=== PATIENT | male | born 1950 | race Caucasian/White ===

== ENCOUNTER 2017-07-18 10:14 | Inpatient (IN) | payer MEDICARE, OTHER ==
[~2017-07-18] VITALS: Ht 172.7 cm; Wt 66.0 kg
[2017-07-18] VITALS (11 sets, daily range): BP systolic 124–187; BP diastolic 76–95; PULSE 72–87; RESP 16–20; TEMP 97.2–97.9; O2SAT 96–100
[~2017-07-18 10:14] MED LIST: GLUCTAB PO; GLYB2.5T3 PO; LISI-372 PO; Z.0.NO CURRENT MEDS
--- NOTE | 2017-07-18 10:43 | PD ---
HPI Chief Complaint: Altered Mental Status Time Seen by Provider: 10:33 Travel History International Travel<30 days: No Contact w/Intl Traveler<30days: No Traveled to known affect area: No History of Present Illness HPI 76-year-old male came to the emergency room brought by EMS for altered mental status. Patient was supposed to show up at his job today but when he did not EMS was called to do a well check visit. They found him wandering in his house naked. He was unaware of his surroundings and altered. Currently there is a friend in the room who says that she last saw him his normal self 2 days ago he did go to his job yesterday and was last seen normal [place] at 5 PM. Patient is awake and sitting up but seems lethargic. His answers are in the form of mumbling. Patient has history of liver cancer and currently in a transplant list. His vital signs were otherwise normal. [facility] Past Medical History Narrative Medical List of his past medical, surgical, social and family history is reviewed from the nursing note. Cancer: No Cardiovascular Problems: No Diabetes: Yes Endocrine: No Genitourinary: No Hepatitis: Yes (HEP.C COMPLETED 6 MO. [place]) Hiatal Hernia: No Immune Disorder: No Musculoskeletal: Yes (ARTHRITIS) Neurologic: No Psychiatric: Yes (DEPRESSION) Reproductive: No Respiratory: No Thyroid Disease: No ?: Not Past Surgical History Abdominal Surgery: No AICD: No Cardiac Surgery: No Ear Surgery: No Endocrine Surgery: No Eye Surgery: No Genitourinary Surgery: No Gynecologic Surgery: No Joint Replacement: No Oral Surgery: No Pacemaker: No Thoracic Surgery: No Social History Alcohol Use: No Tobacco Use: No Substance Use: Yes (HISTORY OF DRUG USE; MARIJUANA) Allergies-Medications (Allergen,Severity, Reaction): Coded Allergies: No Known Allergies (Verified , 07/18/17) Comments No known drug allergies. Reported Meds & Prescriptions Reported Meds & Active Scripts Active Reported Propranolol (Propranolol HCl) 10 Mg Tab 10 Mg PO DAILY Magnesium Oxide 400 Mg Tab 400 Mg PO DAILY Novolog Flexpen Inj (Insulin Aspart) 300 Unit/3 Ml Pen 4 Units SQ TID With Meals Lantus Solostar Pen Inj (Insulin Glargine) 300 Unit/3 Ml Pen 10 Units SQ DAILY Lasix (Furosemide) 40 Mg Tab 80 Mg PO DAILY Spironolactone 100 Mg Tab 200 Mg PO DAILY Temazepam 15 Mg Cap 15 Mg PO HS PRN Narrative Medication List of his home medications reviewed from the nursing note. Review of Systems Except as stated in HPI: all other systems reviewed are Neg Physical Exam Narrative GENERAL: Confused, disheveled, slurred speech SKIN: Focused skin assessment warm/dry. Jaundice, spider hemangioma HEAD: Atraumatic. Normocephalic. EYES: Pupils equal and round. Active. No injection or drainage. ENT: No nasal bleeding or discharge. Mucous membranes pink and moist. NECK: Trachea midline. No JVD. CARDIOVASCULAR: Regular rate and rhythm. No murmur appreciated. RESPIRATORY: No accessory muscle use. Clear to auscultation. Breath sounds equal bilaterally. GASTROINTESTINAL: Abdomen soft, non-tender, nondistended. Hepatic and splenic margins not palpable. MUSCULOSKELETAL: No obvious deformities. No clubbing. No cyanosis. No edema. NEUROLOGICAL: GCS of 14. No obvious cranial nerve deficits. Motor grossly within normal limits. Slurred speech. Flapping tremor PSYCHIATRIC: Unable to assess Data Data Last Documented VS Orders Orders Electrocardiogram (07/18/17 10:52) Ammonia (07/18/17 10:52) Complete Blood Count With Diff (07/18/17 10:52) Comprehensive Metabolic Panel (07/18/17 10:52) Creatine Kinase (Cpk) (07/18/17 10:52) Prothrombin Time / Inr (Pt) (07/18/17 10:52) Troponin I (07/18/17 10:52) Thyroid Stimulating Hormone (07/18/17 10:52) Urinalysis - C+S If Indicated (07/18/17 10:52) Lactic Acid Sepsis Protocol (07/18/17 10:52) Arterial Blood Gas (Abg) (07/18/17 10:52) Blood Culture (07/18/17 10:52) Chest, Single Ap (07/18/17 10:52) Ct Brain W/O Iv Contrast(Rout) (07/18/17 10:52) Blood Glucose (07/18/17 10:52) Ecg Monitoring (07/18/17 10:52) Iv Access Insert/Monitor (07/18/17 10:52) Oximetry (07/18/17 10:52) Sodium Chloride 0.9% Flush (Ns Flush) (07/18/17 11:00) Sodium Chlor 0.9% 1000 Ml Inj (Ns 1000 M (07/18/17 10:52) Drug Screen, Random Urine (07/18/17 10:52) Alcohol (Ethanol) (07/18/17 10:52) Tylenol (Acetaminophen) (07/18/17 10:52) Salicylates (Aspirin) (07/18/17 10:52) Lactulose Liq (Lactulose Liq) (07/18/17 11:00) Sodium Chlor 0.9% 1000 Ml Inj (Ns 1000 M (07/18/17 12:45) Piperacil-Tazo 4.5 Gm Premix (Zosyn 4.5 (07/18/17 12:45) Vancomycin Inj (Vancomycin Inj) (07/18/17 12:45) Sodium Chlor 0.9% 1000 Ml Inj (Ns 1000 M (07/18/17 13:30) Piperacil-Tazo 4.5 Gm Premix (Zosyn 4.5 (07/18/17 13:30) Vancomycin Inj (Vancomycin Inj) (07/18/17 13:30) Comprehensive Metabolic Panel (07/19/17 06:00) Free Thyroxine (T4) (07/19/17 06:00) Hemoglobin (Hgb) A1c (07/19/17 06:00) Magnesium (Mg) (07/19/17 06:00) Phosphorus (Po4) (07/19/17 06:00) Thyroid Stimulating Hormone (07/19/17 06:00) Complete Blood Count With Diff (07/19/17 06:00) Admit Order (Ed Use Only) (07/18/17 13:58) Labs Laboratory Tests Test 07/18/17 11:00 07/18/17 12:10 07/18/17 12:19 White Blood Count 11.0 TH/MM3 Red Blood Count 4.16 MIL/MM3 Hemoglobin 14.8 GM/DL Hematocrit 42.1 % Mean Corpuscular Volume 101.3 FL Mean Corpuscular Hemoglobin 35.5 PG Mean Corpuscular Hemoglobin Concent 35.1 % Red Cell Distribution Width 16.0 % Platelet Count 168 TH/MM3 Mean Platelet Volume 8.4 FL Neutrophils (%) (Auto) 62.4 % Lymphocytes (%) (Auto) 17.2 % Monocytes (%) (Auto) 15.8 % Eosinophils (%) (Auto) 3.8 % Basophils (%) (Auto) 0.8 % Neutrophils # (Auto) 6.9 TH/MM3 Lymphocytes # (Auto) 1.9 TH/MM3 Monocytes # (Auto) 1.7 TH/MM3 Eosinophils # (Auto) 0.4 TH/MM3 Basophils # (Auto) 0.1 TH/MM3 CBC Comment DIFF FINAL Differential Comment Prothrombin Time 12.0 SEC Prothromb Time International Ratio 1.1 RATIO Blood Urea Nitrogen 19 MG/DL Creatinine 1.27 MG/DL Random Glucose 223 MG/DL Total Protein 8.7 GM/DL Albumin 2.9 GM/DL Calcium Level 9.1 MG/DL Alkaline Phosphatase 153 U/L Aspartate Amino Transf (AST/SGOT) 100 U/L Alanine Aminotransferase (ALT/SGPT) 114 U/L Total Bilirubin 3.3 MG/DL Sodium Level 128 MEQ/L Potassium Level 4.5 MEQ/L Chloride Level 94 MEQ/L Carbon Dioxide Level 24.5 MEQ/L Anion Gap 10 MEQ/L Estimat Glomerular Filtration Rate 57 ML/MIN Lactic Acid Level 2.8 mmol/L Ammonia 65 MCMOL/L Total Creatine Kinase 191 U/L Troponin I LESS THAN 0.02 NG/ML Thyroid Stimulating Hormone 3rd Gen 8.000 uIU/ML Salicylates Level LESS THAN 1.7 MG/DL Acetaminophen Level LESS THAN 2.0 MCG/ML Ethyl Alcohol Level LESS THAN 3 MG/DL Urine Color YELLOW Urine Turbidity CLEAR Urine pH 6.0 Urine Specific [place] 1.017 Urine Protein TRACE mg/dL Urine Glucose (UA) 70 mg/dL Urine Ketones NEG mg/dL Urine Occult Blood NEG Urine Nitrite NEG Urine Bilirubin NEG Urine Urobilinogen LESS THAN 2.0 MG/DL Urine Leukocyte Esterase NEG Urine RBC 1 /hpf Urine WBC 1 /hpf Urine Hyaline Casts 6 /lpf Microscopic Urinalysis Comment CATH-CULT NOT IND Urine Opiates Screen POS Urine Barbiturates Screen NEG Urine Amphetamines Screen NEG Urine Benzodiazepines Screen POS Urine Cocaine Screen NEG Urine Cannabinoids Screen NEG Blood Gas Puncture Site RT RADIAL Blood Gas Patient Temperature 98.6 Blood Gas HCO3 22 mmol/L Blood Gas Base Excess -2.4 mmol/L Blood Gas Oxygen Saturation 95 % Arterial Blood pH 7.41 Arterial Blood Partial Pressure CO2 34 mmHg Arterial Blood Partial Pressure O2 86 mmHG Arterial Blood Oxygen Content 17.4 Vol % Arterial Blood Carboxyhemoglobin 1.6 % Arterial Blood Methemoglobin 0.5 % Blood Gas Hemoglobin 13.0 G/DL Oxygen Delivery Device ROOM AIR Blood Gas Inspired Oxygen 21 % MDM Medical Decision Making Medical Screen Exam Complete: Yes Emergency Medical Condition: Yes Medical Record Reviewed: Yes Interpretation(s) Twelve-lead EKG was reviewed by me. Normal sinus rhythm, normal axis, nonspecific ST-T wave changes. Heart rate of 70 bpm. Differential Diagnosis Hepatic encephalopathy, intracranial bleed, stroke Narrative Course 1:15 PM blood test results are back. CPK slightly elevated. Ammonia is elevated. Head CT and chest x-rays within acceptable limits. Patient was given lactulose and IV fluid bolus. He will need to be admitted. Awaiting for the hospitalist to call back. Critical Care Narrative Aggregate critical care time was 30 minutes. Time to perform other separately billable procedures was not included in the critical care time. My time did not include minutes spent treating any other patients simultaneously or on activities that did not directly contribute to the patient's treatment. The services I provided to this patient were to treat and/or prevent clinically significant deterioration that could result in: Altered mental status, sepsis, sepsis, sepsis protocol I provided critical care services requiring my management, as noted below: Chart data review, documentation time, medication orders and management, vital sign assessments/reviewing monitor data, ordering and reviewing lab tests, ordering and interpreting/reviewing x-rays and diagnostic studies, care of the patient and discussion of the patient with the admitting physicians. Procedures EKG Prior to Arrival: Yes Diagnosis Primary Impression: Hepatic encephalopathy Additional Impressions: Lactic acidosis Altered mental state Qualified Codes: R41.0 - Disorientation, unspecified Admitting Information Admitting Physician Requests: Admit Scripts Lactulose Liq (Lactulose Liq) 10 Gm/15 Ml Soln 30 ML PO Q12HR for Infection, #60 ML 0 Refills Prov: Skyler Ward MD 07/19/17 Rifaximin (Xifaxan) 550 Mg Tab 550 MG PO BID for Infection, #60 TAB 3 Refills Prov: Skyler Ward MD 07/19/17 Michael Payne MD Jul 18, 2017 10:42
[2017-07-18] MEDS ORDERED: SODIUM CHLOR 0.9% 1000 ML INJ 1,000 ML IV SCH (10:52)
[2017-07-18] MEDS ORDERED: SPIR100T PO (10:55)
[2017-07-18] MEDS ORDERED: TEMA15CA PO (10:55)
[2017-07-18] MEDS ORDERED: FURO1TAB60 PO (10:55)
[2017-07-18] MEDS ORDERED: GABA300C5 PO (10:56)
[2017-07-18] MEDS ORDERED: LACTULOSE LIQ 300 ML in WATER STERILE FOR IRR BTL 700 ML RECTAL ONE (11:00)
[2017-07-18] MEDS ORDERED: SODIUM CHLORIDE 0.9% FLUSH 5 ML FLUSH IV FLUSH PRN (11:00)
[2017-07-18 11:14] LABS: AUTOMATED NEUTROPHIL # 6.9 TH/MM3 (1.8-7.7); BASOPHIL # 0.1 TH/MM3 (0-0.2); BASOPHIL % 0.8 % (0.0-2.0); EOSINOPHIL # 0.4 TH/MM3 (0-0.4); EOSINOPHIL % 3.8 % (0.0-4.0); HEMATOCRIT 42.1 % (39.0-51.0); HEMO FLAGS DIFF FINAL; LYMPH % 17.2 % (9.0-44.0); LYMPHOCYTE # 1.9 TH/MM3 (1.0-4.8); MEAN CELL VOLUME 101.3 FL (80.0-100.0); MEAN CORPUSCULAR HEMOGLOBIN 35.5 PG (27.0-34.0); MEAN CORPUSCULAR HGB CONC 35.1 % (32.0-36.0); MONO % 15.8 % (0.0-8.0); NEUT % 62.4 % (16.0-70.0); PLATELET COUNT 168 TH/MM3 (150-450); RED BLOOD COUNT 4.16 MIL/MM3 (4.50-5.90)
[2017-07-18 11:23] LABS: INTERNATIONAL NORMALIZED RATIO 1.1 RATIO
--- NOTE | 2017-07-18 11:44 | RADRPT ---
EXAM DATE/TIME: 07/18/2017 11:26 [facility] COMPARISON: No previous studies available for comparison. INDICATIONS : Altered mental status. RADIATION DOSE: 30.62 CTDIvol (mGy) MEDICAL HISTORY : Cirrhosis. Hepatitis C. Diabetes, liver cancer SURGICAL HISTORY : None. ENCOUNTER: Initial ACUITY: 1 day PAIN SCALE: 0/10 LOCATION: cranial TECHNIQUE: Multiple contiguous axial images were obtained of the head. Using automated exposure control and adj ustment of the mA and/or kV according to patient size, radiation dose was kept as low as reasonably a chievable to obtain optimal diagnostic quality images. DICOM format image data is available electro nically for review and comparison. FINDINGS: CEREBRUM: The ventricles are normal for age. No evidence of midline shift, mass lesion, hemorrhage or acute in farction. No extra-axial fluid collections are seen. POSTERIOR FOSSA: The cerebellum and brainstem are intact. The 4th ventricle is midline. The cerebellopontine angle i s unremarkable. EXTRACRANIAL: The visualized portion of the orbits is intact. SKULL: The calvaria is intact. No evidence of skull fracture. CONCLUSION: Normal examination. Ronni Moon MD on July 18, 2017 at 11:42 Board Certified Radiologist. This report was verified electronically.
[2017-07-18 12:09] LABS: ALKALINE PHOSPHATASE 153 U/L (45-117); ALT (GPT) 114 U/L (12-78); ANION GAP 10 MEQ/L (5-15); AST (GOT) 100 U/L (15-37); BICARBONATE 24.5 MEQ/L (21.0-32.0); BLOOD UREA NITROGEN 19 MG/DL (7-18); CHLORIDE 94 MEQ/L (98-107); CREATINE KINASE 191 U/L (39-308); GLOMERULAR FILTRATION RATE 57 ML/MIN (>89); SODIUM (NA) 128 MEQ/L (136-145); TOTAL BILIRUBIN ADULT 3.3 MG/DL (0.2-1.0)
[2017-07-18 12:10] LABS: ACETAMINOPHEN LESS THAN 2.0 MCG/ML (10.0-30.0); POTASSIUM 4.5 MEQ/L (3.5-5.1)
[2017-07-18 12:11] LABS: ALCOHOL LESS THAN 3 MG/DL (0-5)
[2017-07-18] MEDS ORDERED: MAGN400T2 PO (12:13)
[2017-07-18] MEDS ORDERED: NOVOINJ3 SQ (12:13)
[2017-07-18] MEDS ORDERED: LANTINJ SQ (12:13)
[2017-07-18] MEDS ORDERED: PROP10TA6 PO (12:13)
--- NOTE | 2017-07-18 12:31 | RADRPT ---
EXAM DATE/TIME: 07/18/2017 11:23 [facility] COMPARISON: No previous studies available for comparison. INDICATIONS : Confusion, nausea, short of breath. MEDICAL HISTORY : None. SURGICAL HISTORY : None. ENCOUNTER: Initial ACUITY: 1 day PAIN SCORE: 0/10 LOCATION: Bilateral chest FINDINGS: A single view of the chest demonstrates the lungs to be symmetrically aerated without evidence of mas s, infiltrate or effusion. The cardiomediastinal contours are unremarkable. Osseous structures are intact. CONCLUSION: No acute disease. Antony Frederick MD on July 18, 2017 at 12:30 Board Certified Radiologist. This report was verified electronically.
[2017-07-18 12:37] LABS: BLOOD GAS BASE EXCESS -2.4 mmol/L (-2-2); BLOOD GAS CARBOXYHEMOGLOBIN 1.6 % (0-4); BLOOD GAS HCO3 22 mmol/L (22-26); BLOOD GAS METHEMOGLOBIN 0.5 % (0-2); BLOOD GAS O2 HGB SATURATION 95 % (90-100); BLOOD GAS OXYGEN CONTENT 17.4 Vol % (12.0-20.0); BLOOD GAS PCO2 34 mmHg (38-42); BLOOD GAS PO2 86 mmHG (61-120); CRITICAL VALUE NO; DRAW SITE RT RADIAL; FIO2 21 %; OXYGEN DEVICE ROOM AIR; TEMP CORR TO 98.6
[2017-07-18 12:38] LABS: NUMBER OF ARTERIAL PUNCTURES 1; STAT YES; ULNAR PULSE PRESENT
[2017-07-18 12:40] LABS: BLOOD, URINE NEG (NEG); COMMENT (UR) CATH-CULT NOT IND; CULTURE IF INDICATED CATH CULTURE NOT IND; GLUCOSE,URINE 70 mg/dL (NEG); HYALINE CAST, URINE 6 /lpf (RARE); KETONE, URINE NEG (NEG); NITRITE,URINE NEG (NEG); URINE COLOR YELLOW (YELLW/STRAW)
[2017-07-18] MEDS ORDERED: VANCOMYCIN INJ 1,000 MG in SODIUM CHLOR 0.9% 250 ML INJ 250 ML IV ONE ×2 (12:45→13:30)
[2017-07-18] MEDS ORDERED: SODIUM CHLOR 0.9% 1000 ML INJ 1,000 ML IV ONE ×2 (12:45→13:30)
[2017-07-18] MEDS ORDERED: PIPERACIL-TAZO 4.5 GM PREMIX 100 ML IV ONE ×2 (12:45→13:30)
[2017-07-18 13:08] LABS: LACTIC ACID GHOST NOT REPORTABLE
[2017-07-18] MEDS ORDERED: ACETAMINOPHEN 325 MG TAB PO PRN ×2 (14:00)
[2017-07-18] MEDS ORDERED: BISACODYL 10 MG SUPP RECTAL PRN (14:00)
[2017-07-18] MEDS ORDERED: MORPHINE SULFATE 4 MG/ML INJ IV PUSH PRN ×2 (14:00)
[2017-07-18] MEDS ORDERED: traMADol HCL 50 MG TAB PO PRN ×2 (14:00)
[2017-07-18] MEDS ORDERED: LACTULOSE SYRUP 20 GM/30 ML CUP PO PRN (14:00)
[2017-07-18] MEDS ORDERED: HALOPERIDOL LACTATE 5 MG/ML AMP IM PRN (14:00)
[2017-07-18] MEDS ORDERED: SODIUM CHLORIDE 0.9% FLUSH 10 ML FLUSH IV FLUSH PRN ×2 (14:00)
[2017-07-18] MEDS ORDERED: PROCHLORPERAZINE 25 MG SUPP RECTAL PRN (14:00)
[2017-07-18] MEDS ORDERED: ONDANSETRON HCL 4 MG/2 ML VIAL IVP PRN (14:00)
[2017-07-18] MEDS ORDERED: NALOXONE HCL 0.4 MG/ML AMP IV PUSH PRN (14:00)
[2017-07-18] MEDS ORDERED: SODIUM CHLORIDE 0.9% FLUSH 10 ML FLUSH IV FLUSH SCH (14:00)
[2017-07-18] MEDS ORDERED: SENNOSIDES 8.6 MG TAB PO PRN (14:00)
[2017-07-18] MEDS ORDERED: MAGNESIUM HYDROXIDE SUSP 30 ML CUP PO PRN (14:00)
[2017-07-18] MEDS ORDERED: DEXTROSE 50% IN WATER 50 ML VIAL(D50) IV PUSH PRN (14:15)
[2017-07-18] MEDS ORDERED: GLUCAGON 1 MG/ML VIAL OTHER PRN (14:15)
--- NOTE | 2017-07-18 14:27 | HHI.HP ---
[facility] Service [facility] Primary Care Physician [facility] Admission Diagnosis altered mental status, hepatic encephalopathy, sepsis Diagnoses: (1) Diabetes mellitus Diagnosis: Secondary (2) Hepatitis C Diagnosis: Principal (3) Liver cancer Diagnosis: Principal (4) Noncompliance Diagnosis: Secondary (5) Altered mental state Diagnosis: Principal (6) Hepatic encephalopathy Diagnosis: Principal Chief Complaint: Altered mental status Travel History International Travel<30 Days: No Contact w/Intl Traveler <30 Da: No Traveled to Known Affected Are: No History of Present Illness Patient is a 66-year-old male came to the emergency room brought in by EMS for altered mental status. Patient was supposed to go to his job today but when he did not show up EMS was called to do a well check visit. They found him wandering in his house naked. He was unaware of his surroundings and was altered. A friend in the room states that she last saw him normal 2 days ago. She states that he went to his job yesterday and was seen normal then at 5 PM patient is awake and sitting up lethargic and confused. There is some questionable history of liver cancer and questionable history of being on transplant list has obvious hepatic encephalopathy at this time had an ammonia level Will be admitted last GI to see him. And he will be evaluated Review of Systems ROS Limitations: Altered Mental Status Constitutional: DENIES: Diaphoretic episodes, Fatigue, Fever, Weight gain, Weight loss, Chills, Dizziness, Change in appetite Endocrine: DENIES: Heat/cold intolerance, Polydipsia, Polyuria, Polyphagia Eyes: DENIES: Blurred vision, Diplopia, Eye inflammation, Eye pain, Vision loss Ears, nose, mouth, throat: DENIES: Tinnitus, Hearing loss, Vertigo, Nasal discharge Respiratory: DENIES: Apneas, Cough, Snoring, Wheezing, Hemoptysis Cardiovascular: DENIES: Chest pain, Palpitations, Syncope, Dyspnea on Exertion Gastrointestinal: DENIES: Abdominal pain, Black stools, Bloody stools, Constipation Musculoskeletal: DENIES: Joint pain, Muscle aches, Stiffness Integumentary: DENIES: Abnormal pigmentation, Nail changes Hematologic/lymphatic: DENIES: Bruising Immunologic/allergic: DENIES: Eczema, Urticaria Neurologic: COMPLAINS OF: Abnormal gait, DENIES: Headache, Localized weakness, Paresthesias, Seizures, Speech Problems, Tremor Psychiatric: COMPLAINS OF: Anxiety, Confusion, Depression, Agitation, DENIES: Mood changes, Hallucinations, Suicidal Ideation, Homicidal Ideation, Delusions Past Family Social History Past Medical History Diabetes mellitus Hepatitis C supposedly treated Osteoarthritis Depression anxiety Possible liver cancer Hepatic encephalopathy Insomnia Past Surgical History Hand surgery per chart review Reported Medications Reported Meds & Active Scripts Active Reported Propranolol (Propranolol HCl) 10 Mg Tab 10 Mg PO DAILY Magnesium Oxide 400 Mg Tab 400 Mg PO DAILY Novolog Flexpen Inj (Insulin Aspart) 300 Unit/3 Ml Pen 4 Units SQ TID With Meals Lantus Solostar Pen Inj (Insulin Glargine) 300 Unit/3 Ml Pen 10 Units SQ DAILY Lasix (Furosemide) 40 Mg Tab 80 Mg PO DAILY Spironolactone 100 Mg Tab 200 Mg PO DAILY Temazepam 15 Mg Cap 15 Mg PO HS PRN Allergies: Coded Allergies: No Known Allergies (Verified , 07/18/17) Active Ordered Medications Current Medications IV Flush (NS Flush) 2 ml UNSCH PRN IV FLUSH FLUSH AFTER USING IV ACCESS; Start 07/18/17 at 11:00 Sodium Chloride 1,000 ml @ 1,000 mls/hr Q1H IV Last administered on 07/18/17 11:10; Start 07/18/17 at 10:52; Stop 07/18/17 at 11:51; Status DC Lactulose 300 ml/ Sterile Water 1,000 ml @ 0 mls/hr ONCE ONCE RECTAL ; Start 07/18/17 at 11:00; Stop 07/18/17 at 11:34; Status DC Sodium Chloride 1,000 ml @ 999 mls/hr BOLUS ONCE IV Last administered on 07/18 13:30; Start 07/18/17 at 12:45; Stop 07/18/17 at 13:45; Status DC Piperacillin Sod/ Tazobactam Sod 100 ml @ 200 mls/hr ONCE ONCE IV Last administered on 07/18/17 13:31; Start 07/18/17 at 12:45; Stop 07/18/17 at 14:00 ; Status DC Vancomycin HCl 1000 mg/Sodium Chloride 250 ml @ 250 mls/hr ONCE ONCE IV ; Start 07/18/17 at 12:45; Stop 07/18/17 at 14:00; Status DC Sodium Chloride 1,000 ml @ 999 mls/hr BOLUS ONCE IV ; Start 07/18/17 at 13:30 ; Stop 07/18/17 at 14:30 Piperacillin Sod/ Tazobactam Sod 100 ml @ 200 mls/hr ONCE ONCE IV ; Start at 13:30; Stop 07/18/17 at 13:59; Status DC Vancomycin HCl 1000 mg/Sodium Chloride 250 ml @ 250 mls/hr ONCE ONCE IV ; Start 07/18/17 at 13:30; Stop 07/18/17 at 14:29 Sodium Chloride (NS Flush) 2 ml UNSCH PRN IV FLUSH FLUSH AFTER USING IV ACCESS ; Start 07/18/17 at 14:00; Status UNV Sodium Chloride (NS Flush) 2 ml BID IV FLUSH ; Start 07/18/17 at 14:00; Status UNV Acetaminophen (Tylenol) 650 mg Q4H PRN PO TEMP > 100.4; Start 07/18/17 at 14:00 Ondansetron HCl (Zofran Inj) 4 mg Q6H PRN IVP NAUSEA OR VOMITING; Start at 14:00; Status UNV Prochlorperazine (Compazine Supp) 25 mg Q12H PRN MD NAUSEA OR VOMITING; Start 07/18/17 at 14:00; Status UNV Acetaminophen (Tylenol) 650 mg Q6H PRN PO PAIN SCALE 1 TO 2; Start 07/18/17 at 14:00; Status UNV Morphine Sulfate (Morphine Inj) 2 mg Q3H PRN IV PUSH Pain 3-5; if unable to take PO; Start 07/18/17 at 14:00; Status UNV Morphine Sulfate (Morphine Inj) 4 mg Q3H PRN IV PUSH Pain 6-10;if unable to take PO; Start 07/18/17 at 14:00; Status UNV Tramadol HCl (Ultram) 50 mg Q4H PRN PO PAIN SCALE 3 TO 5; Start 07/18/17 at 14: 00; Status UNV Tramadol HCl (Ultram) 100 mg Q4H PRN PO PAIN SCALE 6 TO 10; Start 07/18/17 at 14:00; Status UNV Naloxone HCl (Narcan Inj) 0.4 mg UNSCH PRN IV PUSH SEE LABEL COMMENTS; Start at 14:00; Status UNV Senna/Docusate Sodium (Sandra-Colace) 1 tab BID PO ; Start 07/18/17 at 14:00; Status UNV Magnesium Hydroxide (Milk Of Magnesia Liq) 30 ml Q12H PRN PO MILD - MODERATE CONSTIPATION; Start 07/18/17 at 14:00; Status UNV Sennosides (Senokot) 17.2 mg Q12H PRN PO MODERATE - SEVERE CONSTIPATION; Start 07/18/17 at 14:00; Status UNV Bisacodyl (Dulcolax Supp) 10 mg DAILY PRN RECTAL SEVERE CONSITIPATION; Start at 14:00; Status UNV Lactulose (Lactulose Liq) 30 ml DAILY PRN PO SEVERE CONSITIPATION; Start at 14:00; Status UNV Sodium Chloride (NS Flush) 2 ml UNSCH PRN IV FLUSH FLUSH AFTER USING IV ACCESS ; Start 07/18/17 at 14:00; Status UNV Sodium Chloride (NS Flush) 2 ml BID IV FLUSH ; Start 07/18/17 at 21:00; Status UNV Lactulose (Lactulose Liq) 30 ml Q6H PO ; Start 07/18/17 at 14:00; Status UNV Rifaximin (Xifaxan) 550 mg BID PO ; Start 07/18/17 at 21:00; Status UNV Haloperidol Lactate (Haldol Inj) 5 mg Q6H PRN IM AGITATION; Start 07/18/17 at 14:00; Status UNV Thiamine HCl (Vitamin B1) 100 mg DAILY PO ; Start 07/18/17 at 14:00; Status UNV Furosemide (Lasix) 80 mg DAILY PO ; Start 07/19/17 at 09:00; Status UNV Magnesium Oxide (Mag-Ox) 400 mg DAILY PO ; Start 07/19/17 at 09:00; Status UNV Propranolol HCl (Inderal) 10 mg DAILY PO ; Start 07/19/17 at 09:00; Status UNV Spironolactone (Aldactone) 200 mg DAILY PO ; Start 07/19/17 at 09:00; Status UNV Non-Formulary Medication 4 units TID SQ ; Start 07/18/17 at 18:00; Status UNV Non-Formulary Medication 10 units DAILY SQ ; Start 07/19/17 at 09:00; Status UNV Family History Unable to obtain secondary to confusion Social History Unknown if he has alcohol issues or tobacco issues currently is not able to tell me History of drug use and marijuana Physical Exam Vital Signs Vital Signs Date Time Temp Pulse Resp B/P (MAP) Pulse Ox O2 Delivery O2 Flow Rate FiO2 07/18/17 10:41 76 18 156/95 (115) 100 Room Air 07/18/17 10:41 76 20 100 Room Air 07/18/17 10:27 97.9 72 20 169/89 (115) 100 Physical Exam GENERAL: This is a cachectic appearing, but well-developed patient, in no apparent distress. Confused slurred speech SKIN: No rashes, ecchymoses or lesions. Cool and dry. Slight jaundice HEAD: Atraumatic. Normocephalic. No temporal or scalp tenderness. EYES: Pupils equal round and reactive. Extraocular motions intact. Mild scleral icterus. No injection or drainage. ENT: Nose without bleeding, purulent drainage or septal hematoma. Throat without erythema, tonsillar hypertrophy or exudate. Uvula midline. Airway patent. Tongue midline NECK: Trachea midline. No JVD or lymphadenopathy. Supple, nontender, no meningeal signs. CARDIOVASCULAR: Regular rate and rhythm without murmurs, gallops, or rubs. S1 and S2 no S3 or S4 RESPIRATORY: Clear to auscultation. Breath sounds equal bilaterally. No wheezes , rales, or rhonchi. GASTROINTESTINAL: Abdomen soft, non-tender, nondistended. No hepato-splenomegaly , or palpable masses. No guarding. MUSCULOSKELETAL: Extremities without clubbing, cyanosis, or edema. No joint tenderness, effusion, or edema noted. No calf tenderness. Negative Homans sign bilaterally. NEUROLOGICAL: Awake and alert. Cranial nerves II through XII intact. Motor and sensory grossly within normal limits. Five out of 5 muscle strength in all muscle groups. Normal speech. Slurred speech tremors Insight and judgment are poor Mood and behavior are not appropriate Laboratory Laboratory Tests Test 07/18/17 11:00 07/18/17 12:10 07/18/17 12:19 White Blood Count 11.0 Red Blood Count 4.16 Hemoglobin 14.8 Hematocrit 42.1 Mean Corpuscular Volume 101.3 Mean Corpuscular Hemoglobin 35.5 Mean Corpuscular Hemoglobin Concent 35.1 Red Cell Distribution Width 16.0 Platelet Count 168 Mean Platelet Volume 8.4 Neutrophils (%) (Auto) 62.4 Lymphocytes (%) (Auto) 17.2 Monocytes (%) (Auto) 15.8 Eosinophils (%) (Auto) 3.8 Basophils (%) (Auto) 0.8 Neutrophils # (Auto) 6.9 Lymphocytes # (Auto) 1.9 Monocytes # (Auto) 1.7 Eosinophils # (Auto) 0.4 Basophils # (Auto) 0.1 CBC Comment DIFF FINAL Differential Comment Prothrombin Time 12.0 Prothromb Time International Ratio 1.1 Blood Urea Nitrogen 19 Creatinine 1.27 Random Glucose 223 Total Protein 8.7 Albumin 2.9 Calcium Level 9.1 Alkaline Phosphatase 153 Aspartate Amino Transf (AST/SGOT) 100 Alanine Aminotransferase (ALT/SGPT) 114 Total Bilirubin 3.3 Sodium Level 128 Potassium Level 4.5 Chloride Level 94 Carbon Dioxide Level 24.5 Anion Gap 10 Estimat Glomerular Filtration Rate 57 Lactic Acid Level 2.8 Ammonia 65 Total Creatine Kinase 191 Troponin I LESS THAN 0.02 Thyroid Stimulating Hormone 3rd Gen 8.000 Salicylates Level LESS THAN 1.7 Acetaminophen Level LESS THAN 2.0 Ethyl Alcohol Level LESS THAN 3 Urine Color YELLOW Urine Turbidity CLEAR Urine pH 6.0 Urine Specific Dickens 1.017 Urine Protein TRACE Urine Glucose (UA) 70 Urine Ketones NEG Urine Occult Blood NEG Urine Nitrite NEG Urine Bilirubin NEG Urine Urobilinogen LESS THAN 2.0 Urine Leukocyte Esterase NEG Urine RBC 1 Urine WBC 1 Urine Hyaline Casts 6 Microscopic Urinalysis Comment CATH-CULT NOT IND Urine Opiates Screen POS Urine Barbiturates Screen NEG Urine Amphetamines Screen NEG Urine Benzodiazepines Screen POS Urine Cocaine Screen NEG Urine Cannabinoids Screen NEG Blood Gas Puncture Site RT RADIAL Blood Gas Patient Temperature 98.6 Blood Gas HCO3 22 Blood Gas Base Excess -2.4 Blood Gas Oxygen Saturation 95 Arterial Blood pH 7.41 Arterial Blood Partial Pressure CO2 34 Arterial Blood Partial Pressure O2 86 Arterial Blood Oxygen Content 17.4 Arterial Blood Carboxyhemoglobin 1.6 Arterial Blood Methemoglobin 0.5 Blood Gas Hemoglobin 13.0 Oxygen Delivery Device ROOM AIR Blood Gas Inspired Oxygen 21 Date/Time Source Procedure Growth Status 07/18/17 11:00 Blood Peripheral Aerobic Blood Culture Pending Received 07/18/17 11:00 Blood Peripheral Anaerobic Blood Culture Pending Received Result Diagram: 07/18/17 1100 07/18/17 1100 Imaging Last Impressions Head CT 07/18/17 1052 Signed Impressions: Service Date/Time: Tuesday, July 18, 2017 11:26 - CONCLUSION: Normal examination. Ronni Moon MD Chest X-Ray 07/18/17 1052 Signed Impressions: Service Date/Time: Tuesday, July 18, 2017 11:23 - CONCLUSION: No acute disease. MD Evan Viramontes VTE Risk Assessment Caprini VTE Risk Assessment: Mod/High Risk (score >= 2) Caprini Risk Assessment Model Point Value = 1 Point Value = 2 Point Value = 3 Point Value = 5 Age 41-60 Minor surgery BMI > 25 kg/m2 Swollen legs Varicose veins or History of unexplained or recurrent spontaneous Oral contraceptives or hormone replacement Sepsis (< 1 month) Serious lung disease, including pneumonia (< 1 month) Abnormal pulmonary function Acute myocardial infarction Congestive heart failure (< 1 month) History of inflammatory bowel disease Medical patient at bed rest Age 61-74 Arthroscopic surgery Major open surgery (> 45 min) Laparoscopic surgery (> 45 min) Malignancy Confined to bed (> 72 hours) Immobilizing plaster cast Central venous access Age >= 75 History of VTE Family history of VTE Factor V Leiden Prothrombin [id number] Lupus anticoagulant Anticardiolipin antibodies Elevated serum homocysteine Heparin-induced thrombocytopenia Other congenital or acquired thrombophilia Stroke (< 1 month) Elective arthroplasty Hip, pelvis, or leg fracture Acute spinal cord injury (< 1 month) Prophylaxis Regimen Total Risk Factor Score Risk Level Prophylaxis Regimen 0-1 Low Early ambulation 2 Moderate Order ONE of the following: *Sequential Compression Device (SCD) *Heparin 5000 units SQ BID 3-4 Higher Order ONE of the following medications: *Heparin 5000 units SQ TID *Enoxaparin/Lovenox 40 mg SQ daily (WT < 150 kg, CrCl > 30 mL/min) *Enoxaparin/Lovenox 30 mg SQ daily (WT < 150 kg, CrCl > 10-29 mL/min) *Enoxaparin/Lovenox 30 mg SQ BID (WT < 150 kg, CrCl > 30 mL/min) AND/OR *Sequential Compression Device (SCD) 5 or more Highest Order ONE of the following medications: *Heparin 5000 units SQ TID (Preferred with Epidurals) *Enoxaparin/Lovenox 40 mg SQ daily (WT < 150 kg, CrCl > 30 mL/min) *Enoxaparin/Lovenox 30 mg SQ daily (WT < 150 kg, CrCl > 10-29 mL/min) *Enoxaparin/Lovenox 30 mg SQ BID (WT < 150 kg, CrCl > 30 mL/min) AND *Sequential Compression Device (SCD) Assessment and Plan Problem List: (1) Noncompliance ICD Code: Z91.19 - Patient's noncompliance with other medical treatment and regimen (2) Hepatitis C ICD Code: B19.20 - Unspecified viral hepatitis C without hepatic coma (3) Liver cancer ICD Code: C22.9 - Malignant neoplasm of liver, not specified as primary or secondary (4) Diabetes mellitus ICD Code: E11.9 - Type 2 diabetes mellitus without complications (5) Altered mental state ICD Code: R41.82 - Altered mental status, unspecified Status: Acute (6) Hepatic encephalopathy ICD Code: K72.90 - Hepatic failure, unspecified without coma Status: Acute Assessment and Plan Altered mental status suspect secondary to hepatic encephalopathy his ammonia level is elevated as flapping tremors will give lactulose multiple times a day until this comes down Liver cancer/hepatitis C. On chronic medications for cirrhosis Diabetes mellitus continue sliding scale coverage diabetic diet and Accu-Cheks before meals and at bedtime Depression home medications Chronic cirrhosis continue on all medications for this including lactulose which will be increased since On His Med Reconciliation We Will Add Rifaximin 550 mg twice a day Continue on some fluids due to the renal insufficiency/dehydration We'll get a.m. labs We'll get physical therapy and occupational therapy to eval and treat We'll get case management to help regarding placement Per chart review patient is supposedly on transplant list Code Status Full code Discussed Condition With Emergency room physician ER nurse and patient who is quite confused and not a good source of information Physician Certification 2 Midnight Certification Type: Admission for Inpatient Services Order for Inpatient Services The services are ordered in accordance with Medicare regulations or non- Medicare payer requirements, as applicable. In the case of services not specified as inpatient-only, they are appropriately provided as inpatient services in accordance with the 2-midnight benchmark. Estimated LOS (days): 3 3 days is the estimated time the patient will need to remain in the hospital, assuming treatment plan goals are met and no additional complications. Post-Hospital Plan: Not yet determined Problem Qualifiers (1) Altered mental state: Qualified Codes: R41.0 - Disorientation, unspecified Florin Padilla DO Jul 18, 2017 14:27
[2017-07-18] MEDS: LACTULOSE SYRUP 20 GM/30 ML CUP PO SCH ×2 (15:09→20:19)
[2017-07-18] MEDS: SODIUM CHLOR 0.9% 1000 ML INJ 1,000 ML IV SCH ×2 (15:10→16:47)
[2017-07-18] MEDS: PANTOPRAZOLE SOD 40 MG DELAYED RELEASE TAB PO SCH ×2 (15:10→20:19)
[2017-07-18] MEDS: THIAMINE HCL 100 MG TAB PO SCH (15:42)
[2017-07-18] MEDS: DOCUSATE SODIUM 50 MG/SENNA 8.6 MG TAB PO SCH ×2 (15:43→20:19)
[2017-07-18] MEDS: INSULIN ASPART SUPPLEMENTAL SCALE SQ SCH ×2 (17:00→20:20)
[2017-07-18] MEDS: INSULIN ASPART 1,000 UNITS/10 ML VIAL SQ SCH (18:09)
[2017-07-18] MEDS: SODIUM CHLORIDE 0.9% FLUSH 10 ML FLUSH IV FLUSH SCH (20:19)
[2017-07-18] MEDS: RIFAXIMIN 550 MG TAB PO SCH (20:19)
[2017-07-19] VITALS: BP 101/62; PULSE 73; RESP 16; TEMP 97.7; O2SAT 94
[2017-07-19] MEDS: LACTULOSE SYRUP 20 GM/30 ML CUP PO SCH ×2 (01:08→08:41)
[2017-07-19 04:00] VITALS: BP 113/64; PULSE 73; RESP 16; TEMP 97.7; O2SAT 98
[2017-07-19] MEDS: SODIUM CHLOR 0.9% 1000 ML INJ 1,000 ML IV SCH (04:28)
[2017-07-19] MEDS: INSULIN ASPART 1,000 UNITS/10 ML VIAL SQ SCH (08:00)
[2017-07-19 08:40] VITALS: O2SAT 95
[2017-07-19] MEDS: PANTOPRAZOLE SOD 40 MG DELAYED RELEASE TAB PO SCH (08:40)
[2017-07-19] MEDS: INSULIN ASPART SUPPLEMENTAL SCALE SQ SCH (08:41)
[2017-07-19] MEDS: SODIUM CHLORIDE 0.9% FLUSH 10 ML FLUSH IV FLUSH SCH (08:41)
[2017-07-19] MEDS: RIFAXIMIN 550 MG TAB PO SCH (08:41)
[2017-07-19] MEDS: THIAMINE HCL 100 MG TAB PO SCH (08:42)
[2017-07-19] MEDS: DOCUSATE SODIUM 50 MG/SENNA 8.6 MG TAB PO SCH (08:43)
[2017-07-19 08:55] VITALS: PULSE 79
[2017-07-19] MEDS ORDERED: MAGNESIUM OXIDE 400 MG TAB PO SCH (09:00)
[2017-07-19] MEDS ORDERED: INSULIN DETEMIR 100 UNITS/ML VIAL SQ SCH (09:00)
[2017-07-19] MEDS ORDERED: SPIRONOLACTONE 100 MG TAB PO SCH (09:00)
[2017-07-19] MEDS ORDERED: PROPRANOLOL HCL 10 MG TAB PO SCH (09:00)
[2017-07-19] MEDS ORDERED: FUROSEMIDE 40 MG TAB PO SCH (09:00)
[2017-07-19 09:03] LABS: AUTOMATED NEUTROPHIL # 4.6 TH/MM3 (1.8-7.7); BASOPHIL % 0.5 % (0.0-2.0); EOSINOPHIL # 0.1 TH/MM3 (0-0.4); EOSINOPHIL % 2.3 % (0.0-4.0); HEMATOCRIT 34.9 % (39.0-51.0); LYMPH % 8.8 % (9.0-44.0); LYMPHOCYTE # 0.5 TH/MM3 (1.0-4.8); MEAN CORPUSCULAR HEMOGLOBIN 35.3 PG (27.0-34.0); MEAN CORPUSCULAR HGB CONC 34.6 % (32.0-36.0); MONO % 11.2 % (0.0-8.0); NEUT % 77.2 % (16.0-70.0); PLATELET COUNT 85 TH/MM3 (150-450); RED BLOOD COUNT 3.42 MIL/MM3 (4.50-5.90); RED CELL DISTRIBUTION WIDTH 15.9 % (11.6-17.2)
[2017-07-19 09:07] LABS: HEMO FLAGS AUTO DIFF
--- NOTE | 2017-07-19 09:24 | PD.CONS ---
HPI History of Present Illness This is a 66 year old male with a history of liver cirrhosis, hepatocellular carcinoma, esophageal varices, hepatic encephalopathy, recurrent ascites, who was brought to the emergency room for evaluation of altered mental status. He did not show up for work yesterday and a coworker called for a well person check. He was found lying on the floor naked and confused. He was brought to the hospital for further evaluation and treatment of found to have an ammonia level of 65. He is currently alert and oriented 3. He tells me that he has peripheral neuropathy and when he came home from work on Monday, he was having significant lower extremity pain and therefore took an oxymorphine along with his temazepam. He reports that the next thing he remembers was waking up with EVAC over him. He was diagnosed with liver cirrhosis secondary to alcohol and hepatitis C (Genotype 1A) in 2003. He was unsuccessfully treated with interferon and ribavirin. He was then treated with Sovaldi, but states that he did not maintain a sustained virologic response. He quit drinking in 2005. He also quit using marijuana at that time; the transplant list. He has not had any alcohol since that time. He was then diagnosed with hepatocellular carcinoma in 2016 and underwent transcatheter arterial chemoembolization on , 06/15/16, 11/08/16, and 01/11/17. He then had a follow-up CT scan which did not appreciate any residual disease. He has recurrent ascites and requires paracentesis every 2-3 weeks. His last paracentesis was 06/30/17 and he had 3.5 L removed. He had esophageal varices in 2003, and had a band ligation at that time but states he hasn't had any issues with these since that time. He's had an EGD and a colonoscopy within the past year or 2 through the [facility]. He is currently followed by the [facility]. He reports that the [facility] [place] sent him to [place] for liver transplant evaluation and they are scheduling another appointment form. He reports that his AST and ALT are usually in the 100 range. He denies any nausea, vomiting, abdominal pain, lower extremity edema, melena, or hematochezia. He is on Lasix 80mg po daily and Spironolactone 200mg po daily, and propranolol 10mg po daily. He does not take any lactulose or Xifaxan at home. (La Nena Odell) PFSH Past Medical History Diabetes mellitus Hepatitis C (genotype 1A), unsuccessful tx Osteoarthritis Depression Anxiety Hepatocellular carcinoma Recurrent ascites Hx esophageal varices Liver cirrhosis Hepatic encephalopathy Insomnia Past Surgical History Hand surgery TACE procedure EGD with band ligation Colonoscopy (La Nena Odell) Coded Allergies: No Known Allergies (Verified , 07/18/17) Medications Allergies Coded Allergies Type Severity Reaction Last Updated Verified No Known Allergies 07/18/17 Yes Active Scripts Medications Dose Route/Sig Max Daily Dose Days Date Category Dose Instructions Propranolol (Propranolol HCl) 10 Mg Tab 10 Mg PO DAILY 07/18/17 Reported Magnesium Oxide 400 Mg Tab 400 Mg PO DAILY 07/18/17 Reported Novolog Flexpen Inj (Insulin Aspart) 300 Unit/3 Ml Pen 4 Units SQ TID 07/18/17 Reported With Meals Lantus Solostar Pen Inj (Insulin Glargine) 300 Unit/3 Ml Pen 10 Units SQ DAILY 07/18/17 Reported Lasix (Furosemide) 40 Mg Tab 80 Mg PO DAILY 07/18/17 Reported Spironolactone 100 Mg Tab 200 Mg PO DAILY 07/18/17 Reported Temazepam 15 Mg Cap 15 Mg PO HS PRN 07/18/17 Reported Family History No family history of liver disease Social History Quit drinking alcohol in 2005 Never smoked tobacco Quit smoking marijuana in 2005 (La Nena Odell) Review of Systems Constitutional: DENIES: Fatigue, Fever, Weight loss, Chills, Change in appetite Respiratory: DENIES: Cough Cardiovascular: DENIES: Chest pain Gastrointestinal: COMPLAINS OF: Swelling of Abdomen, DENIES: Abdominal pain, Black stools, Bloody stools, Constipation, Diarrhea, Nausea, Vomiting, Heartburn , Hematemesis Musculoskeletal: COMPLAINS OF: Joint pain Integumentary: DENIES: Abnormal pigmentation Hematologic/lymphatic: DENIES: Bruising Neurologic: DENIES: Headache Psychiatric: COMPLAINS OF: Confusion (La Nena Odell) GI Exam Vitals I&O Vital Signs Date Time Temp Pulse Resp B/P (MAP) Pulse Ox O2 Delivery O2 Flow Rate FiO2 07/19/17 04:00 Room Air 07/19/17 04:00 97.7 73 16 113/64 (80) 98 07/19/17 00:00 Room Air 07/19/17 00:00 97.7 73 16 101/62 (75) 94 07/18/17 23:31 97 07/18/17 20:27 75 07/18/17 20:00 97.3 74 16 124/76 (92) 96 07/18/17 17:36 87 07/18/17 16:00 97.2 78 20 131/78 (95) 99 07/18/17 15:43 86 18 127/86 (100) 97 07/18/17 15:11 81 18 129/86 (100) 97 Room Air 07/18/17 14:21 72 18 170/84 (112) 99 Room Air 07/18/17 13:15 72 18 187/85 (119) 99 Room Air 07/18/17 10:41 76 18 156/95 (115) 100 Room Air 07/18/17 10:41 76 20 100 Room Air 07/18/17 10:27 97.9 72 20 169/89 (115) 100 I/O 07/18/17 07/18/17 07/18/17 07/19/17 07/19/17 07/19/17 07:00 15:00 23:00 07:00 15:00 23:00 Intake Total 3100 ml 1240 ml 1263 ml Output Total 400 ml 400 ml Balance 3100 ml 840 ml 863 ml Intake Oral 240 ml IV Total 3100 ml 1000 ml 1263 ml Output Urine Total 400 ml 400 ml # Bowel Movements 1 Imaging Last Impressions Head CT 07/18/17 1052 Signed Impressions: Service Date/Time: Tuesday, July 18, 2017 11:26 - CONCLUSION: Normal examination. Ronni Moon MD Chest X-Ray 07/18/17 1052 Signed Impressions: Service Date/Time: Tuesday, July 18, 2017 11:23 - CONCLUSION: No acute disease. Antony Frederick MD Laboratory Test 07/18/17 11:00 07/18/17 12:10 07/18/17 12:19 07/18/17 14:45 White Blood Count 11.0 TH/MM3 Red Blood Count 4.16 MIL/MM3 Hemoglobin 14.8 GM/DL Hematocrit 42.1 % Mean Corpuscular Volume 101.3 FL Mean Corpuscular Hemoglobin 35.5 PG Mean Corpuscular Hemoglobin Concent 35.1 % Red Cell Distribution Width 16.0 % Platelet Count 168 TH/MM3 Mean Platelet Volume 8.4 FL Neutrophils (%) (Auto) 62.4 % Lymphocytes (%) (Auto) 17.2 % Monocytes (%) (Auto) 15.8 % Eosinophils (%) (Auto) 3.8 % Basophils (%) (Auto) 0.8 % Neutrophils # (Auto) 6.9 TH/MM3 Lymphocytes # (Auto) 1.9 TH/MM3 Monocytes # (Auto) 1.7 TH/MM3 Eosinophils # (Auto) 0.4 TH/MM3 Basophils # (Auto) 0.1 TH/MM3 CBC Comment DIFF FINAL Differential Comment Prothrombin Time 12.0 SEC Prothromb Time International Ratio 1.1 RATIO Blood Urea Nitrogen 19 MG/DL Creatinine 1.27 MG/DL Random Glucose 223 MG/DL Total Protein 8.7 GM/DL Albumin 2.9 GM/DL Calcium Level 9.1 MG/DL Alkaline Phosphatase 153 U/L Aspartate Amino Transf (AST/SGOT) 100 U/L Alanine Aminotransferase (ALT/SGPT) 114 U/L Total Bilirubin 3.3 MG/DL Sodium Level 128 MEQ/L Potassium Level 4.5 MEQ/L Chloride Level 94 MEQ/L Carbon Dioxide Level 24.5 MEQ/L Anion Gap 10 MEQ/L Estimat Glomerular Filtration Rate 57 ML/MIN Lactic Acid Level 2.8 mmol/L 3.1 mmol/L Ammonia 65 MCMOL/L Total Creatine Kinase 191 U/L Troponin I LESS THAN 0.02 NG/ML Thyroid Stimulating Hormone 3rd Gen 8.000 uIU/ML Salicylates Level LESS THAN 1.7 MG/DL Acetaminophen Level LESS THAN 2.0 MCG/ML Ethyl Alcohol Level LESS THAN 3 MG/DL Urine Color YELLOW Urine Turbidity CLEAR Urine pH 6.0 Urine Specific Warren 1.017 Urine Protein TRACE mg/dL Urine Glucose (UA) 70 mg/dL Urine Ketones NEG mg/dL Urine Occult Blood NEG Urine Nitrite NEG Urine Bilirubin NEG Urine Urobilinogen LESS THAN 2.0 MG/DL Urine Leukocyte Esterase NEG Urine RBC 1 /hpf Urine WBC 1 /hpf Urine Hyaline Casts 6 /lpf Microscopic Urinalysis Comment CATH-CULT NOT IND Urine Opiates Screen POS Urine Barbiturates Screen NEG Urine Amphetamines Screen NEG Urine Benzodiazepines Screen POS Urine Cocaine Screen NEG Urine Cannabinoids Screen NEG Blood Gas Puncture Site RT RADIAL Blood Gas Patient Temperature 98.6 Blood Gas HCO3 22 mmol/L Blood Gas Base Excess -2.4 mmol/L Blood Gas Oxygen Saturation 95 % Arterial Blood pH 7.41 Arterial Blood Partial Pressure CO2 34 mmHg Arterial Blood Partial Pressure O2 86 mmHG Arterial Blood Oxygen Content 17.4 Vol % Arterial Blood Carboxyhemoglobin 1.6 % Arterial Blood Methemoglobin 0.5 % Blood Gas Hemoglobin 13.0 G/DL Oxygen Delivery Device ROOM AIR Blood Gas Inspired Oxygen 21 % Test 07/19/17 08:30 Ammonia 31 MCMOL/L Date/Time Source Procedure Growth Status 07/18/17 11:00 Blood Peripheral Aerobic Blood Culture Pending Received 07/18/17 11:00 Blood Peripheral Anaerobic Blood Culture Pending Received Physical Examination HEENT: Normocephalic; atraumatic; no jaundice. CHEST: CTA CARDIAC: RRR ABDOMEN: Soft, nondistended, nontender; hepatosplenomegaly; bowel sounds are present in all four quadrants. Mild ascites EXTREMITIES: No clubbing, cyanosis, or edema. SKIN: Normal; no rash; no jaundice. 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 (La Nena Odell) Assessment and Plan Plan ASSESSMENT: - AMS, likely multifactorial secondary to hepatic encephalopathy and medication use (Oxymorphine and Temazepam). He was found with AMS and brought to ER. Ammonia 65---> 31. Lactulose. Xifaxan. RESOLVED, now A/Ox3. - ESLD, Liver cirrhosis secondary to Hepatitis C (Genotype 1A), ETOH abuse. Quit drinking 2005. S/P unsuccessful tx with Interferon/Ribavirin and [facility]vadi. [facility] to [place] for liver transplant evaluation and they are in the process of scheduling his next appointment. T bilirubin 3.3, AST 100, ALT 114, alkaline phosphatase 153, platelets 168, PT 12.0, INR 1.1. Patient tells me that his baseline AST and ALT are in the 100s. MELD 14. - Recurrent ascites. He requires paracentesis every 2-3 weeks and last had one on 06/30--> 3.5 L removed. Lasix, Spironolactone. - Hx HCC. Dx in 2016 and underwent transcatheter arterial chemoembolization on 04/27/16, 06/15/16, 11/08/16, and 01/11/17. He then had a follow-up CT scan which did not appreciate any residual disease. - Hx Esophageal varices, s/p band ligation last in 2003. No active bleeding. Followed [facility]. - DM, Anxiety, Depression, Peripheral neuropathy per attending. PLAN: - 2 Gram Na+ diet - Cont. Lasix - Cont. Spironolactone - Cont. Xifaxan - Cont. Lactulose - Cont. Propranolol - Await today's labs - Avoid oversedating medications (suspect his AMS was secondary to oxymorphine/ temazepam on underlying hepatic encephalopathy). - If remains stable, would be okay to d/c home with outpatient follow up at [facility]. He is being scheduled for his second transplant evaluation appointment through the [facility] - Pt seen and examined by Dr. Casper and myself and this note is written on his behalf (La Nena Odell) Plan Agree with the above note, patient is okay for discharge, Follow-Up with the [facility] As an Outpatient (Wilberto Casper MD) La Nena Odell Jul 19, 2017 09:24 Wilberto Casper MD Jul 19, 2017 15:27
[2017-07-19 10:21] LABS: OVALOCYTES 1+ (NORMAL); PLATELET ESTIMATE SMEAR LOW (NORMAL); PLATELET MORPHOLOGY NORMAL (NORMAL); SCAN/DIFF AUTO DIFF CONFIRMED
--- NOTE | 2017-07-19 10:42 | HHI.PR ---
Subjective Remarks Follow-up hepatic encephalopathy/altered mental status change 07/19/17-patient seen and examined, alert and oriented 3. No acute event overnight. Ammonia level 31 Objective Vitals Vital Signs Date Time Temp Pulse Resp B/P (MAP) Pulse Ox O2 Delivery O2 Flow Rate FiO2 07/19/17 08:55 Room Air 07/19/17 08:55 79 07/19/17 04:00 Room Air 07/19/17 04:00 97.7 73 16 113/64 (80) 98 07/19/17 00:00 Room Air 07/19/17 00:00 97.7 73 16 101/62 (75) 94 07/18/17 23:31 97 07/18/17 20:27 75 07/18/17 20:00 97.3 74 16 124/76 (92) 96 07/18/17 17:36 87 07/18/17 16:00 97.2 78 20 131/78 (95) 99 07/18/17 15:43 86 18 127/86 (100) 97 07/18/17 15:11 81 18 129/86 (100) 97 Room Air 07/18/17 14:21 72 18 170/84 (112) 99 Room Air 07/18/17 13:15 72 18 187/85 (119) 99 Room Air 07/18/17 10:41 76 18 156/95 (115) 100 Room Air 07/18/17 10:41 76 20 100 Room Air I/O 07/18/17 07/18/17 07/18/17 07/19/17 07/19/17 07/19/17 07:00 15:00 23:00 07:00 15:00 23:00 Intake Total 3100 ml 1240 ml 1263 ml Output Total 400 ml 400 ml Balance 3100 ml 840 ml 863 ml Intake Oral 240 ml IV Total 3100 ml 1000 ml 1263 ml Output Urine Total 400 ml 400 ml # Bowel Movements 1 Result Diagram: 07/19/17 0830 07/18/17 1100 Imaging Last Impressions Head CT 07/18/17 1052 Signed Impressions: Service Date/Time: Tuesday, July 18, 2017 11:26 - CONCLUSION: Normal examination. Ronni Moon MD Chest X-Ray 07/18/17 1052 Signed Impressions: Service Date/Time: Tuesday, July 18, 2017 11:23 - CONCLUSION: No acute disease. Antony Frederick MD Objective Remarks GENERAL: NAD SKIN: Warm and dry. HEAD: Normocephalic. EYES: No scleral icterus. No injection or drainage. NECK: Supple, trachea midline. No JVD or lymphadenopathy. CARDIOVASCULAR: Regular rate and rhythm without murmurs, gallops, or rubs. RESPIRATORY: Breath sounds equal bilaterally. No accessory muscle use. GASTROINTESTINAL: Abdomen soft, non-tender, nondistended. MUSCULOSKELETAL: No cyanosis, or edema. BACK: Nontender without obvious deformity. No CVA tenderness. A/P Problem List: (1) Hepatic encephalopathy ICD Code: K72.90 - Hepatic failure, unspecified without coma Status: Resolved (2) Noncompliance ICD Code: Z91.19 - Patient's noncompliance with other medical treatment and regimen (3) Hepatitis C ICD Code: B19.20 - Unspecified viral hepatitis C without hepatic coma (4) Liver cancer ICD Code: C22.9 - Malignant neoplasm of liver, not specified as primary or secondary (5) Diabetes mellitus ICD Code: E11.9 - Type 2 diabetes mellitus without complications (6) Altered mental state ICD Code: R41.82 - Altered mental status, unspecified Status: Resolved Assessment and Plan 66-year-old man with Alter mental status change Multifactorial, hepatic encephalopathy +/- medications use Now resolved - Hepatic encephalopathy Ammonia 65---> 31. Continue treatment with Lactulose. Xifaxan Appreciate input from GI - ESLD, Liver cirrhosis secondary to Hepatitis C (Genotype 1A) S/P unsuccessful tx with Interferon/Ribavirin and Solvadi. [facility] to [place] for liver transplant evaluation - Recurrent ascites. He requires paracentesis every 2-3 weeks and last had one on 06/30--> 3.5 L removed. Continue Lasix, Spironolactone, Propranolol, Lactulose and Xifaxan . - Hx HCC. Dx in 2015 and underwent transcatheter arterial chemoembolization on 04/27/16, 06/15/16, 11/08/16, and 01/11/17. - Hx Esophageal varices, s/p band ligation last in 2003. No active bleeding. - DM, Anxiety, Depression, Peripheral neuropathy Continue outpatient medications Discharge Planning Discharge patient to home Condition on discharge: Improved Regular Diet as tolerated Ad Zofia activity Rx written:See EMR Follow-up with primary care physician in 1 week GI at the [facility] Problem Qualifiers (1) Altered mental state: Qualified Codes: R41.0 - Disorientation, unspecified Skyler Ward MD Jul 19, 2017 10:42
[2017-07-19] MEDS ORDERED: XIFA550T4 PO (10:45)
[2017-07-19] MEDS ORDERED: LACT10SO PO (10:45)
[2017-07-19 11:00] LABS: ANION GAP 8 MEQ/L (5-15); AST (GOT) 67 U/L (15-37); BICARBONATE 19.4 MEQ/L (21.0-32.0); CHLORIDE 107 MEQ/L (98-107); GLOMERULAR FILTRATION RATE 70 ML/MIN (>89); MAGNESIUM 1.8 MG/DL (1.5-2.5); POTASSIUM 4.6 MEQ/L (3.5-5.1); SODIUM (NA) 134 MEQ/L (136-145)
[2017-07-19 11:17] LABS: ALKALINE PHOSPHATASE 111 U/L (45-117); ALT (GPT) 83 U/L (12-78); BLOOD UREA NITROGEN 18 MG/DL (7-18); FREE T4 1.07 NG/DL (0.76-1.46); TOTAL BILIRUBIN ADULT 2.5 MG/DL (0.2-1.0)
[2017-07-19 12:09] LABS: HEMOGLOBIN A1a 1.2 %; HEMOGLOBIN A1b 2.1 %; HEMOGLOBIN Ao 80.7 %; HEMOGLOBIN LA1C 2.7 %; HEMOGLOBIN P3 4.6 %
--- NOTE | 2017-07-19 15:25 | EKG ---
Date Performed: 07/18/2017 Time Performed: 13:31:05 PTAGE: 66 years EKG: Sinus rhythm NORMAL ECG NO PREVIOUS TRACING DOCTOR: Temitope Gutiérrez Interpretating Date/Time 07/19/2017 15:24:31
== END 2017-07-19 13:36 | disposition home or self-care (01) | DRG 442 ==
LOC: NEPE 10:14 → NEDA 14:00 → N04A 15:41
PROVIDERS: ADMIT Hospitalist; ATTEND Hospitalist
DX: K72.90 Hepatic failure, unspecified without coma (principal); C22.9 Malignant neoplasm of liver, not specified as primary or secondary; Z76.82 Awaiting organ transplant status; G62.9 Polyneuropathy, unspecified; F32.9 Major depressive disorder, single episode, unspecified; E86.0 Dehydration; B19.20 Unspecified viral hepatitis C without hepatic coma; E11.9 Type 2 diabetes mellitus without complications; Z79.4 Long term (current) use of insulin; N28.9 Disorder of kidney and ureter, unspecified; Z91.19 Patient's noncompliance with other medical treatment and regimen; M19.90 Unspecified osteoarthritis, unspecified site
CPT/HCPCS: 36600; 70450; 71010; 80053; 80307; 81001; 82140; 82550; 82805; 82948; 83036; 83605; 83735; 84100; 84439; 84443; 84484; 85025; 85610; 87040; 93005; 96361; 96365; J1815; J2543; J7030

== ENCOUNTER 2017-08-20 21:41 | Inpatient (IN) | payer MEDICARE, OTHER ==
[~2017-08-20] VITALS: Ht 170.2 cm; Wt 67.9 kg
[~2017-08-20 21:41] MED LIST changes: +FURO1TAB60 PO; -GLUCTAB PO; -GLYB2.5T3 PO; +LACT10SO PO; +LANTINJ SQ; -LISI-372 PO; +MAGN400T2 PO; +NOVOINJ3 SQ; +PROP10TA6 PO; +SPIR100T PO; +TEMA15CA PO; +XIFA550T4 PO; -Z.0.NO CURRENT MEDS
[2017-08-20 21:44] VITALS: BP 91/52; PULSE 77; RESP 16; TEMP 98.6; O2SAT 100
[2017-08-20] MEDS ORDERED: PANTOPRAZOLE INJ 80 MG in SODIUM CHLORIDE 0.9% INJ 35 ML IV ONE (22:07)
[2017-08-20] MEDS ORDERED: PANTOPRAZOLE INJ 80 MG in SODIUM CHLORIDE 0.9% INJ 100 ML IV SCH (22:07)
[2017-08-20] MEDS ORDERED: SODIUM CHLORIDE 0.9% FLUSH 10 ML FLUSH IVF PRN ×2 (22:15→22:30)
[2017-08-20] MEDS ORDERED: ONDANSETRON HCL 4 MG/2 ML VIAL IVP ONE (22:15)
--- NOTE | 2017-08-20 22:22 | PD ---
Physical Exam Narrative General: The patient is a well-developed well-nourished male in no acute distress. Head and Neck exam: Head is normocephalic atraumatic. Eyes: EOMI, pupils are equal round and reactive to light. Nose: Midline septum with pink mucous membranes Mouth: Dentition unremarkable. Moist mucus membranes. Posterior oropharynx is not erythematous. No tonsillar hypertrophy. Uvula midline. Airway patent. Neck: No palpable lymphadenopathy. No nuchal rigidity. No thyromegaly. Cardiovascular: Regular rate and rhythm without murmurs, gallops, or rubs. Lungs: Clear to auscultation bilaterally. No wheezes, rhonchi, or rales. Abdomen: Soft, without tenderness to palpation in all 4 quadrants of the abdomen. No guarding, rebound, or rigidity. Normal bowel sounds are audible. No tenderness on palpation of McBurney's point. The patient has a Band-Aid in place over the left lower quadrant of the abdomen where he had a paracentesis done on Monday. There is no surrounding erythema, edema, or drainage. Extremities: No clubbing, cyanosis, or edema. 2+ pulses in all 4 extremities. No calf tenderness on palpation. Back: No costovertebral angle tenderness to palpation. Neurologic Exam: Grossly nonfocal. Skin Exam: No rash noted. Intact skin that is warm and dry. Data Data Last Documented VS Vital Signs Date Time Temp Pulse Resp B/P (MAP) Pulse Ox O2 Delivery O2 Flow Rate FiO2 08/20/17 21:44 98.6 77 16 91/52 (65) 100 Room Air Orders Orders Complete Blood Count With Diff (08/20/17 22:07) Comprehensive Metabolic Panel (08/20/17 22:07) Lipase (08/20/17 22:07) Prothrombin Time / Inr (Pt) (08/20/17 22:07) Act Partial Throm Time (Ptt) (08/20/17 22:07) Urinalysis - C+S If Indicated (08/20/17 22:07) Type And Screen (08/20/17 22:07) Ecg Monitoring (08/20/17 22:07) Iv Access Insert/Monitor (08/20/17 22:07) Oximetry (08/20/17 22:07) Ondansetron Inj (Zofran Inj) (08/20/17 22:15) Sodium Chloride 0.9% Flush (Ns Flush) (08/20/17 22:15) Sodium Chloride 0.9... W/Pantoprazole In (08/20/17 22:07) Sodium Chloride 0.9... W/Pantoprazole In (08/20/17 22:07) Sodium Chlorid 0.9% 500 Ml Inj (Ns 500 M (08/20/17 22:30) Sodium Chloride 0.9% Flush (Ns Flush) (08/20/17 22:30) Octreotide Inj (Sandostatin Inj) (08/20/17 22:30) Octreotide Inj (Sandostatin Inj) (08/20/17 22:30) Troponin I (08/20/17 22:50) Red Blood Cells (Rbc) (08/20/17 22:50) Piperacil-Tazo 3.375 Gm Premix (Zosyn 3. (08/20/17 23:45) Sodium Chlorid 0.9% 500 Ml Inj (Ns 500 M (08/21/17 00:30) Blood Product Administration .UPON TRANSFUSION (08/21/17 00:29) Sod Polystyrene Sulfate Enema (Kayexalat (08/21/17 00:30) Calcium Gluconate Inj (Calcium Gluconate (08/21/17 00:45) Sodium Bicarbonate 8.4% Inj (Sodium Bica (08/21/17 00:45) Dextrose 50% In Lindsay (Syr) Inj (D50w (Syr (08/21/17 00:45) Insulin Human Regular Inj (Novolin R Inj (08/21/17 00:45) Admit Order (Ed Use Only) (08/21/17 00:34) Labs Laboratory Tests Test 08/20/17 22:50 White Blood Count 15.5 TH/MM3 Red Blood Count 2.40 MIL/MM3 Hemoglobin 9.1 GM/DL Hematocrit 25.1 % Mean Corpuscular Volume 104.5 FL Mean Corpuscular Hemoglobin 37.7 PG Mean Corpuscular Hemoglobin Concent 36.1 % Red Cell Distribution Width 15.7 % Platelet Count 118 TH/MM3 Mean Platelet Volume 8.7 FL Neutrophils (%) (Auto) 76.8 % Lymphocytes (%) (Auto) 9.5 % Monocytes (%) (Auto) 12.3 % Eosinophils (%) (Auto) 0.8 % Basophils (%) (Auto) 0.6 % Neutrophils # (Auto) 11.9 TH/MM3 Lymphocytes # (Auto) 1.5 TH/MM3 Monocytes # (Auto) 1.9 TH/MM3 Eosinophils # (Auto) 0.1 TH/MM3 Basophils # (Auto) 0.1 TH/MM3 CBC Comment AUTO DIFF Differential Total Cells Counted 100 Neutrophils % (Manual) 67 % Band Neutrophils % 21 % Lymphocytes % 6 % Monocytes % 4 % Neutrophils # (Manual) 14.0 TH/MM3 Metamyelocytes 1 % Myelocytes 1 % Differential Comment FINAL DIFF MANUAL Toxic Granulation 2+ Platelet Estimate NORMAL Platelet Morphology Comment ENLARGED Prothrombin Time 14.7 SEC Prothromb Time International Ratio 1.3 RATIO Activated Partial Thromboplast Time 30.3 SEC Blood Urea Nitrogen 80 MG/DL Creatinine 2.03 MG/DL Random Glucose 293 MG/DL Total Protein 5.6 GM/DL Albumin 1.8 GM/DL Calcium Level 8.7 MG/DL Alkaline Phosphatase 97 U/L Aspartate Amino Transf (AST/SGOT) 95 U/L Alanine Aminotransferase (ALT/SGPT) 80 U/L Total Bilirubin 2.1 MG/DL Sodium Level 123 MEQ/L Potassium Level 7.1 MEQ/L Chloride Level 90 MEQ/L Carbon Dioxide Level 24.7 MEQ/L Anion Gap 8 MEQ/L Estimat Glomerular Filtration Rate 33 ML/MIN Troponin I LESS THAN 0.02 NG/ML Lipase 349 U/L MDM Medical Record Reviewed: Yes Supervised Visit with OG: Yes Differential Diagnosis Variceal bleed, versus peptic ulcer related bleeding, versus diverticulosis, versus AVM malformation, versus Cathi-Borges tear Narrative Course I, Dr. Martinez, have reviewed the advance practice practitioner's documentation and am in agreement, met with the patient face to face, made the diagnosis, and the medical decision making was done by me. The patient was initially seen by Caesar. Please see his complete history and physical. *My assessment and Findings: The patient is a 66-year-old male who presents to [facility] emergency Department with a history of reportedly not feeling well since Monday. He reports that he's had 4 episodes of dark/tarry colored stools since Monday. He reports that on Monday he also underwent a therapeutic paracentesis. He reports that he's been having these occasionally since February 2017. The patient has a known history of cirrhosis related to hepatitis C. The patient reports that this evening he became nauseated after eating and then had hematemesis. He reports that he is throwing up 2 times/2 sessions of emesis prior to arrival. The patient reports having intermittent generalized weakness. He denies having any lightheaded sensation, chest pain, chest pressure, or shortness of breath. 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 He reports that his last endoscopy was in 2005. He is followed by the [facility] for his primary care. During the course of the patients emergency department visit, the patients history, examination, and differential diagnosis were reviewed with the patient. The patient was placed on a environmental monitoring specialist with oximetry and frequent blood pressure monitoring. The patient had IV access obtained and blood work sent for analysis. The patient's case is checked out to me by Caesar at the conclusion of his shift. Laboratory studies are currently pending. The patient was initially provided Protonix 80 mg IV followed by a Protonix drip , normal saline a 500 mL bolus. The patient will be started on octreotide bolus and then drip. The patients laboratory studies were reviewed and remarkable for a white count of 15.5, hemoglobin 9.1, platelets 118 with 21 bands, 6 lymphocytes. CMP is remarkable for sodium of 123, potassium 7.1, BUN 80, creatinine 2.03 which is new renal failure compared to prior laboratory studies done at this facility, total bilirubin 2.1, AST 95, ALT 80, troponin less than 0.02, lipase 349, PT 14.7, INR 1.3, PTT 30.3. The patient was provided an another 500 mL normal saline IV fluid bolus. The patient will have 1 unit of packed red blood cells started once it is available. The patient was treated for hyperkalemia with calcium gluconate 1 g IV, Kayexalate by mouth, 1 amp of D50 followed by regular insulin 10 units IV 1. The patient was given 1 amp of bicarbonate. The patients results were discussed with the patient, including the plan of care. I explained that further testing and/ or monitoring is indicated based on the patients history, examination, and/ or laboratory findings. Therefore, I recommended admission for additional evaluation. The patient expressed understanding and was agreeable with this plan. The patient was admitted to the hospital in critical condition and sent to a bed under the care of the film projector operator service. I was called to the patient's bedside when the patient began to experience chest pressure. The patient was already admitted. An ECG was done while I was at the patient's bedside. The patient was placed on 2 L nasal cannula O2 by me. Nonspecific ST-T wave abnormalities were noted. A CPK, troponin I was ordered. I recommended that the patient's nurse inform immediately the admitting physician regarding the patient's new chest pain. A chest x-ray was ordered. Critical Care Narrative Aggregate critical care time was 40 minutes. Time to perform other separately billable procedures was not included in the critical care time. My time did not include minutes spent treating any other patients simultaneously or on activities that did not directly contribute to the patient's treatment. The services I provided to this patient were to treat and/or prevent clinically significant deterioration that could result in: Cardiac arrhythmia from hyperkalemia, versus fluid overload from resuscitation, versus hemorrhagic shock I provided critical care services requiring my management, as noted below: Chart data review, documentation time, medication orders and management, vital sign assessments/reviewing monitor data, ordering and reviewing lab tests, ordering and interpreting/reviewing x-rays and diagnostic studies, care of the patient and discussion of the patient with the admitting physicians. Physician Communication Physician Communication The patient's case including history, pertinent physical examination findings, and laboratory studies were discussed with Dr. Rogers. It was agreed that the patient would be admitted to the film projector operator service. Diagnosis Primary Impression: GI bleed Qualified Codes: K92.2 - Gastrointestinal hemorrhage, unspecified Additional Impression: Chest pain Qualified Codes: R07.9 - Chest pain, unspecified Admitting Information Admitting Physician Requests: Felicitas Bocanegra MD Aug 20, 2017 22:21
--- NOTE | 2017-08-20 22:23 | PD ---
HPI Chief Complaint: GI Complaint Time Seen by Provider: 21:57 Travel History International Travel<30 days: No Contact w/Intl Traveler<30days: No Traveled to known affect area: No History of Present Illness HPI Patient comes in complaining of melena 3 days and vomiting blood that began yesterday. Patient reports that he [facility] to his ascites from his cirrhosis. Patient states since that is been having the melena. Patient states today that his scrotum was swollen but denies any pain with this. Denies any fevers, chest pain, shortness of breath, or headaches. Patient denies anything making this better or worse. Patient reports feeling weak and nauseated. Patient denies anything like this in the past. Denies being on any blood thinners. PFSH Past Medical History Cancer: Yes (liver) Cardiovascular Problems: No Cirrhosis: Yes Diabetes: Yes Patient Takes Glucophage: No Endocrine: Yes Gastrointestinal Disorders: No Genitourinary: No Hepatitis: Yes (HEP.C COMPLETED 6 MO. [place]) Hiatal Hernia: No Hypertension: No Immune Disorder: No Musculoskeletal: Yes (ARTHRITIS) Neurologic: No Psychiatric: Yes (DEPRESSION) Reproductive: No Respiratory: No Thyroid Disease: No Past Surgical History Abdominal Surgery: No AICD: No Cardiac Surgery: No Ear Surgery: No Endocrine Surgery: No Eye Surgery: No Genitourinary Surgery: No Gynecologic Surgery: No Joint Replacement: No Neurologic Surgery: No Oral Surgery: No Pacemaker: No Thoracic Surgery: No Other Surgery: Yes Social History Alcohol Use: No Tobacco Use: No Substance Use: Yes (HISTORY OF DRUG USE; MARIJUANA) Allergies-Medications (Allergen,Severity, Reaction): Coded Allergies: No Known Allergies (Verified , 07/18/17) Reported Meds & Prescriptions Reported Meds & Active Scripts Active Lactulose Liq (Lactulose) 10 Gm/15 Ml Soln 30 Ml PO Q12HR Xifaxan (Rifaximin) 550 Mg Tab 550 Mg PO BID Reported Propranolol (Propranolol HCl) 10 Mg Tab 10 Mg PO DAILY Magnesium Oxide 400 Mg Tab 400 Mg PO DAILY Novolog Flexpen Inj (Insulin Aspart) 300 Unit/3 Ml Pen 4 Units SQ TID With Meals Lantus Solostar Pen Inj (Insulin Glargine) 300 Unit/3 Ml Pen 10 Units SQ DAILY Lasix (Furosemide) 40 Mg Tab 80 Mg PO DAILY Spironolactone 100 Mg Tab 200 Mg PO DAILY Temazepam 15 Mg Cap 15 Mg PO HS PRN Review of Systems Except as stated in HPI: all other systems reviewed are Neg Physical Exam Narrative GENERAL: Well-developed, well nourished, in no acute distress, and non-ill appearing. SKIN: Focused skin assessment warm and dry. Bandage noted left lower quadrant of the abdomen and dry clean intact. HEAD: Atraumatic. Normocephalic. EYES: Pupils equal and round. EOMI. No scleral icterus. No injection or drainage. ENT: No nasal bleeding or discharge. Mucous membranes pink and moist. NECK: Trachea midline. Supple. No nuclear rigidity. CARDIOVASCULAR: Regular rate and rhythm. No murmur appreciated. RESPIRATORY: No accessory muscle use. No respiratory distress. Clear to auscultation. Breath sounds equal bilaterally. GASTROINTESTINAL: Abdomen soft, nondistended, and no guarding. Hepatic and splenic margins not palpable. Normal bowel sounds 4. No pulsatile mass. Patient reports tenderness to palpation left lower quadrant of the abdomen secondary to recent Paracentesis. GENITOURINARY: Circumcised. Testes descended bilaterally without evidence of rotation. Scrotal edema. No lesions or erythema. No urethral discharge. MUSCULOSKELETAL: No obvious deformities. No clubbing. No cyanosis. No edema. Full range of motion. NEUROLOGICAL: Awake and alert. No obvious cranial nerve deficits. Motor grossly within normal limits. Normal speech. PSYCHIATRIC: Appropriate mood and affect; insight and judgment normal. Data Data Last Documented VS Vital Signs Date Time Temp Pulse Resp B/P (MAP) Pulse Ox O2 Delivery O2 Flow Rate FiO2 08/20/17 21:44 98.6 77 16 91/52 (65) 100 Room Air Orders Orders Complete Blood Count With Diff (08/20/17 22:07) Comprehensive Metabolic Panel (08/20/17 22:07) Lipase (08/20/17 22:07) Prothrombin Time / Inr (Pt) (08/20/17 22:07) Act Partial Throm Time (Ptt) (08/20/17 22:07) Urinalysis - C+S If Indicated (08/20/17 22:07) Type And Screen (08/20/17 22:07) Ecg Monitoring (08/20/17 22:07) Iv Access Insert/Monitor (08/20/17 22:07) Oximetry (08/20/17 22:07) Ondansetron Inj (Zofran Inj) (08/20/17 22:15) Sodium Chloride 0.9% Flush (Ns Flush) (08/20/17 22:15) Protonix Bolus 80 Mg X 1 (08/20/17 22:07) Protonix Drip 8ommg/Hr (08/20/17 22:07) [facility] Medical Decision Making Medical Screen Exam Complete: Yes Emergency Medical Condition: Yes Differential Diagnosis Upper GI bleed, lower GI bleed, metabolic disturbance, severe anemia, symptomatic anemia, other Narrative Course Patient was seen and examined. Initial laboratory radiological studies were ordered. Patient was started on Protonix drip, given IV Zofran and also IV fluid. Patient was signed out to Dr. Martinez at the end of my shift. Please see her documentation for final diagnosis and disposition. HemaPrompt Point of Care Internal Pos. & Neg. Controls: Passed Fecal Specimen Occult Blood: Positive Comment Verbal consent was obtained. Digital rectal exam was performed. Carl melena noted. Stool specimen applied and test interpreted between 1 and 3 minutes of application and the result was positive. Internal Controls: Both positive and negative controls were validated. cash register operator Penny was present during this exam. Caesar Mckeon Aug 20, 2017 22:23
[2017-08-20] MEDS ORDERED: OCTREOTIDE INJ 500 MCG in SODIUM CHLORID 0.9% 500 ML INJ 500 ML IV ONE (22:30)
[2017-08-20] MEDS ORDERED: SODIUM CHLORID 0.9% 500 ML INJ 500 ML IV ONE (22:30)
[2017-08-20] MEDS ORDERED: OCTREOTIDE INJ 100 MCG/ML VIAL IV PUSH ONE (22:30)
[2017-08-20 23:10] LABS: AUTOMATED NEUTROPHIL # 11.9 TH/MM3 (1.8-7.7); BASOPHIL # 0.1 TH/MM3 (0-0.2); BASOPHIL % 0.6 % (0.0-2.0); EOSINOPHIL # 0.1 TH/MM3 (0-0.4); EOSINOPHIL % 0.8 % (0.0-4.0); HEMATOCRIT 25.1 % (39.0-51.0); HEMOGLOBIN 9.1 GM/DL (13.0-17.0); LYMPH % 9.5 % (9.0-44.0); LYMPHOCYTE # 1.5 TH/MM3 (1.0-4.8); MEAN CELL VOLUME 104.5 FL (80.0-100.0); MEAN CORPUSCULAR HEMOGLOBIN 37.7 PG (27.0-34.0); MEAN PLATELET VOLUME 8.7 FL (7.0-11.0); MONO % 12.3 % (0.0-8.0); MONOCYTE # 1.9 TH/MM3 (0-0.9); NEUT % 76.8 % (16.0-70.0); PLATELET COUNT 118 TH/MM3 (150-450); RED CELL DISTRIBUTION WIDTH 15.7 % (11.6-17.2); WHITE BLOOD COUNT 15.5 TH/MM3 (4.0-11.0)
[2017-08-20 23:20] LABS: INTERNATIONAL NORMALIZED RATIO 1.3 RATIO; PROTHROMBIN TIME - PATIENT 14.7 SEC (9.8-11.6)
[2017-08-20 23:24] LABS: MEAN CORPUSCULAR HGB CONC 36.1 % (32.0-36.0)
[2017-08-20] MEDS ORDERED: PIPERACIL-TAZO 3.375 GM PREMIX 50 ML IV ONE (23:45)
[2017-08-20 23:52] LABS: ALBUMIN 1.8 GM/DL (3.4-5.0); ALKALINE PHOSPHATASE 97 U/L (45-117); ALT (GPT) 80 U/L (12-78); AST (GOT) 95 U/L (15-37); BICARBONATE 24.7 MEQ/L (21.0-32.0); BLOOD UREA NITROGEN 80 MG/DL (7-18); CALCIUM 8.7 MG/DL (8.5-10.1); CHLORIDE 90 MEQ/L (98-107); CREATININE 2.03 MG/DL (0.60-1.30); GLOMERULAR FILTRATION RATE 33 ML/MIN (>89); GLUCOSE,RANDOM 293 MG/DL (74-106); LIPASE 349 U/L (73-393); TOTAL BILIRUBIN ADULT 2.1 MG/DL (0.2-1.0); TOTAL PROTEIN 5.6 GM/DL (6.4-8.2)
[2017-08-20 23:58] LABS: SODIUM (NA) 123 MEQ/L (136-145)
[2017-08-21] VITALS (27 sets, daily range): BP systolic 84–120; BP diastolic 45–95; PULSE 62–115; RESP 9–22; TEMP 97–98.3; O2SAT 92–100
[2017-08-21 00:20] LABS: TROPONIN I LESS THAN 0.02 NG/ML (0.02-0.05)
[2017-08-21] MEDS ORDERED: SODIUM POLYSTYRENE SULFONATE 30 GM/120 ML ENEMA RECTAL ONE (00:30)
[2017-08-21] MEDS ORDERED: SODIUM CHLORID 0.9% 500 ML INJ 500 ML IV ONE (00:30)
[2017-08-21] MEDS ORDERED: INSULIN HUMAN REGULAR 1,000 UNITS/10 ML VIAL IV PUSH ONE ×2 (00:45→10:00)
[2017-08-21] MEDS ORDERED: CALCIUM GLUCONATE INJ 1 GM in DEXTROSE 5% IN WATER 100ML INJ 100 ML IV ONE ×2 (00:45)
[2017-08-21] MEDS ORDERED: DEXTROSE 50% IN WATER 50 ML SYRINGE IV PUSH ONE ×2 (00:45→10:00)
[2017-08-21] MEDS ORDERED: SODIUM BICARBONATE 8.4% INJ 50 MEQ/50 ML SYR IV PUSH ONE ×2 (00:45→10:00)
[2017-08-21] MEDS ORDERED: SENNOSIDES 8.6 MG TAB PO PRN (01:00)
[2017-08-21] MEDS ORDERED: BISACODYL 10 MG SUPP RECTAL PRN (01:00)
[2017-08-21] MEDS ORDERED: RESP: ALBUTEROL 2.5 MG/IPRATROPIUM 0.5 MG NEB (PRN) INH (01:00)
[2017-08-21] MEDS ORDERED: ACETAMINOPHEN 325 MG TAB PO PRN (01:00)
[2017-08-21] MEDS ORDERED: CHLORHEXIDINE GLUCONATE 2 % 1 PACK (2 CLOTHS) TOP PRN (01:00)
[2017-08-21] MEDS ORDERED: MISCELLANEOUS NURSING INFORMATION XX SCH (01:00)
[2017-08-21] MEDS ORDERED: MAGNESIUM HYDROXIDE SUSP 30 ML CUP PO PRN (01:00)
[2017-08-21] MEDS ORDERED: LACTULOSE SYRUP 20 GM/30 ML CUP PO PRN (01:00)
[2017-08-21] MEDS ORDERED: PANTOPRAZOLE SODIUM 40 MG VIAL IV PUSH SCH (01:00)
[2017-08-21] MEDS ORDERED: TEMAZEPAM 15 MG CAP PO PRN ×2 (01:00)
[2017-08-21] MEDS ORDERED: ONDANSETRON HCL 4 MG/2 ML VIAL IV PUSH PRN (01:00)
[2017-08-21] MEDS ORDERED: SODIUM CHLORIDE 0.9% FLUSH 10 ML FLUSH IV FLUSH PRN (01:00)
[2017-08-21] MEDS ORDERED: SODIUM BICARBONATE 8.4% INJ 50 MEQ/50 ML SYR ONE (01:01)
--- NOTE | 2017-08-21 01:06 | HHI.HP ---
[facility] Service Critical Care Medicine Primary Care Physician Esme [facility] Admission Diagnosis GI Bleed, acute renal failure, hyperkalemia Diagnosis: Travel History International Travel<30 Days: No Contact w/Intl Traveler <30 Da: No Traveled to Known Affected Are: No History of Present Illness 66-year-old gentleman with end-stage liver disease, chronic hepatitis C status post unsuccessful treatment with DuoNeb therapy now awaiting a liver transplant comes in complaining of melena 3 days and vomiting blood that began yesterday. Patient has had a paracentesis done on Monday by the [place] secondary to his refractory ascites from his cirrhosis. Patient states since that is been having the melena. He denies any fevers, chest pain, shortness of breath, or headaches. Patient denies anything making this better or worse. Patient reports feeling weak and nauseated. Patient denies anything like this in the past. Denies being on any blood thinners. Review of Systems Constitutional: DENIES: Diaphoretic episodes, Fatigue, Fever, Weight gain, Weight loss, Chills, Dizziness, Change in appetite, Night Sweats Endocrine: DENIES: Heat/cold intolerance, Polydipsia, Polyuria, Polyphagia Eyes: DENIES: Blurred vision, Diplopia, Eye inflammation, Eye pain, Vision loss , Photosensitivity, Double Vision Ears, nose, mouth, throat: DENIES: Tinnitus, Hearing loss, Vertigo, Nasal discharge, Oral lesions, Throat pain, Hoarseness, Ear Pain, Running Nose, Epistaxis, Sinus Pain, Toothache, Odynophagia Respiratory: DENIES: Apneas, Cough, Snoring, Wheezing, Hemoptysis, Sputum production, Shortness of breath Cardiovascular: DENIES: Chest pain, Palpitations, Syncope, Dyspnea on Exertion , PND, Lower Extremity Edema, Orthopnea, Claudication Gastrointestinal: DENIES: Abdominal pain, Black stools, Bloody stools, Constipation, Diarrhea, Nausea, Vomiting, Difficulty Swallowing, Anorexia Genitourinary: DENIES: Sexual dysfunction, Urinary frequency, Urinary incontinence, Urgency, Hematuria, Dysuria, Nocturia, Penile Discharge, Testicular Pain, Testicular Swelling Musculoskeletal: DENIES: Joint pain, Muscle aches, Stiffness, Joint Swelling, Back pain, Neck pain Integumentary: DENIES: Abnormal pigmentation, Nail changes, Pruritus, Rash Hematologic/lymphatic: DENIES: Bruising, Lymphadenopathy Immunologic/allergic: DENIES: Eczema, Urticaria Neurologic: DENIES: Abnormal gait, Headache, Localized weakness, Paresthesias, Seizures, Speech Problems, Tremor, Poor Balance Psychiatric: DENIES: Anxiety, Confusion, Mood changes, Depression, Hallucinations, Agitation, Suicidal Ideation, Homicidal Ideation, Delusions Past Family Social History Allergies: Coded Allergies: No Known Allergies (Verified , 07/18/17) Past Medical History Diabetes mellitus Hepatitis C supposedly treated Osteoarthritis Depression anxiety Possible liver cancer Hepatic encephalopathy Insomnia Past Surgical History Hand surgery per chart review Reported Medications Reported Meds & Active Scripts Active Lactulose Liq (Lactulose) 10 Gm/15 Ml Soln 30 Ml PO Q12HR Xifaxan (Rifaximin) 550 Mg Tab 550 Mg PO BID Reported Zinc Sulfate 220 Mg Tab 50 Mg PO BID Vitamin D3 (Cholecalciferol) 400 Unit Cap 400 Units PO DAILY Gabapentin 300 Mg Cap 300 Mg PO TID Hydromorphone (Hydromorphone HCl) 4 Mg Tab 4 Mg PO Q6H PRN Propranolol (Propranolol HCl) 10 Mg Tab 10 Mg PO DAILY Magnesium Oxide 400 Mg Tab 400 Mg PO DAILY Novolog Flexpen Inj (Insulin Aspart) 300 Unit/3 Ml Pen 4 Units SQ TID With Meals Lantus Solostar Pen Inj (Insulin Glargine) 300 Unit/3 Ml Pen 10 Units SQ DAILY Lasix (Furosemide) 40 Mg Tab 80 Mg PO DAILY Spironolactone 100 Mg Tab 200 Mg PO DAILY Temazepam 15 Mg Cap 15 Mg PO HS PRN Active Ordered Medications Current Medications Medications (Trade) Dose Ordered Sig/Jc Route PRN Reason Start Time Stop Time Status Last Admin Dose Admin Sodium Chloride (NS Flush) 2 ml UNSCH PRN IVF FLUSH AFTER USING IV ACCESS 08/20/17 22:15 08/21/17 00:17 Lactulose (Lactulose Liq) 30 ml Q12HR PO 08/21/17 09:00 Magnesium Oxide (Mag-Ox) 400 mg DAILY PO 08/21/17 09:00 Rifaximin (Xifaxan) 550 mg BID PO 08/21/17 09:00 Oxymorphone HCl (Opana) 5 mg Q4H PRN PO Pain 6-10 08/21/17 01:00 Sodium Chloride 1,000 ml @ 124 mls/hr Q8H4M IV 08/21/17 00:58 Sodium Chloride (NS Flush) 2 ml UNSCH PRN IV FLUSH FLUSH AFTER USING IV ACCESS 08/21/17 01:00 Sodium Chloride (NS Flush) 2 ml BID IV FLUSH 08/21/17 09:00 Acetaminophen (Tylenol) 650 mg Q6H PRN PO PAIN 1-5 AND/OR FEVER >101F 08/21/17 01:00 Pantoprazole Sodium (Protonix Inj) 40 mg Q12H IV PUSH 08/21/17 01:00 Ondansetron HCl (Zofran Inj) 4 mg Q6H PRN IV PUSH NAUSEA OR VOMITING 08/21/17 01:00 Temazepam (Restoril) 15 mg HS PRN PO INSOMNIA 08/21/17 01:00 Albuterol/ Ipratropium (Duoneb Neb) 1 ampule Q2HR NEB PRN INH WHEEZING 08/21/17 01:00 Miscellaneous Information 1 Q361D XX 08/21/17 01:00 Chlorhexidine Gluconate (Chlorhexidine 2% Cloth) 3 pack Taper DAILY@04 TOP 08/21/17 04:00 08/17/18 03:59 Chlorhexidine Gluconate (Chlorhexidine 2% Cloth) 3 pack UNSCH PRN TOP HYGIENIC CARE 08/21/17 01:00 Senna/Docusate Sodium (Sandra-Colace) 1 tab BID PO 08/21/17 09:00 Magnesium Hydroxide (Milk Of Magnesia Liq) 30 ml Q12H PRN PO Mild constipation 08/21/17 01:00 Sennosides (Senokot) 17.2 mg Q12H PRN PO Moderate constipation 08/21/17 01:00 Bisacodyl (Dulcolax Supp) 10 mg DAILY PRN RECTAL SEVERE CONSITIPATION/ IF NPO 08/21/17 01:00 Lactulose (Lactulose Liq) 30 ml DAILY PRN PO SEVERE CONSITIPATION 08/21/17 01:00 Albumin Human 100 ml @ 60 mls/hr Q6H IV 08/21/17 01:15 Ceftriaxone Sodium 2000 mg/ Sodium Chloride 100 ml @ 200 mls/hr Q24H IV 08/21/17 02:00 Family History No family history significant for cancer Social History History of remote drug use and marijuana Currently nonsmoker, no alcohol or drug abuse Physical Exam Vital Signs Vital Signs Date Time Temp Pulse Resp B/P (MAP) Pulse Ox O2 Delivery O2 Flow Rate FiO2 08/20/17 21:44 98.6 77 16 91/52 (65) 100 Room Air Physical Exam GENERAL: Lethargic, confused elderly man. SKIN: Warm and dry. HEAD: Normocephalic. EYES: Mild scleral icterus. No injection or drainage. NECK: Supple, trachea midline. No JVD or lymphadenopathy. CARDIOVASCULAR: Regular rate and rhythm without murmurs, gallops, or rubs. RESPIRATORY: Breath sounds equal bilaterally. No accessory muscle use. GASTROINTESTINAL: Abdomen soft, non-tender, nondistended. MUSCULOSKELETAL: No cyanosis, or edema. BACK: Nontender without obvious deformity. NEURO EXAM: Mental Status: The patient is awake with mildly slurred speech. Cranial Nerves: Pupils are round, reactive to light. Reflexes: Biceps, patellar, and Achilles are 2/4 bilaterally. No clonus. Laboratory Laboratory Tests Test 08/20/17 22:50 White Blood Count 15.5 Red Blood Count 2.40 Hemoglobin 9.1 Hematocrit 25.1 Mean Corpuscular Volume 104.5 Mean Corpuscular Hemoglobin 37.7 Mean Corpuscular Hemoglobin Concent 36.1 Red Cell Distribution Width 15.7 Platelet Count 118 Mean Platelet Volume 8.7 Neutrophils (%) (Auto) 76.8 Lymphocytes (%) (Auto) 9.5 Monocytes (%) (Auto) 12.3 Eosinophils (%) (Auto) 0.8 Basophils (%) (Auto) 0.6 Neutrophils # (Auto) 11.9 Lymphocytes # (Auto) 1.5 Monocytes # (Auto) 1.9 Eosinophils # (Auto) 0.1 Basophils # (Auto) 0.1 CBC Comment AUTO DIFF Prothrombin Time 14.7 Prothromb Time International Ratio 1.3 Activated Partial Thromboplast Time 30.3 Blood Urea Nitrogen 80 Creatinine 2.03 Random Glucose 293 Total Protein 5.6 Albumin 1.8 Calcium Level 8.7 Alkaline Phosphatase 97 Aspartate Amino Transf (AST/SGOT) 95 Alanine Aminotransferase (ALT/SGPT) 80 Total Bilirubin 2.1 Sodium Level 123 Potassium Level 7.1 Chloride Level 90 Carbon Dioxide Level 24.7 Anion Gap 8 Estimat Glomerular Filtration Rate 33 Troponin I LESS THAN 0.02 Lipase 349 Result Diagram: 08/20/17224908/20/172249 Caprini VTE Risk Assessment Caprini VTE Risk Assessment: Mod/High Risk (score >= 2) VTE Pharm Contraindication: Hemorrhage Caprini Risk Assessment Model Point Value = 1 Point Value = 2 Point Value = 3 Point Value = 5 Age 41-60 Minor surgery BMI > 25 kg/m2 Swollen legs Varicose veins or History of unexplained or recurrent spontaneous Oral contraceptives or hormone replacement Sepsis (< 1 month) Serious lung disease, including pneumonia (< 1 month) Abnormal pulmonary function Acute myocardial infarction Congestive heart failure (< 1 month) History of inflammatory bowel disease Medical patient at bed rest Age 61-74 Arthroscopic surgery Major open surgery (> 45 min) Laparoscopic surgery (> 45 min) Malignancy Confined to bed (> 72 hours) Immobilizing plaster cast Central venous access Age >= 75 History of VTE Family history of VTE Factor V Leiden Prothrombin [id number] Lupus anticoagulant Anticardiolipin antibodies Elevated serum homocysteine Heparin-induced thrombocytopenia Other congenital or acquired thrombophilia Stroke (< 1 month) Elective arthroplasty Hip, pelvis, or leg fracture Acute spinal cord injury (< 1 month) Prophylaxis Regimen Total Risk Factor Score Risk Level Prophylaxis Regimen 0-1 Low Early ambulation 2 Moderate Order ONE of the following: *Sequential Compression Device (SCD) *Heparin 5000 units SQ BID 3-4 Higher Order ONE of the following medications: *Heparin 5000 units SQ TID *Enoxaparin/Lovenox 40 mg SQ daily (WT < 150 kg, CrCl > 30 mL/min) *Enoxaparin/Lovenox 30 mg SQ daily (WT < 150 kg, CrCl > 10-29 mL/min) *Enoxaparin/Lovenox 30 mg SQ BID (WT < 150 kg, CrCl > 30 mL/min) AND/OR *Sequential Compression Device (SCD) 5 or more Highest Order ONE of the following medications: *Heparin 5000 units SQ TID (Preferred with Epidurals) *Enoxaparin/Lovenox 40 mg SQ daily (WT < 150 kg, CrCl > 30 mL/min) *Enoxaparin/Lovenox 30 mg SQ daily (WT < 150 kg, CrCl > 10-29 mL/min) *Enoxaparin/Lovenox 30 mg SQ BID (WT < 150 kg, CrCl > 30 mL/min) AND *Sequential Compression Device (SCD) Assessment and Plan Assessment and Plan Gastrointestinal bleed - Portal hypertension - Octreotide drip - Protonix IV twice a day - Gastroenterology consult - IR consult for TIPS Diabetes mellitus - Hold insulin glargine while nothing by mouth - Insulin sliding scale Hepatitis C - Status post unsuccessful treatment - Awaiting liver transplant - Management per [place] [facility] Hepatic encephalopathy - Recheck ammonia level - Continue rifaximin and lactulose Insomnia - Temazepam Hyperkalemia - Insulin, sodium bicarbonate, glucose - Monitor level - Nephrology consult - Series of EKGs Hepatorenal syndrome - Nephrology consultation DVT GI prophylaxis - Teds SCDs - No pharmacological DVT prophylaxis due to active bleed - Protonix IV twice a day Critical Care: The total critical care time was 35 minutes. Time to perform other separately billable procedures was not included in the critical care time. Gonsalo Rogers MD Aug 21, 2017 01:06
[2017-08-21] MEDS ORDERED: HYDR4TAB PO (01:44)
[2017-08-21] MEDS ORDERED: ZINC220T PO (01:44)
[2017-08-21] MEDS ORDERED: CHOL1CAP8 PO (01:44)
[2017-08-21] MEDS ORDERED: GABA300C5 PO (01:44)
[2017-08-21 01:59] LABS: BANDS 21 % (0-6); LYMPHOCYTES 6 % (9-44); METAMYELOCYTES 1 % (0-1); MONOCYTES 4 % (0-8); MYELOCYTES 1 % (0-0); POLYS (SEG NEUTROPHILS) 67 % (16-70)
[2017-08-21 02:00] LABS: TOXIC GRANULATION 2+ (NORMAL)
[2017-08-21] MEDS ORDERED: DEXTROSE 50% IN WATER 50 ML VIAL(D50) IV PUSH PRN (02:15)
[2017-08-21] MEDS ORDERED: GLUCAGON 1 MG/ML VIAL OTHER PRN (02:15)
[2017-08-21] MEDS: SODIUM CHLOR 0.9% 1000 ML INJ 1,000 ML IV SCH ×3 (02:15→20:00)
[2017-08-21 02:53] LABS: TROPONIN I 0.02 NG/ML (0.02-0.05)
[2017-08-21] MEDS: CHLORHEXIDINE GLUCONATE 2 % 1 PACK (2 CLOTHS) TOP SCH (04:00)
[2017-08-21] MEDS: ALBUMIN 25% INJ 100 ML IV SCH ×3 (05:47→22:03)
--- NOTE | 2017-08-21 05:51 | RADRPT ---
EXAM DATE/TIME: 08/21/2017 04:07 [place] COMPARISON: CHEST SINGLE AP, July 18, 2017, 11:23. INDICATIONS : Short of breath. MEDICAL HISTORY : None. SURGICAL HISTORY : None. ENCOUNTER: Initial ACUITY: 1 day PAIN SCORE: 0/10 LOCATION: Bilateral chest FINDINGS: A single view of the chest demonstrates the lungs to be symmetrically aerated without evidence of mas s, infiltrate or effusion. The cardiomediastinal contours are unremarkable. Osseous structures are intact. CONCLUSION: No acute disease. Antony Frederick MD on August 21, 2017 at 5:49 Board Certified Radiologist. This report was verified electronically.
[2017-08-21] MEDS: OXYMORPHONE 5 MG PO PRN ×2 (06:08→21:59)
[2017-08-21] MEDS: cefTRIAXone INJ 2,000 MG in SODIUM CHLORIDE 0.9% INJ 100 ML IV SCH (06:09)
[2017-08-21 08:03] LABS: BICARBONATE 23.8 MEQ/L (21.0-32.0); CALCIUM 8.5 MG/DL (8.5-10.1); CREATININE 2.03 MG/DL (0.60-1.30)
[2017-08-21] MEDS ORDERED: ZINC SULFATE 220 MG CAP PO SCH (09:00)
[2017-08-21 09:24] LABS: AUTOMATED NEUTROPHIL # 8.8 TH/MM3 (1.8-7.7); BASOPHIL % 0.3 % (0.0-2.0); EOSINOPHIL % 0.4 % (0.0-4.0); LYMPH % 7.7 % (9.0-44.0); LYMPHOCYTE # 0.9 TH/MM3 (1.0-4.8); MEAN CELL VOLUME 105.2 FL (80.0-100.0); MEAN CORPUSCULAR HGB CONC 34.2 % (32.0-36.0); MEAN PLATELET VOLUME 9.1 FL (7.0-11.0); MONO % 12.2 % (0.0-8.0); MONOCYTE # 1.4 TH/MM3 (0-0.9); NEUT % 79.4 % (16.0-70.0); PLATELET COUNT 67 TH/MM3 (150-450); RED BLOOD COUNT 1.86 MIL/MM3 (4.50-5.90); RED CELL DISTRIBUTION WIDTH 15.5 % (11.6-17.2); WHITE BLOOD COUNT 11.1 TH/MM3 (4.0-11.0)
[2017-08-21] MEDS ORDERED: VASOPRESSIN INJ 40 UNITS in DEXTROSE 5% IN WATER 100ML INJ 98 ML IV SCH ×2 (09:24)
[2017-08-21] MEDS ORDERED: ALBUMIN 25% INJ 100 ML IV ONE (09:30)
[2017-08-21] MEDS ORDERED: SODIUM CHLOR 0.9% 1000 ML INJ 1,000 ML IV ONE (09:30)
[2017-08-21] MEDS ORDERED: RESP: ALBUTEROL 2.5 MG/IPRATROPIUM 0.5 MG NEB (SCH) NEB ONE (09:30)
[2017-08-21 09:31] LABS: HEMATOCRIT 19.6 % (39.0-51.0); HEMOGLOBIN 6.7 GM/DL (13.0-17.0)
[2017-08-21] MEDS: MAGNESIUM OXIDE 400 MG TAB PO SCH (09:35)
[2017-08-21] MEDS: GABAPENTIN 300 MG CAP PO SCH (09:35)
[2017-08-21] MEDS: DOCUSATE SODIUM 50 MG/SENNA 8.6 MG TAB PO SCH ×2 (09:35→21:56)
[2017-08-21] MEDS: SODIUM CHLORIDE 0.9% FLUSH 10 ML FLUSH IV FLUSH SCH ×2 (09:35→22:00)
[2017-08-21] MEDS: LACTULOSE SYRUP 20 GM/30 ML CUP PO SCH ×2 (09:35→21:56)
[2017-08-21] MEDS: RIFAXIMIN 550 MG TAB PO SCH ×2 (09:35→21:57)
[2017-08-21] MEDS: CHOLECALCIFEROL (VIT D3) 400 UNIT TAB PO SCH (09:36)
--- NOTE | 2017-08-21 09:47 | HHI.CCPN ---
Subjective Remarks/Hospital Course 66-year-old gentleman with end-stage liver disease, chronic hepatitis C status post unsuccessful treatment with therapy now awaiting a liver transplant comes in complaining of melena 3 days and vomiting blood that began yesterday. [facility] his refractory ascites from his cirrhosis. Patient states since that is been having the melena. He denies any fevers, chest pain, shortness of breath, or headaches. Patient denies anything making this better or worse. Patient reports feeling weak and nauseated. Patient denies anything like this in the past. Denies being on any blood thinners. 08/21: Hypotensive, SBP in low 70's. 1 L normal saline bolus and 25, albumin stat ordered. IV Protonix changed to infusion. Start vasopressin if needed to keep map above 65. Hemoglobin 6.7 hematocrit 19.6. Transfuse 3 units PRBC stat. GI consult pending. Will need EGD-patient has history of esophageal varices but last endoscopy per patient was in 2005. Patient has two 18 G IV. Also platelet count has dropped to 67 will give 2 units of platelets and 1 unit of FFP Objective Vital Signs Date Time Temp Pulse Resp B/P (MAP) Pulse Ox O2 Delivery O2 Flow Rate FiO2 08/21/17 08:16 100 Nasal Cannula 2.00 08/21/17 06:00 70 08/21/17 04:02 98.3 16 87/45 (59) Intake and Output 08/21/17 08/21/17 08/22/17 08:00 16:00 00:00 Intake Total 660.2 ml 100 ml Output Total 0 ml Balance 660.2 ml 100 ml Result Diagram: 08/20/17 2250 08/21/17 0730 Objective Remarks GENERAL: Lethargic, elderly man. Appears pale in moderate distress SKIN: Warm and dry. Very pale HEAD: Normocephalic. EYES: Mild scleral icterus. No injection or drainage. NECK: Supple, trachea midline. No JVD or lymphadenopathy. CARDIOVASCULAR: Regular rate and rhythm without murmurs, gallops, or rubs. RESPIRATORY: Breath sounds equal bilaterally. No accessory muscle use. GASTROINTESTINAL: Abdomen soft, non-tender, nondistended. MUSCULOSKELETAL: No cyanosis, or edema. BACK: Nontender without obvious deformity. NEURO EXAM: The patient is awake with mildly slurred speech. Muscle power and sensation preserved no focal deficits A/P Assessment and Plan Gastrointestinal bleed Hypotension/hemorrhagic shock Anemia requiring transfusion Thrombocytopenia Coagulopathy - GI bleed most likely variceal, GI consult pending, Will need EGD after stabilization - Octreotide drip, IV Protonix gtt, Rocephin for SBP prophylaxis - Protonix IV twice a day Diabetes mellitus - Hold insulin glargine while nothing by mouth - Insulin sliding scale Hepatitis C - Status post unsuccessful treatment - Awaiting liver transplant - Management per [facility] Hepatic encephalopathy - Recheck ammonia level-53 today - Hold rifaximin and lactulose while NPO Insomnia - Temazepam Hyperkalemia - Insulin, sodium bicarbonate, glucose, Calcium - Monitor level - Nephrology consult - Series of EKGs Hepatorenal syndrome - Nephrology consultation pending DVT GI prophylaxis - Teds SCDs - No pharmacological DVT prophylaxis due to active bleed - Protonix gtt Critical Care: The total critical care time was 45 minutes. Time to perform other separately billable procedures was not included in the critical care time. D/W GI and Blood bank. Critically ill Bar Hardy MD Aug 21, 2017 09:47
[2017-08-21] MEDS ORDERED: CALCIUM GLUCONATE INJ 2 GM in DEXTROSE 5% IN WATER 100ML INJ 100 ML IV ONE ×2 (10:00)
[2017-08-21 10:19] LABS: BANDS 25 % (0-6); LYMPHOCYTES 6 % (9-44); METAMYELOCYTES 1 % (0-1); MONOCYTES 6 % (0-8); NEUTROPHIL # MANUAL DIFF 9.8 TH/MM3 (1.8-7.7); POLYS (SEG NEUTROPHILS) 62 % (16-70); TOXIC GRANULATION 1+ (NORMAL)
--- NOTE | 2017-08-21 10:25 | PD.CONS ---
HPI History of Present Illness This is a 66 year old male with a history of liver cirrhosis, hepatocellular carcinoma, esophageal varices, hepatic encephalopathy, recurrent ascites, who was brought to the emergency room for evaluation of hematemesis and melena x 3 days. He states that he started having black tarry stools on Monday and then nausea and vomiting consisting of black "oily" emesis Monday night. He denies any abdominal pain and states he only occasionally has heartburn. He has had generalized weakness/dizziness with exertion. He does report a history of esophageal varices and states that he was last banded in 2005. He states that he has not had an endoscopy since that time, but he does report a colonoscopy within the past 5 months. His H/H has dropped from 9.1/25.1 to 6.7/19.6 overnight. He also has thrombocytopenia with Plt 67,000 and PT 14.7, INR 1.3, APTT 30.3. He is scheduled to get 3 units of PRBC, 1 unit of FFP and 2 units of Plts. While I was in the room, he reports that he began having substernal chest pressure after sodium bicarb was pushed. He denies any shortness of breath/numbness associated with this. The pressure is constant and not related to inspiration. He was diagnosed with liver cirrhosis secondary to alcohol and hepatitis C (Genotype 1A) in 2003. He was unsuccessfully treated with interferon and ribavirin. He was then treated with Sovaldi, but states that he did not maintain a sustained virologic response. He quit drinking in 2005. He also quit using marijuana at that time; the transplant list. He has not had any alcohol since that time. He was then diagnosed with hepatocellular carcinoma in 2016 and underwent transcatheter arterial chemoembolization on , 06/15/16, 11/08/16, and 01/11/17. He then had a follow-up CT scan which did not appreciate any residual disease. He has recurrent ascites and requires paracentesis every 2-3 weeks. He last had a paracentesis done at the [place] on Monday. He reports that he is followed by the [place] and they have sent him to [place] for liver transplant evaluation. He reports that he was seen once and his next appointment is on September 25, 2017. (La Nena Odell) COUNTS INCLUDE 234 BEDS AT THE [facility] Past Medical History Diabetes mellitus Hepatitis C (genotype 1A), unsuccessful tx Osteoarthritis Depression Anxiety Hepatocellular carcinoma Recurrent ascites Hx esophageal varices Liver cirrhosis Hepatic encephalopathy Insomnia Past Surgical History Hand surgery TACE procedure EGD with band ligation Colonoscopy (La Nena Odell) Coded Allergies: No Known Allergies (Verified , 07/18/17) Medications Allergies Coded Allergies Type Severity Reaction Last Updated Verified No Known Allergies 07/18/17 Yes Active Scripts Medications Dose Route/Sig Max Daily Dose Days Date Category Dose Instructions Zinc Sulfate 220 Mg Tab 50 Mg PO BID 08/21/17 Reported Vitamin D3 (Cholecalciferol) 400 Unit Cap 400 Units PO DAILY 08/21/17 Reported Gabapentin 300 Mg Cap 300 Mg PO TID 08/21/17 Reported Hydromorphone (Hydromorphone HCl) 4 Mg Tab 4 Mg PO Q6H PRN 08/21/17 Reported Lactulose Liq (Lactulose) 10 Gm/15 Ml Soln 30 Ml PO Q12HR 07/19/17 Rx Xifaxan (Rifaximin) 550 Mg Tab 550 Mg PO BID 07/19/17 Rx Propranolol (Propranolol HCl) 10 Mg Tab 10 Mg PO DAILY 07/18/17 Reported Magnesium Oxide 400 Mg Tab 400 Mg PO DAILY 07/18/17 Reported Novolog Flexpen Inj (Insulin Aspart) 300 Unit/3 Ml Pen 4 Units SQ TID 07/18/17 Reported With Meals Lantus Solostar Pen Inj (Insulin Glargine) 300 Unit/3 Ml Pen 10 Units SQ DAILY 07/18/17 Reported Lasix (Furosemide) 40 Mg Tab 80 Mg PO DAILY 07/18/17 Reported Spironolactone 100 Mg Tab 200 Mg PO DAILY 07/18/17 Reported Temazepam 15 Mg Cap 15 Mg PO HS PRN 07/18/17 Reported Family History o family history of liver disease Social History Quit drinking alcohol in 2005 Never smoked tobacco Quit smoking marijuana in 2005 (La Nena Odell) Review of Systems Constitutional: COMPLAINS OF: Fatigue Cardiovascular: COMPLAINS OF: Chest pain Gastrointestinal: COMPLAINS OF: Black stools, Nausea, Vomiting, Heartburn, Hematemesis, DENIES: Abdominal pain, Bloody stools, Constipation, Diarrhea Hematologic/lymphatic: COMPLAINS OF: Bruising Neurologic: DENIES: Headache Psychiatric: DENIES: Confusion (La Nena Odell) GI Exam Vitals I&O Vital Signs Date Time Temp Pulse Resp B/P (MAP) Pulse Ox O2 Delivery O2 Flow Rate FiO2 08/21/17 08:16 100 Nasal Cannula 2.00 08/21/17 06:00 70 08/21/17 04:14 95 Nasal Cannula 2.00 08/21/17 04:02 98.3 69 16 87/45 (59) 97 08/21/17 04:00 76 08/21/17 03:05 08/21/17 03:00 68 16 90/52 (65) 99 Nasal Cannula 4.00 08/21/17 02:05 73 17 90/49 (63) 97 Nasal Cannula 4.00 08/21/17 01:45 115 22 97 Nasal Cannula 4.00 08/21/17 01:30 62 20 84/45 (58) 96 Room Air 08/20/17 21:44 98.6 77 16 91/52 (65) 100 Room Air I/O 08/20/17 08/20/17 08/20/17 08/21/17 08/21/17 08/21/17 07:00 15:00 23:00 07:00 15:00 23:00 Intake Total 660.2 ml 100 ml Output Total 0 ml Balance 660.2 ml 100 ml Intake Oral 0 ml IV Total 660.2 ml 100 ml Output Urine Total 0 ml Stool Total 0 ml Imaging Last Impressions Chest X-Ray 08/21/17 0426 Signed Impressions: Service Date/Time: Monday, August 21, 2017 04:07 - CONCLUSION: No acute disease. Antony Frederick MD Laboratory Test 08/20/17 22:50 08/21/17 02:00 08/21/17 04:00 08/21/17 07:30 White Blood Count 15.5 TH/MM3 Red Blood Count 2.40 MIL/MM3 Hemoglobin 9.1 GM/DL Hematocrit 25.1 % Mean Corpuscular Volume 104.5 FL Mean Corpuscular Hemoglobin 37.7 PG Mean Corpuscular Hemoglobin Concent 36.1 % Red Cell Distribution Width 15.7 % Platelet Count 118 TH/MM3 Mean Platelet Volume 8.7 FL Neutrophils (%) (Auto) 76.8 % Lymphocytes (%) (Auto) 9.5 % Monocytes (%) (Auto) 12.3 % Eosinophils (%) (Auto) 0.8 % Basophils (%) (Auto) 0.6 % Neutrophils # (Auto) 11.9 TH/MM3 Lymphocytes # (Auto) 1.5 TH/MM3 Monocytes # (Auto) 1.9 TH/MM3 Eosinophils # (Auto) 0.1 TH/MM3 Basophils # (Auto) 0.1 TH/MM3 CBC Comment AUTO DIFF Differential Total Cells Counted 100 Neutrophils % (Manual) 67 % Band Neutrophils % 21 % Lymphocytes % 6 % Monocytes % 4 % Neutrophils # (Manual) 14.0 TH/MM3 Metamyelocytes 1 % Myelocytes 1 % Differential Comment FINAL DIFF MANUAL Toxic Granulation 2+ Platelet Estimate NORMAL Platelet Morphology Comment ENLARGED Prothrombin Time 14.7 SEC Prothromb Time International Ratio 1.3 RATIO Activated Partial Thromboplast Time 30.3 SEC Blood Urea Nitrogen 80 MG/DL 75 MG/DL Creatinine 2.03 MG/DL 2.03 MG/DL Random Glucose 293 MG/DL 261 MG/DL Total Protein 5.6 GM/DL Albumin 1.8 GM/DL Calcium Level 8.7 MG/DL 8.5 MG/DL Alkaline Phosphatase 97 U/L Aspartate Amino Transf (AST/SGOT) 95 U/L Alanine Aminotransferase (ALT/SGPT) 80 U/L Total Bilirubin 2.1 MG/DL Sodium Level 123 MEQ/L 127 MEQ/L Potassium Level 7.1 MEQ/L 6.6 MEQ/L Chloride Level 90 MEQ/L 95 MEQ/L Carbon Dioxide Level 24.7 MEQ/L 23.8 MEQ/L Anion Gap 8 MEQ/L 8 MEQ/L Estimat Glomerular Filtration Rate 33 ML/MIN 33 ML/MIN Troponin I LESS THAN 0.02 NG/ML 0.02 NG/ML 0.02 NG/ML Lipase 349 U/L Total Creatine Kinase 70 U/L B-Type Natriuretic Peptide 35 PG/ML Nasal Screen MRSA (PCR) MRSA NOT DETECTED Ammonia 53 MCMOL/L Test 08/21/17 08:30 White Blood Count 11.1 TH/MM3 Red Blood Count 1.86 MIL/MM3 Hemoglobin 6.7 GM/DL Hematocrit 19.6 % Mean Corpuscular Volume 105.2 FL Mean Corpuscular Hemoglobin 36.0 PG Mean Corpuscular Hemoglobin Concent 34.2 % Red Cell Distribution Width 15.5 % Platelet Count 67 TH/MM3 Mean Platelet Volume 9.1 FL Neutrophils (%) (Auto) 79.4 % Lymphocytes (%) (Auto) 7.7 % Monocytes (%) (Auto) 12.2 % Eosinophils (%) (Auto) 0.4 % Basophils (%) (Auto) 0.3 % Neutrophils # (Auto) 8.8 TH/MM3 Lymphocytes # (Auto) 0.9 TH/MM3 Monocytes # (Auto) 1.4 TH/MM3 Eosinophils # (Auto) 0.0 TH/MM3 Basophils # (Auto) 0.0 TH/MM3 CBC Comment AUTO DIFF Physical Examination HEENT: Normocephalic; atraumatic; no jaundice. CHEST: CTA CARDIAC: initially irregular,but then sinus rhythm on monitor ABDOMEN: Soft, nondistended, nontender; hepatosplenomegaly; bowel sounds are present in all four quadrants. EXTREMITIES: No clubbing, cyanosis, or edema. SKIN: Normal; no rash; no jaundice. GRANT COORDINATOR: No focal deficits; alert and oriented times three. (La Nena Odell) Assessment and Plan Plan ASSESSMENT: - Upper GIB with black emesis, melena. Pt with hx of liver cirrhosis, esophageal varices (last banded 2005). Last egd was at that time per patient, states he had a colonoscopy < 5 years ago at [place]. Melena began Monday, started having n/v with black emesis Monday night. H/H has dropped from 9.1/25.1 to 6.7/19.6 overnight. He also has thrombocytopenia with Plt 67,000 and PT 14.7, INR 1.3, APTT 30.3. He is scheduled to get 3 units of PRBC, 1 unit of FFP and 2 units of Plts. Protonix Gtt. Add Octreotide gtt. Ceftriaxone. - Anemia, acute blood loss. HH 6.7/19.6. 3 units PRBC ordered. Protonix Gtt. - Thrombocytopenia, Coagulopathy. Plt 67,000 and PT 14.7, INR 1.3, APTT 30.3. 1 unit FFP, 2 units Plt ordered - Recurrent ascites. Requires paracentesis every 2-3 weeks. Last had Monday at [place]. - Liver cirrhosis. Dx 2003, secondary to alcohol and hepatitis C (Genotype 1A) . He quit drinking in 2005. Hx HCC treated with chemoembolization. Currently followed at [facility] for tertiary/liver transplant evaluation- has appt September 25 in [place]. MELD 19 - Hepatic encephalopathy. On Lactulose, Xifaxan. Seems to be pretty clear. Ammonia 53. - HCV, Genotype 1A. S/P unsuccessfully treated with interferon and ribavirin and then Sovaldi (did not maintain a sustained virologic response). - Hx HCC. Dx 2015 and underwent transcatheter arterial chemoembolization on 04/27, 06/15/16, 11/08/16, and 01/11/17. - Chest pain. Developed substernal pressure while I was in the room, after given sodium bicarb. No sob/numbness, no relation to inspiration. EKG, Troponin ordered. - ARTHUR, hyperkalemia, hyponatremia. Creat 2.03. - Leukocytosis, wbc 15.5 on admission, down to 11.1. Ceftriaxone - DM, OA, Depression, Anxiety, per attending. PLAN: - Plan for egd with possible band ligation today - Obtain consents - NPO - Agree with transfusions - Protonix Gtt - Add Octreotide Gtt - Cont. Albumin - Cont. Ceftriaxone - Cont. Lactulose, Xifaxan - Monitor HH - Transfuse as necessary - Stat Troponin, CPK, 12 lead EKG - Supportive care - Further recommendations to follow based on results of above - Pt seen and examined by Dr. Ferris and myself and this note is written on his behalf (La Nena Odell) Physician Comments seen, examined agree with above (Charlene Ferris MD) La Nena Odell Aug 21, 2017 10:25 Charlene Ferris MD Aug 21, 2017 17:07
[2017-08-21] MEDS: PANTOPRAZOLE INJ 80 MG in SODIUM CHLORIDE 0.9% INJ 100 ML IV SCH (10:43)
[2017-08-21] MEDS ORDERED: ZINC SULFATE 50 MG PO SCH (11:00)
[2017-08-21 11:12] LABS: ALBUMIN 2.3 GM/DL (3.4-5.0); ALT (GPT) 190 U/L (12-78); AST (GOT) 446 U/L (15-37); BICARBONATE 24.4 MEQ/L (21.0-32.0); BLOOD UREA NITROGEN 75 MG/DL (7-18); CHLORIDE 97 MEQ/L (98-107); CREATININE 1.97 MG/DL (0.60-1.30); GLOMERULAR FILTRATION RATE 34 ML/MIN (>89); GLUCOSE,RANDOM 299 MG/DL (74-106); SODIUM (NA) 129 MEQ/L (136-145)
[2017-08-21] MEDS: INSULIN NovoLIN REGULAR SUPPLEMENTAL SCALE SQ SCH ×2 (11:13→21:00)
[2017-08-21 11:14] LABS: ALKALINE PHOSPHATASE 62 U/L (45-117); TOTAL BILIRUBIN ADULT 1.6 MG/DL (0.2-1.0); TOTAL PROTEIN 4.8 GM/DL (6.4-8.2)
--- NOTE | 2017-08-21 11:29 | PD.CONS ---
HPI Consult Requested By Reason for Consult Acute renal insufficiency. Hyperkalemia. Primary Care Physician [facility] History of Present Illness This patient is a 66-year-old male with a history of cirrhosis, varices, chronic hepatitis C with unsuccessful treatment now listed apparently for liver transplant with a hepatitis C positive organ when available now presenting with apparent upper GI bleed was associated with hypotension last night. Blood pressure initially 91/52. Previous creatinine level noted to have been 1.05 June,. His creatinine level on presentation was 2.03 with a potassium initially of 7.1. The patient was taking Aldactone as an outpatient prior to presentation as well as furosemide. Denies using NSAIDs prior to presentation for analgesia.. Review of Systems Constitutional: COMPLAINS OF: Fatigue, Weight loss, Change in appetite, DENIES : Diaphoretic episodes, Fever, Weight gain, Chills, Dizziness, Night Sweats Respiratory: DENIES: Apneas, Cough, Snoring, Wheezing, Hemoptysis, Sputum production, Shortness of breath Cardiovascular: COMPLAINS OF: Chest pain, DENIES: Palpitations, Syncope, Dyspnea on Exertion, PND, Lower Extremity Edema, Orthopnea, Claudication Gastrointestinal: COMPLAINS OF: Black stools, Nausea, Vomiting, Anorexia, DENIES: Abdominal pain, Bloody stools, Constipation, Diarrhea, Difficulty Swallowing Past Family Social History Allergies: Coded Allergies: No Known Allergies (Verified , 07/18/17) Past Medical History Cirrhosis. Chronic hepatitis C Diabetes mellitus Esophageal varices with previous banding Ascites with intermittent paracentesis the last one being Monday last week. History of hepatocellular carcinoma with a transcatheter embolization multiple times. No previous GI bleed until this presentation by history. Past Surgical History Banding esophageal varices. Reported Medications Reported Meds & Active Scripts Active Lactulose Liq (Lactulose) 10 Gm/15 Ml Soln 30 Ml PO Q12HR Xifaxan (Rifaximin) 550 Mg Tab 550 Mg PO BID Reported Zinc Sulfate 220 Mg Tab 50 Mg PO BID Vitamin D3 (Cholecalciferol) 400 Unit Cap 400 Units PO DAILY Gabapentin 300 Mg Cap 300 Mg PO TID Hydromorphone (Hydromorphone HCl) 4 Mg Tab 4 Mg PO Q6H PRN Propranolol (Propranolol HCl) 10 Mg Tab 10 Mg PO DAILY Magnesium Oxide 400 Mg Tab 400 Mg PO DAILY Novolog Flexpen Inj (Insulin Aspart) 300 Unit/3 Ml Pen 4 Units SQ TID With Meals Lantus Solostar Pen Inj (Insulin Glargine) 300 Unit/3 Ml Pen 10 Units SQ DAILY Lasix (Furosemide) 40 Mg Tab 80 Mg PO DAILY Spironolactone 100 Mg Tab 200 Mg PO DAILY Temazepam 15 Mg Cap 15 Mg PO HS PRN Active Ordered Medications Current Medications Ondansetron HCl (Zofran Inj) 4 mg ONCE ONCE IVP Last administered on 00:13; Start 08/20/17 at 22:15; Stop 08/20/17 at 22:16; Status DC Sodium Chloride (NS Flush) 2 ml UNSCH PRN IVF FLUSH AFTER USING IV ACCESS Last administered on 08/21/17 00:17; Start 08/20/17 at 22:15 Pantoprazole Sodium 80 mg/ Sodium Chloride 35 ml @ 420 mls/hr Q5M ONCE IV Last administered on 08/21/17 00:14; Start 08/20/17 at 22:07; Stop 08/20/17 at 22:13; Status DC Pantoprazole Sodium 80 mg/ Sodium Chloride 100 ml @ 10 mls/hr Q10H IV Last administered on 08/21/17 00:13; Start 08/20/17 at 22:07; Stop 08/21/17 at 01 :09; Status DC Sodium Chloride 500 ml @ 500 mls/hr BOLUS ONCE IV Last administered on 00:13; Start 08/20/17 at 22:30; Stop 08/20/17 at 23:29; Status DC Sodium Chloride (NS Flush) 2 ml UNSCH PRN IVF FLUSH AFTER USING IV ACCESS Last administered on 08/21/17 00:17; Start 08/20/17 at 22:30; Stop 08/21/17 at 01 :10; Status DC Octreotide Acetate 500 mcg/ Sodium Chloride 500.5 ml @ 0 mls/hr ONCE ONCE IV Last administered on 08/21/17 00:16; Start 08/20/17 at 22:30; Stop 08/20/17 at 22:31; Status DC Octreotide Acetate (SandoSTATIN INJ) 50 mcg ONCE ONCE IV PUSH Last administered on 08/21/17 00:12; Start 08/20/17 at 22:30; Stop 08/20/17 at 22 :31; Status DC Piperacillin Sod/ Tazobactam Sod 50 ml @ 100 mls/hr ONCE ONCE IV Last administered on 08/21/17 01:06; Start 08/20/17 at 23:45; Stop 08/21/17 at 00 :14; Status DC Sodium Chloride 500 ml @ 500 mls/hr BOLUS ONCE IV Last administered on 01:06; Start 08/21/17 at 00:30; Stop 08/21/17 at 01:29; Status DC Sodium Polystyrene Sulfonate (Kayexalate Enema) 30 gm ONCE ONCE RECTAL Last administered on 08/21/17 02:14; Start 08/21/17 at 00:30; Stop 08/21/17 at 00 :32; Status DC Calcium Gluconate 1 gm/Dextrose 110 ml @ 110 mls/hr ONCE ONCE IV Last administered on 08/21/17 01:13; Start 08/21/17 at 00:45; Stop 08/21/17 at 01 :44; Status DC Sodium Bicarbonate (Sodium Bicarbonate 8.4% Inj) 50 meq ONCE ONCE IV PUSH Last administered on 08/21/17 01:07; Start 08/21/17 at 00:45; Stop 08/21/17 at 00:46; Status DC Dextrose (D50w (Syr) Inj) 50 ml ONCE ONCE IV PUSH Last administered on 01:07; Start 08/21/17 at 00:45; Stop 08/21/17 at 00:46; Status DC Insulin Human Regular (NovoLIN R INJ) 10 units ONCE ONCE IV PUSH Last administered on 08/21/17 01:07; Start 08/21/17 at 00:45; Stop 08/21/17 at 00 :46; Status DC Lactulose (Lactulose Liq) 30 ml Q12HR PO Last administered on 08/21/17 09:35 ; Start 08/21/17 at 09:00 Magnesium Oxide (Mag-Ox) 400 mg DAILY PO Last administered on 08/21/17 09:35 ; Start 08/21/17 at 09:00 Rifaximin (Xifaxan) 550 mg BID PO Last administered on 08/21/17 09:35; Start 08/21/17 at 09:00 Temazepam (Restoril) 15 mg HS PRN PO INSOMNIA; Start 08/21/17 at 01:00; Stop 08/21/17 at 01:10; Status DC Oxymorphone HCl (Opana) 5 mg Q4H PRN PO Pain 6-10 Last administered on 06:08; Start 08/21/17 at 01:00 Sodium Chloride 1,000 ml @ 124 mls/hr Q8H4M IV Last administered on 10:42; Start 08/21/17 at 00:58 Sodium Chloride (NS Flush) 2 ml UNSCH PRN IV FLUSH FLUSH AFTER USING IV ACCESS ; Start 08/21/17 at 01:00 Sodium Chloride (NS Flush) 2 ml BID IV FLUSH Last administered on 08/21/17 09 :35; Start 08/21/17 at 09:00 Acetaminophen (Tylenol) 650 mg Q6H PRN PO PAIN 1-5 AND/OR FEVER >101F; Start 08/21/17 at 01:00 Pantoprazole Sodium (Protonix Inj) 40 mg Q12H IV PUSH ; Start 08/21/17 at 01:00 ; Stop 08/21/17 at 09:25; Status DC Ondansetron HCl (Zofran Inj) 4 mg Q6H PRN IV PUSH NAUSEA OR VOMITING; Start at 01:00 Temazepam (Restoril) 15 mg HS PRN PO INSOMNIA; Start 08/21/17 at 01:00 Albuterol/ Ipratropium (Duoneb Neb) 1 ampule Q2HR NEB PRN INH WHEEZING; Start 08/21/17 at 01:00 Miscellaneous Information 1 Q361D XX ; Start 08/21/17 at 01:00 Chlorhexidine Gluconate (Chlorhexidine 2% Cloth) 3 pack Taper DAILY@04 TOP Last administered on 08/21/17 04:00; Start 08/21/17 at 04:00; Stop 08/17/18 at 03:59 Chlorhexidine Gluconate (Chlorhexidine 2% Cloth) 3 pack UNSCH PRN TOP HYGIENIC CARE; Start 08/21/17 at 01:00 Senna/Docusate Sodium (Sandra-Colace) 1 tab BID PO Last administered on 09:35; Start 08/21/17 at 09:00 Magnesium Hydroxide (Milk Of Magnesia Liq) 30 ml Q12H PRN PO Mild constipation ; Start 08/21/17 at 01:00 Sennosides (Senokot) 17.2 mg Q12H PRN PO Moderate constipation; Start at 01:00 Bisacodyl (Dulcolax Supp) 10 mg DAILY PRN RECTAL SEVERE CONSITIPATION/ IF NPO; Start 08/21/17 at 01:00 Lactulose (Lactulose Liq) 30 ml DAILY PRN PO SEVERE CONSITIPATION; Start 08/21 at 01:00 Sodium Bicarbonate (Sodium Bicarbonate 8.4% Inj) 50 meq STK-MED ONCE .ROUTE ; Start 08/21/17 at 01:01; Stop 08/21/17 at 01:02; Status DC Albumin Human 100 ml @ 60 mls/hr Q6H IV Last administered on 08/21/17 05:47 ; Start 08/21/17 at 01:15 Ceftriaxone Sodium 2000 mg/ Sodium Chloride 100 ml @ 200 mls/hr Q24H IV Last administered on 08/21/17 06:09; Start 08/21/17 at 02:00 Cholecalciferol (Vitamin D3) 400 units DAILY PO Last administered on 09:36; Start 08/21/17 at 09:00 Gabapentin (Neurontin) 300 mg TID PO Last administered on 08/21/17 09:35; Start 08/21/17 at 09:00 Zinc Sulfate (Zinc Sulfate) 50 mg BID PO ; Start 08/21/17 at 09:00; Stop 08/21 at 10:17; Status DC Dextrose (D50w (Vial) Inj) 50 ml UNSCH PRN IV PUSH HYPOGLYCEMIA-SEE COMMENTS; Start 08/21/17 at 02:15 Glucagon (Glucagon Inj) 1 mg UNSCH PRN OTHER HYPOGLYCEMIA-SEE COMMENTS; Start 08/21/17 at 02:15 Insulin Human Regular (NovoLIN R SUPPLEMENTAL SCALE) 1 ACHS SLIDING SCALE SQ Last administered on 08/21/17 11:13; Start 08/21/17 at 08:00 Octreotide Acetate 500 mcg/ Sodium Chloride 500 ml @ 50 mls/hr Q10H IV ; Start 08/21/17 at 03:00 Sodium Bicarbonate (Sodium Bicarbonate 8.4% Inj) 50 meq ONCE ONCE IV PUSH Last administered on 08/21/17 09:36; Start 08/21/17 at 10:00; Stop 08/21/17 at 10:01; Status DC Insulin Human Regular (NovoLIN R INJ) 7 units ONCE ONCE IV PUSH Last administered on 08/21/17 09:38; Start 08/21/17 at 10:00; Stop 08/21/17 at 10 :01; Status DC Dextrose (D50w (Syr) Inj) 25 ml ONCE ONCE IV PUSH Last administered on 10:10; Start 08/21/17 at 10:00; Stop 08/21/17 at 10:01; Status DC Albuterol/ Ipratropium (Duoneb Neb) 1 ampule ONCE ONCE NEB Last administered on 08/21/17 10:05; Start 08/21/17 at 09:30; Stop 08/21/17 at 09:31; Status DC Calcium Gluconate 2 gm/Dextrose 120 ml @ 120 mls/hr ONCE ONCE IV Last administered on 08/21/17 10:43; Start 08/21/17 at 10:00; Stop 08/21/17 at 10 :59; Status DC Sodium Chloride 1,000 ml @ 999 mls/hr BOLUS ONCE IV Last administered on 09:30; Start 08/21/17 at 09:30; Stop 08/21/17 at 10:30; Status DC Albumin Human 100 ml @ 60 mls/hr ONCE ONCE IV Last administered on 09:30; Start 08/21/17 at 09:30; Stop 08/21/17 at 11:09; Status DC Pantoprazole Sodium 80 mg/ Sodium Chloride 100 ml @ 10 mls/hr Q10H IV Last administered on 08/21/17 10:43; Start 08/21/17 at 10:24 Vasopressin 40 units/Dextrose 100 ml @ 1.5 mls/hr Q24H IV ; Start 08/21/17 at 09:24 Patient Own Medication PT OWN MED: ZINC SULF... BID PO ; Start 08/21/17 at 11: 00; Status Future Hold Family History Noncontributory to current complaint. Social History Discontinued alcohol usage. Physical Exam Vital Signs Vital Signs Date Time Temp Pulse Resp B/P (MAP) Pulse Ox O2 Delivery O2 Flow Rate FiO2 10/30/17 10:45 97.8 75 18 102/95 99 08/21/17 09:59 97.0 99 20 99/53 100 08/21/17 08:16 100 Nasal Cannula 2.00 08/21/17 06:00 70 08/21/17 04:14 95 Nasal Cannula 2.00 08/21/17 04:02 98.3 69 16 87/45 (59) 97 08/21/17 04:00 76 08/21/17 03:05 08/21/17 03:00 68 16 90/52 (65) 99 Nasal Cannula 4.00 08/21/17 02:05 73 17 90/49 (63) 97 Nasal Cannula 4.00 08/21/17 01:45 115 22 97 Nasal Cannula 4.00 08/21/17 01:30 62 20 84/45 (58) 96 Room Air 08/20/17 21:44 98.6 77 16 91/52 (65) 100 Room Air Physical Exam GENERAL: Patient appears somewhat malnourished, thin. Affect appear to be somewhat blunted. SKIN: Warm and dry. HEAD: Normocephalic. EYES: No scleral icterus. No injection or drainage. NECK: Supple, trachea midline. No JVD or lymphadenopathy. CARDIOVASCULAR: Regular rate and rhythm without murmurs, gallops, or rubs. RESPIRATORY: Breath sounds equal bilaterally. No accessory muscle use. GASTROINTESTINAL: Abdomen soft, non-tender, nondistended. MUSCULOSKELETAL: No cyanosis, or edema. BACK: Nontender without obvious deformity. No CVA tenderness. Laboratory Laboratory Tests Test 08/20/17 22:50 08/21/17 02:00 08/21/17 04:00 08/21/17 07:30 White Blood Count 15.5 Red Blood Count 2.40 Hemoglobin 9.1 Hematocrit 25.1 Mean Corpuscular Volume 104.5 Mean Corpuscular Hemoglobin 37.7 Mean Corpuscular Hemoglobin Concent 36.1 Red Cell Distribution Width 15.7 Platelet Count 118 Mean Platelet Volume 8.7 Neutrophils (%) (Auto) 76.8 Lymphocytes (%) (Auto) 9.5 Monocytes (%) (Auto) 12.3 Eosinophils (%) (Auto) 0.8 Basophils (%) (Auto) 0.6 Neutrophils # (Auto) 11.9 Lymphocytes # (Auto) 1.5 Monocytes # (Auto) 1.9 Eosinophils # (Auto) 0.1 Basophils # (Auto) 0.1 CBC Comment AUTO DIFF Differential Total Cells Counted 100 Neutrophils % (Manual) 67 Band Neutrophils % 21 Lymphocytes % 6 Monocytes % 4 Neutrophils # (Manual) 14.0 Metamyelocytes 1 Myelocytes 1 Differential Comment FINAL DIFF MANUAL Toxic Granulation 2+ Platelet Estimate NORMAL Platelet Morphology Comment ENLARGED Prothrombin Time 14.7 Prothromb Time International Ratio 1.3 Activated Partial Thromboplast Time 30.3 Blood Urea Nitrogen 80 75 Creatinine 2.03 2.03 Random Glucose 293 261 Total Protein 5.6 Albumin 1.8 Calcium Level 8.7 8.5 Alkaline Phosphatase 97 Aspartate Amino Transf (AST/SGOT) 95 Alanine Aminotransferase (ALT/SGPT) 80 Total Bilirubin 2.1 Sodium Level 123 127 Potassium Level 7.1 6.6 Chloride Level 90 95 Carbon Dioxide Level 24.7 23.8 Anion Gap 8 8 Estimat Glomerular Filtration Rate 33 33 Troponin I LESS THAN 0.02 0.02 0.02 Lipase 349 Total Creatine Kinase 70 B-Type Natriuretic Peptide 35 Nasal Screen MRSA (PCR) MRSA NOT DETECTED Ammonia 53 Test 08/21/17 08:30 08/21/17 10:24 White Blood Count 11.1 Red Blood Count 1.86 Hemoglobin 6.7 Hematocrit 19.6 Mean Corpuscular Volume 105.2 Mean Corpuscular Hemoglobin 36.0 Mean Corpuscular Hemoglobin Concent 34.2 Red Cell Distribution Width 15.5 Platelet Count 67 Mean Platelet Volume 9.1 Neutrophils (%) (Auto) 79.4 Lymphocytes (%) (Auto) 7.7 Monocytes (%) (Auto) 12.2 Eosinophils (%) (Auto) 0.4 Basophils (%) (Auto) 0.3 Neutrophils # (Auto) 8.8 Lymphocytes # (Auto) 0.9 Monocytes # (Auto) 1.4 Eosinophils # (Auto) 0.0 Basophils # (Auto) 0.0 CBC Comment AUTO DIFF Differential Total Cells Counted 100 Neutrophils % (Manual) 62 Band Neutrophils % 25 Lymphocytes % 6 Monocytes % 6 Neutrophils # (Manual) 9.8 Metamyelocytes 1 Differential Comment FINAL DIFF MANUAL Toxic Granulation 1+ Platelet Estimate LOW Platelet Morphology Comment NORMAL Blood Urea Nitrogen 75 Creatinine 1.97 Random Glucose 299 Total Protein 4.8 Albumin 2.3 Calcium Level 8.0 Alkaline Phosphatase 62 Aspartate Amino Transf (AST/SGOT) 446 Alanine Aminotransferase (ALT/SGPT) 190 Total Bilirubin 1.6 Sodium Level 129 Potassium Level 6.0 Chloride Level 97 Carbon Dioxide Level 24.4 Anion Gap 8 Estimat Glomerular Filtration Rate 34 Troponin I 0.02 Result Diagram: 08/21/17 0830 08/21/17 1024 Imaging Last 48 hours Impressions Chest X-Ray 08/21/17 0426 Signed Impressions: Service Date/Time: Monday, August 21, 2017 04:07 - CONCLUSION: No acute disease. Antony Frederick MD Assessment and Plan Problem List: (1) Acute kidney insufficiency ICD Codes: N28.9 - Disorder of kidney and ureter, unspecified Status: Acute Plan: Acute renal insufficiency most likely related to hemodynamic factors secondary to GI bleed with hypotension and intravascular volume depletion. In addition the patient may have been somewhat volume depleted prior to this as indicated anorexia predating presentation. Hopefully patient has not sustained an ATN. Blood pressure is improving and urine output has picked up. Hepatorenal syndrome is not a primary consideration as yet with this presentation. Monitor response to resuscitative efforts with fluids and blood. Renal ultrasound has been ordered. Urinalysis as well. Previous urinalysis prior to this admission was somewhat bland not suggestive of a glomerulonephritis related to hepatitis C. Medications should be adjusted for the patient's estimated GFR if clinically indicated. Avoid agents with significant potential for nephrotoxicity possible including NSAIDs for analgesia, iodine contrast agents. Gadolinium is contraindicated if the GFR is below 30. (2) Hyperkalemia ICD Codes: E87.5 - Hyperkalemia Status: Acute Plan: Most likely related to acute renal insufficiency, blood in the GI tract as well as presence of Aldactone prior to presentation. Hopefully potassium level will improve with rehydration and improved renal function. Continue albuterol as well as IV bicarbonate and insulin dextrose as needed. Would like to avoid Kayexalate because of risks associated with bowel injury if possible. Anibal Scanlon MD Aug 21, 2017 11:29
[2017-08-21] MEDS ORDERED: INSULIN HUMAN REGULAR 1,000 UNITS/10 ML VIAL SQ PRN (15:00)
[2017-08-21] MEDS ORDERED: CHLORHEXIDINE GLUCONATE 2 % 1 PACK (2 CLOTHS) TOPICAL PRN (15:00)
[2017-08-21] MEDS ORDERED: LACTATED RINGER'S 1000 ML IV PRN (15:00)
[2017-08-21] MEDS ORDERED: METOPROLOL TARTRATE 25 MG TAB PO PRN (15:00)
[2017-08-21] MEDS ORDERED: POVIDONE IODINE 5% (ANTISEPSIS KIT) 4 APPLICATIONS EACH NARE PRN (15:00)
[2017-08-21] MEDS ORDERED: SODIUM CHLORID 0.9% 500 ML IV PRN (15:00)
--- NOTE | 2017-08-21 15:12 | GIPROC ---
[facility] [address] [facility]. [facility], [address] EGD PROCEDURE REPORT EXAM DATE: 08/21/2017 PATIENT NAME: Donavan Santana MR #: [id number] BIRTHDATE: 1950 ATTENDING: Charlene Ferris MD ORDER #: [id number] LICENSED MORTICIAN: Haven Orourke RN STATUS: inpatient INDICATIONS: The patient is a 66 yr old male here for an EGD due to gi bleeding, anemia PROCEDURE PERFORMED: EGD w/ band ligation of varices MEDICATIONS: None and Per Anesthesia. TOPICAL ANESTHETIC: none CONSENT: The patient understands the risks and benefits of the procedure and understands that these risks include, but are not limited to: sedation, allergic reaction, infection, perforation and/or bleeding. Alternative means of evaluation and treatment include, among others: physical exam, x-rays, and/or surgical intervention. The patient elects to proceed with this endoscopic procedure. medical equipment was checked for proper function. Hand hygiene and appropriate measures for infection prevention was taken. After the risks, benefits and alternatives of the procedure were thoroughly explained, Informed consent was verified, confirmed and timeout was successfully executed by the treatment team. The patient was anesthetized with topical anesthesia and the endoscope was introduced through the mouth and advanced to the second portion of the duodenum. Retroflexed views revealed food retained The gastroscope was then slowly withdrawn and removed. Retained food and old blood-suctioned no active bleeding esophageal varices-3 colimns-grade 2-s/p banding times 2. ADVERSE EVENTS: There were no complications. IMPRESSIONS: 1. Retained food and old blood-suctioned no active bleeding esophageal varices-3 colimns-grade 2-s/p banding times 2 2. Retroflexed views revealed food retained RECOMMENDATIONS: 1. Anti-reflux regimen 2. Continue PPI 3. Clear liquid diet if further bleeding consult IR for TIPS PATIENT CONDITION: stable DISPOSITION: Inpatient REPEAT EXAM: Return 6 weeks EGD Charlene Ferris MD eSigned: Charlene Ferris MD 08/21/2017 3:11 PM cc:
--- NOTE | 2017-08-21 15:12 | GIPROC ---
[facility] [address] [facility]. [facility], [address] EGD PROCEDURE REPORT EXAM DATE: 08/21/2017 PATIENT NAME: Donavan Santana MR #: [id number] BIRTHDATE: 1950 ATTENDING: Charlene Ferris MD ORDER #: [id number] HARVEST SUPERVISOR: Haven Orourke RN STATUS: inpatient INDICATIONS: The patient is a 66 yr old male here for an EGD due to gi bleeding, anemia PROCEDURE PERFORMED: EGD w/ band ligation of varices MEDICATIONS: None and Per Anesthesia. TOPICAL ANESTHETIC: none CONSENT: The patient understands the risks and benefits of the procedure and understands that these risks include, but are not limited to: sedation, allergic reaction, infection, perforation and/or bleeding. Alternative means of evaluation and treatment include, among others: physical exam, x-rays, and/or surgical intervention. The patient elects to proceed with this endoscopic procedure. medical equipment was checked for proper function. Hand hygiene and appropriate measures for infection prevention was taken. After the risks, benefits and alternatives of the procedure were thoroughly explained, Informed consent was verified, confirmed and timeout was successfully executed by the treatment team. The patient was anesthetized with topical anesthesia and the endoscope was introduced through the mouth and advanced to the second portion of the duodenum. Retroflexed views revealed food retained The gastroscope was then slowly withdrawn and removed. Retained food and old blood-suctioned no active bleeding esophageal varices-3 colimns-grade 2-s/p banding times 2. ADVERSE EVENTS: There were no complications. IMPRESSIONS: 1. Retained food and old blood-suctioned no active bleeding esophageal varices-3 colimns-grade 2-s/p banding times 2 2. Retroflexed views revealed food retained RECOMMENDATIONS: 1. Anti-reflux regimen 2. Continue PPI 3. Clear liquid diet if further bleeding consult IR for TIPS PATIENT CONDITION: stable DISPOSITION: Inpatient REPEAT EXAM: Return 6 weeks EGD Charlene Ferris MD eSigned: Charlene Ferris MD 08/21/2017 3:11 PM cc:
--- NOTE | 2017-08-21 15:12 | GIPROC ---
[facility] [address] [facility]. [facility], [address] EGD PROCEDURE REPORT EXAM DATE: 08/21/2017 PATIENT NAME: Donavan Santana MR #: [id number] BIRTHDATE: 1950 ATTENDING: Charlene Ferris MD ORDER #: [id number] HEEL WASHER STRINGING MACHINE OPERATOR: Haven Orourke RN STATUS: inpatient INDICATIONS: The patient is a 66 yr old male here for an EGD due to gi bleeding, anemia PROCEDURE PERFORMED: EGD w/ band ligation of varices MEDICATIONS: None and Per Anesthesia. TOPICAL ANESTHETIC: none CONSENT: The patient understands the risks and benefits of the procedure and understands that these risks include, but are not limited to: sedation, allergic reaction, infection, perforation and/or bleeding. Alternative means of evaluation and treatment include, among others: physical exam, x-rays, and/or surgical intervention. The patient elects to proceed with this endoscopic procedure. medical equipment was checked for proper function. Hand hygiene and appropriate measures for infection prevention was taken. After the risks, benefits and alternatives of the procedure were thoroughly explained, Informed consent was verified, confirmed and timeout was successfully executed by the treatment team. The patient was anesthetized with topical anesthesia and the endoscope was introduced through the mouth and advanced to the second portion of the duodenum. Retroflexed views revealed food retained The gastroscope was then slowly withdrawn and removed. Retained food and old blood-suctioned no active bleeding esophageal varices-3 colimns-grade 2-s/p banding times 2. ADVERSE EVENTS: There were no complications. IMPRESSIONS: 1. Retained food and old blood-suctioned no active bleeding esophageal varices-3 colimns-grade 2-s/p banding times 2 2. Retroflexed views revealed food retained RECOMMENDATIONS: 1. Anti-reflux regimen 2. Continue PPI 3. Clear liquid diet if further bleeding consult IR for TIPS PATIENT CONDITION: stable DISPOSITION: Inpatient REPEAT EXAM: Return 6 weeks EGD Charlene Ferris MD eSigned: Charlene Ferirs MD 08/21/2017 3:11 PM cc:
[2017-08-21] MEDS ORDERED: DO NOT ADM ANY ANTICOAGULANT DRUGS PRN (15:35)
[2017-08-21 16:35] LABS: AUTOMATED NEUTROPHIL # 6.6 TH/MM3 (1.8-7.7); BASOPHIL % 0.4 % (0.0-2.0); EOSINOPHIL # 0.1 TH/MM3 (0-0.4); EOSINOPHIL % 1.5 % (0.0-4.0); HEMATOCRIT 21.6 % (39.0-51.0); HEMOGLOBIN 7.5 GM/DL (13.0-17.0); LYMPH % 7.4 % (9.0-44.0); LYMPHOCYTE # 0.6 TH/MM3 (1.0-4.8); MEAN CELL VOLUME 97.1 FL (80.0-100.0); MEAN PLATELET VOLUME 8.8 FL (7.0-11.0); MONO % 14.3 % (0.0-8.0); MONOCYTE # 1.2 TH/MM3 (0-0.9); NEUT % 76.4 % (16.0-70.0); PLATELET COUNT 83 TH/MM3 (150-450); RED BLOOD COUNT 2.22 MIL/MM3 (4.50-5.90); RED CELL DISTRIBUTION WIDTH 19.4 % (11.6-17.2); WHITE BLOOD COUNT 8.6 TH/MM3 (4.0-11.0)
[2017-08-21 17:03] LABS: ALBUMIN 2.5 GM/DL (3.4-5.0); ALKALINE PHOSPHATASE 74 U/L (45-117); ALT (GPT) 322 U/L (12-78); AST (GOT) 819 U/L (15-37); BICARBONATE 24.9 MEQ/L (21.0-32.0); BLOOD UREA NITROGEN 71 MG/DL (7-18); CALCIUM 8.7 MG/DL (8.5-10.1); CHLORIDE 99 MEQ/L (98-107); CREATININE 1.85 MG/DL (0.60-1.30); GLOMERULAR FILTRATION RATE 37 ML/MIN (>89); GLUCOSE,RANDOM 162 MG/DL (74-106); SODIUM (NA) 131 MEQ/L (136-145); TOTAL BILIRUBIN ADULT 3.1 MG/DL (0.2-1.0); TOTAL PROTEIN 5.4 GM/DL (6.4-8.2)
[2017-08-21 17:39] LABS: BANDS 12 % (0-6); LYMPHOCYTES 9 % (9-44); MONOCYTES 9 % (0-8); MYELOCYTES 3 % (0-0); POLYS (SEG NEUTROPHILS) 66 % (16-70)
[2017-08-21 17:41] LABS: TOXIC GRANULATION 1+ (NORMAL)
--- NOTE | 2017-08-21 18:01 | RADRPT ---
EXAM DATE/TIME: 08/21/2017 17:21 [place] COMPARISON: No previous studies available for comparison. INDICATIONS : Increased BUN/Creatinine. MEDICAL HISTORY : Arthritis. Diabetes. Liver cancer. Cirrhosis. Hepatitis C. Measles. SURGICAL HISTORY : Esophageal varices banding. Hand surgery. ENCOUNTER: Initial ACUITY: 1 day PAIN SCORE: 0/10 LOCATION: Bilateral flank MEASUREMENTS: RIGHT KIDNEY: 10.3 x 4.1 x 4.0 cm LEFT KIDNEY: 11.2 x 4.6 x 4.3 cm FINDINGS: RIGHT KIDNEY: Renal cortex is normal in thickness and echotexture. No hydronephrosis, stone, or mass. LEFT KIDNEY: Renal cortex is normal in thickness and echotexture. No hydronephrosis, stone, or mass. BLADDER: Within normal limits given the degree of distension. Extensive ascites is present. CONCLUSION: Normal sized kidneys for hydronephrosis. Extensive ascites. Florin Alcala MD FACR on August 21, 2017 at 17:58 Board Certified Radiologist. This report was verified electronically.
[2017-08-21] MEDS: OCTREOTIDE INJ 500 MCG in SODIUM CHLORID 0.9% 500 ML INJ 499.5 ML IV SCH (21:58)
[2017-08-21 23:53] LABS: HEMATOCRIT 24.6 % (39.0-51.0); HEMOGLOBIN 8.6 GM/DL (13.0-17.0)
[2017-08-22] VITALS (23 sets, daily range): BP systolic 86–136; BP diastolic 48–69; PULSE 69–91; RESP 10–26; TEMP 98–98.5; O2SAT 90–100
[2017-08-22 00:21] LABS: CALCIUM 8.6 MG/DL (8.5-10.1); CREATININE 1.83 MG/DL (0.60-1.30)
[2017-08-22] MEDS: ALBUMIN 25% INJ 100 ML IV SCH ×4 (01:00→19:31)
[2017-08-22] MEDS: cefTRIAXone INJ 2,000 MG in SODIUM CHLORIDE 0.9% INJ 100 ML IV SCH (01:02)
[2017-08-22] MEDS: CHLORHEXIDINE GLUCONATE 2 % 1 PACK (2 CLOTHS) TOP SCH (04:00)
[2017-08-22] MEDS: PANTOPRAZOLE INJ 80 MG in SODIUM CHLORIDE 0.9% INJ 100 ML IV SCH (05:31)
[2017-08-22] MEDS: INSULIN NovoLIN REGULAR SUPPLEMENTAL SCALE SQ SCH ×4 (08:00→21:53)
--- NOTE | 2017-08-22 08:02 | HHI.CCPN ---
Subjective Remarks/Hospital Course 66-year-old gentleman with end-stage liver disease, chronic hepatitis C status post unsuccessful treatment with therapy now awaiting a liver transplant comes in complaining of melena 3 days and vomiting blood that began yesterday. [facility] his refractory ascites from his cirrhosis. Patient states since that is been having the melena. He denies any fevers, chest pain, shortness of breath, or headaches. Patient denies anything making this better or worse. Patient reports feeling weak and nauseated. Patient denies anything like this in the past. Denies being on any blood thinners. 08/21: Hypotensive, SBP in low 70's. 1 L normal saline bolus and 25, albumin stat ordered. IV Protonix changed to infusion. Start vasopressin if needed to keep map above 65. Hemoglobin 6.7 hematocrit 19.6. Transfuse 3 units PRBC stat. GI consult pending. Will need EGD-patient has history of esophageal varices but last endoscopy per patient was in 2005. Patient has two 18 G IV. Also platelet count has dropped to 67 will give 2 units of platelets and 1 unit of FFP 08/22: No GI bleed overnight. Hemodynamically has stabilized. Remains on IV Protonix infusion and octreotide infusion. A.m. labs are pending. Underwent endoscopy yesterday with findings of esophageal varices and gastritis. Underwent esophageal variceal banding 2 Objective Vital Signs Date Time Temp Pulse Resp B/P (MAP) Pulse Ox O2 Delivery O2 Flow Rate FiO2 08/22/17 06:00 71 08/22/17 03:00 98.0 18 116/58 (77) 94 08/21/17 19:02 Nasal Cannula 2.00 Intake and Output 08/22/17 08/22/17 08/23/17 08:00 16:00 00:00 Intake Total 660 ml Output Total 550 ml Balance 110 ml Result Diagram: 08/21/17 2340 08/21/17 234 Objective Remarks GENERAL: Appears pale in no distress SKIN: Warm and dry. Pallor present HEAD: Normocephalic. EYES: Mild scleral icterus. No injection or drainage. NECK: Supple, trachea midline. No JVD or lymphadenopathy. CARDIOVASCULAR: Regular rate and rhythm without murmurs, gallops, or rubs. RESPIRATORY: Breath sounds equal bilaterally. No accessory muscle use. GASTROINTESTINAL: Abdomen soft, non-tender, mildly distended. MUSCULOSKELETAL: No cyanosis, or edema. BACK: Nontender without obvious deformity. NEURO EXAM: The patient is awake with mildly slurred speech. Muscle power and sensation preserved no focal deficits A/P Assessment and Plan Variceal bleed Hypotension/hemorrhagic shock-resolved Anemia requiring transfusion Thrombocytopenia Coagulopathy - Status post EGD and banding of esophageal varices. Also has gastritis - Status post 3 units of PRBC, 2 units of FFP, 1 unit of platelets - Octreotide drip, IV Protonix gtt, Rocephin for SBP prophylaxis - Change Protonix to 40 mg IV twice a day- defer to GI - Clear liquid diet once okayed by GI Diabetes mellitus - Hold insulin glargine while nothing by mouth - Insulin sliding scale Hepatitis C - Status post unsuccessful treatment - Awaiting liver transplant - Management per [facility] Hepatic encephalopathy - Recheck ammonia level-53 today - Resume rifaximin and lactulose when cleared by GI Insomnia - Temazepam Hyperkalemia-resolved - Received Insulin, sodium bicarbonate, glucose, Calcium - Monitor level - Nephrology consult - Series of EKGs Hepatorenal syndrome - Nephrology consultation - Creatinine stable, urine output adequate 1.3L in 24 hours - Worsening transaminitis due to hypotension DVT GI prophylaxis - Teds SCDs - No pharmacological DVT prophylaxis due to active bleed - Protonix gtt Critical Care: Level 2 Consult hospitalist to assume care in a.m.. Transfer to Med-Surg with telemetry if the labs remain stable Bar Hardy MD Aug 22, 2017 08:02
--- NOTE | 2017-08-22 08:07 | HHI.GIFU ---
Subjective Remarks Resting in bed. No active bleeding. Tolerating clears. VSS. Possible transfer to floor today. (La Nena Odell) Objective Vitals I&O Vital Signs Date Time Temp Pulse Resp B/P (MAP) Pulse Ox O2 Delivery O2 Flow Rate FiO2 08/22/17 06:00 71 08/22/17 04:00 72 08/22/17 03:00 98.0 69 18 116/58 (77) 94 08/22/17 02:00 70 08/22/17 00:00 71 08/21/17 23:00 98.1 72 14 109/56 (73) 92 08/21/17 22:00 70 08/21/17 21:04 97.8 67 14 95/53 94 08/21/17 20:00 66 08/21/17 19:02 98 Nasal Cannula 2.00 08/21/17 19:00 98.0 66 12 117/72 (87) 95 08/21/17 18:00 75 08/21/17 16:15 72 16 124/68 (86) 95 Nasal Cannula 3 08/21/17 16:00 97.9 68 14 98 08/21/17 16:00 67 16 119/52 (74) 98 Nasal Cannula 3 08/21/17 15:54 97.6 67 16 120/60 95 08/21/17 15:45 69 16 120/60 (80) 97 Nasal Cannula 3 08/21/17 15:33 97.6 69 16 122/58 (79) 100 Nasal Cannula 3 08/21/17 14:30 74 16 129/60 (83) 100 08/21/17 14:15 75 16 119/56 (77) 98 08/21/17 14:00 63 18 129/60 (83) 99 08/21/17 14:00 73 08/21/17 13:23 97.9 75 16 110/52 99 08/21/17 12:00 98.2 77 9 103/58 (73) 99 08/21/17 12:00 77 08/21/17 11:30 97.5 78 20 104/55 100 08/21/17 11:00 97.5 79 16 108/57 94 08/21/17 10:45 97.8 75 18 102/95 99 08/21/17 10:00 67 08/21/17 09:59 97.0 99 20 99/53 100 08/21/17 08:16 100 Nasal Cannula 2.00 08/21/17 08:00 67 08/21/17 08:00 98.0 67 16 84/49 (61) 100 I/O 08/21/17 08/21/17 08/21/17 08/22/17 08/22/17 08/22/17 07:00 15:00 23:00 07:00 15:00 23:00 Intake Total 660.2 ml 1467 ml 2504 ml 660 ml Output Total 0 ml 725 ml 550 ml Balance 660.2 ml 1467 ml 1779 ml 110 ml Intake Oral 0 ml 0 ml 360 ml IV Total 660.2 ml 100 ml 1000 ml 300 ml Packed Cells 400 ml 650 ml FFP 333 ml Platelets 284 ml 194 ml Blood Product IV Normal Saline Flush 350 ml 410 ml Other 250 ml Output Urine Total 0 ml 725 ml 550 ml Stool Total 0 ml 0 ml 0 ml Laboratory Laboratory Tests Test 08/21/17 08:30 08/21/17 10:24 08/21/17 16:00 08/21/17 23:40 White Blood Count 11.1 8.6 Red Blood Count 1.86 2.22 Hemoglobin 6.7 7.5 8.6 Hematocrit 19.6 21.6 24.6 Mean Corpuscular Volume 105.2 97.1 Mean Corpuscular Hemoglobin 36.0 34.0 Mean Corpuscular Hemoglobin Concent 34.2 35.0 Red Cell Distribution Width 15.5 19.4 Platelet Count 67 83 Mean Platelet Volume 9.1 8.8 Neutrophils (%) (Auto) 79.4 76.4 Lymphocytes (%) (Auto) 7.7 7.4 Monocytes (%) (Auto) 12.2 14.3 Eosinophils (%) (Auto) 0.4 1.5 Basophils (%) (Auto) 0.3 0.4 Neutrophils # (Auto) 8.8 6.6 Lymphocytes # (Auto) 0.9 0.6 Monocytes # (Auto) 1.4 1.2 Eosinophils # (Auto) 0.0 0.1 Basophils # (Auto) 0.0 0.0 CBC Comment AUTO DIFF AUTO DIFF Differential Total Cells Counted 100 100 Neutrophils % (Manual) 62 66 Band Neutrophils % 25 12 Lymphocytes % 6 9 Monocytes % 6 9 Neutrophils # (Manual) 9.8 7.0 Metamyelocytes 1 Differential Comment FINAL DIFF MANUAL FINAL DIFF MANUAL Toxic Granulation 1+ 1+ Platelet Estimate LOW LOW Platelet Morphology Comment NORMAL NORMAL Blood Urea Nitrogen 75 71 68 Creatinine 1.97 1.85 1.83 Random Glucose 299 162 122 Total Protein 4.8 5.4 Albumin 2.3 2.5 Calcium Level 8.0 8.7 8.6 Alkaline Phosphatase 62 74 Aspartate Amino Transf (AST/SGOT) 446 819 Alanine Aminotransferase (ALT/SGPT) 190 322 Total Bilirubin 1.6 3.1 Sodium Level 129 131 133 Potassium Level 6.0 5.6 5.0 Chloride Level 97 99 102 Carbon Dioxide Level 24.4 24.9 23.0 Anion Gap 8 7 8 Estimat Glomerular Filtration Rate 34 37 37 Total Creatine Kinase 58 Troponin I 0.02 Eosinophils % 1 Myelocytes 3 Magnesium Level 2.0 Test 08/22/17 05:55 Imaging Last Impressions Chest X-Ray 08/21/17 0426 Signed Impressions: Service Date/Time: Monday, August 21, 2017 04:07 - CONCLUSION: No acute disease. Antony Frederick MD Renal Ultrasound 08/21/17 0000 Signed Impressions: Service Date/Time: Monday, August 21, 2017 17:21 - CONCLUSION: Normal sized kidneys for hydronephrosis. Extensive ascites. Florin Alcala MD FACR Physical Exam HEENT: Normocephalic; atraumatic; no jaundice. CHEST: CTA CARDIAC: RRR ABDOMEN: Soft, mildly distended with ascites, nontender; hepatosplenomegaly; bowel sounds are present in all four quadrants. EXTREMITIES: No clubbing, cyanosis, or edema. SKIN: Normal; no rash; no jaundice. NUCLEAR MEDICINE MEDICAL DIRECTOR: No focal deficits; alert and oriented times three. (La Nena Odell [facility]) Assessment and Plan Plan ASSESSMENT: - Upper GIB with black emesis, melena. Pt with hx of liver cirrhosis, esophageal varices (last banded 2005). Last egd was at that time per patient, states he had a colonoscopy < 5 years ago at [place]. S/P EGD with band ligation (08/21/17)---> 1. Retained food and old blood-suctioned no active bleeding esophageal varices-3 colimns-grade 2-s/p banding times 2 2. Retroflexed views revealed food retai. Protonix Gtt. Octreotide gtt. Ceftriaxone. No active bleeding. HH this am is pending, but remained stable overnight. - Esophageal varices, 3 columns Grade II, s/p band ligation x 2. Octreotide, Protonix Gtt. - Anemia, acute blood loss. HH pending. 3 units PRBC ordered. Protonix Gtt. - Thrombocytopenia, Coagulopathy. S/P 1 unit FFP, 2 units Plt ordered - Recurrent ascites. Requires paracentesis every 2-3 weeks. Last had Monday at [place]. Will restart diuretics - Liver cirrhosis. Dx 2003, secondary to alcohol and hepatitis C (Genotype 1A) . He quit drinking in 2005. Hx HCC treated with chemoembolization. Currently followed at [facility] for tertiary/liver transplant evaluation- has appt September 25 in [place]. MELD 19 - Hepatic encephalopathy. On Lactulose, Xifaxan. Seems to be pretty clear. Ammonia 53. - HCV, Genotype 1A. S/P unsuccessfully treated with interferon and ribavirin and then Sovaldi (did not maintain a sustained virologic response). - Hx HCC. Dx 2015 and underwent transcatheter arterial chemoembolization on 04/27, 06/15/16, 11/08/16, and 01/11/17. - Chest pain. Developed substernal pressure while I was in the room, after given sodium bicarb. No sob/numbness, no relation to inspiration. EKG, Troponin ordered. - ARTHUR, hyperkalemia, hyponatremia. Improved, 1.83. - Leukocytosis,Improved Ceftriaxone - DM, OA, Depression, Anxiety, per attending. PLAN: - Soft 2 gram sodium diet - Protonix 40mg IV BID - Cont. Octretide for 72 hours total - Lasix 40mg po daily - Will need to add Spironolactone 100mg po daily once hyperkalemia, arthur improves - Cont. Albumin - Cont. Ceftriaxone - Cont. Lactulose, Xifaxan - Monitor HH - Transfuse as necessary - Supportive care - EGD in 6 weeks - If further bleeding, consult IR for TIPS - Okay to tx to floor from GI standpoint - Further recommendations to follow based on results of above - Pt seen and examined by Dr. Ferris and myself and this note is written on her behalf (La Nena OdellLa Nena Cueto Aug 22, 2017 08:07 Charlene Ferris MD Aug 22, 2017 19:30
[2017-08-22 08:50] LABS: AUTOMATED NEUTROPHIL # 4.9 TH/MM3 (1.8-7.7); BASOPHIL % 0.3 % (0.0-2.0); EOSINOPHIL # 0.2 TH/MM3 (0-0.4); EOSINOPHIL % 2.5 % (0.0-4.0); HEMATOCRIT 22.8 % (39.0-51.0); HEMOGLOBIN 7.9 GM/DL (13.0-17.0); LYMPH % 7.6 % (9.0-44.0); LYMPHOCYTE # 0.5 TH/MM3 (1.0-4.8); MEAN CELL VOLUME 96.1 FL (80.0-100.0); MEAN CORPUSCULAR HEMOGLOBIN 33.3 PG (27.0-34.0); MEAN CORPUSCULAR HGB CONC 34.7 % (32.0-36.0); MONO % 16.2 % (0.0-8.0); MONOCYTE # 1.1 TH/MM3 (0-0.9); NEUT % 73.4 % (16.0-70.0); PLATELET COUNT 61 TH/MM3 (150-450); RED BLOOD COUNT 2.37 MIL/MM3 (4.50-5.90); WHITE BLOOD COUNT 6.7 TH/MM3 (4.0-11.0)
[2017-08-22] MEDS: CHOLECALCIFEROL (VIT D3) 400 UNIT TAB PO SCH (08:50)
[2017-08-22] MEDS: RIFAXIMIN 550 MG TAB PO SCH ×2 (08:50→20:44)
[2017-08-22] MEDS: MAGNESIUM OXIDE 400 MG TAB PO SCH (08:50)
[2017-08-22] MEDS: GABAPENTIN 300 MG CAP PO SCH ×3 (08:51→17:37)
[2017-08-22] MEDS: DOCUSATE SODIUM 50 MG/SENNA 8.6 MG TAB PO SCH ×2 (08:51→20:44)
[2017-08-22] MEDS: LACTULOSE SYRUP 20 GM/30 ML CUP PO SCH ×2 (08:51→20:44)
[2017-08-22] MEDS: OCTREOTIDE INJ 500 MCG in SODIUM CHLORID 0.9% 500 ML INJ 499.5 ML IV SCH (08:52)
[2017-08-22 08:58] LABS: INTERNATIONAL NORMALIZED RATIO 1.6 RATIO; PROTHROMBIN TIME - PATIENT 17.6 SEC (9.8-11.6)
[2017-08-22] MEDS: SODIUM CHLORIDE 0.9% FLUSH 10 ML FLUSH IV FLUSH SCH ×2 (08:59→20:45)
[2017-08-22] MEDS ORDERED: SPIRONOLACTONE 100 MG TAB PO SCH (09:00)
[2017-08-22] MEDS ORDERED: FUROSEMIDE 40 MG TAB PO SCH (09:00)
--- NOTE | 2017-08-22 10:52 | HHI.NPPN ---
Subjective History of Present Illness This patient is a 66-year-old male with a history of cirrhosis, varices, chronic hepatitis C with unsuccessful treatment now listed apparently for liver transplant with a hepatitis C positive organ when available now presenting with apparent upper GI bleed was associated with hypotension last night. Blood pressure initially 91/52. Previous creatinine level noted to have been 1.05 June,. His creatinine level on presentation was 2.03 with a potassium initially of 7.1. The patient was taking Aldactone as an outpatient prior to presentation as well as furosemide. Denies using NSAIDs prior to presentation for analgesia.. Interval History Pt feeling OK today. Says abdomen feels distended. (Denita Kilgore) Review of Systems Gastrointestinal GI Remarks Abd distention (Denita Kilgore) Objective Data Data 08/22/17 08/23/17 19:00 07:00 Intake Total 113.4 ml Balance 113.4 ml IV Total 113.4 ml Vital Signs Date Time Temp Pulse Resp B/P (MAP) Pulse Ox O2 Delivery O2 Flow Rate FiO2 08/22/17 10:00 76 08/22/17 09:00 86 10 126/69 (88) 98 08/22/17 08:49 91 14 121/64 (83) 97 08/22/17 08:00 98.1 69 14 110/59 (76) 95 08/22/17 08:00 69 08/22/17 07:03 95 Nasal Cannula 2.00 08/22/17 07:00 72 13 111/54 (73) 90 08/22/17 06:00 71 08/22/17 04:00 72 08/22/17 03:00 98.0 69 18 116/58 (77) 94 08/22/17 02:00 70 08/22/17 00:00 71 08/21/17 23:00 98.1 72 14 109/56 (73) 92 08/21/17 22:00 70 08/21/17 21:04 97.8 67 14 95/53 94 08/21/17 20:00 66 08/21/17 19:02 98 Nasal Cannula 2.00 08/21/17 19:00 98.0 66 12 117/72 (87) 95 08/21/17 18:00 75 08/21/17 16:15 72 16 124/68 (86) 95 Nasal Cannula 3 08/21/17 16:00 97.9 68 14 98 08/21/17 16:00 67 16 119/52 (74) 98 Nasal Cannula 3 08/21/17 15:54 97.6 67 16 120/60 95 08/21/17 15:45 69 16 120/60 (80) 97 Nasal Cannula 3 08/21/17 15:33 97.6 69 16 122/58 (79) 100 Nasal Cannula 3 08/21/17 14:30 74 16 129/60 (83) 100 08/21/17 14:15 75 16 119/56 (77) 98 08/21/17 14:00 63 18 129/60 (83) 99 08/21/17 14:00 73 08/21/17 13:23 97.9 75 16 110/52 99 08/21/17 12:00 98.2 77 9 103/58 (73) 99 08/21/17 12:00 77 08/21/17 11:30 97.5 78 20 104/55 100 08/21/17 11:00 97.5 79 16 108/57 94 (Denita Kilgore PA) -: 08/22/17 0803 08/21/17 2340 Imaging Last Impressions Chest X-Ray 08/21/17 0426 Signed Impressions: Service Date/Time: Monday, August 21, 2017 04:07 - CONCLUSION: No acute disease. Antony Frederick MD Renal Ultrasound 08/21/17 0000 Signed Impressions: Service Date/Time: Monday, August 21, 2017 17:21 - CONCLUSION: Normal sized kidneys for hydronephrosis. Extensive ascites. Florin Alcala MD FACR Medication Review Current Medications Medications (Trade) Dose Ordered Sig/Jc Route Start Time Stop Time Status Last Admin (NS Flush) 2 ml UNSCH PRN IVF 08/20/17 22:15 08/21/17 00:17 (Lactulose Liq) 30 ml Q12HR PO 08/21/17 09:00 08/22/17 08:51 (Mag-Ox) 400 mg DAILY PO 08/21/17 09:00 08/22/17 08:50 (Xifaxan) 550 mg BID PO 08/21/17 09:00 08/22/17 08:50 (Opana) 5 mg Q4H PRN PO 08/21/17 01:00 08/21/17 21:59 Sodium Chloride 1,000 ml @ 124 mls/hr Q8H4M IV 08/21/17 00:58 08/21/17 20:00 (NS Flush) 2 ml UNSCH PRN IV FLUSH 08/21/17 01:00 (NS Flush) 2 ml BID IV FLUSH 08/21/17 09:00 08/22/17 08:59 (Tylenol) 650 mg Q6H PRN PO 08/21/17 01:00 (Zofran Inj) 4 mg Q6H PRN IV PUSH 08/21/17 01:00 (Restoril) 15 mg HS PRN PO 08/21/17 01:00 (Duoneb Neb) 1 ampule Q2HR NEB PRN INH 08/21/17 01:00 Miscellaneous Information 1 Q361D XX 08/21/17 01:00 (Chlorhexidine 2% Cloth) 3 pack Taper DAILY@04 TOP 08/21/17 04:00 08/17/18 03:59 08/22/17 04:00 (Chlorhexidine 2% Cloth) 3 pack UNSCH PRN TOP 08/21/17 01:00 (Sandra-Colace) 1 tab BID PO 08/21/17 09:00 08/22/17 08:51 (Milk Of Magnesia Liq) 30 ml Q12H PRN PO 08/21/17 01:00 (Senokot) 17.2 mg Q12H PRN PO 08/21/17 01:00 (Dulcolax Supp) 10 mg DAILY PRN RECTAL 08/21/17 01:00 (Lactulose Liq) 30 ml DAILY PRN PO 08/21/17 01:00 Albumin Human 100 ml @ 60 mls/hr Q6H IV 08/21/17 01:15 08/22/17 06:15 (Vitamin D3) 400 units DAILY PO 08/21/17 09:00 08/22/17 08:50 (Neurontin) 300 mg TID PO 08/21/17 09:00 08/22/17 08:51 (D50w (Vial) Inj) 50 ml UNSCH PRN IV PUSH 08/21/17 02:15 (Glucagon Inj) 1 mg UNSCH PRN OTHER 08/21/17 02:15 (NovoLIN R SUPPLEMENTAL SCALE) 1 ACHS SLIDING SCALE SQ 08/21/17 08:00 08/22/17 08:00 Octreotide Acetate 500 mcg/ Sodium Chloride 500 ml @ 50 mls/hr Q10H IV 08/21/17 03:00 08/22/17 08:52 Patient Own Medication PT OWN MED: ZINC SULF... BID PO 08/21/17 11:00 Future Hold Lactated Ringer's 1,000 ml @ 30 mls/hr Q24H PRN IV 08/21/17 15:00 08/24/17 14:59 Sodium Chloride 500 ml @ 30 mls/hr [id number] PRN IV 08/21/17 15:00 08/24/17 14:59 (Lopressor) 25 mg PIANO ACCOMPANIST PRN PO 08/21/17 15:00 08/24/17 14:59 (Betadine 5% Antisepsis Kit) 1 applic PIANO ACCOMPANIST PRN EACH NARE 08/21/17 15:00 08/24/17 14:59 (Chlorhexidine 2% Cloth) 3 pack PIANO ACCOMPANIST PRN TOPICAL 08/21/17 15:00 08/24/17 14:59 (NovoLIN R INJ) See Protocol Table ... PIANO ACCOMPANIST PRN SQ 08/21/17 15:00 08/24/17 14:59 Miscellaneous Information ALL NURSING DEPARTME... UNSCH PRN .XX 08/21/17 15:35 08/22/17 15:34 Ceftriaxone Sodium 1000 mg/ Sodium Chloride 100 ml @ 200 mls/hr Q24H IV 08/23/17 02:00 (Lasix) 40 mg DAILY PO 08/22/17 09:00 08/22/17 08:51 (Denita Kilgore) Physical Exam General Appearance: No Acute Distress, Comfortable (Denita Kilgore) Throat Throat Exam: Oral Mucosa [place] & Moist (Denita Kilgore) Pulmonary Resp Exam: Clear Bilaterally, Breath Sounds Equal (Denita Kilgore) Cardiology CV Exam: Regular, Normal Sinus Rhythm (Denita Kilgore) Gastrointestinal/Abdomen GI Exam: Distended (Denita Kilgore) Integumentary Skin Exam: Warm (Denita Kilgore) Extremeties Extremities Exam: No Edema (Denita Kilgore) Neurologic Neuro Exam: Alert, Awake (Denita Kilgore) Psychiatric Psych Exam: Appropriate Responses (Denita Kilgore) Assessment/Plan Problem List: (1) Acute kidney insufficiency ICD Codes: N28.9 - Disorder of kidney and ureter, unspecified Status: Acute Plan: Acute renal insufficiency most likely related to hemodynamic factors secondary to GI bleed with hypotension and intravascular volume depletion. In addition the patient may have been somewhat volume depleted prior to this as indicated anorexia predating presentation. SCr improving slightly as of yesterday. Pending today. Continue IVF. Renal US showed normal echogenicity and no signs of obstructive process. UA pending. If bland, a GN related to HCV not likely. Hepatorenal syndrome is not a primary consideration as yet with this presentation Hopefully renal functions will continue to improve. Medications should be adjusted for the patient's estimated GFR if clinically indicated. Avoid agents with significant potential for nephrotoxicity possible including NSAIDs for analgesia, iodine contrast agents. Gadolinium is contraindicated if the GFR is below 30. (2) Hyperkalemia ICD Codes: E87.5 - Hyperkalemia Status: Acute Plan: Resolved Most likely related to acute renal insufficiency, blood in the GI tract as well as presence of Aldactone prior to presentation. Hopefully potassium level will improve with rehydration and improved renal function. Continue albuterol as well as IV bicarbonate and insulin dextrose as needed. Would like to avoid Kayexalate because of risks associated with bowel injury if possible. (3) GI bleed ICD Codes: K92.2 - Gastrointestinal hemorrhage, unspecified Status: Acute Plan: Mgmt as per GI Pt complaining of some abdominal distention today. s/p variceal banding 08/21 Will defer to GI regarding US today. (4) Cirrhosis ICD Codes: K74.60 - Unspecified cirrhosis of liver Plan: Pt reports paracentesis every 2-3 weeks with last done 08/18 with 4L removed (Denita Kilgore) Plan The exam, history, and the medical decision-making described in the above note were completed with the assistance of the MARIA ELENA. I reviewed and agree with the findings presented. (Anibal Scanlon MD) Problem Qualifiers (1) GI bleed: Qualified Codes: K92.2 - Gastrointestinal hemorrhage, unspecified Denita Kilgore Aug 22, 2017 10:52 Anibal Scnalon MD Aug 23, 2017 17:49
[2017-08-22] MEDS: SODIUM CHLOR 0.9% 1000 ML INJ 1,000 ML IV SCH ×2 (12:51→20:45)
[2017-08-22 15:40] LABS: ALBUMIN 3.3 GM/DL (3.4-5.0); BICARBONATE 21.3 MEQ/L (21.0-32.0); BLOOD UREA NITROGEN 64 MG/DL (7-18); CALCIUM 8.8 MG/DL (8.5-10.1); CHLORIDE 104 MEQ/L (98-107); CREATININE 1.81 MG/DL (0.60-1.30); GLUCOSE,RANDOM 119 MG/DL (74-106); MAGNESIUM 1.9 MG/DL (1.5-2.5); PHOSPHORUS 2.7 MG/DL (2.5-4.9); SODIUM (NA) 136 MEQ/L (136-145)
[2017-08-22 15:47] LABS: ALKALINE PHOSPHATASE 85 U/L (45-117); ALT (GPT) 609 U/L (12-78); AST (GOT) 1365 U/L (15-37); TOTAL BILIRUBIN ADULT 4.5 MG/DL (0.2-1.0); TOTAL PROTEIN 5.7 GM/DL (6.4-8.2)
--- NOTE | 2017-08-22 17:34 | EKG ---
Date Performed: 08/21/2017 Time Performed: 01:44:04 PTAGE: 66 years EKG: Sinus rhythm NONSPECIFIC ST T-WAVE CHANGES NON DIAGNOSTIC INFERIOR T-WAVE NOTED. WHEN COMPARED TO PRIOR EKG PATIE NT NOW HAS NONSPECIFIC ST T WAVE CHANGES. ABNORMAL ECG PREVIOUS TRACING : 07/18/2017 13.31 DOCTOR: Brittny Jj Interpretating Date/Time 08/22/2017 17:34:23
--- NOTE | 2017-08-22 17:37 | EKG ---
Date Performed: 08/21/2017 Time Performed: 07:32:14 PTAGE: 66 years EKG: NORMAL Sinus rhythm NONSPECIFIC ST T-WAVE CHANGES INFERIOR T WAVE Compared to prior tracing no significant change ABNORM AL ECG PREVIOUS TRACING : 08/21/2017 01.44 DOCTOR: Brittny Jj Interpretating Date/Time 08/22/2017 17:36:29
--- NOTE | 2017-08-22 17:44 | EKG ---
Date Performed: 08/21/2017 Time Performed: 10:09:22 PTAGE: 66 years EKG: ATRIAL FIBRILLATION WITH RAPID VENTRICULAR RESPONSE ST DEVIATION AND MODERATE T-WAVE ABNORM ALITY, CONSIDER ANTEROLATERAL ISCHEMIA WHEN COMPARED TO PRIOR EKG THE PATIENT IS NOW IN ATRIAL FIBRIL LATION. ABNORMAL ECG PREVIOUS TRACING : 08/21/2017 07.32 DOCTOR: Brittny Jj Interpretating Date/Time 08/22/2017 17:44:03
--- NOTE | 2017-08-22 17:47 | EKG ---
Date Performed: 08/21/2017 Time Performed: 10:37:48 PTAGE: 66 years EKG: Sinus rhythm NONSPECIFIC ST & T-WAVE ABNORMALITY WHEN COMPARED TO PRIOR EKG THE PATIENT NOW RETURNED TO NORMAL S INUS RHYTHM. BORDERLINE ECG PREVIOUS TRACING : 08/21/2017 10.09 DOCTOR: Brittny Jj Interpretating Date/Time 08/22/2017 17:45:51
[2017-08-22] MEDS: OXYMORPHONE 5 MG PO PRN (20:46)
[2017-08-23] VITALS (34 sets, daily range): BP systolic 90–132; BP diastolic 52–84; PULSE 56–101; RESP 5–22; TEMP 97–98.6; O2SAT 93–100
[2017-08-23] MEDS: ALBUMIN 25% INJ 100 ML IV SCH ×4 (00:35→22:19)
[2017-08-23] MEDS: cefTRIAXone INJ 1,000 MG in SODIUM CHLORIDE 0.9% INJ 100 ML IV SCH (00:36)
[2017-08-23] MEDS: CHLORHEXIDINE GLUCONATE 2 % 1 PACK (2 CLOTHS) TOP SCH (04:00)
[2017-08-23] MEDS: OCTREOTIDE INJ 500 MCG in SODIUM CHLORID 0.9% 500 ML INJ 499.5 ML IV SCH (04:48)
[2017-08-23] MEDS: SODIUM CHLOR 0.9% 1000 ML INJ 1,000 ML IV SCH (04:48)
[2017-08-23] MEDS: INSULIN NovoLIN REGULAR SUPPLEMENTAL SCALE SQ SCH ×4 (08:00→21:00)
--- NOTE | 2017-08-23 08:23 | HHI.PR ---
Subjective Remarks Informal Waiter/Waitress Notes: 66-year-old gentleman with end-stage liver disease, chronic hepatitis C status post unsuccessful treatment with therapy now awaiting a liver transplant comes in complaining of melena 3 days and vomiting blood that began yesterday. Patient [facility] to his refractory ascites from his cirrhosis. Patient states since that is been having the melena. He denies any fevers, chest pain, shortness of breath, or headaches. Patient denies anything making this better or worse. Patient reports feeling weak and nauseated. Patient denies anything like this in the past. Denies being on any blood thinners. 08/21: Hypotensive, SBP in low 70's. 1 L normal saline bolus and 25, albumin stat ordered. IV Protonix changed to infusion. Start vasopressin if needed to keep map above 65. Hemoglobin 6.7 hematocrit 19.6. Transfuse 3 units PRBC stat. GI consult pending. Will need EGD-patient has history of esophageal varices but last endoscopy per patient was in 2005. Patient has two 18 G IV. Also platelet count has dropped to 67 will give 2 units of platelets and 1 unit of FFP 08/22: No GI bleed overnight. Hemodynamically has stabilized. Remains on IV Protonix infusion and octreotide infusion. A.m. labs are pending. Underwent endoscopy yesterday with findings of esophageal varices and gastritis. Underwent esophageal variceal banding 2 Hospitalist Notes: 08/23: I came to see the patient he was evaluated in his bedroom in the presence of nurse Miss Mcgrawhanie, discussed with Doctor Antony he will continue to handle the case due to that the patient has active bleeding at this time, ordered Two units of PRBCs, one unit of FFP and one unit of platelets patient developed again Hypotension but do not need Pressors at this time, Reconsult placed for wire coiler. at this time. patient clinically stable and denies abdominal pain. nurse in his bedroom with patient Objective Vital Signs Date Time Temp Pulse Resp B/P (MAP) Pulse Ox O2 Delivery O2 Flow Rate FiO2 08/23/17 07:47 94 2.00 08/23/17 06:00 81 08/23/17 04:00 98.2 79 16 95/52 (66) 96 08/23/17 04:00 81 08/23/17 02:00 78 08/23/17 00:00 98.6 72 14 91/55 (67) 95 08/23/17 00:00 79 08/22/17 22:00 80 08/22/17 20:00 81 08/22/17 20:00 98.0 81 12 105/53 (70) 95 08/22/17 19:03 94 Nasal Cannula 2.00 08/22/17 18:00 82 08/22/17 16:00 74 08/22/17 16:00 98.1 74 16 86/48 (61) 96 08/22/17 15:00 81 15 110/57 (74) 97 08/22/17 14:01 79 26 127/60 (82) 100 08/22/17 14:00 80 08/22/17 14:00 80 24 99 08/22/17 13:00 74 15 136/62 (86) 100 08/22/17 12:01 98.5 82 17 108/66 (80) 96 08/22/17 12:00 83 08/22/17 12:00 83 20 98 08/22/17 11:00 88 22 127/58 (81) 95 08/22/17 10:00 76 10 115/57 (76) 99 08/22/17 10:00 76 08/22/17 09:00 86 10 126/69 (88) 98 08/22/17 08:49 91 14 121/64 (83) 97 I/O 08/22/17 08/22/17 08/22/17 08/23/17 08/23/17 08/23/17 07:00 15:00 23:00 07:00 15:00 23:00 Intake Total 660 ml 963.4 ml 360 ml 1760 ml Output Total 550 ml 400 ml 653 ml Balance 110 ml 963.4 ml -40 ml 1107 ml Intake Oral 360 ml 360 ml 260 ml IV Total 300 ml 963.4 ml 1500 ml Output Urine Total 550 ml 400 ml 650 ml Stool Total 0 ml 3 ml # Bowel Movements 0 Result Diagram: 08/22/1780208/22/17802 Imaging Last Impressions Chest X-Ray 08/21/17 0426 Signed Impressions: Service Date/Time: Monday, August 21, 2017 04:07 - CONCLUSION: No acute disease. Antony Frederick MD Renal Ultrasound 08/21/17 0000 Signed Impressions: Service Date/Time: Monday, August 21, 2017 17:21 - CONCLUSION: Normal sized kidneys for hydronephrosis. Extensive ascites. Florin Alcala MD FACR Procedures None Other Results Laboratory Tests Test 08/20/17 22:50 08/21/17 02:00 08/21/17 04:00 08/21/17 07:30 Activated Partial Thromboplast Time 30.3 SEC Lipase 349 U/L B-Type Natriuretic Peptide 35 PG/ML Nasal Screen MRSA (PCR) MRSA NOT DETECTED Ammonia 53 MCMOL/L Test 08/21/17 08:30 08/21/17 10:24 08/21/17 16:00 08/21/17 23:40 Metamyelocytes 1 % Total Creatine Kinase 58 U/L Troponin I 0.02 NG/ML Differential Total Cells Counted 100 Neutrophils % (Manual) 66 % Band Neutrophils % 12 % Lymphocytes % 9 % Monocytes % 9 % Eosinophils % 1 % Neutrophils # (Manual) 7.0 TH/MM3 Myelocytes 3 % Toxic Granulation 1+ Estimat Glomerular Filtration Rate 37 ML/MIN Test 08/22/17 08:03 White Blood Count 6.7 TH/MM3 Red Blood Count 2.37 MIL/MM3 Hemoglobin 7.9 GM/DL Hematocrit 22.8 % Mean Corpuscular Volume 96.1 FL Mean Corpuscular Hemoglobin 33.3 PG Mean Corpuscular Hemoglobin Concent 34.7 % Red Cell Distribution Width 20.0 % Platelet Count 61 TH/MM3 Mean Platelet Volume 9.0 FL Neutrophils (%) (Auto) 73.4 % Lymphocytes (%) (Auto) 7.6 % Monocytes (%) (Auto) 16.2 % Eosinophils (%) (Auto) 2.5 % Basophils (%) (Auto) 0.3 % Neutrophils # (Auto) 4.9 TH/MM3 Lymphocytes # (Auto) 0.5 TH/MM3 Monocytes # (Auto) 1.1 TH/MM3 Eosinophils # (Auto) 0.2 TH/MM3 Basophils # (Auto) 0.0 TH/MM3 CBC Comment AUTO DIFF Differential Comment AUTO DIFF CONFIRMED Platelet Estimate LOW Platelet Morphology Comment NORMAL Polychromasia 2.0 % Prothrombin Time 17.6 SEC Prothromb Time International Ratio 1.6 RATIO Blood Urea Nitrogen 64 MG/DL Creatinine 1.81 MG/DL Random Glucose 119 MG/DL Total Protein 5.7 GM/DL Albumin 3.3 GM/DL Calcium Level 8.8 MG/DL Phosphorus Level 2.7 MG/DL Magnesium Level 1.9 MG/DL Alkaline Phosphatase 85 U/L Aspartate Amino Transf (AST/SGOT) 1365 U/L Alanine Aminotransferase (ALT/SGPT) 609 U/L Total Bilirubin 4.5 MG/DL Sodium Level 136 MEQ/L Potassium Level 5.0 MEQ/L Chloride Level 104 MEQ/L Carbon Dioxide Level 21.3 MEQ/L Anion Gap 11 MEQ/L Objective Remarks GENERAL: No acute distress. SKIN: Warm and dry. Pallor present HEAD: Normocephalic. EYES: Mild scleral icterus. No injection or drainage. NECK: Supple, trachea midline. No JVD or lymphadenopathy. CARDIOVASCULAR: Regular rate and rhythm without murmurs, gallops, or rubs. RESPIRATORY: Breath sounds equal bilaterally. No accessory muscle use. GASTROINTESTINAL: Abdomen soft, non-tender, mildly distended. MUSCULOSKELETAL: No cyanosis, or edema. BACK: Nontender without obvious deformity. NEURO EXAM: No focal deficits. Medications and IVs Current Medications Medications (Trade) Dose Ordered Sig/Jc Route Start Time Stop Time Status Last Admin (NS Flush) 2 ml UNSCH PRN IVF 08/20/17 22:15 08/21/17 00:17 (Lactulose Liq) 30 ml Q12HR PO 08/21/17 09:00 08/22/17 20:44 (Mag-Ox) 400 mg DAILY PO 08/21/17 09:00 08/22/17 08:50 (Xifaxan) 550 mg BID PO 08/21/17 09:00 08/22/17 20:44 (Opana) 5 mg Q4H PRN PO 08/21/17 01:00 08/22/17 20:46 Sodium Chloride 1,000 ml @ 124 mls/hr Q8H4M IV 08/21/17 00:58 08/23/17 04:48 (NS Flush) 2 ml UNSCH PRN IV FLUSH 08/21/17 01:00 (NS Flush) 2 ml BID IV FLUSH 08/21/17 09:00 08/22/17 20:45 (Tylenol) 650 mg Q6H PRN PO 08/21/17 01:00 (Zofran Inj) 4 mg Q6H PRN IV PUSH 08/21/17 01:00 (Restoril) 15 mg HS PRN PO 08/21/17 01:00 (Duoneb Neb) 1 ampule Q2HR NEB PRN INH 08/21/17 01:00 Miscellaneous Information 1 Q361D XX 08/21/17 01:00 (Chlorhexidine 2% Cloth) 3 pack Taper DAILY@04 TOP 08/21/17 04:00 08/17/18 03:59 08/23/17 04:00 (Chlorhexidine 2% Cloth) 3 pack UNSCH PRN TOP 08/21/17 01:00 (Sandra-Colace) 1 tab BID PO 08/21/17 09:00 08/22/17 08:51 (Milk Of Magnesia Liq) 30 ml Q12H PRN PO 08/21/17 01:00 (Senokot) 17.2 mg Q12H PRN PO 08/21/17 01:00 (Dulcolax Supp) 10 mg DAILY PRN RECTAL 08/21/17 01:00 (Lactulose Liq) 30 ml DAILY PRN PO 08/21/17 01:00 Albumin Human 100 ml @ 60 mls/hr Q6H IV 08/21/17 01:15 08/23/17 06:18 (Vitamin D3) 400 units DAILY PO 08/21/17 09:00 08/22/17 08:50 (Neurontin) 300 mg TID PO 08/21/17 09:00 08/22/17 17:37 (D50w (Vial) Inj) 50 ml UNSCH PRN IV PUSH 08/21/17 02:15 (Glucagon Inj) 1 mg UNSCH PRN OTHER 08/21/17 02:15 (NovoLIN R SUPPLEMENTAL SCALE) 1 ACHS SLIDING SCALE SQ 08/21/17 08:00 08/22/17 21:53 Octreotide Acetate 500 mcg/ Sodium Chloride 500 ml @ 50 mls/hr Q10H IV 08/21/17 03:00 08/23/17 04:48 Patient Own Medication PT OWN MED: ZINC SULF... BID PO 08/21/17 11:00 Future Hold Lactated Ringer's 1,000 ml @ 30 mls/hr Q24H PRN IV 08/21/17 15:00 08/24/17 14:59 Sodium Chloride 500 ml @ 30 mls/hr [id number] PRN IV 08/21/17 15:00 08/24/17 14:59 (Lopressor) 25 mg CATERING SALES MANAGER PRN PO 08/21/17 15:00 08/24/17 14:59 (Betadine 5% Antisepsis Kit) 1 applic CATERING SALES MANAGER PRN EACH NARE 08/21/17 15:00 08/24/17 14:59 (Chlorhexidine 2% Cloth) 3 pack CATERING SALES MANAGER PRN TOPICAL 08/21/17 15:00 08/24/17 14:59 (NovoLIN R INJ) See Protocol Table ... CATERING SALES MANAGER PRN SQ 08/21/17 15:00 08/24/17 14:59 Ceftriaxone Sodium 1000 mg/ Sodium Chloride 100 ml @ 200 mls/hr Q24H IV 08/23/17 02:00 08/23/17 00:36 (Lasix) 40 mg DAILY PO 08/22/17 09:00 08/22/17 08:51 A/P Assessment and Plan 1. GI bleed status post Variceal Bleed, with secondary Hypotension/Hemorrhagic Shock Resolved was in Intensive Care Unit transferred to Hospitalist team for today, Status post EGD and Banding of esophageal Varices, found Gastritis Octreotide drip, Protonix switched to by mouth. clear diet by GI. at this time discussed with Sales And In Home Delivery Specialist doctor Hardy and the patient started with active bleeding and some Hypotension, asked to give 2 units of PRBCs, one unit of FFP and One unit of Platelets switch Protonix to IV and he will continue to handle the case. 2. Anemia Requiring blood transfusion status post two units of FFP, 3 units of PRBCs and one unit of Platelets 3. Thrombocytopenia/Coagulopathy See #2 4. DM II Insulin sliding scale. 5. Hepatitis C status post unsuccessful treatment, Awaiting liver transplant. management at [facility] 6. Hepatic Encephalopathy resumed Rifaximin and Lactulose 7. Hyperkalemia resolved he received Insulin, Sodium Bicarbonate, Glucose, Calcium series of EKGs. 8. Hepatorenal Syndrome Nephrology specialist following, Creatinine stable. 9. Worsening transaminases due to Hypotension. DVT GI prophylaxis - Teds SCDs - No pharmacological DVT prophylaxis due to active bleed - Protonix gtt Discussed with Patient in the room, Nurse Miss Bernal and [employer] Home Delivery Specialist Doctor Antony Dineor Discharge Planning Continue under the care of land reclamation specialist. Michael Kelley MD Aug 23, 2017 08:23
--- NOTE | 2017-08-23 08:23 | HHI.PR ---
Subjective Remarks Filling Separator Notes: 66-year-old gentleman with end-stage liver disease, chronic hepatitis C status post unsuccessful treatment with therapy now awaiting a liver transplant comes in complaining of melena 3 days and vomiting blood that began yesterday. Patient [facility] his refractory ascites from his cirrhosis. Patient states since that is been having the melena. He denies any fevers, chest pain, shortness of breath, or headaches. Patient denies anything making this better or worse. Patient reports feeling weak and nauseated. Patient denies anything like this in the past. Denies being on any blood thinners. 08/21: Hypotensive, SBP in low 70's. 1 L normal saline bolus and 25, albumin stat ordered. IV Protonix changed to infusion. Start vasopressin if needed to keep map above 65. Hemoglobin 6.7 hematocrit 19.6. Transfuse 3 units PRBC stat. GI consult pending. Will need EGD-patient has history of esophageal varices but last endoscopy per patient was in 2005. Patient has two 18 G IV. Also platelet count has dropped to 67 will give 2 units of platelets and 1 unit of FFP 08/22: No GI bleed overnight. Hemodynamically has stabilized. Remains on IV Protonix infusion and octreotide infusion. A.m. labs are pending. Underwent endoscopy yesterday with findings of esophageal varices and gastritis. Underwent esophageal variceal banding 2 Hospitalist Notes: 08/23: I came to see the patient he was evaluated in his bedroom in the presence of nurse Miss Mcgrawhanie, discussed with Doctor Antony he will continue to handle the case due to that the patient has active bleeding at this time, ordered Two units of PRBCs, one unit of FFP and one unit of platelets patient developed again Hypotension but do not need Pressors at this time, Reconsult placed for senior pricing analyst. at this time. patient clinically stable and denies abdominal pain. nurse in his bedroom with patient Objective Vital Signs Date Time Temp Pulse Resp B/P (MAP) Pulse Ox O2 Delivery O2 Flow Rate FiO2 08/23/17 07:47 94 2.00 08/23/17 06:00 81 08/23/17 04:00 98.2 79 16 95/52 (66) 96 08/23/17 04:00 81 08/23/17 02:00 78 08/23/17 00:00 98.6 72 14 91/55 (67) 95 08/23/17 00:00 79 08/22/17 22:00 80 08/22/17 20:00 81 08/22/17 20:00 98.0 81 12 105/53 (70) 95 08/22/17 19:03 94 Nasal Cannula 2.00 08/22/17 18:00 82 08/22/17 16:00 74 08/22/17 16:00 98.1 74 16 86/48 (61) 96 08/22/17 15:00 81 15 110/57 (74) 97 08/22/17 14:01 79 26 127/60 (82) 100 08/22/17 14:00 80 08/22/17 14:00 80 24 99 08/22/17 13:00 74 15 136/62 (86) 100 08/22/17 12:01 98.5 82 17 108/66 (80) 96 08/22/17 12:00 83 08/22/17 12:00 83 20 98 08/22/17 11:00 88 22 127/58 (81) 95 08/22/17 10:00 76 10 115/57 (76) 99 08/22/17 10:00 76 08/22/17 09:00 86 10 126/69 (88) 98 08/22/17 08:49 91 14 121/64 (83) 97 I/O 08/22/17 08/22/17 08/22/17 08/23/17 08/23/17 08/23/17 07:00 15:00 23:00 07:00 15:00 23:00 Intake Total 660 ml 963.4 ml 360 ml 1760 ml Output Total 550 ml 400 ml 653 ml Balance 110 ml 963.4 ml -40 ml 1107 ml Intake Oral 360 ml 360 ml 260 ml IV Total 300 ml 963.4 ml 1500 ml Output Urine Total 550 ml 400 ml 650 ml Stool Total 0 ml 3 ml # Bowel Movements 0 Result Diagram: 08/22/1780208/22/17802 Imaging Last Impressions Chest X-Ray 08/21/17 0426 Signed Impressions: Service Date/Time: Monday, August 21, 2017 04:07 - CONCLUSION: No acute disease. Antony Frederick MD Renal Ultrasound 08/21/17 0000 Signed Impressions: Service Date/Time: Monday, August 21, 2017 17:21 - CONCLUSION: Normal sized kidneys for hydronephrosis. Extensive ascites. Florin Alcala MD FACR Procedures None Other Results Laboratory Tests Test 08/20/17 22:50 08/21/17 02:00 08/21/17 04:00 08/21/17 07:30 Activated Partial Thromboplast Time 30.3 SEC Lipase 349 U/L B-Type Natriuretic Peptide 35 PG/ML Nasal Screen MRSA (PCR) MRSA NOT DETECTED Ammonia 53 MCMOL/L Test 08/21/17 08:30 08/21/17 10:24 08/21/17 16:00 08/21/17 23:40 Metamyelocytes 1 % Total Creatine Kinase 58 U/L Troponin I 0.02 NG/ML Differential Total Cells Counted 100 Neutrophils % (Manual) 66 % Band Neutrophils % 12 % Lymphocytes % 9 % Monocytes % 9 % Eosinophils % 1 % Neutrophils # (Manual) 7.0 TH/MM3 Myelocytes 3 % Toxic Granulation 1+ Estimat Glomerular Filtration Rate 37 ML/MIN Test 08/22/17 08:03 White Blood Count 6.7 TH/MM3 Red Blood Count 2.37 MIL/MM3 Hemoglobin 7.9 GM/DL Hematocrit 22.8 % Mean Corpuscular Volume 96.1 FL Mean Corpuscular Hemoglobin 33.3 PG Mean Corpuscular Hemoglobin Concent 34.7 % Red Cell Distribution Width 20.0 % Platelet Count 61 TH/MM3 Mean Platelet Volume 9.0 FL Neutrophils (%) (Auto) 73.4 % Lymphocytes (%) (Auto) 7.6 % Monocytes (%) (Auto) 16.2 % Eosinophils (%) (Auto) 2.5 % Basophils (%) (Auto) 0.3 % Neutrophils # (Auto) 4.9 TH/MM3 Lymphocytes # (Auto) 0.5 TH/MM3 Monocytes # (Auto) 1.1 TH/MM3 Eosinophils # (Auto) 0.2 TH/MM3 Basophils # (Auto) 0.0 TH/MM3 CBC Comment AUTO DIFF Differential Comment AUTO DIFF CONFIRMED Platelet Estimate LOW Platelet Morphology Comment NORMAL Polychromasia 2.0 % Prothrombin Time 17.6 SEC Prothromb Time International Ratio 1.6 RATIO Blood Urea Nitrogen 64 MG/DL Creatinine 1.81 MG/DL Random Glucose 119 MG/DL Total Protein 5.7 GM/DL Albumin 3.3 GM/DL Calcium Level 8.8 MG/DL Phosphorus Level 2.7 MG/DL Magnesium Level 1.9 MG/DL Alkaline Phosphatase 85 U/L Aspartate Amino Transf (AST/SGOT) 1365 U/L Alanine Aminotransferase (ALT/SGPT) 609 U/L Total Bilirubin 4.5 MG/DL Sodium Level 136 MEQ/L Potassium Level 5.0 MEQ/L Chloride Level 104 MEQ/L Carbon Dioxide Level 21.3 MEQ/L Anion Gap 11 MEQ/L Objective Remarks GENERAL: No acute distress. SKIN: Warm and dry. Pallor present HEAD: Normocephalic. EYES: Mild scleral icterus. No injection or drainage. NECK: Supple, trachea midline. No JVD or lymphadenopathy. CARDIOVASCULAR: Regular rate and rhythm without murmurs, gallops, or rubs. RESPIRATORY: Breath sounds equal bilaterally. No accessory muscle use. GASTROINTESTINAL: Abdomen soft, non-tender, mildly distended. MUSCULOSKELETAL: No cyanosis, or edema. BACK: Nontender without obvious deformity. NEURO EXAM: No focal deficits. Medications and IVs Current Medications Medications (Trade) Dose Ordered Sig/Jc Route Start Time Stop Time Status Last Admin (NS Flush) 2 ml UNSCH PRN IVF 08/20/17 22:15 08/21/17 00:17 (Lactulose Liq) 30 ml Q12HR PO 08/21/17 09:00 08/22/17 20:44 (Mag-Ox) 400 mg DAILY PO 08/21/17 09:00 08/22/17 08:50 (Xifaxan) 550 mg BID PO 08/21/17 09:00 08/22/17 20:44 (Opana) 5 mg Q4H PRN PO 08/21/17 01:00 08/22/17 20:46 Sodium Chloride 1,000 ml @ 124 mls/hr Q8H4M IV 08/21/17 00:58 08/23/17 04:48 (NS Flush) 2 ml UNSCH PRN IV FLUSH 08/21/17 01:00 (NS Flush) 2 ml BID IV FLUSH 08/21/17 09:00 08/22/17 20:45 (Tylenol) 650 mg Q6H PRN PO 08/21/17 01:00 (Zofran Inj) 4 mg Q6H PRN IV PUSH 08/21/17 01:00 (Restoril) 15 mg HS PRN PO 08/21/17 01:00 (Duoneb Neb) 1 ampule Q2HR NEB PRN INH 08/21/17 01:00 Miscellaneous Information 1 Q361D XX 08/21/17 01:00 (Chlorhexidine 2% Cloth) 3 pack Taper DAILY@04 TOP 08/21/17 04:00 08/17/18 03:59 08/23/17 04:00 (Chlorhexidine 2% Cloth) 3 pack UNSCH PRN TOP 08/21/17 01:00 (Sandra-Colace) 1 tab BID PO 08/21/17 09:00 08/22/17 08:51 (Milk Of Magnesia Liq) 30 ml Q12H PRN PO 08/21/17 01:00 (Senokot) 17.2 mg Q12H PRN PO 08/21/17 01:00 (Dulcolax Supp) 10 mg DAILY PRN RECTAL 08/21/17 01:00 (Lactulose Liq) 30 ml DAILY PRN PO 08/21/17 01:00 Albumin Human 100 ml @ 60 mls/hr Q6H IV 08/21/17 01:15 08/23/17 06:18 (Vitamin D3) 400 units DAILY PO 08/21/17 09:00 08/22/17 08:50 (Neurontin) 300 mg TID PO 08/21/17 09:00 08/22/17 17:37 (D50w (Vial) Inj) 50 ml UNSCH PRN IV PUSH 08/21/17 02:15 (Glucagon Inj) 1 mg UNSCH PRN OTHER 08/21/17 02:15 (NovoLIN R SUPPLEMENTAL SCALE) 1 ACHS SLIDING SCALE SQ 08/21/17 08:00 08/22/17 21:53 Octreotide Acetate 500 mcg/ Sodium Chloride 500 ml @ 50 mls/hr Q10H IV 08/21/17 03:00 08/23/17 04:48 Patient Own Medication PT OWN MED: ZINC SULF... BID PO 08/21/17 11:00 Future Hold Lactated Ringer's 1,000 ml @ 30 mls/hr Q24H PRN IV 08/21/17 15:00 08/24/17 14:59 Sodium Chloride 500 ml @ 30 mls/hr [id number] PRN IV 08/21/17 15:00 08/24/17 14:59 (Lopressor) 25 mg VICE PRESIDENT MARKETING & DEVELOPMENT PRN PO 08/21/17 15:00 08/24/17 14:59 (Betadine 5% Antisepsis Kit) 1 applic [employer]ING [employer] DEVELOPMENT PRN EACH NARE 08/21/17 15:00 08/24/17 14:59 (Chlorhexidine 2% Cloth) 3 pack [employer]ETING [employer] DEVELOPMENT PRN TOPICAL 08/21/17 15:00 08/24/17 14:59 (NovoLIN R INJ) See Protocol Table ... [employer]IDENT MARKETING [employer] DEVELOPMENT PRN SQ 08/21/17 15:00 08/24/17 14:59 Ceftriaxone Sodium 1000 mg/ Sodium Chloride 100 ml @ 200 mls/hr Q24H IV 08/23/17 02:00 08/23/17 00:36 (Lasix) 40 mg DAILY PO 08/22/17 09:00 08/22/17 08:51 A/P Assessment and Plan 1. GI bleed status post Variceal Bleed, with secondary Hypotension/Hemorrhagic Shock Resolved was in Intensive Care Unit transferred to Hospitalist team for today, Status post EGD and Banding of esophageal Varices, found Gastritis Octreotide drip, Protonix switched to by mouth. clear diet by GI. at this time discussed with Sales Lead Generator doctor Hardy and the patient started with active bleeding and some Hypotension, asked to give 2 units of PRBCs, one unit of FFP and One unit of Platelets switch Protonix to IV and he will continue to handle the case. 2. Anemia Requiring blood transfusion status post two units of FFP, 3 units of PRBCs and one unit of Platelets 3. Thrombocytopenia/Coagulopathy See #2 4. DM II Insulin sliding scale. 5. Hepatitis C status post unsuccessful treatment, Awaiting liver transplant. management at [facility] 6. Hepatic Encephalopathy resumed Rifaximin and Lactulose 7. Hyperkalemia resolved he received Insulin, Sodium Bicarbonate, Glucose, Calcium series of EKGs. 8. Hepatorenal Syndrome Nephrology specialist following, Creatinine stable. 9. Worsening transaminases due to Hypotension. DVT GI prophylaxis - Teds SCDs - No pharmacological DVT prophylaxis due to active bleed - Protonix gtt Discussed with Patient in the room, Nurse Miss Bernal and Sales Lead Generator Doctor Antony Dinero Discharge Planning Continue under the care of retail service specialist. Michael Kelley MD Aug 23, 2017 08:23
[2017-08-23] MEDS: LACTULOSE SYRUP 20 GM/30 ML CUP PO SCH ×2 (09:00→22:05)
[2017-08-23] MEDS: DOCUSATE SODIUM 50 MG/SENNA 8.6 MG TAB PO SCH ×2 (09:00→22:05)
[2017-08-23] MEDS: GABAPENTIN 300 MG CAP PO SCH ×3 (09:00→18:00)
[2017-08-23] MEDS: PANTOPRAZOLE INJ 80 MG in SODIUM CHLORIDE 0.9% INJ 100 ML IV SCH ×2 (09:09→13:56)
--- NOTE | 2017-08-23 09:22 | HHI.GIFU ---
Subjective Remarks Resting in bed. No active bleeding. Had a large bowel movement last night. (La Nena Odell) Objective Vitals I&O Vital Signs Date Time Temp Pulse Resp B/P (MAP) Pulse Ox O2 Delivery O2 Flow Rate FiO2 08/23/17 07:47 94 2.00 08/23/17 06:00 81 08/23/17 04:00 98.2 79 16 95/52 (66) 96 08/23/17 04:00 81 08/23/17 02:00 78 08/23/17 00:00 98.6 72 14 91/55 (67) 95 08/23/17 00:00 79 08/22/17 22:00 80 08/22/17 20:00 81 08/22/17 20:00 98.0 81 12 105/53 (70) 95 08/22/17 19:03 94 Nasal Cannula 2.00 08/22/17 18:00 82 08/22/17 16:00 74 08/22/17 16:00 98.1 74 16 86/48 (61) 96 08/22/17 15:00 81 15 110/57 (74) 97 08/22/17 14:01 79 26 127/60 (82) 100 08/22/17 14:00 80 08/22/17 14:00 80 24 99 08/22/17 13:00 74 15 136/62 (86) 100 08/22/17 12:01 98.5 82 17 108/66 (80) 96 08/22/17 12:00 83 08/22/17 12:00 83 20 98 08/22/17 11:00 88 22 127/58 (81) 95 08/22/17 10:00 76 10 115/57 (76) 99 08/22/17 10:00 76 I/O 08/22/17 08/22/17 08/22/17 08/23/17 08/23/17 08/23/17 07:00 15:00 23:00 07:00 15:00 23:00 Intake Total 660 ml 963.4 ml 360 ml 1760 ml Output Total 550 ml 400 ml 653 ml Balance 110 ml 963.4 ml -40 ml 1107 ml Intake Oral 360 ml 360 ml 260 ml IV Total 300 ml 963.4 ml 1500 ml Output Urine Total 550 ml 400 ml 650 ml Stool Total 0 ml 3 ml # Bowel Movements 0 Imaging Last Impressions Chest X-Ray 08/21/17 0426 Signed Impressions: Service Date/Time: Monday, August 21, 2017 04:07 - CONCLUSION: No acute disease. Antony Frederick MD Renal Ultrasound 08/21/17 0000 Signed Impressions: Service Date/Time: Monday, August 21, 2017 17:21 - CONCLUSION: Normal sized kidneys for hydronephrosis. Extensive ascites. Florin Alcala MD FACR Physical Exam HEENT: Normocephalic; atraumatic; no jaundice. CHEST: CTA CARDIAC: RRR ABDOMEN: Soft, mildly distended with ascites, nontender; hepatosplenomegaly; bowel sounds are present in all four quadrants. EXTREMITIES: No clubbing, cyanosis, or edema. SKIN: Normal; no rash; no jaundice. SUPERVISOR TELEVISION CHASSIS REPAIR: No focal deficits; alert and oriented times three. (La Nena Odell) Assessment and Plan Plan ASSESSMENT: - Upper GIB with black emesis, melena. Pt with hx of liver cirrhosis, esophageal varices (last banded 2005). Last egd was at that time per patient, states he had a colonoscopy < 5 years ago at [facility]. S/P EGD with band ligation (08/21/17)---> 1. Retained food and old blood-suctioned no active bleeding esophageal varices-3 columns-grade 2-s/p banding times 2 2. Retroflexed views revealed food retained. Protonix Gtt. Octreotide gtt. Ceftriaxone. No active bleeding. 7.9/22.8. - Esophageal varices, 3 columns Grade II, s/p band ligation x 2. Octreotide, Protonix Gtt. - Anemia, acute blood loss. 7./.8. 3 units PRBC ordered. Protonix Gtt. - Thrombocytopenia, Coagulopathy. S/P 1 unit FFP, 2 units Plt ordered - Recurrent ascites. Requires paracentesis every 2-3 weeks. Last had Monday at [facility]. Lasix was restarted, Spironolactone on hold secondary to ARTHUR/K+. D/W CCM yesterday. - Liver cirrhosis. Dx 2003, secondary to alcohol and hepatitis C (Genotype 1A) . He quit drinking in 2005. Hx HCC treated with chemoembolization. Currently followed at [facility] for tertiary/liver transplant evaluation- has appt September 25 in [place]. MELD 19 - Hepatic encephalopathy. On Lactulose, Xifaxan. Seems to be pretty clear. Ammonia 53. - HCV, Genotype 1A. S/P unsuccessfully treated with interferon and ribavirin and then Sovaldi (did not maintain a sustained virologic response). - Hx HCC. Dx 2015 and underwent transcatheter arterial chemoembolization on 04/27, 06/15/16, 11/08/16, and 01/11/17. - Chest pain. Developed substernal pressure while I was in the room, after given sodium bicarb. No sob/numbness, no relation to inspiration. EKG, Troponin ordered. - ARTHUR, hyperkalemia, hyponatremia. Improved, 1.81. - Leukocytosis,Improved Ceftriaxone - DM, OA, Depression, Anxiety, per attending. PLAN: - Soft 2 gram sodium diet - D/C Protonix Gtt - Protonix 40mg IV BID - D/C Octretide for on 112 am - Lasix 40mg po daily - Will need to add Spironolactone 100mg po daily once hyperkalemia, arthur improves - Cont. Albumin - Cont. Ceftriaxone - Cont. Lactulose, Xifaxan - Monitor HH - Transfuse as necessary - Supportive care - EGD in 6 weeks - If further bleeding, consult IR for TIPS - Okay to tx to floor from GI standpoint - Further recommendations to follow based on results of above - Pt seen and examined by Dr. Ferris and myself and this note is written on her behalf ADDENDUM: Spoke to Dr. Hardy, Pt having active GIB with red blood from rectum. HH dropped 5.2/15.5 today. 1 unit PRBC, 1 unit FFP, 1 unit Plt ordered. Will consult IR for TIPS procedure. Attempted to call Dr. Chaney, not in room, nurse will have him return call. (La Nena Odell) Physician Comments seen, examined agree with above he had episode of rectal bleeding later in the day, hb dropped significant.discussed with director of business applications, Darryl alvarez ok for TIPS if indicated Discussed with IR-equipment available tomorrow correct coagulopathy egd/colonoscopy today discussed with patient and significant other, his sister will be POA- documentation scanned in chart (Charlene Ferris MD) OdellLa Nena abarca ANGELINA Aug 23, 2017 09:22 Charlene Ferris MD Aug 23, 2017 16:55
[2017-08-23] MEDS: SODIUM CHLORIDE 0.9% FLUSH 10 ML FLUSH IV FLUSH SCH ×2 (09:54→22:13)
[2017-08-23] MEDS: RIFAXIMIN 550 MG TAB PO SCH ×2 (09:54→22:05)
[2017-08-23] MEDS: MAGNESIUM OXIDE 400 MG TAB PO SCH (09:55)
[2017-08-23] MEDS: CHOLECALCIFEROL (VIT D3) 400 UNIT TAB PO SCH (09:55)
[2017-08-23] MEDS: OXYMORPHONE 5 MG PO PRN (09:56)
[2017-08-23 10:30] LABS: BASOPHIL % 0.3 % (0.0-2.0); EOSINOPHIL # 0.1 TH/MM3 (0-0.4); EOSINOPHIL % 0.8 % (0.0-4.0); LYMPH % 6.8 % (9.0-44.0); LYMPHOCYTE # 0.4 TH/MM3 (1.0-4.8); MEAN CELL VOLUME 99.4 FL (80.0-100.0); MEAN CORPUSCULAR HEMOGLOBIN 33.4 PG (27.0-34.0); MEAN CORPUSCULAR HGB CONC 33.6 % (32.0-36.0); MEAN PLATELET VOLUME 9.1 FL (7.0-11.0); MONO % 14.9 % (0.0-8.0); NEUT % 77.2 % (16.0-70.0); PLATELET COUNT 49 TH/MM3 (150-450); RED BLOOD COUNT 1.56 MIL/MM3 (4.50-5.90); RED CELL DISTRIBUTION WIDTH 19.9 % (11.6-17.2); WHITE BLOOD COUNT 6.5 TH/MM3 (4.0-11.0)
[2017-08-23 10:40] LABS: PROTHROMBIN TIME - PATIENT 22.5 SEC (9.8-11.6)
[2017-08-23 10:46] LABS: HEMATOCRIT 15.5 % (39.0-51.0); HEMOGLOBIN 5.2 GM/DL (13.0-17.0)
[2017-08-23 10:51] LABS: ALBUMIN 3.4 GM/DL (3.4-5.0); BICARBONATE 19.1 MEQ/L (21.0-32.0); BLOOD UREA NITROGEN 65 MG/DL (7-18); CALCIUM 8.5 MG/DL (8.5-10.1); CHLORIDE 108 MEQ/L (98-107); CREATININE 1.79 MG/DL (0.60-1.30); GLOMERULAR FILTRATION RATE 38 ML/MIN (>89); GLUCOSE,RANDOM 217 MG/DL (74-106); MAGNESIUM 2.1 MG/DL (1.5-2.5); SODIUM (NA) 138 MEQ/L (136-145)
[2017-08-23 10:52] LABS: AST (GOT) 698 U/L (15-37)
[2017-08-23 10:57] LABS: ALKALINE PHOSPHATASE 64 U/L (45-117); ALT (GPT) 437 U/L (12-78); TOTAL BILIRUBIN ADULT 3.4 MG/DL (0.2-1.0)
[2017-08-23 11:39] LABS: BANDS 19 % (0-6); LYMPHOCYTES 6 % (9-44); MONOCYTES 15 % (0-8); NEUTROPHIL # MANUAL DIFF 5.1 TH/MM3 (1.8-7.7); POLYS (SEG NEUTROPHILS) 60 % (16-70)
[2017-08-23 11:40] LABS: TOXIC GRANULATION 2+ (NORMAL)
--- NOTE | 2017-08-23 12:31 | HHI.CCPN ---
Subjective Remarks/Hospital Course 66-year-old gentleman with end-stage liver disease, chronic hepatitis C status post unsuccessful treatment with therapy now awaiting a liver transplant comes in complaining of melena 3 days and vomiting blood that began yesterday. [facility] his refractory ascites from his cirrhosis. Patient states since that is been having the melena. He denies any fevers, chest pain, shortness of breath, or headaches. Patient denies anything making this better or worse. Patient reports feeling weak and nauseated. Patient denies anything like this in the past. Denies being on any blood thinners. 08/21: Hypotensive, SBP in low 70's. 1 L normal saline bolus and 25, albumin stat ordered. IV Protonix changed to infusion. Start vasopressin if needed to keep map above 65. Hemoglobin 6.7 hematocrit 19.6. Transfuse 3 units PRBC stat. GI consult pending. Will need EGD-patient has history of esophageal varices but last endoscopy per patient was in 2005. Patient has two 18 G IV. Also platelet count has dropped to 67 will give 2 units of platelets and 1 unit of FFP 08/22: No GI bleed overnight. Hemodynamically has stabilized. Remains on IV Protonix infusion and octreotide infusion. A.m. labs are pending. Underwent endoscopy yesterday with findings of esophageal varices and gastritis. Underwent esophageal variceal banding 2 08/23: Reconsulted by hepatocellular in for acute GI hemorrhage passing bright red blood per rectum. Hemoglobin has dropped to 5.2. INR is 2 today with platelet count of 49. Start transfusion of 3 units PRBC, 2 units of FFP, 2 units of platelets ordered. I will also restarted the Protonix infusion and will continue octreotide infusion. GI contacted emergently Objective Vital Signs Date Time Temp Pulse Resp B/P (MAP) Pulse Ox O2 Delivery O2 Flow Rate FiO2 08/23/17 11:49 98.2 86 12 108/58 95 08/23/17 07:47 2.00 08/22/17 19:03 Nasal Cannula Intake and Output 08/23/17 08/23/17 08/24/17 08:00 16:00 00:00 Intake Total 1860 ml 455 ml Output Total 653 ml Balance 1207 ml 455 ml Result Diagram: 08/23/17 1017 08/23/17 1017 Objective Remarks GENERAL: Appears pale in moderate distress SKIN: Warm and dry. Pallor present HEAD: Normocephalic. EYES: Mild scleral icterus. No injection or drainage. NECK: Supple, trachea midline. No JVD or lymphadenopathy. CARDIOVASCULAR: Tachycardic rate and rhythm without murmurs, gallops, or rubs. RESPIRATORY: Breath sounds equal bilaterally. No accessory muscle use. GASTROINTESTINAL: Abdomen soft, non-tender, mildly distended. Bright red blood per rectum MUSCULOSKELETAL: No cyanosis, or edema. BACK: Nontender without obvious deformity. NEURO EXAM: The patient is awake with normal speech. Muscle power and sensation preserved no focal deficits. Anxious and slightly lethargic due to GI bleed A/P Assessment and Plan Recurrent Variceal bleed Hypotension/hemorrhagic shock-resolved Anemia requiring transfusion Thrombocytopenia Coagulopathy - Status post EGD and banding of esophageal varices 08/21/17. Also has gastritis - Now with recurrent variceal bleed, stat 3 units of PRBC, 2 units of FFP, 2 unit of platelets - Octreotide drip, IV Protonix gtt, Rocephin for SBP prophylaxis - GI contacted emergently-May need repeat EGD or possibly TIPS - NPO Diabetes mellitus - Hold insulin glargine while nothing by mouth - Insulin sliding scale Hepatitis C - Status post unsuccessful treatment - Awaiting liver transplant - Management per [facility] Hepatic encephalopathy - Ammonia 53 - Hold rifaximin and lactulose when NPO Insomnia - Temazepam hold due GIB Hyperkalemia-resolved - Received Insulin, sodium bicarbonate, glucose, Calcium - Monitor level - Nephrology consult - Series of EKGs Hepatorenal syndrome - Nephrology consultation - Creatinine stable, urine output adequate 1.3L in 24 hours - Worsening transaminitis due to hypotension DVT GI prophylaxis - Teds SCDs - No pharmacological DVT prophylaxis due to active bleed - Protonix gtt Critical Care 35 MIN Patient is acutely critically ill with massive and recurrent variceal bleed. I have given 2 units of PRBC stat, platelets 2 units and FFP 2 units. GI had been emergently contacted. Will use vasopressin if pressors needed. Resume Protonix infusion and continue octreotide. Need repeat endoscopy versus TIPS Bar Hardy MD Aug 23, 2017 12:31
[2017-08-23] MEDS ORDERED: CISATRACURIUM BESYLATE 20 MG/10 ML VIAL ONE (14:18)
[2017-08-23] MEDS ORDERED: DIATRIZOATE MEGLUM/DIATRIZOATE SOD 9 ML CUP PO ONE (15:30)
--- NOTE | 2017-08-23 15:37 | EKG ---
Date Performed: 08/22/2017 Time Performed: 21:37:24 PTAGE: 66 years EKG: Sinus rhythm Extensive ST-T changes Abnormal ECG PREVIOUS TRACING : 08/21/2017 10.37 Compared to prior tracing no significant change DOCTOR: Temitope Gutiérrez Interpretating Date/Time 08/23/2017 15:35:44
--- NOTE | 2017-08-23 16:23 | GIPROC ---
[facility] [address] [facility]. [facility], [address] EGD PROCEDURE REPORT EXAM DATE: 08/23/2017 PATIENT NAME: Donavan Santana MR #: [id number] BIRTHDATE: 1950 ATTENDING: Charlene Ferris MD ORDER #: [id number] WELL TESTER: Haven Orourke and Sol Bellamy STATUS: inpatient INDICATIONS: The patient is a 66 yr old male here for an EGD due to gi bleeding liver cirrhosis PROCEDURE PERFORMED: EGD, diagnostic egd with cautery of AVM MEDICATIONS: None and Per Anesthesia. TOPICAL ANESTHETIC: none CONSENT: The patient understands the risks and benefits of the procedure and understands that these risks include, but are not limited to: sedation, allergic reaction, infection, perforation and/or bleeding. Alternative means of evaluation and treatment include, among others: physical exam, x-rays, and/or surgical intervention. The patient elects to proceed with this endoscopic procedure. medical equipment was checked for proper function. Hand hygiene and appropriate measures for infection prevention was taken. After the risks, benefits and alternatives of the procedure were thoroughly explained, Informed consent was verified, confirmed and timeout was successfully executed by the treatment team. The patient was anesthetized with topical anesthesia and the Pentax EG-2990i endoscope was introduced through the mouth and advanced to the second portion of the duodenum. Retroflexed views revealed a hiatal hernia The gastroscope was then slowly withdrawn and removed. Retained food in stoamch esophageal varices with band attached portal gastropathy questionable AVM in antrum-cautery using balltip no active bleeding in upper gi tract. ADVERSE EVENTS: There were no complications. IMPRESSIONS: 1. Retained food in stoamch esophageal varices with band attached portal gastropathy questionable AVM in antrum-cautery using balltip no active bleeding in upper gi tract 2. Retroflexed views revealed a hiatal hernia RECOMMENDATIONS: 1. Anti-reflux regimen 2. Continue Octreotide continue ppi correct coagulopathy transfuse PRN PATIENT CONDITION: stable DISPOSITION: Inpatient REPEAT EXAM: Return 2 weeks EGD Charlene Ferris MD eSigned: Charlene Ferris MD 08/23/2017 4:22 PM cc: PATIENT NAME: Donavan Santana MR#: [id number]
--- NOTE | 2017-08-23 16:23 | GIPROC ---
[facility] [address] [facility]. [facility], [address] EGD PROCEDURE REPORT EXAM DATE: 08/23/2017 PATIENT NAME: Donavan Santana MR #: [id number] BIRTHDATE: 1950 ATTENDING: Charlene Ferris MD ORDER #: [id number] MERCHANDISING ASSISTANT: Haven Orourke and Sol Bellamy STATUS: inpatient INDICATIONS: The patient is a 66 yr old male here for an EGD due to gi bleeding liver cirrhosis PROCEDURE PERFORMED: EGD, diagnostic egd with cautery of AVM MEDICATIONS: None and Per Anesthesia. TOPICAL ANESTHETIC: none CONSENT: The patient understands the risks and benefits of the procedure and understands that these risks include, but are not limited to: sedation, allergic reaction, infection, perforation and/or bleeding. Alternative means of evaluation and treatment include, among others: physical exam, x-rays, and/or surgical intervention. The patient elects to proceed with this endoscopic procedure. medical equipment was checked for proper function. Hand hygiene and appropriate measures for infection prevention was taken. After the risks, benefits and alternatives of the procedure were thoroughly explained, Informed consent was verified, confirmed and timeout was successfully executed by the treatment team. The patient was anesthetized with topical anesthesia and the Pentax EG-2990i endoscope was introduced through the mouth and advanced to the second portion of the duodenum. Retroflexed views revealed a hiatal hernia The gastroscope was then slowly withdrawn and removed. Retained food in stoamch esophageal varices with band attached portal gastropathy questionable AVM in antrum-cautery using balltip no active bleeding in upper gi tract. ADVERSE EVENTS: There were no complications. IMPRESSIONS: 1. Retained food in stoamch esophageal varices with band attached portal gastropathy questionable AVM in antrum-cautery using balltip no active bleeding in upper gi tract 2. Retroflexed views revealed a hiatal hernia RECOMMENDATIONS: 1. Anti-reflux regimen 2. Continue Octreotide continue ppi correct coagulopathy transfuse PRN PATIENT CONDITION: stable DISPOSITION: Inpatient REPEAT EXAM: Return 2 weeks EGD Charlene Ferris MD eSigned: Charlene Ferris MD 08/23/2017 4:22 PM cc: PATIENT NAME: Donavan Santana MR#: [id number]
--- NOTE | 2017-08-23 16:23 | GIPROC ---
[facility] [address] [facility]. [facility], [address] EGD PROCEDURE REPORT EXAM DATE: 08/23/2017 PATIENT NAME: Donavan Santana MR #: [id number] BIRTHDATE: 1950 ATTENDING: Charlene Ferris MD ORDER #: [id number] ART MANAGER: Haven Orourke and Sol Bellamy STATUS: inpatient INDICATIONS: The patient is a 66 yr old male here for an EGD due to gi bleeding liver cirrhosis PROCEDURE PERFORMED: EGD, diagnostic egd with cautery of AVM MEDICATIONS: None and Per Anesthesia. TOPICAL ANESTHETIC: none CONSENT: The patient understands the risks and benefits of the procedure and understands that these risks include, but are not limited to: sedation, allergic reaction, infection, perforation and/or bleeding. Alternative means of evaluation and treatment include, among others: physical exam, x-rays, and/or surgical intervention. The patient elects to proceed with this endoscopic procedure. medical equipment was checked for proper function. Hand hygiene and appropriate measures for infection prevention was taken. After the risks, benefits and alternatives of the procedure were thoroughly explained, Informed consent was verified, confirmed and timeout was successfully executed by the treatment team. The patient was anesthetized with topical anesthesia and the Pentax EG-[id number] endoscope was introduced through the mouth and advanced to the second portion of the duodenum. Retroflexed views revealed a hiatal hernia The gastroscope was then slowly withdrawn and removed. Retained food in stoamch esophageal varices with band attached portal gastropathy questionable AVM in antrum-cautery using balltip no active bleeding in upper gi tract. ADVERSE EVENTS: There were no complications. IMPRESSIONS: 1. Retained food in stoamch esophageal varices with band attached portal gastropathy questionable AVM in antrum-cautery using balltip no active bleeding in upper gi tract 2. Retroflexed views revealed a hiatal hernia RECOMMENDATIONS: 1. Anti-reflux regimen 2. Continue Octreotide continue ppi correct coagulopathy transfuse PRN PATIENT CONDITION: stable DISPOSITION: Inpatient REPEAT EXAM: Return 2 weeks EGD Charlene Ferris MD eSigned: Charlene Ferris MD 08/23/2017 4:22 PM cc: PATIENT NAME: Donavan Santana MR#: [id number]
--- NOTE | 2017-08-23 16:29 | GIPROC ---
[facility] [address] [facility]. [facility], [address] COLONOSCOPY PROCEDURE REPORT EXAM DATE: 08/23/2017 PATIENT NAME: Donavan Santana MR #: [id number] BIRTHDATE: 1950 ENDOSCOPIST: Charlene Ferris MD ORDER #: [id number] DENTAL EQUIPMENT INSTALLER AND SERVICER: Angelo De Souza CST and Haven Orourke RN STATUS: inpatient INDICATIONS: The patient is a 66 yr old male here for a colonoscopy due to bleeding gi PROCEDURE PERFORMED: Colonoscopy, diagnostic MEDICATIONS: None and Per Anesthesia. PREP QUALITY: poor PREP TYPE:Other: ESTIMATED BLOOD LOSS: None CONSENT: The patient understands the risks and benefits of the procedure and understands that these risks include, but are not limited to: sedation, allergic reaction, infection, perforation and/or bleeding. Alternative means of evaluation and treatment include, among others: physical exam, x-rays, and/or surgical intervention. The patient elects to proceed with this endoscopic procedure. medical equipment was checked for proper function. Hand hygiene and appropriate measures for infection prevention was taken. After the risks, benefits and alternatives of the procedure were thoroughly explained, Informed consent was verified, confirmed and timeout was successfully executed by the treatment team. A digital exam was performed and revealed external hemorrhoids The Pentax EC-[id number] endoscope was introduced through the anus and advanced to the cecum, which was identified by both the appendix and ileocecal valve. The instrument was then slowly withdrawn as the colon was fully examined. COLON FINDINGS: Diverticulosis sigmoid,descending blood up to cecum, agressive washing , no active bleeding TI -some blood noted agressive washing done -3 l of fluid -no active bleeding noted. Retroflexed views revealed internal hemorrhoids and Retroflexed views revealed small internal hemorrhoids The scope was then completely withdrawn from the patient and the procedure terminated. ADVERSE EVENTS: There were no complications. IMPRESSIONS: 1. Diverticulosis sigmoid,descending blood up to cecum, agressive washing , no active bleeding TI -some blood noted agressive washing done -3 l of fluid -no active bleeding noted 2. Retroflexed views revealed internal hemorrhoids 3. Retroflexed views revealed small internal hemorrhoids 4. Was performed 5. Revealed external hemorrhoids RECOMMENDATIONS: Bleeding scan STAT -if active bleeding angiogram ct abdomen/pelvis keep intubated overnight npo except medications TIPS depending on clinical status and above findings-please contact general accountant dr Andrews before proceeding -[phone] RECALL: Return 2 weeks Colonoscopy Charlene Ferris MD eSigned: Charlene Ferris MD 08/23/2017 4:28 PM cc: PATIENT NAME: Donavan Santana MR#: [id number]
--- NOTE | 2017-08-23 16:29 | GIPROC ---
[facility] [address] [facility]. [facility], [address] COLONOSCOPY PROCEDURE REPORT EXAM DATE: 08/23/2017 PATIENT NAME: Donavan Santana MR #: [id number] BIRTHDATE: 1950 ENDOSCOPIST: Charlene Ferris MD ORDER #: [id number] EMBEDDED FIRMWARE DEVELOPER: Angelo De Souza CST and Haven Orourke RN STATUS: inpatient INDICATIONS: The patient is a 66 yr old male here for a colonoscopy due to bleeding gi PROCEDURE PERFORMED: Colonoscopy, diagnostic MEDICATIONS: None and Per Anesthesia. PREP QUALITY: poor PREP TYPE:Other: ESTIMATED BLOOD LOSS: None CONSENT: The patient understands the risks and benefits of the procedure and understands that these risks include, but are not limited to: sedation, allergic reaction, infection, perforation and/or bleeding. Alternative means of evaluation and treatment include, among others: physical exam, x-rays, and/or surgical intervention. The patient elects to proceed with this endoscopic procedure. medical equipment was checked for proper function. Hand hygiene and appropriate measures for infection prevention was taken. After the risks, benefits and alternatives of the procedure were thoroughly explained, Informed consent was verified, confirmed and timeout was successfully executed by the treatment team. A digital exam was performed and revealed external hemorrhoids The Pentax EC-[id number] endoscope was introduced through the anus and advanced to the cecum, which was identified by both the appendix and ileocecal valve. The instrument was then slowly withdrawn as the colon was fully examined. COLON FINDINGS: Diverticulosis sigmoid,descending blood up to cecum, agressive washing , no active bleeding TI -some blood noted agressive washing done -3 l of fluid -no active bleeding noted. Retroflexed views revealed internal hemorrhoids and Retroflexed views revealed small internal hemorrhoids The scope was then completely withdrawn from the patient and the procedure terminated. ADVERSE EVENTS: There were no complications. IMPRESSIONS: 1. Diverticulosis sigmoid,descending blood up to cecum, agressive washing , no active bleeding TI -some blood noted agressive washing done -3 l of fluid -no active bleeding noted 2. Retroflexed views revealed internal hemorrhoids 3. Retroflexed views revealed small internal hemorrhoids 4. Was performed 5. Revealed external hemorrhoids RECOMMENDATIONS: Bleeding scan STAT -if active bleeding angiogram ct abdomen/pelvis keep intubated overnight npo except medications TIPS depending on clinical status and above findings-please contact graphic design professor dr Andrews before proceeding -[phone] RECALL: Return 2 weeks Colonoscopy Charlene Ferris MD eSigned: Charlene Ferris MD 08/23/2017 4:28 PM cc: PATIENT NAME: Donavan Santana MR#: [id number]
--- NOTE | 2017-08-23 16:29 | GIPROC ---
[facility] [address] [facility]. [facility], [address] COLONOSCOPY PROCEDURE REPORT EXAM DATE: 08/23/2017 PATIENT NAME: Donavan Santana MR #: [id number] BIRTHDATE: 1950 ENDOSCOPIST: Charlene Ferris MD ORDER #: [id number] TOPOGRAPHY TECHNICIAN: Angelo De Souza CST and Haven Orourke RN STATUS: inpatient INDICATIONS: The patient is a 66 yr old male here for a colonoscopy due to bleeding gi PROCEDURE PERFORMED: Colonoscopy, diagnostic MEDICATIONS: None and Per Anesthesia. PREP QUALITY: poor PREP TYPE:Other: ESTIMATED BLOOD LOSS: None CONSENT: The patient understands the risks and benefits of the procedure and understands that these risks include, but are not limited to: sedation, allergic reaction, infection, perforation and/or bleeding. Alternative means of evaluation and treatment include, among others: physical exam, x-rays, and/or surgical intervention. The patient elects to proceed with this endoscopic procedure. medical equipment was checked for proper function. Hand hygiene and appropriate measures for infection prevention was taken. After the risks, benefits and alternatives of the procedure were thoroughly explained, Informed consent was verified, confirmed and timeout was successfully executed by the treatment team. A digital exam was performed and revealed external hemorrhoids The Pentax [id number] endoscope was introduced through the anus and advanced to the cecum, which was identified by both the appendix and ileocecal valve. The instrument was then slowly withdrawn as the colon was fully examined. COLON FINDINGS: Diverticulosis sigmoid,descending blood up to cecum, agressive washing , no active bleeding TI -some blood noted agressive washing done -3 l of fluid -no active bleeding noted. Retroflexed views revealed internal hemorrhoids and Retroflexed views revealed small internal hemorrhoids The scope was then completely withdrawn from the patient and the procedure terminated. ADVERSE EVENTS: There were no complications. IMPRESSIONS: 1. Diverticulosis sigmoid,descending blood up to cecum, agressive washing , no active bleeding TI -some blood noted agressive washing done -3 l of fluid -no active bleeding noted 2. Retroflexed views revealed internal hemorrhoids 3. Retroflexed views revealed small internal hemorrhoids 4. Was performed 5. Revealed external hemorrhoids RECOMMENDATIONS: Bleeding scan STAT -if active bleeding angiogram ct abdomen/pelvis keep intubated overnight npo except medications TIPS depending on clinical status and above findings-please contact naprapath dr Andrews before proceeding -[phone] RECALL: Return 2 weeks Colonoscopy Charlene Ferris MD eSigned: Charlene Ferris MD 08/23/2017 4:28 PM cc: PATIENT NAME: Donavan Santana MR#: [id number]
[2017-08-23] MEDS: PROPOFOL 1000 MG/100 ML IV PRN (17:15)
--- NOTE | 2017-08-23 17:48 | HHI.NPPN ---
Subjective History of Present Illness This patient is a 66-year-old male with a history of cirrhosis, varices, chronic hepatitis C with unsuccessful treatment now listed apparently for liver transplant with a hepatitis C positive organ when available now presenting with apparent upper GI bleed was associated with hypotension last night. Blood pressure initially 91/52. Previous creatinine level noted to have been 1.05 June,. His creatinine level on presentation was 2.03 with a potassium initially of 7.1. The patient was taking Aldactone as an outpatient prior to presentation as well as furosemide. Denies using NSAIDs prior to presentation for analgesia.. Interval History Episode of GI bleed again with worsening anemia and hypotension since yesterday. Patient now intubated. Status post variceal banding. Review of Systems General General Remarks Patient unable to respond to questions verbally at this time. Gastrointestinal GI Remarks Abd distention Objective Data Data 08/23/17 08/24/17 19:00 07:00 Intake Total 1532 ml Balance 1532 ml Packed Cells 1200 ml Platelets 237 ml Blood Product IV Normal Saline Flush 95 ml Vital Signs Date Time Temp Pulse Resp B/P (MAP) Pulse Ox O2 Delivery O2 Flow Rate FiO2 08/23/17 16:40 100 50 08/23/17 15:30 97.0 59 18 103/55 98 08/23/17 14:45 85 12 124/83 (97) 96 08/23/17 14:30 85 12 121/77 (92) 96 08/23/17 14:15 84 12 120/74 (89) 95 08/23/17 14:07 98.2 85 12 125/81 97 08/23/17 14:00 86 12 123/84 (97) 96 08/23/17 13:52 98.1 84 12 118/82 96 08/23/17 13:52 98.1 84 12 118/82 96 08/23/17 13:45 83 12 120/81 (94) 97 08/23/17 13:30 85 12 116/79 (91) 96 08/23/17 13:29 98.1 84 12 116/76 96 08/23/17 13:15 85 12 109/75 (86) 96 08/23/17 13:10 98.1 84 12 112/74 (87) 96 08/23/17 13:10 Nasal Cannula 2 08/23/17 12:00 98.2 89 22 115/65 (82) 95 08/23/17 12:00 89 08/23/17 11:49 98.2 86 12 108/58 95 08/23/17 11:00 85 7 108/58 (75) 95 08/23/17 10:00 101 08/23/17 10:00 101 17 116/62 (80) 93 08/23/17 09:45 98.3 101 16 95/55 08/23/17 09:00 84 5 95/55 (68) 93 08/23/17 08:00 80 08/23/17 08:00 98.3 80 14 97/54 (68) 94 08/23/17 07:47 94 2.00 08/23/17 07:00 81 19 90/55 (67) 94 08/23/17 06:00 81 08/23/17 04:00 98.2 79 16 95/52 (66) 96 08/23/17 04:00 81 08/23/17 02:00 78 08/23/17 00:00 98.6 72 14 91/55 (67) 95 08/23/17 00:00 79 08/22/17 22:00 80 08/22/17 20:00 81 08/22/17 20:00 98.0 81 12 105/53 (70) 95 08/22/17 19:03 94 Nasal Cannula 2.00 08/22/17 18:00 82 -: 08/23/17 1017 08/23/17 1017 Physical Exam General Appearance: No Acute Distress, Comfortable Appearance Remarks Currently with an ET tube in place on ventilator. Throat Throat Exam: Oral Mucosa [place] & Moist Pulmonary Resp Exam: Clear Bilaterally, Breath Sounds Equal Cardiology CV Exam: Regular, Normal Sinus Rhythm Gastrointestinal/Abdomen GI Exam: Distended Integumentary Skin Exam: Warm Extremeties Extremities Exam: No Edema, Moderate Edema (2+ pitting edema of her extremities and hips.) Neurologic Neuro Exam: Alert, Awake Psychiatric Psych Exam: Appropriate Responses Assessment/Plan Problem List: (1) Acute kidney insufficiency ICD Codes: N28.9 - Disorder of kidney and ureter, unspecified Status: Acute Plan: Patient's renal indices were improving however remains to be determined whether or not episode of recurrent GI bleed with hypotension has had a detrimental effect as far as recovery of renal function is concerned. Repeat renal indices tomorrow. Although initially acute renal insufficiency appeared to be related to hemodynamic factors related to GI bleed this patient is at risk for development of hepatorenal syndrome. Renal US showed normal echogenicity and no signs of obstructive process. UA pending. If bland, a GN related to HCV not likely. Hopefully renal functions will continue to improve. Medications should be adjusted for the patient's estimated GFR if clinically indicated. Avoid agents with significant potential for nephrotoxicity possible including NSAIDs for analgesia, iodine contrast agents. Gadolinium is contraindicated if the GFR is below 30. (2) Hyperkalemia ICD Codes: E87.5 - Hyperkalemia Status: Acute Plan: Resolved Most likely related to acute renal insufficiency, blood in the GI tract as well as presence of Aldactone prior to presentation. Hopefully potassium level will improve with rehydration and improved renal function. Continue albuterol as well as IV bicarbonate and insulin dextrose as needed. Would like to avoid Kayexalate because of risks associated with bowel injury if possible. (3) GI bleed ICD Codes: K92.2 - Gastrointestinal hemorrhage, unspecified Status: Acute Plan: Mgmt as per GI Pt complaining of some abdominal distention today. s/p variceal banding 08/21 Will defer to GI regarding US today. (4) Cirrhosis ICD Codes: K74.60 - Unspecified cirrhosis of liver Plan: Pt reports paracentesis every 2-3 weeks with last done 08/18 with 4L removed Problem Qualifiers (1) GI bleed: Qualified Codes: K92.2 - Gastrointestinal hemorrhage, unspecified Anibal Scanlon MD Aug 23, 2017 17:48
[2017-08-23 18:26] LABS: AUTOMATED NEUTROPHIL # 5.6 TH/MM3 (1.8-7.7); BASOPHIL % 0.5 % (0.0-2.0); EOSINOPHIL # 0.1 TH/MM3 (0-0.4); EOSINOPHIL % 1.2 % (0.0-4.0); HEMATOCRIT 21.2 % (39.0-51.0); HEMOGLOBIN 7.5 GM/DL (13.0-17.0); LYMPH % 5.6 % (9.0-44.0); LYMPHOCYTE # 0.4 TH/MM3 (1.0-4.8); MEAN CELL VOLUME 93.3 FL (80.0-100.0); MEAN CORPUSCULAR HEMOGLOBIN 33.1 PG (27.0-34.0); MEAN CORPUSCULAR HGB CONC 35.4 % (32.0-36.0); MEAN PLATELET VOLUME 8.7 FL (7.0-11.0); MONO % 12.5 % (0.0-8.0); MONOCYTE # 0.9 TH/MM3 (0-0.9); NEUT % 80.2 % (16.0-70.0); PLATELET COUNT 67 TH/MM3 (150-450); RED BLOOD COUNT 2.28 MIL/MM3 (4.50-5.90); RED CELL DISTRIBUTION WIDTH 16.9 % (11.6-17.2)
[2017-08-23 18:40] LABS: INTERNATIONAL NORMALIZED RATIO 1.7 RATIO; PROTHROMBIN TIME - PATIENT 18.7 SEC (9.8-11.6)
[2017-08-23 19:07] LABS: BANDS 11 % (0-6); LYMPHOCYTES 3 % (9-44); METAMYELOCYTES 1 % (0-1); MONOCYTES 4 % (0-8); MYELOCYTES 1 % (0-0); NEUTROPHIL # MANUAL DIFF 6.5 TH/MM3 (1.8-7.7); POLYS (SEG NEUTROPHILS) 79 % (16-70); PROMYELOCYTES 1 % (0-0); TOXIC GRANULATION 1+ (NORMAL)
--- NOTE | 2017-08-23 20:59 | RADRPT ---
EXAM DATE/TIME: 08/23/2017 18:09 [facility] COMPARISON: No previous studies available for comparison. INDICATIONS : Rectal bleeding. Blood in stool for one week. DOSE: 20.5 mCi Tc99m Ultratag labeled red blood cells IV IMAGIN hrs MEDICAL HISTORY : Carcinoma, hepatocellular. Hepatitis C. Diabetes mellitus type 2. SURGICAL HISTORY : Hand. ENCOUNTER: Initial ACUITY: 1 day PAIN SCALE: 0/10 LOCATION: Bilateral upper quadrant TECHNIQUE: Following the modified in vitro labeling of autologous red cells, dynamic continuous images were acqu ired for the specified interval. FINDINGS: BIODISTRIBUTION: There is a very good labeling of red cells without significant uptake in the gastric wall. There is good delineation of the blood pool of the spleen and abdominal vessels. BLEEDING: No episodes of active GI bleeding are observed during specified interval of continuous observation. T here is mild bladder activity. CONCLUSION: Negative scan. Roel Grey MD on August 23, 2017 at 20:56 Board Certified Radiologist. This report was verified electronically.
--- NOTE | 2017-08-23 21:23 | RADRPT ---
EXAM DATE/TIME: 08/23/2017 20:45 [facility] COMPARISON: No previous studies available for comparison. INDICATIONS : Cirrhosis,GI bleed. ORAL CONTRAST: No oral contrast ingested. RADIATION DOSE: 14.57 CTDIvol (mGy) MEDICAL HISTORY : Carcinoma, hepatocellular. Diabetes, cirrhosis, Hep C SURGICAL HISTORY : None. ENCOUNTER: Initial ACUITY: 1 day PAIN SCALE: Non-responsive LOCATION: abdominal TECHNIQUE: Volumetric scanning of the abdomen and pelvis was performed. Using automated exposure control and ad justment of the mA and/or kV according to patient size, radiation dose was kept as low as reasonably achievable to obtain optimal diagnostic quality images. DICOM format image data is available electro nically for review and comparison. FINDINGS: LOWER LUNGS: There is small bilateral pleural effusions with consolidation in both posterior lung bases. LIVER: Liver is small and cirrhotic in appearance with diffuse lobulation and mild heterogeneity. There is n o distinct mass in this noncontrast study. There are multiple calcified gallstones in the gallbladder . There is a large amount of ascitic fluid in the upper abdomen. SPLEEN: Mild splenomegaly is noted with no focal mass. PANCREAS: Within normal limits. KIDNEYS: Normal in size and shape. There is no mass, stone, or hydronephrosis. ADRENAL GLANDS: Within normal limits. VASCULAR: There is no aortic aneurysm. BOWEL/MESENTERY: Moderate to large amount of ascitic fluid is present. Many bowel loops are displaced centrally. There is a nonspecific bowel gas pattern with multiple loops of nondilated air-containing small bowel with small air-fluid levels. Contrast is noted in the colon and stomach. A nasogastric tube is present. T here are diverticuli in the sigmoid colon. There is no free air. There is diffuse anasarca. ABDOMINAL WALL: Within normal limits. RETROPERITONEUM: There is no lymphadenopathy. BLADDER: No wall thickening or mass. REPRODUCTIVE: Within normal limits. INGUINAL: There is no lymphadenopathy or hernia. MUSCULOSKELETAL: Within normal limits for patient age. CONCLUSION: 1. Cirrhotic small liver with diffuse heterogeneity. 2. Moderate to large amount of ascitic fluid. 3. Mild splenomegaly. 4. Nonspecific nonobstructive bowel gas pattern which represent a mild ileus. 5. Bilateral pleural effusions with consolidation in both posterior lung bases. Roel Grey MD on August 23, 2017 at 21:18 Board Certified Radiologist. This report was verified electronically.
[2017-08-23] MEDS: PANTOPRAZOLE SODIUM 40 MG VIAL IV PUSH SCH ×2 (22:00→22:07)
[2017-08-24] VITALS (30 sets, daily range): BP systolic 87–144; BP diastolic 54–72; PULSE 47–68; RESP 12–14; TEMP 95.4–100.4; O2SAT 96–100
[2017-08-24] MEDS: ALBUMIN 25% INJ 100 ML IV SCH ×4 (01:55→18:15)
[2017-08-24] MEDS: cefTRIAXone INJ 1,000 MG in SODIUM CHLORIDE 0.9% INJ 100 ML IV SCH (02:00)
[2017-08-24] MEDS: SODIUM CHLOR 0.9% 1000 ML INJ 1,000 ML IV SCH ×6 (02:21→18:14)
[2017-08-24] MEDS: PROPOFOL 1000 MG/100 ML IV PRN ×4 (02:40→23:44)
[2017-08-24] MEDS: CHLORHEXIDINE GLUCONATE 2 % 1 PACK (2 CLOTHS) TOP SCH (02:54)
[2017-08-24 04:18] LABS: BILIRUBIN, URINE NEG (NEG); BLOOD, URINE NEG (NEG); GLUCOSE,URINE TRACE mg/dL (NEG); HYALINE CAST, URINE 3 /lpf (RARE); KETONE, URINE NEG (NEG); NITRITE,URINE NEG (NEG); PH, URINE 5.5 (5.0-8.5); URINE COLOR YELLOW (YELLW/STRAW); URINE LEUKOCYTE ESTERASE NEG (NEG)
[2017-08-24] MEDS: OCTREOTIDE INJ 500 MCG in SODIUM CHLORID 0.9% 500 ML INJ 499.5 ML IV SCH ×2 (06:42→16:57)
[2017-08-24 07:00] LABS: AUTOMATED NEUTROPHIL # 3.5 TH/MM3 (1.8-7.7); BASOPHIL % 0.4 % (0.0-2.0); EOSINOPHIL # 0.1 TH/MM3 (0-0.4); EOSINOPHIL % 2.9 % (0.0-4.0); HEMATOCRIT 22.4 % (39.0-51.0); HEMOGLOBIN 7.7 GM/DL (13.0-17.0); LYMPH % 7.7 % (9.0-44.0); LYMPHOCYTE # 0.4 TH/MM3 (1.0-4.8); MEAN CELL VOLUME 96.3 FL (80.0-100.0); MEAN CORPUSCULAR HEMOGLOBIN 33.2 PG (27.0-34.0); MEAN CORPUSCULAR HGB CONC 34.5 % (32.0-36.0); MEAN PLATELET VOLUME 9.1 FL (7.0-11.0); MONOCYTE # 0.6 TH/MM3 (0-0.9); PLATELET COUNT 52 TH/MM3 (150-450); RED BLOOD COUNT 2.33 MIL/MM3 (4.50-5.90); RED CELL DISTRIBUTION WIDTH 18.1 % (11.6-17.2); WHITE BLOOD COUNT 4.6 TH/MM3 (4.0-11.0)
[2017-08-24 07:29] LABS: ALBUMIN 3.3 GM/DL (3.4-5.0); ALKALINE PHOSPHATASE 61 U/L (45-117); ALT (GPT) 293 U/L (12-78); AST (GOT) 303 U/L (15-37); BICARBONATE 20.2 MEQ/L (21.0-32.0); BLOOD UREA NITROGEN 53 MG/DL (7-18); CALCIUM 8.3 MG/DL (8.5-10.1); CHLORIDE 108 MEQ/L (98-107); CREATININE 1.63 MG/DL (0.60-1.30); GLOMERULAR FILTRATION RATE 42 ML/MIN (>89); GLUCOSE,RANDOM 199 MG/DL (74-106); SODIUM (NA) 139 MEQ/L (136-145); TOTAL BILIRUBIN ADULT 7.9 MG/DL (0.2-1.0); TOTAL PROTEIN 5.4 GM/DL (6.4-8.2)
[2017-08-24] MEDS: INSULIN NovoLIN REGULAR SUPPLEMENTAL SCALE SQ SCH ×4 (08:00→21:00)
[2017-08-24 08:26] LABS: BANDS 20 % (0-6); LYMPHOCYTES 8 % (9-44); METAMYELOCYTES 1 % (0-1); MONOCYTES 8 % (0-8); NEUTROPHIL # MANUAL DIFF 3.8 TH/MM3 (1.8-7.7); POLYCHROMASIA 2.9 % (0.0-1.9); POLYS (SEG NEUTROPHILS) 62 % (16-70); TOXIC GRANULATION 1+ (NORMAL)
[2017-08-24 08:27] LABS: ACANTHOCYTES OCC (NORMAL)
--- NOTE | 2017-08-24 08:59 | HHI.GIFU ---
Subjective Remarks Resting in bed. Sedated on ventilator. Nurse reports that he had a small amount of bleeding rectally overnight, none so far this shift. He is bradycardic, not requiring vasopressors. (La Nena Odell) Objective Vitals I&O Vital Signs Date Time Temp Pulse Resp B/P (MAP) Pulse Ox O2 Delivery O2 Flow Rate FiO2 08/24/17 07:58 100 35 08/24/17 06:00 47 08/24/17 04:09 100 35 08/24/17 04:00 35 08/24/17 04:00 51 08/24/17 04:00 95.4 51 12 96/63 (74) 100 08/24/17 02:00 52 08/24/17 01:56 97.4 52 12 89/56 100 08/24/17 01:11 100 35 08/24/17 00:35 97.4 51 14 94/58 100 08/24/17 00:22 97.5 52 14 98/58 100 08/24/17 00:00 52 08/24/17 00:00 97.5 52 14 110/55 (73) 100 08/24/17 00:00 35 08/23/17 22:00 56 08/23/17 21:47 100 35 08/23/17 20:00 35 08/23/17 20:00 97.4 57 14 97/63 (74) 100 08/23/17 20:00 57 08/23/17 19:00 100 50 08/23/17 18:00 64 08/23/17 18:00 64 14 100 08/23/17 17:30 50 08/23/17 17:00 74 22 108/61 (77) 95 08/23/17 16:45 100 08/23/17 16:40 100 50 08/23/17 16:26 98.3 64 22 132/74 (93) 100 08/23/17 16:00 64 08/23/17 15:30 97.0 59 18 103/55 98 08/23/17 14:45 85 12 124/83 (97) 96 08/23/17 14:30 85 12 121/77 (92) 96 08/23/17 14:15 84 12 120/74 (89) 95 08/23/17 14:07 98.2 85 12 125/81 97 08/23/17 14:00 86 12 123/84 (97) 96 08/23/17 13:52 98.1 84 12 118/82 96 08/23/17 13:52 98.1 84 12 118/82 96 08/23/17 13:45 83 12 120/81 (94) 97 08/23/17 13:30 85 12 116/79 (91) 96 08/23/17 13:29 98.1 84 12 116/76 96 08/23/17 13:15 85 12 109/75 (86) 96 08/23/17 13:10 98.1 84 12 112/74 (87) 96 08/23/17 13:10 Nasal Cannula 2 08/23/17 12:00 98.2 89 22 115/65 (82) 95 08/23/17 12:00 89 08/23/17 11:49 98.2 86 12 108/58 95 08/23/17 11:00 85 7 108/58 (75) 95 08/23/17 10:00 101 08/23/17 10:00 101 17 116/62 (80) 93 08/23/17 09:45 98.3 101 16 95/55 08/23/17 09:00 84 5 95/55 (68) 93 I/O 08/23/17 08/23/17 08/23/17 08/24/17 08/24/17 08/24/17 07:00 15:00 23:00 07:00 15:00 23:00 Intake Total 1860 ml 1132 ml 1685.7 ml 1920 ml Output Total 653 ml 650 ml 1200 ml Balance 1207 ml 1132 ml 1035.7 ml 720 ml Intake Oral 260 ml IV Total 1600 ml 1285.7 ml 1900 ml Packed Cells 800 ml 400 ml Platelets 237 ml Blood Product IV Normal Saline Flush 95 ml 20 ml Output Urine Total 650 ml 650 ml 1200 ml Stool Total 3 ml # Bowel Movements 1 1 Laboratory Laboratory Tests Test 08/23/17 10:17 08/23/17 18:03 08/24/17 00:40 08/24/17 03:30 White Blood Count 6.5 7.0 Red Blood Count 1.56 2.28 Hemoglobin 5.2 7.5 Hematocrit 15.5 21.2 Mean Corpuscular Volume 99.4 93.3 Mean Corpuscular Hemoglobin 33.4 33.1 Mean Corpuscular Hemoglobin Concent 33.6 35.4 Red Cell Distribution Width 19.9 16.9 Platelet Count 49 67 Mean Platelet Volume 9.1 8.7 Neutrophils (%) (Auto) 77.2 80.2 Lymphocytes (%) (Auto) 6.8 5.6 Monocytes (%) (Auto) 14.9 12.5 Eosinophils (%) (Auto) 0.8 1.2 Basophils (%) (Auto) 0.3 0.5 Neutrophils # (Auto) 5.0 5.6 Lymphocytes # (Auto) 0.4 0.4 Monocytes # (Auto) 1.0 0.9 Eosinophils # (Auto) 0.1 0.1 Basophils # (Auto) 0.0 0.0 CBC Comment AUTO DIFF AUTO DIFF Differential Total Cells Counted 100 100 Neutrophils % (Manual) 60 79 Band Neutrophils % 19 11 Lymphocytes % 6 3 Monocytes % 15 4 Neutrophils # (Manual) 5.1 6.5 Differential Comment FINAL DIFF MANUAL FINAL DIFF MANUAL Toxic Granulation 2+ 1+ Platelet Estimate LOW LOW Platelet Morphology Comment NORMAL NORMAL Prothrombin Time 22.5 18.7 Prothromb Time International Ratio 2.0 1.7 Blood Urea Nitrogen 65 Creatinine 1.79 Random Glucose 217 Total Protein 5.0 Albumin 3.4 Calcium Level 8.5 Magnesium Level 2.1 2.0 Alkaline Phosphatase 64 Aspartate Amino Transf (AST/SGOT) 698 Alanine Aminotransferase (ALT/SGPT) 437 Total Bilirubin 3.4 Sodium Level 138 Potassium Level 4.7 Chloride Level 108 Carbon Dioxide Level 19.1 Anion Gap 11 Estimat Glomerular Filtration Rate 38 Metamyelocytes 1 Myelocytes 1 Promyelocytes 1 Blood Gas Puncture Site RT RADIAL Blood Gas Patient Temperature 98.6 Blood Gas HCO3 20 Blood Gas Base Excess -2.7 Blood Gas Oxygen Saturation 97 Arterial Blood pH 7.51 Arterial Blood Partial Pressure CO2 26 Arterial Blood Partial Pressure O2 127 Arterial Blood Oxygen Content 10.1 Arterial Blood Carboxyhemoglobin 1.6 Arterial Blood Methemoglobin 1.0 Blood Gas Hemoglobin 7.2 Oxygen Delivery Device VENTILATOR Blood Gas Ventilator Setting 14/550/IT1.0/5PEEP Blood Gas Inspired Oxygen 35 Urine Color YELLOW Urine Turbidity CLEAR Urine pH 5.5 Urine Specific [place] 1.018 Urine Protein NEG Urine Glucose (UA) TRACE Urine Ketones NEG Urine Occult Blood NEG Urine Nitrite NEG Urine Bilirubin NEG Urine Urobilinogen LESS THAN 2.0 Urine Leukocyte Esterase NEG Urine RBC 1 Urine WBC 2 Urine Hyaline Casts 3 Test 08/24/17 05:57 White Blood Count 4.6 Red Blood Count 2.33 Hemoglobin 7.7 Hematocrit 22.4 Mean Corpuscular Volume 96.3 Mean Corpuscular Hemoglobin 33.2 Mean Corpuscular Hemoglobin Concent 34.5 Red Cell Distribution Width 18.1 Platelet Count 52 Mean Platelet Volume 9.1 Neutrophils (%) (Auto) 75.0 Lymphocytes (%) (Auto) 7.7 Monocytes (%) (Auto) 14.0 Eosinophils (%) (Auto) 2.9 Basophils (%) (Auto) 0.4 Neutrophils # (Auto) 3.5 Lymphocytes # (Auto) 0.4 Monocytes # (Auto) 0.6 Eosinophils # (Auto) 0.1 Basophils # (Auto) 0.0 CBC Comment AUTO DIFF Differential Total Cells Counted 100 Neutrophils % (Manual) 62 Band Neutrophils % 20 Lymphocytes % 8 Monocytes % 8 Eosinophils % 1 Neutrophils # (Manual) 3.8 Metamyelocytes 1 Differential Comment FINAL DIFF MANUAL Toxic Granulation 1+ Platelet Estimate LOW Platelet Morphology Comment NORMAL Polychromasia 2.9 Acanthocytes OCC Blood Urea Nitrogen 53 Creatinine 1.63 Random Glucose 199 Total Protein 5.4 Albumin 3.3 Calcium Level 8.3 Phosphorus Level 2.0 Alkaline Phosphatase 61 Aspartate Amino Transf (AST/SGOT) 303 Alanine Aminotransferase (ALT/SGPT) 293 Total Bilirubin 7.9 Sodium Level 139 Potassium Level 4.1 Chloride Level 108 Carbon Dioxide Level 20.2 Anion Gap 11 Estimat Glomerular Filtration Rate 42 Imaging Last Impressions Chest X-Ray 08/21/17 0426 Signed Impressions: Service Date/Time: Monday, August 21, 2017 04:07 - CONCLUSION: No acute disease. Antony Frederick MD Renal Ultrasound 08/21/17 0000 Signed Impressions: Service Date/Time: Monday, August 21, 2017 17:21 - CONCLUSION: Normal sized kidneys for hydronephrosis. Extensive ascites. Florin Alcala MD FACR Physical Exam HEENT: Normocephalic; atraumatic; no jaundice. CHEST: Resp. even/unlabored, OETT to vent. Diminished bases CARDIAC: Regular, bradycardic ABDOMEN: Soft, mild-mod ascites, nontender; hepatosplenomegaly; bowel sounds are present in all four quadrants. EXTREMITIES: Generalized edema. SKIN: Normal; no rash; no jaundice. DIE FINISHER FORGING: Sedated on vent. (La Nena Odell) Assessment and Plan Plan ASSESSMENT: - GIB with black emesis, melena, rectal bleeding. Pt with hx of liver cirrhosis , esophageal varices (last banded 2005). Last egd was at that time per patient, states he had a colonoscopy < 5 years ago at [place]. S/P EGD with band ligation (08/21/17)---> 1. Retained food and old blood-suctioned no active bleeding esophageal varices-3 columns-grade 2-s/p banding times 2 2. Retroflexed views revealed food retained. He then had rectal bleeding with significant drop in hgb on 08/23. Rpt. EGD/Colonoscopy (08/23/17)----> 1. Retained food in stomach, esophageal varices with band attached, portal gastropathy questionable AVM in antrum-cautery using balltip, no active bleeding in upper gi tract 2. Retroflexed views revealed a hiatal hernia. 1. Diverticulosis sigmoid,descending blood up to cecum, aggressive washing , no active bleeding TI -some blood noted aggressive washing done -3 l of fluid -no active bleeding noted 2. Retroflexed views revealed internal hemorrhoids 3. Retroflexed views revealed small internal hemorrhoids 4. Was performed 5. Revealed external hemorrhoids. Bleeding scan (08/23/17) negative scan. CT Scan abdomen and pelvis without contrast (08/23/17)---> Cirrhotic small liver with diffuse heterogeneity, moderate to large amount of ascitic fluid, mild splenomegaly, nonspecific nonobstructive bowel gas pattern which represent a mild ileus. Bilateral pleural effusions with consolidation in both posterior lung bases. Pt has episode of rectal bleeding overnight- none so far this shift. S/P 6 units PRBC, 3 units plasma, 3 units Plt. Clinically, no active bleeding , he is hypotensive, but not on vasopressors. Sedated on vent. Protonix with BID dosing. Octreotide gtt. Ceftriaxone. No active bleeding. 7.05/13.4 - Esophageal varices, 3 columns Grade II, s/p band ligation x 2. Octreotide Gtt , Protonix BID dosing. - Anemia, acute blood loss. S/P 6 units PRBC 7.05/13.4 - Thrombocytopenia, Coagulopathy. 3 units plasma, 3 units Plt. Plt 52,000. INR 1.7. - Recurrent ascites. Requires paracentesis every 2-3 weeks. Last had Monday at [place]. On albumin. Diuretics on hold secondary to ARTHUR and hypotensive. US guided paracentesis ordered. - Liver cirrhosis. Dx 2003, secondary to alcohol and hepatitis C (Genotype 1A) . He quit drinking in 2005. Hx HCC treated with chemoembolization. Currently followed at [facility] for tertiary/liver transplant evaluation- has appt September 25 in [place]. MELD 19. 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 Andrews [phone] - Hepatic encephalopathy. On Lactulose, Xifaxan. - HCV, Genotype 1A. S/P unsuccessfully treated with interferon and ribavirin and then Sovaldi (did not maintain a sustained virologic response). - Hx HCC. Dx 2015 and underwent transcatheter arterial chemoembolization on 04/27, 06/15/16, 11/08/16, and 01/11/17. - ARTHUR, hyperkalemia, hyponatremia. Improved, 1.63. - Leukocytosis, Ceftriaxone - Respiratory failure. Vent per CCM - DM, OA, Depression, Anxiety, per attending. PLAN: - NPO for now - US guided paracentesis - Cont. Octreotide for today - Protonix 40mg IV BID - Cont. Albumin - Cont. Ceftriaxone - Cont. Lactulose, Xifaxan - Monitor HH - Transfuse as necessary - Supportive care - EGD in 6 weeks - If active bleeding, will need angiogram. Possible TIPS if further active upper GI bleeding, but will need to be d/w patient's potato picker at [place] (tertiary) prior to performing. Dr. Andrews [phone] - Further recommendations to follow based on results of above - Pt seen and examined by Dr. Flores and myself and this note is written on his behalf (La Nena Odell) Physician Comments Still intubated Discussed with his nurse. No evidence of active GI bleeding. Will follow up with you. (Rajat Flores MD) La Nena Odell Aug 24, 2017 08:59 Rajat Flores MD Aug 24, 2017 11:20
[2017-08-24] MEDS: LACTULOSE SYRUP 20 GM/30 ML CUP PO SCH ×2 (09:22→21:01)
[2017-08-24] MEDS: PANTOPRAZOLE SODIUM 40 MG VIAL IV PUSH SCH ×2 (09:23→21:02)
[2017-08-24] MEDS: CHOLECALCIFEROL (VIT D3) 400 UNIT TAB PO SCH (09:23)
[2017-08-24] MEDS: DOCUSATE SODIUM 50 MG/SENNA 8.6 MG TAB PO SCH ×2 (09:23→21:02)
[2017-08-24] MEDS: MAGNESIUM OXIDE 400 MG TAB PO SCH (09:23)
[2017-08-24] MEDS: GABAPENTIN 300 MG CAP PO SCH ×3 (09:23→17:10)
[2017-08-24] MEDS: RIFAXIMIN 550 MG TAB PO SCH ×2 (09:23→21:01)
[2017-08-24] MEDS: SODIUM CHLORIDE 0.9% FLUSH 10 ML FLUSH IV FLUSH SCH ×2 (09:24→21:03)
--- NOTE | 2017-08-24 10:03 | PD.PROCEDR ---
Procedure Note Procedure Right LQ paracentesis Indication Moderate to large ascites Procedure Informed consent was obtained and time out performed. Patient was placed in optimal position. RLQ abdomen was marked with ultrasound. Full barrier and sterile precautions were used, skin sterilized with chlorhexidine x3; skin and subcutaneous tissue at the marked site was infiltrated with 1% lidocaine. A small skin tyra was made with scalpel. Paracentesis Angiocath was introduced into the ascitic fluid and free-flowing biliary stained fluid was obtained. The needle was removed and Angiocath was connected to the Vacutainer and a total of 4500 mL (4.5L) of free-flowing biliary stained pleural fluid was removed. Fluid sent for multiple studies. Patient tolerated procedure well Bar Hardy MD Aug 24, 2017 10:03
[2017-08-24] MEDS ORDERED: ALBUMIN 25% INJ 100 ML IV ONE (10:15)
--- NOTE | 2017-08-24 10:16 | HHI.CCPN ---
Subjective Remarks/Hospital Course 66-year-old gentleman with end-stage liver disease, chronic hepatitis C status post unsuccessful treatment with therapy now awaiting a liver transplant comes in complaining of melena 3 days and vomiting blood that began yesterday. Patient [facility] to his refractory ascites from his cirrhosis. Patient states since that is been having the melena. He denies any fevers, chest pain, shortness of breath, or headaches. Patient denies anything making this better or worse. Patient reports feeling weak and nauseated. Patient denies anything like this in the past. Denies being on any blood thinners. 08/21: Hypotensive, SBP in low 70's. 1 L normal saline bolus and 25, albumin stat ordered. IV Protonix changed to infusion. Start vasopressin if needed to keep map above 65. Hemoglobin 6.7 hematocrit 19.6. Transfuse 3 units PRBC stat. GI consult pending. Will need EGD-patient has history of esophageal varices but last endoscopy per patient was in 2005. Patient has two 18 G IV. Also platelet count has dropped to 67 will give 2 units of platelets and 1 unit of FFP 08/22: No GI bleed overnight. Hemodynamically has stabilized. Remains on IV Protonix infusion and octreotide infusion. A.m. labs are pending. Underwent endoscopy yesterday with findings of esophageal varices and gastritis. Underwent esophageal variceal banding 2 08/23: Reconsulted by hepatocellular in for acute GI hemorrhage passing bright red blood per rectum. Hemoglobin has dropped to 5.2. INR is 2 today with platelet count of 49. Start transfusion of 3 units PRBC, 2 units of FFP, 2 units of platelets ordered. I will also restarted the Protonix infusion and will continue octreotide infusion. GI contacted emergently 08/24: Patient remains intubated sedated. Small amount of bleeding per rectum overnight. Tagged RBC scan did not show any active bleeding. Hemoglobin 7.7 ( received 3 units PRBC, 2 units of platelets and 2 units of FFP yesterday). Will leave intubated until hemodynamically optimized, and no further GI bleed. Proceed with paracentesis today Objective Vital Signs Date Time Temp Pulse Resp B/P (MAP) Pulse Ox O2 Delivery O2 Flow Rate FiO2 08/24/17 07:58 100 35 08/24/17 06:00 47 08/24/17 04:00 95.4 12 96/63 (74) 08/23/17 13:10 Nasal Cannula 2 Intake and Output 08/24/17 08/24/17 08/25/17 08:00 16:00 00:00 Intake Total 1920 ml 422 ml Output Total 1200 ml Balance 720 ml 422 ml Result Diagram: 08/24/17 0557 08/24/17 0557 Other Results Laboratory Tests Test 08/24/17 00:40 Blood Gas Puncture Site RT RADIAL Blood Gas Patient Temperature 98.6 Blood Gas HCO3 20 mmol/L (22-26) Blood Gas Base Excess -2.7 mmol/L (-2-2) Blood Gas Oxygen Saturation 97 % (90-100) Arterial Blood pH 7.51 (7.380-7.420) Arterial Blood Partial Pressure CO2 26 mmHg (38-42) Arterial Blood Partial Pressure O2 127 mmHg (61-120) Arterial Blood Oxygen Content 10.1 Vol % (12.0-20.0) Arterial Blood Carboxyhemoglobin 1.6 % (0-4) Arterial Blood Methemoglobin 1.0 % (0-2) Blood Gas Hemoglobin 7.2 G/DL (12.0-16.0) Oxygen Delivery Device VENTILATOR Blood Gas Ventilator Setting 14/550/IT1.0/5PEEP Blood Gas Inspired Oxygen 35 % Objective Remarks GENERAL: Intubated sedated with propofol SKIN: Warm and dry. Pallor present HEAD: Normocephalic. ENT: Orotracheally intubated EYES: Mild scleral icterus. No injection or drainage. NECK: Supple, trachea midline. No JVD or lymphadenopathy. CARDIOVASCULAR: Tachycardic rate and rhythm without murmurs, gallops, or rubs. RESPIRATORY: Breath sounds equal bilaterally. No accessory muscle use. GASTROINTESTINAL: Abdomen soft, non-tender, distended. Large ascites on bedside US. Scrotal edema MUSCULOSKELETAL: No cyanosis, or edema. BACK: Nontender without obvious deformity. NEURO EXAM: Intubated sedated, Moves extremities to pain. Vascular Central Line Catheter: Yes Assessment to: Continue A/P Assessment and Plan NEURO: Hepatic encephalopathy - Propofol for sedation while intubated - Check ammonia, lactulose and rifaximin for GI RESP: Acute respiratory failure - Continue ACV, ventilator bundle - DuoNeb every 6 hours when necessary - Start weaning trials in 24 hours once GI bleed is controlled GI/HEME Recurrent Variceal bleed Hypotension/hemorrhagic shock-resolved Anemia requiring transfusion Thrombocytopenia Coagulopathy - Status post EGD and banding of esophageal varices 08/21/17. Also has gastritis - Now with recurrent variceal bleed, stat 3 units of PRBC, 2 units of FFP, 2 unit of platelets - Octreotide drip, IV Protonix gtt, Rocephin for SBP prophylaxis - GI contacted emergently-May need repeat EGD or possibly TIPS - NPO - Paracentesis today 08/24 with 4.5L removed-fluid studies pending ENDO: Diabetes mellitus - Hold insulin glargine while nothing by mouth - Insulin sliding scale ID: Hepatitis C - Status post unsuccessful treatment - Awaiting liver transplant - Management per [facility] - Ceftriaxone for SBP prophylaxis : Hyperkalemia-resolved Acute kidney injury/probable hepatorenal syndrome - Received Insulin, sodium bicarbonate, glucose, Calcium-K stable - Nephrology following - Creatinine stable, urine output adequate 1.3L in 24 hours - Worsening transaminitis due to hypotension, now stable DVT GI prophylaxis - Teds SCDs - No pharmacological DVT prophylaxis due to active bleed - Protonix gtt Critical Care 35 MIN excluding procedures Patient is acutely critically ill with recurrent variceal bleed. Continue Protonix infusion and continue octreotide. He is still at risk of severe GI hemorrhage and . Keep intubated in case he needs further invasive procedures Bar Hardy MD Aug 24, 2017 10:16
[2017-08-24 11:23] LABS: TOTAL PROTEIN,PERITONEAL FLUID 1.4 GM/DL
[2017-08-24 12:21] LABS: PERITONEAL EOS 1 %; PERITONEAL LYMPHS 75 %; PERITONEAL MONOS 10 %; PERITONEAL POLYS(SEGS) 14 %; PERITONEAL RBC 3665 /MM3 (0-0)
[2017-08-24 12:45] LABS: MEAN CELL VOLUME 95.5 FL (80.0-100.0); MEAN CORPUSCULAR HEMOGLOBIN 32.7 PG (27.0-34.0); MEAN CORPUSCULAR HGB CONC 34.3 % (32.0-36.0); MEAN PLATELET VOLUME 8.9 FL (7.0-11.0); PLATELET COUNT 47 TH/MM3 (150-450); RED BLOOD COUNT 2.05 MIL/MM3 (4.50-5.90); RED CELL DISTRIBUTION WIDTH 17.7 % (11.6-17.2); WHITE BLOOD COUNT 3.6 TH/MM3 (4.0-11.0)
[2017-08-24 12:50] LABS: HEMATOCRIT 19.5 % (39.0-51.0); HEMOGLOBIN 6.7 GM/DL (13.0-17.0)
[2017-08-24 12:52] LABS: INTERNATIONAL NORMALIZED RATIO 1.8 RATIO; PROTHROMBIN TIME - PATIENT 20.6 SEC (9.8-11.6)
[2017-08-24 13:21] LABS: TOTAL PROTEIN 5.1 GM/DL (6.4-8.2)
--- NOTE | 2017-08-24 17:09 | HHI.NPPN ---
Subjective History of Present Illness This patient is a 66-year-old male with a history of cirrhosis, varices, chronic hepatitis C with unsuccessful treatment now listed apparently for liver transplant with a hepatitis C positive organ when available now presenting with apparent upper GI bleed was associated with hypotension last night. Blood pressure initially 91/52. Previous creatinine level noted to have been 1.05 June,. His creatinine level on presentation was 2.03 with a potassium initially of 7.1. The patient was taking Aldactone as an outpatient prior to presentation as well as furosemide. Denies using NSAIDs prior to presentation for analgesia.. Interval History Pt remains intubated Potential plans for extubation tomorrow. Receiving 2U PBCs and platelets today. As per reports, raoul obvious source of bleeding Review of Systems General General Remarks Patient unable to respond to questions verbally at this time. Gastrointestinal GI Remarks Abd distention Objective Data Data 08/24/17 08/25/17 19:00 07:00 Intake Total 1210 ml Output Total 4500 ml Balance -3290 ml IV Total 622 ml Packed Cells 324 ml Platelets 214 ml Blood Product IV Normal Saline Flush 50 ml Drainage Total 4500 ml Vital Signs Date Time Temp Pulse Resp B/P (MAP) Pulse Ox O2 Delivery O2 Flow Rate FiO2 08/24/17 16:52 100.0 66 12 125/61 99 08/24/17 16:40 100.0 64 12 125/60 100 08/24/17 15:38 99 35 08/24/17 14:15 99.9 68 12 124/59 98 08/24/17 14:00 60 08/24/17 13:58 99.9 67 12 124/59 98 08/24/17 12:00 98.5 63 12 118/57 (77) 99 08/24/17 12:00 35 08/24/17 12:00 63 08/24/17 11:34 99 35 08/24/17 10:00 60 08/24/17 08:00 35 08/24/17 08:00 50 08/24/17 08:00 97.9 50 12 87/54 (65) 99 08/24/17 07:58 100 35 08/24/17 06:00 47 08/24/17 04:09 100 35 08/24/17 04:00 35 08/24/17 04:00 51 08/24/17 04:00 95.4 51 12 96/63 (74) 100 08/24/17 02:00 52 08/24/17 01:56 97.4 52 12 89/56 100 08/24/17 01:11 100 35 08/24/17 00:35 97.4 51 14 94/58 100 08/24/17 00:22 97.5 52 14 98/58 100 08/24/17 00:00 52 08/24/17 00:00 97.5 52 14 110/55 (73) 100 08/24/17 00:00 35 08/23/17 22:00 56 08/23/17 21:47 100 35 08/23/17 20:00 35 08/23/17 20:00 97.4 57 14 97/63 (74) 100 08/23/17 20:00 57 08/23/17 19:00 100 50 08/23/17 18:00 64 08/23/17 18:00 64 14 100 08/23/17 17:30 50 -: 08/24/17 1225 08/24/17 0557 Microbiology 08/24/17 Gram Stain - Final, Resulted 08/24/17 Body Fluid Culture, Resulted Pending Imaging Last Impressions GI Bleed Scan Nuclear Medicine 08/23/17 0000 Signed Impressions: Service Date/Time: Wednesday, August 23, 2017 18:09 - CONCLUSION: Negative scan. Roel Grey MD Abdomen/Pelvis CT 08/23/17 0000 Signed Impressions: Service Date/Time: Wednesday, August 23, 2017 20:45 - CONCLUSION: 1. Cirrhotic small liver with diffuse heterogeneity. 2. Moderate to large amount of ascitic fluid. 3. Mild splenomegaly. 4. Nonspecific nonobstructive bowel gas pattern which represent a mild ileus. 5. Bilateral pleural effusions with consolidation in both posterior lung bases. Roel Grey MD Chest X-Ray 08/21/17 0426 Signed Impressions: Service Date/Time: Monday, August 21, 2017 04:07 - CONCLUSION: No acute disease. Antony Frederick MD Renal Ultrasound 08/21/17 0000 Signed Impressions: Service Date/Time: Monday, August 21, 2017 17:21 - CONCLUSION: Normal sized kidneys for hydronephrosis. Extensive ascites. Florin Alcala MD FACR Additional Information 08/24/17 08/24/17 08/25/17 15:00 23:00 07:00 Intake Total 632 ml 578 ml Output Total 4500 ml Balance -3868 ml 578 ml IV Total 622 ml Packed Cells 324 ml Platelets 214 ml Blood Product IV Normal Saline Flush 10 ml 40 ml Drainage Total 4500 ml Medication Review Current Medications Medications (Trade) Dose Ordered Sig/Jc Route Start Time Stop Time Status Last Admin (Lactulose Liq) 30 ml Q12HR PO 08/21/17 09:00 08/24/17 09:22 (Mag-Ox) 400 mg DAILY PO 08/21/17 09:00 08/24/17 09:23 (Xifaxan) 550 mg BID PO 08/21/17 09:00 08/24/17 09:23 (Opana) 5 mg Q4H PRN PO 08/21/17 01:00 08/23/17 09:56 Sodium Chloride 1,000 ml @ 124 mls/hr Q8H4M IV 08/21/17 00:58 08/24/17 11:18 (NS Flush) 2 ml UNSCH PRN IV FLUSH 08/21/17 01:00 (NS Flush) 2 ml BID IV FLUSH 08/21/17 09:00 08/24/17 09:24 (Tylenol) 650 mg Q6H PRN PO 08/21/17 01:00 (Zofran Inj) 4 mg Q6H PRN IV PUSH 08/21/17 01:00 (Restoril) 15 mg HS PRN PO 08/21/17 01:00 (Duoneb Neb) 1 ampule Q2HR NEB PRN INH 08/21/17 01:00 Miscellaneous Information 1 Q361D XX 08/21/17 01:00 08/21/17 01:00 (Chlorhexidine 2% Cloth) 3 pack Taper DAILY@04 TOP 08/21/17 04:00 08/17/18 03:59 08/24/17 02:54 (Chlorhexidine 2% Cloth) 3 pack UNSCH PRN TOP 08/21/17 01:00 (Sandra-Colace) 1 tab BID PO 08/21/17 09:00 08/24/17 09:23 (Milk Of Magnesia Liq) 30 ml Q12H PRN PO 08/21/17 01:00 (Senokot) 17.2 mg Q12H PRN PO 08/21/17 01:00 (Dulcolax Supp) 10 mg DAILY PRN RECTAL 08/21/17 01:00 (Lactulose Liq) 30 ml DAILY PRN PO 08/21/17 01:00 Albumin Human 100 ml @ 60 mls/hr Q6H IV 08/21/17 01:15 08/24/17 13:36 (Vitamin D3) 400 units DAILY PO 08/21/17 09:00 08/24/17 09:23 (Neurontin) 300 mg TID PO 08/21/17 09:00 08/24/17 13:35 (D50w (Vial) Inj) 50 ml UNSCH PRN IV PUSH 08/21/17 02:15 (Glucagon Inj) 1 mg UNSCH PRN OTHER 08/21/17 02:15 (NovoLIN R SUPPLEMENTAL SCALE) 1 ACHS SLIDING SCALE SQ 08/21/17 08:00 08/23/17 21:00 Octreotide Acetate 500 mcg/ Sodium Chloride 500 ml @ 50 mls/hr Q10H IV 08/21/17 03:00 08/24/17 16:57 Patient Own Medication PT OWN MED: ZINC SULF... BID PO 08/21/17 11:00 Future Hold Ceftriaxone Sodium 1000 mg/ Sodium Chloride 100 ml @ 200 mls/hr Q24H IV 08/23/17 02:00 08/24/17 02:00 (Lasix) 40 mg DAILY PO 08/22/17 09:00 Future Hold 08/22/17 08:51 (Protonix Inj) 40 mg Q12H IV PUSH 08/23/17 10:00 08/24/17 09:23 Propofol 100 ml @ 1.98 mls/hr TITRATE PRN IV 08/23/17 17:00 08/24/17 06:42 Physical Exam General Appearance: Comfortable Throat Throat Exam: Oral Mucosa [place] & Moist Pulmonary Resp Exam: Clear Bilaterally, Breath Sounds Equal Cardiology CV Exam: Regular, Normal Sinus Rhythm Gastrointestinal/Abdomen GI Exam: Distended Integumentary Skin Exam: Warm Extremeties Extremities Exam: No Edema, Moderate Edema (2+ pitting edema of her extremities and hips. Weeping of fluid.) Neurologic Neuro Exam: Alert, Awake Psychiatric Psych Exam: Appropriate Responses Assessment/Plan Problem List: (1) Acute kidney insufficiency ICD Codes: N28.9 - Disorder of kidney and ureter, unspecified Status: Acute Plan: Patient's renal indices were improving however remains to be determined whether or not episode of recurrent GI bleed with hypotension has had a detrimental effect as far as recovery of renal function is concerned. Repeat renal indices tomorrow. Although initially acute renal insufficiency appeared to be related to hemodynamic factors related to GI bleed this patient is at risk for development of hepatorenal syndrome. Renal US showed normal echogenicity and no signs of obstructive process. UA pending. If bland, a GN related to HCV not likely. Decrease maintenance fluid and give dose of Bumetanide Will continue to follow Medications should be adjusted for the patient's estimated GFR if clinically indicated. Avoid agents with significant potential for nephrotoxicity possible including NSAIDs for analgesia, iodine contrast agents. Gadolinium is contraindicated if the GFR is below 30. (2) Hyperkalemia ICD Codes: E87.5 - Hyperkalemia Status: Acute Plan: Resolved Most likely related to acute renal insufficiency, blood in the GI tract as well as presence of Aldactone prior to presentation. Hopefully potassium level will improve with rehydration and improved renal function. Continue albuterol as well as IV bicarbonate and insulin dextrose as needed. Would like to avoid Kayexalate because of risks associated with bowel injury if possible. (3) GI bleed ICD Codes: K92.2 - Gastrointestinal hemorrhage, unspecified Status: Acute Plan: Mgmt as per GI (4) Cirrhosis ICD Codes: K74.60 - Unspecified cirrhosis of liver Plan: Pt reports paracentesis every 2-3 weeks with last outpatient done 08/18 with 4L removed Inpatient 08/24 with 4500mL removed Problem Qualifiers (1) GI bleed: Qualified Codes: K92.2 - Gastrointestinal hemorrhage, unspecified Denita Kilgore Aug 24, 2017 17:09
[2017-08-24] MEDS ORDERED: BUMETANIDE INJ 1 MG/4 ML VIAL IV PUSH ONE (18:15)
[2017-08-25] VITALS (19 sets, daily range): BP systolic 138–148; BP diastolic 63–70; PULSE 48–70; RESP 11–16; TEMP 97.5; O2SAT 94–100
[2017-08-25] MEDS: ALBUMIN 25% INJ 100 ML IV SCH ×4 (00:53→20:43)
[2017-08-25 00:54] LABS: HEMATOCRIT 28.8 % (39.0-51.0); HEMOGLOBIN 9.9 GM/DL (13.0-17.0)
[2017-08-25] MEDS: cefTRIAXone INJ 1,000 MG in SODIUM CHLORIDE 0.9% INJ 100 ML IV SCH (01:56)
[2017-08-25] MEDS: OCTREOTIDE INJ 500 MCG in SODIUM CHLORID 0.9% 500 ML INJ 499.5 ML IV SCH (03:08)
[2017-08-25] MEDS: CHLORHEXIDINE GLUCONATE 2 % 1 PACK (2 CLOTHS) TOP SCH (03:08)
[2017-08-25 06:02] LABS: HEMATOCRIT 27.8 % (39.0-51.0); HEMOGLOBIN 9.8 GM/DL (13.0-17.0)
[2017-08-25] MEDS: PROPOFOL 1000 MG/100 ML IV PRN (06:03)
[2017-08-25 06:32] LABS: ALBUMIN 3.7 GM/DL (3.4-5.0); BICARBONATE 22.6 MEQ/L (21.0-32.0); CALCIUM 8.1 MG/DL (8.5-10.1); CREATININE 1.58 MG/DL (0.60-1.30); PHOSPHORUS 1.7 MG/DL (2.5-4.9)
[2017-08-25] MEDS: INSULIN NovoLIN REGULAR SUPPLEMENTAL SCALE SQ SCH ×4 (08:00→20:43)
--- NOTE | 2017-08-25 08:07 | HHI.GIFU ---
Subjective Remarks Sedated on ventilator. No distress. No active bleeding. (La Nena Odell) Objective Vitals I&O Vital Signs Date Time Temp Pulse Resp B/P (MAP) Pulse Ox O2 Delivery O2 Flow Rate FiO2 08/25/17 06:00 54 08/25/17 06:00 97.3 54 16 148/70 (96) 100 08/25/17 04:24 100 35 08/25/17 04:01 97.5 49 12 139/63 (88) 100 08/25/17 04:00 49 08/25/17 04:00 35 08/25/17 02:00 53 08/25/17 00:03 99 35 08/25/17 00:00 35 08/25/17 00:00 98.8 59 15 138/65 (89) 100 08/25/17 00:00 59 08/24/17 23:32 98.9 56 12 129/60 96 08/24/17 22:00 66 08/24/17 21:46 99 35 08/24/17 20:03 100.4 65 14 144/67 100 08/24/17 20:00 64 08/24/17 20:00 100.6 64 12 140/66 (90) 100 08/24/17 20:00 35 08/24/17 19:50 100.4 64 12 140/66 100 08/24/17 19:30 100.4 64 12 140/72 100 08/24/17 18:00 66 08/24/17 17:13 100.0 66 13 127/62 100 08/24/17 16:52 100.0 66 12 125/61 99 08/24/17 16:40 100.0 64 12 125/60 100 08/24/17 16:00 66 08/24/17 16:00 100.0 66 12 124/62 (82) 99 08/24/17 16:00 35 08/24/17 15:38 99 35 08/24/17 14:15 99.9 68 12 124/59 98 08/24/17 14:00 60 08/24/17 13:58 99.9 67 12 124/59 98 08/24/17 12:00 98.5 63 12 118/57 (77) 99 08/24/17 12:00 35 08/24/17 12:00 63 08/24/17 11:34 99 35 08/24/17 10:00 60 08/24/17 08:00 35 08/24/17 08:00 50 08/24/17 08:00 97.9 50 12 87/54 (65) 99 08/24/17 07:58 100 35 I/O 08/24/17 08/24/17 08/24/17 08/25/17 08/25/17 08/25/17 07:00 15:00 23:00 07:00 15:00 23:00 Intake Total 1920 ml 632 ml 2448.8 ml 1380 ml Output Total 1200 ml 4500 ml 600 ml 3250 ml Balance 720 ml -3868 ml 1848.8 ml -1870 ml IV Total 1900 ml 622 ml 1700.8 ml 900 ml Packed Cells 324 ml 400 ml Platelets 214 ml Blood Product IV Normal Saline Flush 20 ml 10 ml 90 ml 20 ml Other 120 ml 60 ml Output Urine Total 1200 ml 600 ml 3250 ml Drainage Total 4500 ml # Bowel Movements 1 1 3 Laboratory Laboratory Tests Test 08/24/17 10:12 08/24/17 12:25 08/25/17 00:21 08/25/17 05:21 Peritoneal Fluid WBC 49 Peritoneal Fluid RBC 3665 Peritoneal Fluid Neutrophils 14 Peritoneal Fluid Lymphocytes 75 Peritoneal Fluid Monocytes 10 Peritoneal Fluid Eosinophils 1 Peritoneal Fluid Total Protein 1.4 Peritoneal Fluid Albumin 0.9 Peritoneal Fluid LDH 66 Peritoneal Fluid Glucose 201 White Blood Count 3.6 Red Blood Count 2.05 Hemoglobin 6.7 9.9 9.8 Hematocrit 19.5 28.8 27.8 Mean Corpuscular Volume 95.5 Mean Corpuscular Hemoglobin 32.7 Mean Corpuscular Hemoglobin Concent 34.3 Red Cell Distribution Width 17.7 Platelet Count 47 Mean Platelet Volume 8.9 Prothrombin Time 20.6 Prothromb Time International Ratio 1.8 Activated Partial Thromboplast Time 62.3 Ammonia 51 Lactate Dehydrogenase 143 Total Protein 5.1 Blood Urea Nitrogen 42 Creatinine 1.58 Random Glucose 154 Albumin 3.7 Calcium Level 8.1 Phosphorus Level 1.7 Sodium Level 142 Potassium Level 3.6 Chloride Level 109 Carbon Dioxide Level 22.6 Anion Gap 10 Estimat Glomerular Filtration Rate 44 Date/Time Source Procedure Growth Status 08/24/17 10:12 Fluid Peritoneal Fluid Gram Stain - Final Resulted 08/24/17 10:12 Fluid Peritoneal Fluid Body Fluid Culture Pending Resulted Imaging Last Impressions GI Bleed Scan Nuclear Medicine 08/23/17 0000 Signed Impressions: Service Date/Time: Wednesday, August 23, 2017 18:09 - CONCLUSION: Negative scan. Roel Grey MD Abdomen/Pelvis CT 08/23/17 0000 Signed Impressions: Service Date/Time: Wednesday, August 23, 2017 20:45 - CONCLUSION: 1. Cirrhotic small liver with diffuse heterogeneity. 2. Moderate to large amount of ascitic fluid. 3. Mild splenomegaly. 4. Nonspecific nonobstructive bowel gas pattern which represent a mild ileus. 5. Bilateral pleural effusions with consolidation in both posterior lung bases. Roel Grey MD Chest X-Ray 08/21/17 0426 Signed Impressions: Service Date/Time: Monday, August 21, 2017 04:07 - CONCLUSION: No acute disease. Antony Frederick MD Renal Ultrasound 08/21/17 0000 Signed Impressions: Service Date/Time: Monday, August 21, 2017 17:21 - CONCLUSION: Normal sized kidneys for hydronephrosis. Extensive ascites. Florin Alcala MD FACR Physical Exam HEENT: Normocephalic; atraumatic; no jaundice. CHEST: Resp. even/unlabored, OETT to vent. Diminished bases CARDIAC: Regular, bradycardic ABDOMEN: Soft, mild ascites, hepatosplenomegaly; bowel sounds are present in all four quadrants. EXTREMITIES: Generalized edema. SKIN: Normal; no rash; no jaundice. 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 (La Nena OdellP) Assessment and Plan Plan ASSESSMENT: - GIB with black emesis, melena, rectal bleeding. Pt with hx of liver cirrhosis , esophageal varices (last banded 2005). Last egd was at that time per patient, states he had a colonoscopy < 5 years ago at [place]. S/P EGD with band ligation (08/21/17)---> 1. Retained food and old blood-suctioned no active bleeding esophageal varices-3 columns-grade 2-s/p banding times 2 2. Retroflexed views revealed food retained. He then had rectal bleeding with significant drop in hgb on 08/23. Rpt. EGD/Colonoscopy (08/23/17)----> 1. Retained food in stomach, esophageal varices with band attached, portal gastropathy questionable AVM in antrum-cautery using balltip, no active bleeding in upper gi tract 2. Retroflexed views revealed a hiatal hernia. 1. Diverticulosis sigmoid,descending blood up to cecum, aggressive washing , no active bleeding TI -some blood noted aggressive washing done -3 l of fluid -no active bleeding noted 2. Retroflexed views revealed internal hemorrhoids 3. Retroflexed views revealed small internal hemorrhoids 4. Was performed 5. Revealed external hemorrhoids. Bleeding scan (08/23/17) negative scan. CT Scan abdomen and pelvis without contrast (08/23/17)---> Cirrhotic small liver with diffuse heterogeneity, moderate to large amount of ascitic fluid, mild splenomegaly, nonspecific nonobstructive bowel gas pattern which represent a mild ileus. Bilateral pleural effusions with consolidation in both posterior lung bases. S/P 8 units PRBC, 4 units plasma, 4 units Plt. No further bleeding overnight. Protonix with BID dosing. Octreotide gtt. Ceftriaxone. HH stable 9.8/.8. Will D/C octreotide gtt. Okay to extubate from GI standpoint - Esophageal varices, 3 columns Grade II, S/P band ligation x 2. Octreotide Gtt , Protonix BID dosing. - Anemia, acute blood loss. HH Stable. S/P 8 units PRBC - Thrombocytopenia, Coagulopathy. 4 units plasma, 4 units Plt. Plt 47,000. - Recurrent ascites. Requires paracentesis every 2-3 weeks. Last had Monday at [place]. On albumin. Diuretics on hold secondary to ARTHUR and hypotensive. S/P Bedside Paracentesis (08/24/17)---> 4.5 L removed. Cx no wbc/organisms. - Liver cirrhosis. Dx 2003, secondary to alcohol and hepatitis C (Genotype 1A) . He quit drinking in 2005. Hx HCC treated with chemoembolization. Currently followed at [facility] for tertiary/liver transplant evaluation- has appt September 25 in [place]. MELD 19. 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 Andrews [phone] - Hepatic encephalopathy. On Lactulose, Xifaxan. - HCV, Genotype 1A. S/P unsuccessfully treated with interferon and ribavirin and then Sovaldi (did not maintain a sustained virologic response). - Hx HCC. Dx 2016 and underwent transcatheter arterial chemoembolization on 04/27, 06/15/16, 11/08/16, and 01/11/17. - ARTHUR, hyperkalemia, hyponatremia. Improved, 1.58 - Leukocytosis, Ceftriaxone - Respiratory failure. Vent per CCM - DM, OA, Depression, Anxiety, per attending. PLAN: - Okay for clear liquids once extubate - D/C Octreotide Gtt - Cont. Protonix 40mg IV BID - Cont. Albumin - Cont. Ceftriaxone - Cont. Lactulose, Xifaxan - Monitor HH - Transfuse as necessary - Supportive care - EGD in 6 weeks - Resume diuretics once renal function allows - If active bleeding, will need angiogram. Possible TIPS if further active upper GI bleeding, but will need to be d/w patient's machine puller at [facility] (tertiary) prior to performing. Dr. Andrews [phone] - Further recommendations to follow based on results of above - Pt seen and examined by Dr. Flores and myself and this note is written on his behalf (La Nena Odell) Physician Comments Doing well, no signs of active GI bleeding at the current time. Plan as above. Will follow up with you. (Rajat Flores MD) La Nena Odell Aug 25, 2017 08:07 Rajat Flores MD Aug 25, 2017 10:37
--- NOTE | 2017-08-25 08:07 | HHI.GIFU ---
Subjective Remarks Sedated on ventilator. No distress. No active bleeding. (La Nena Odell) Objective Vitals I&O Vital Signs Date Time Temp Pulse Resp B/P (MAP) Pulse Ox O2 Delivery O2 Flow Rate FiO2 08/25/17 06:00 54 08/25/17 06:00 97.3 54 16 148/70 (96) 100 08/25/17 04:24 100 35 08/25/17 04:01 97.5 49 12 139/63 (88) 100 08/25/17 04:00 49 08/25/17 04:00 35 08/25/17 02:00 53 08/25/17 00:03 99 35 08/25/17 00:00 35 08/25/17 00:00 98.8 59 15 138/65 (89) 100 08/25/17 00:00 59 08/24/17 23:32 98.9 56 12 129/60 96 08/24/17 22:00 66 08/24/17 21:46 99 35 08/24/17 20:03 100.4 65 14 144/67 100 08/24/17 20:00 64 08/24/17 20:00 100.6 64 12 140/66 (90) 100 08/24/17 20:00 35 08/24/17 19:50 100.4 64 12 140/66 100 08/24/17 19:30 100.4 64 12 140/72 100 08/24/17 18:00 66 08/24/17 17:13 100.0 66 13 127/62 100 08/24/17 16:52 100.0 66 12 125/61 99 08/24/17 16:40 100.0 64 12 125/60 100 08/24/17 16:00 66 08/24/17 16:00 100.0 66 12 124/62 (82) 99 08/24/17 16:00 35 08/24/17 15:38 99 35 08/24/17 14:15 99.9 68 12 124/59 98 08/24/17 14:00 60 08/24/17 13:58 99.9 67 12 124/59 98 08/24/17 12:00 98.5 63 12 118/57 (77) 99 08/24/17 12:00 35 08/24/17 12:00 63 08/24/17 11:34 99 35 08/24/17 10:00 60 08/24/17 08:00 35 08/24/17 08:00 50 08/24/17 08:00 97.9 50 12 87/54 (65) 99 08/24/17 07:58 100 35 I/O 08/24/17 08/24/17 08/24/17 08/25/17 08/25/17 08/25/17 07:00 15:00 23:00 07:00 15:00 23:00 Intake Total 1920 ml 632 ml 2448.8 ml 1380 ml Output Total 1200 ml 4500 ml 600 ml 3250 ml Balance 720 ml -3868 ml 1848.8 ml -1870 ml IV Total 1900 ml 622 ml 1700.8 ml 900 ml Packed Cells 324 ml 400 ml Platelets 214 ml Blood Product IV Normal Saline Flush 20 ml 10 ml 90 ml 20 ml Other 120 ml 60 ml Output Urine Total 1200 ml 600 ml 3250 ml Drainage Total 4500 ml # Bowel Movements 1 1 3 Laboratory Laboratory Tests Test 08/24/17 10:12 08/24/17 12:25 08/25/17 00:21 08/25/17 05:21 Peritoneal Fluid WBC 49 Peritoneal Fluid RBC 3665 Peritoneal Fluid Neutrophils 14 Peritoneal Fluid Lymphocytes 75 Peritoneal Fluid Monocytes 10 Peritoneal Fluid Eosinophils 1 Peritoneal Fluid Total Protein 1.4 Peritoneal Fluid Albumin 0.9 Peritoneal Fluid LDH 66 Peritoneal Fluid Glucose 201 White Blood Count 3.6 Red Blood Count 2.05 Hemoglobin 6.7 9.9 9.8 Hematocrit 19.5 28.8 27.8 Mean Corpuscular Volume 95.5 Mean Corpuscular Hemoglobin 32.7 Mean Corpuscular Hemoglobin Concent 34.3 Red Cell Distribution Width 17.7 Platelet Count 47 Mean Platelet Volume 8.9 Prothrombin Time 20.6 Prothromb Time International Ratio 1.8 Activated Partial Thromboplast Time 62.3 Ammonia 51 Lactate Dehydrogenase 143 Total Protein 5.1 Blood Urea Nitrogen 42 Creatinine 1.58 Random Glucose 154 Albumin 3.7 Calcium Level 8.1 Phosphorus Level 1.7 Sodium Level 142 Potassium Level 3.6 Chloride Level 109 Carbon Dioxide Level 22.6 Anion Gap 10 Estimat Glomerular Filtration Rate 44 Date/Time Source Procedure Growth Status 08/24/17 10:12 Fluid Peritoneal Fluid Gram Stain - Final Resulted 08/24/17 10:12 Fluid Peritoneal Fluid Body Fluid Culture Pending Resulted Imaging Last Impressions GI Bleed Scan Nuclear Medicine 08/23/17 0000 Signed Impressions: Service Date/Time: Wednesday, August 23, 2017 18:09 - CONCLUSION: Negative scan. Roel Grey MD Abdomen/Pelvis CT 08/23/17 0000 Signed Impressions: Service Date/Time: Wednesday, August 23, 2017 20:45 - CONCLUSION: 1. Cirrhotic small liver with diffuse heterogeneity. 2. Moderate to large amount of ascitic fluid. 3. Mild splenomegaly. 4. Nonspecific nonobstructive bowel gas pattern which represent a mild ileus. 5. Bilateral pleural effusions with consolidation in both posterior lung bases. Roel Grey MD Chest X-Ray 08/21/17 0426 Signed Impressions: Service Date/Time: Monday, August 21, 2017 04:07 - CONCLUSION: No acute disease. Antony Frederick MD Renal Ultrasound 08/21/17 0000 Signed Impressions: Service Date/Time: Monday, August 21, 2017 17:21 - CONCLUSION: Normal sized kidneys for hydronephrosis. Extensive ascites. Florin Alcala MD FACR Physical Exam HEENT: Normocephalic; atraumatic; no jaundice. CHEST: Resp. even/unlabored, OETT to vent. Diminished bases CARDIAC: Regular, bradycardic ABDOMEN: Soft, mild ascites, hepatosplenomegaly; bowel sounds are present in all four quadrants. EXTREMITIES: Generalized edema. SKIN: Normal; no rash; no jaundice. 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 (La Nena OdellP) Assessment and Plan Plan ASSESSMENT: - GIB with black emesis, melena, rectal bleeding. Pt with hx of liver cirrhosis , esophageal varices (last banded 2005). Last egd was at that time per patient, states he had a colonoscopy < 5 years ago at [facility]. S/P EGD with band ligation (08/21/17)---> 1. Retained food and old blood-suctioned no active bleeding esophageal varices-3 columns-grade 2-s/p banding times 2 2. Retroflexed views revealed food retained. He then had rectal bleeding with significant drop in hgb on 08/23. Rpt. EGD/Colonoscopy (08/23/17)----> 1. Retained food in stomach, esophageal varices with band attached, portal gastropathy questionable AVM in antrum-cautery using balltip, no active bleeding in upper gi tract 2. Retroflexed views revealed a hiatal hernia. 1. Diverticulosis sigmoid,descending blood up to cecum, aggressive washing , no active bleeding TI -some blood noted aggressive washing done -3 l of fluid -no active bleeding noted 2. Retroflexed views revealed internal hemorrhoids 3. Retroflexed views revealed small internal hemorrhoids 4. Was performed 5. Revealed external hemorrhoids. Bleeding scan (08/23/17) negative scan. CT Scan abdomen and pelvis without contrast (08/23/17)---> Cirrhotic small liver with diffuse heterogeneity, moderate to large amount of ascitic fluid, mild splenomegaly, nonspecific nonobstructive bowel gas pattern which represent a mild ileus. Bilateral pleural effusions with consolidation in both posterior lung bases. S/P 8 units PRBC, 4 units plasma, 4 units Plt. No further bleeding overnight. Protonix with BID dosing. Octreotide gtt. Ceftriaxone. HH stable 9.8/.8. Will D/C octreotide gtt. Okay to extubate from GI standpoint - Esophageal varices, 3 columns Grade II, S/P band ligation x 2. Octreotide Gtt , Protonix BID dosing. - Anemia, acute blood loss. HH Stable. S/P 8 units PRBC - Thrombocytopenia, Coagulopathy. 4 units plasma, 4 units Plt. Plt 47,000. - Recurrent ascites. Requires paracentesis every 2-3 weeks. Last had Monday at [facility]. On albumin. Diuretics on hold secondary to ARTHUR and hypotensive. S/P Bedside Paracentesis (08/24/17)---> 4.5 L removed. Cx no wbc/organisms. - Liver cirrhosis. Dx 2003, secondary to alcohol and hepatitis C (Genotype 1A) . He quit drinking in 2005. Hx HCC treated with chemoembolization. Currently followed at [facility] for tertiary/liver transplant evaluation- has appt September 25 in [place]. MELD 19. Pt's nurse sitter at [place], Dr. Andrews [phone] - Hepatic encephalopathy. On Lactulose, Xifaxan. - HCV, Genotype 1A. S/P unsuccessfully treated with interferon and ribavirin and then Sovaldi (did not maintain a sustained virologic response). - Hx HCC. Dx 2016 and underwent transcatheter arterial chemoembolization on 04/27, 06/15/16, 11/08/16, and 01/11/17. - ARTHUR, hyperkalemia, hyponatremia. Improved, 1.58 - Leukocytosis, Ceftriaxone - Respiratory failure. Vent per CCM - DM, OA, Depression, Anxiety, per attending. PLAN: - Okay for clear liquids once extubate - D/C Octreotide Gtt - Cont. Protonix 40mg IV BID - Cont. Albumin - Cont. Ceftriaxone - Cont. Lactulose, Xifaxan - Monitor HH - Transfuse as necessary - Supportive care - EGD in 6 weeks - Resume diuretics once renal function allows - If active bleeding, will need angiogram. Possible TIPS if further active upper GI bleeding, but will need to be d/w patient's nurse sitter at [place] (tertiary) prior to performing. Dr. Andrews [phone] - Further recommendations to follow based on results of above - Pt seen and examined by Dr. Flores and myself and this note is written on his behalf (La Nena Odell) Physician Comments Doing well, no signs of active GI bleeding at the current time. Plan as above. Will follow up with you. (Rajat Flores MD) La Nena Odell Aug 25, 2017 08:07 Rajat Flores MD Aug 25, 2017 10:37
[2017-08-25] MEDS: GABAPENTIN 300 MG CAP PO SCH ×3 (08:10→18:11)
[2017-08-25] MEDS: RIFAXIMIN 550 MG TAB PO SCH ×2 (08:10→20:43)
[2017-08-25] MEDS: LACTULOSE SYRUP 20 GM/30 ML CUP PO SCH ×2 (08:11→20:42)
[2017-08-25] MEDS: MAGNESIUM OXIDE 400 MG TAB PO SCH (08:11)
[2017-08-25] MEDS: CHOLECALCIFEROL (VIT D3) 400 UNIT TAB PO SCH (08:11)
[2017-08-25] MEDS: PANTOPRAZOLE SODIUM 40 MG VIAL IV PUSH SCH ×2 (08:11→20:43)
[2017-08-25] MEDS: SODIUM CHLORIDE 0.9% FLUSH 10 ML FLUSH IV FLUSH SCH ×2 (08:12→20:43)
[2017-08-25] MEDS: DOCUSATE SODIUM 50 MG/SENNA 8.6 MG TAB PO SCH ×2 (08:12→20:43)
[2017-08-25] MEDS: SODIUM CHLOR 0.9% 1000 ML INJ 1,000 ML IV SCH (12:03)
--- NOTE | 2017-08-25 12:45 | HHI.NPPN ---
Subjective History of Present Illness This patient is a 66-year-old male with a history of cirrhosis, varices, chronic hepatitis C with unsuccessful treatment now listed apparently for liver transplant with a hepatitis C positive organ when available now presenting with apparent upper GI bleed was associated with hypotension last night. Blood pressure initially 91/52. Previous creatinine level noted to have been 1.05 June,. His creatinine level on presentation was 2.03 with a potassium initially of 7.1. The patient was taking Aldactone as an outpatient prior to presentation as well as furosemide. Denies using NSAIDs prior to presentation for analgesia.. Review of Systems General General Remarks Patient unable to respond to questions verbally at this time. Gastrointestinal GI Remarks Abd distention Objective Data Data Vital Signs Date Time Temp Pulse Resp B/P (MAP) Pulse Ox O2 Delivery O2 Flow Rate FiO2 08/25/17 11:40 94 Nasal Cannula 2 08/25/17 11:40 94 Nasal Cannula 2.00 08/25/17 11:02 100 35 08/25/17 10:00 56 08/25/17 10:00 35 08/25/17 09:10 35 08/25/17 08:14 100 35 08/25/17 08:00 97.5 59 12 143/65 (91) 100 08/25/17 08:00 48 08/25/17 08:00 35 08/25/17 06:00 54 08/25/17 06:00 97.3 54 16 148/70 (96) 100 08/25/17 04:24 100 35 08/25/17 04:01 97.5 49 12 139/63 (88) 100 08/25/17 04:00 49 08/25/17 04:00 35 08/25/17 02:00 53 08/25/17 00:03 99 35 08/25/17 00:00 35 08/25/17 00:00 98.8 59 15 138/65 (89) 100 08/25/17 00:00 59 08/24/17 23:32 98.9 56 12 129/60 96 08/24/17 22:00 66 08/24/17 21:46 99 35 08/24/17 20:03 100.4 65 14 144/67 100 08/24/17 20:00 64 08/24/17 20:00 100.6 64 12 140/66 (90) 100 08/24/17 20:00 35 08/24/17 19:50 100.4 64 12 140/66 100 08/24/17 19:30 100.4 64 12 140/72 100 08/24/17 18:00 66 08/24/17 17:13 100.0 66 13 127/62 100 08/24/17 16:52 100.0 66 12 125/61 99 08/24/17 16:40 100.0 64 12 125/60 100 08/24/17 16:00 66 08/24/17 16:00 100.0 66 12 124/62 (82) 99 08/24/17 16:00 35 08/24/17 15:38 99 35 08/24/17 14:15 99.9 68 12 124/59 98 08/24/17 14:00 60 08/24/17 13:58 99.9 67 12 124/59 98 -: 08/25/17 0521 08/25/17 0521 Physical Exam General Appearance: Comfortable Appearance Remarks Currently with an ET tube in place on ventilator. Throat Throat Exam: Oral Mucosa [place] & Moist Pulmonary Resp Exam: Clear Bilaterally, Breath Sounds Equal Cardiology CV Exam: Regular, Normal Sinus Rhythm Gastrointestinal/Abdomen GI Exam: Distended Integumentary Skin Exam: Warm Extremeties Extremities Exam: No Edema, Moderate Edema (2+ pitting edema of her extremities and hips. Weeping of fluid.) Neurologic Neuro Exam: Alert, Awake Psychiatric Psych Exam: Appropriate Responses Assessment/Plan Problem List: (1) Acute kidney insufficiency ICD Codes: N28.9 - Disorder of kidney and ureter, unspecified Status: Acute Plan: Patient's renal indices continue to improve. Urine output fair. No significant volume retention noted today. Although initially acute renal insufficiency appeared to be related to hemodynamic factors related to GI bleed this patient is at risk for development of hepatorenal syndrome. Renal US showed normal echogenicity and no signs of obstructive process. Urinalysis is bland and not suggestive of glomerulonephritis. We'll continue to follow patient intermittently. Medications should be adjusted for the patient's estimated GFR if clinically indicated. Avoid agents with significant potential for nephrotoxicity possible including NSAIDs for analgesia, iodine contrast agents. Gadolinium is contraindicated if the GFR is below 30. (2) GI bleed ICD Codes: K92.2 - Gastrointestinal hemorrhage, unspecified Status: Acute Plan: Mgmt as per GI (3) Cirrhosis ICD Codes: K74.60 - Unspecified cirrhosis of liver Plan: Pt reports paracentesis every 2-3 weeks with last outpatient done 08/18 with 4L removed Inpatient 08/24 with 4500mL removed Problem Qualifiers (1) GI bleed: Qualified Codes: K92.2 - Gastrointestinal hemorrhage, unspecified Anibal Scanlon MD Aug 25, 2017 12:45
[2017-08-25 12:47] LABS: AMYLASE BODY FLUID 22 U/L; AMYLASE BODY FLUID TYPE PERITONEAL FLUID
--- NOTE | 2017-08-25 13:18 | HHI.CCPN ---
Subjective Remarks/Hospital Course 66-year-old gentleman with end-stage liver disease, chronic hepatitis C status post unsuccessful treatment with therapy now awaiting a liver transplant comes in complaining of melena 3 days and vomiting blood that began yesterday. [facility] to his refractory ascites from his cirrhosis. Patient states since that is been having the melena. He denies any fevers, chest pain, shortness of breath, or headaches. Patient denies anything making this better or worse. Patient reports feeling weak and nauseated. Patient denies anything like this in the past. Denies being on any blood thinners. 08/21: Hypotensive, SBP in low 70's. 1 L normal saline bolus and 25, albumin stat ordered. IV Protonix changed to infusion. Start vasopressin if needed to keep map above 65. Hemoglobin 6.7 hematocrit 19.6. Transfuse 3 units PRBC stat. GI consult pending. Will need EGD-patient has history of esophageal varices but last endoscopy per patient was in 2005. Patient has two 18 G IV. Also platelet count has dropped to 67 will give 2 units of platelets and 1 unit of FFP 08/22: No GI bleed overnight. Hemodynamically has stabilized. Remains on IV Protonix infusion and octreotide infusion. A.m. labs are pending. Underwent endoscopy yesterday with findings of esophageal varices and gastritis. Underwent esophageal variceal banding 2 08/23: Reconsulted by hepatocellular in for acute GI hemorrhage passing bright red blood per rectum. Hemoglobin has dropped to 5.2. INR is 2 today with platelet count of 49. Start transfusion of 3 units PRBC, 2 units of FFP, 2 units of platelets ordered. I will also restarted the Protonix infusion and will continue octreotide infusion. GI contacted emergently 08/24: Patient remains intubated sedated. Small amount of bleeding per rectum overnight. Tagged RBC scan did not show any active bleeding. Hemoglobin 7.7 ( received 3 units PRBC, 2 units of platelets and 2 units of FFP yesterday). Will leave intubated until hemodynamically optimized, and no further GI bleed. Proceed with paracentesis today 08/25: Hemoglobin remains stable at 9.3. Following commands, tolerated spontaneous breathing trial. Wean to extubation. No further GI bleed Objective Vital Signs Date Time Temp Pulse Resp B/P (MAP) Pulse Ox O2 Delivery O2 Flow Rate FiO2 08/25/17 11:40 94 Nasal Cannula 2 08/25/17 11:02 35 08/25/17 10:00 56 08/25/17 08:00 97.5 12 143/65 (91) Intake and Output 08/25/17 08/25/17 08/26/17 08:00 16:00 00:00 Intake Total 860 ml Output Total 3250 ml Balance -2390 ml Result Diagram: 08/25/1752008/25/17520 Objective Remarks GENERAL: Intubated sedated, wakes up easily follows commands SKIN: Warm and dry. Pallor present HEAD: Normocephalic. ENT: Orotracheally intubated EYES: Mild scleral icterus. No injection or drainage. NECK: Supple, trachea midline. No JVD or lymphadenopathy. CARDIOVASCULAR: S1-S2 normal no murmurs RESPIRATORY: Breath sounds equal bilaterally. No accessory muscle use. GASTROINTESTINAL: Abdomen soft, non-tender, distended. Large ascites on bedside US, s/p paracentesis. Scrotal edema MUSCULOSKELETAL: No cyanosis, or edema. BACK: Nontender without obvious deformity. NEURO EXAM: Intubated sedated, Moves extremities, following commands A/P Assessment and Plan NEURO: Hepatic encephalopathy - Propofol for sedation. Hold for daily SBT - F/u ammonia, lactulose and rifaximin for GI RESP: Acute respiratory failure - SBT with extubation today if last - DuoNeb every 6 hours when necessary GI/HEME Recurrent Variceal bleed Hypotension/hemorrhagic shock-resolved Anemia requiring transfusion Thrombocytopenia Coagulopathy - Status post EGD and banding of esophageal varices 08/21/17. Also has gastritis - Bleeding currently seems to have subsided. - Octreotide drip, IV Protonix gtt, Rocephin for SBP prophylaxis - Diet per GI. Change Protonix to IV 40 every 12 - Paracentesis 08/24 with 4.5L removed-fluid studies pending ENDO: Diabetes mellitus - Hold insulin glargine while nothing by mouth - Insulin sliding scale ID: Hepatitis C - Status post unsuccessful treatment - Awaiting liver transplant - [facility] - Ceftriaxone for SBP prophylaxis : Hyperkalemia-resolved Acute kidney injury/probable hepatorenal syndrome - Received Insulin, sodium bicarbonate, glucose, Calcium-K stable - Nephrology following - Creatinine improving, urine output adequate 3.8L in 24 hours - Worsening transaminitis due to hypotension, now stable DVT GI prophylaxis - Teds SCDs - No pharmacological DVT prophylaxis due to active bleed - Protonix gtt Level 2 Extubated, stable. Consult [facility] to assume care in am Bar Hardy MD Aug 25, 2017 13:18
[2017-08-25] MEDS: OXYMORPHONE 5 MG PO PRN (18:12)
[2017-08-26] VITALS (15 sets, daily range): BP systolic 114–152; BP diastolic 59–92; PULSE 67–86; RESP 8–21; TEMP 98.1–98.9; O2SAT 94–99
[2017-08-26] MEDS: ALBUMIN 25% INJ 100 ML IV SCH ×4 (02:01→18:15)
[2017-08-26] MEDS: SODIUM CHLOR 0.9% 1000 ML INJ 1,000 ML IV SCH ×2 (02:01→22:17)
[2017-08-26] MEDS: cefTRIAXone INJ 1,000 MG in SODIUM CHLORIDE 0.9% INJ 100 ML IV SCH (02:01)
[2017-08-26] MEDS: CHLORHEXIDINE GLUCONATE 2 % 1 PACK (2 CLOTHS) TOP SCH (04:00)
[2017-08-26 06:29] LABS: HEMATOCRIT 26.8 % (39.0-51.0); HEMOGLOBIN 9.1 GM/DL (13.0-17.0); MEAN CELL VOLUME 96.1 FL (80.0-100.0); MEAN CORPUSCULAR HEMOGLOBIN 32.8 PG (27.0-34.0); MEAN CORPUSCULAR HGB CONC 34.1 % (32.0-36.0); PLATELET COUNT 30 TH/MM3 (150-450); RED BLOOD COUNT 2.79 MIL/MM3 (4.50-5.90)
[2017-08-26 06:43] LABS: BICARBONATE 23.8 MEQ/L (21.0-32.0); CALCIUM 8.4 MG/DL (8.5-10.1); CREATININE 1.58 MG/DL (0.60-1.30)
[2017-08-26 06:52] LABS: INTERNATIONAL NORMALIZED RATIO 1.9 RATIO; PROTHROMBIN TIME - PATIENT 22.1 SEC (9.8-11.6)
[2017-08-26] MEDS: INSULIN NovoLIN REGULAR SUPPLEMENTAL SCALE SQ SCH ×4 (08:00→21:00)
[2017-08-26] MEDS: SODIUM CHLORIDE 0.9% FLUSH 10 ML FLUSH IV FLUSH SCH ×2 (09:03→21:00)
[2017-08-26] MEDS: PANTOPRAZOLE SODIUM 40 MG VIAL IV PUSH SCH ×2 (09:05→22:17)
[2017-08-26] MEDS ORDERED: NALOXONE HCL 0.4 MG/ML AMP ONE (09:23)
[2017-08-26] MEDS: GABAPENTIN 300 MG CAP PO SCH ×3 (09:30→18:32)
[2017-08-26] MEDS: LACTULOSE SYRUP 20 GM/30 ML CUP PO SCH ×4 (09:30→21:00)
[2017-08-26] MEDS: MAGNESIUM OXIDE 400 MG TAB PO SCH (09:31)
[2017-08-26] MEDS: RIFAXIMIN 550 MG TAB PO SCH ×2 (09:31→22:17)
[2017-08-26] MEDS: DOCUSATE SODIUM 50 MG/SENNA 8.6 MG TAB PO SCH ×2 (09:31→21:00)
[2017-08-26] MEDS: CHOLECALCIFEROL (VIT D3) 400 UNIT TAB PO SCH (09:31)
[2017-08-26] MEDS ORDERED: NALOXONE HCL 0.4 MG/ML AMP IV PUSH ONE ×2 (09:45)
[2017-08-26 10:39] LABS: ACANTHOCYTES OCC (NORMAL); BANDS 19 % (0-6); BASOPHILS 2 % (0-2); LYMPHOCYTES 8 % (9-44); MONOCYTES 11 % (0-8); NEUTROPHIL # MANUAL DIFF 3.1 TH/MM3 (1.8-7.7); OVALOCYTES 1+ (NORMAL); POLYCHROMASIA 2.5 % (0.0-1.9); POLYS (SEG NEUTROPHILS) 58 % (16-70)
[2017-08-26 10:40] LABS: TEARDROP RBCS 1+ (NORMAL)
--- NOTE | 2017-08-26 12:55 | HHI.PR ---
Subjective Remarks Required Narcan this morning. More awake currently. Tolerating liquid diet. No BM today. Abdomen firm but not much pain. Somnolent. Objective Vitals Vital Signs Date Time Temp Pulse Resp B/P (MAP) Pulse Ox O2 Delivery O2 Flow Rate FiO2 08/26/17 12:00 98.9 80 20 114/92 (99) 96 08/26/17 12:00 80 08/26/17 10:00 80 08/26/17 08:00 98.1 83 9 128/66 (86) 94 08/26/17 08:00 83 08/26/17 07:19 95 Nasal Cannula 1.50 08/26/17 06:00 86 08/26/17 04:00 99.1 70 18 127/59 (81) 94 08/26/17 04:00 70 08/26/17 02:00 70 08/26/17 00:00 99.1 71 18 135/72 (93) 94 08/26/17 00:00 71 08/25/17 22:00 70 08/25/17 21:13 94 Nasal Cannula 2.00 08/25/17 20:00 68 08/25/17 20:00 99.1 61 12 138/70 (92) 94 08/25/17 18:00 63 08/25/17 16:00 60 08/25/17 16:00 98.8 60 13 139/65 (89) 98 08/25/17 14:00 58 I/O 08/25/17 08/25/17 08/25/17 08/26/17 08/26/17 08/26/17 07:00 15:00 23:00 07:00 15:00 23:00 Intake Total 1380 ml 1620 ml 220 ml 240 ml 1611 ml Output Total 3250 ml 1400 ml 275 ml Balance -1870 ml 1620 ml -1180 ml -35 ml 1611 ml Intake Oral 240 ml IV Total 900 ml 1620 ml 100 ml 1611 ml Packed Cells 400 ml Blood Product IV Normal Saline Flush 20 ml Other 60 ml 120 ml Output Urine Total 3250 ml 1250 ml 250 ml Drainage Total 150 ml 25 ml # Bowel Movements 3 3 1 Result Diagram: 08/26/17 0439 08/26/179 Objective Remarks GENERAL: Jaundiced, very sleepy. CARDIOVASCULAR: Normal rate and regular rhythm without murmurs, gallops, or rubs. RESPIRATORY: Good respiratory efforts. Breath sounds equal and clear to auscultation bilaterally. GASTROINTESTINAL: Abdomen is tense, mildly tender to palpation. Normal active bowel sounds. MUSCULOSKELETAL: Extremities with some edema. NEURO: Alert & Oriented. Moves all ext x4. Very somnolent. A/P Assessment and Plan 66-year-old male with end-stage liver disease, failed treatment for hepatitis C awaiting on the liver transplant list. Patient admitted with acute upper GI bleeding. He is status post EGD with variceal banding. Patient also went into shock. He was extubated yesterday. Hospitalist service consulted to continue medical management. Recurrent Variceal bleed Hypotension/hemorrhagic shock-resolved Anemia requiring transfusion Thrombocytopenia Coagulopathy Hepatitis C and end-stage liver disease: Awaiting transplant at the [facility] - Status post EGD and banding of esophageal varices 08/21/17. Also has gastritis - Bleeding currently seems to have subsided. - Octreotide drip discontinued, Rocephin for SBP prophylaxis. Plan to discontinue antibiotics tomorrow if he continues to improve. Peritoneal fluid so far negative for infection. - Diet per GI. Advance to clear liquid. Protonix to IV 40 every 12 - Paracentesis 08/24 with 4.5L removed-fluid studies negative. - May require repeat paracentesis in the next 1-2 days. Hepatic encephalopathy, worst overnight after he was given Oxymorphone. - S/P Narcain. Improving but ammonia level still elevated. - F/u ammonia, lactulose and rifaximin. Increase lactulose to 4 times a day. Monitor. Acute respiratory failure -Status post intubation. Extubated on 08/25/17 - DuoNeb every 6 hours when necessary Diabetes mellitus -Sliding scale insulin with Accu-Cheks Acute kidney injury: - Appreciate nephrology following. Worsening renal function may have been due to shock. However he is still at high risk for hepatorenal syndrome. - Continue to monitor renal functions. Avoid nephrotoxins. Acute blood loss anemia: -Status post PRBC transfusion. H&H stable today. Follow-up tomorrow. Hyperkalemia-resolved Acute kidney injury - Received Insulin, sodium bicarbonate, glucose, Calcium-K stable - Nephrology following - Creatinine improving, urine output adequate - Worsening transaminitis due to hypotension, now stable DVT GI prophylaxis - Teds SCDs - No pharmacological DVT prophylaxis due to bleed - Protonix Eleonora Bennett MD Aug 26, 2017 12:55
--- NOTE | 2017-08-26 14:04 | HHI.NPPN ---
Subjective History of Present Illness This patient is a 66-year-old male with a history of cirrhosis, varices, chronic hepatitis C with unsuccessful treatment now listed apparently for liver transplant with a hepatitis C positive organ when available now presenting with apparent upper GI bleed was associated with hypotension last night. Blood pressure initially 91/52. Previous creatinine level noted to have been 1.05 June,. His creatinine level on presentation was 2.03 with a potassium initially of 7.1. The patient was taking Aldactone as an outpatient prior to presentation as well as furosemide. Denies using NSAIDs prior to presentation for analgesia.. Interval History Patient appears somewhat confused. Otherwise no complaints. Review of Systems General General Remarks Patient unable to respond to questions verbally at this time. Gastrointestinal GI Remarks Abd distention Objective Data Data 08/26/17 08/27/17 19:00 07:00 Intake Total 1611 ml Balance 1611 ml IV Total 1611 ml Vital Signs Date Time Temp Pulse Resp B/P (MAP) Pulse Ox O2 Delivery O2 Flow Rate FiO2 08/26/17 12:00 98.9 80 20 114/92 (99) 96 08/26/17 12:00 80 08/26/17 10:00 80 08/26/17 08:00 98.1 83 9 128/66 (86) 94 08/26/17 08:00 83 08/26/17 07:19 95 Nasal Cannula 1.50 08/26/17 06:00 86 08/26/17 04:00 99.1 70 18 127/59 (81) 94 08/26/17 04:00 70 08/26/17 02:00 70 08/26/17 00:00 99.1 71 18 135/72 (93) 94 08/26/17 00:00 71 08/25/17 22:00 70 08/25/17 21:13 94 Nasal Cannula 2.00 08/25/17 20:00 68 08/25/17 20:00 99.1 61 12 138/70 (92) 94 08/25/17 18:00 63 08/25/17 16:00 60 08/25/17 16:00 98.8 60 13 139/65 (89) 98 -: 08/26/17 0439 08/26/17 0439 Physical Exam General Appearance: Comfortable Throat Throat Exam: Oral Mucosa [place] & Moist Pulmonary Resp Exam: Clear Bilaterally, Breath Sounds Equal Cardiology CV Exam: Regular, Normal Sinus Rhythm Gastrointestinal/Abdomen GI Exam: Distended Integumentary Skin Exam: Warm Extremeties Extremities Exam: No Edema, Moderate Edema (2+ pitting edema of her extremities and hips. Weeping of fluid.) Neurologic Neuro Exam: Alert, Awake Psychiatric Psych Exam: Appropriate Responses Assessment/Plan Problem List: (1) Acute kidney insufficiency ICD Codes: N28.9 - Disorder of kidney and ureter, unspecified Status: Acute Plan: Patient's renal disease is stable from yesterday. No significant volume retention noted today. Although initially acute renal insufficiency appeared to be related to hemodynamic factors related to GI bleed this patient is at significant risk for development of hepatorenal syndrome. Renal US showed normal echogenicity and no signs of obstructive process. Urinalysis is bland and not suggestive of glomerulonephritis. We'll continue to follow patient intermittently. Medications should be adjusted for the patient's estimated GFR if clinically indicated. Avoid agents with significant potential for nephrotoxicity possible including NSAIDs for analgesia, iodine contrast agents. Gadolinium is contraindicated if the GFR is below 30. (2) GI bleed ICD Codes: K92.2 - Gastrointestinal hemorrhage, unspecified Status: Acute Plan: Mgmt as per GI (3) Cirrhosis ICD Codes: K74.60 - Unspecified cirrhosis of liver Plan: Pt reports paracentesis every 2-3 weeks with last outpatient done 08/18 with 4L removed Inpatient 08/24 with 4500mL removed Problem Qualifiers (1) GI bleed: Qualified Codes: K92.2 - Gastrointestinal hemorrhage, unspecified Anibal Scanlon MD Aug 26, 2017 14:03
[2017-08-26] MEDS ORDERED: FUROSEMIDE 20 MG/2 ML VIAL IV PUSH ONE (21:30)
[2017-08-26] MEDS ORDERED: SODIUM CHLOR 0.9% 250 ML INJ 250 ML IV ONE (21:30)
[2017-08-26 22:00] LABS: HEMATOCRIT 22.8 % (39.0-51.0); HEMOGLOBIN 7.4 GM/DL (13.0-17.0)
[2017-08-27] VITALS (14 sets, daily range): BP systolic 118–145; BP diastolic 56–63; PULSE 62–82; RESP 12–28; TEMP 98–98.6; O2SAT 92–100
[2017-08-27] MEDS: ALBUMIN 25% INJ 100 ML IV SCH ×4 (02:56→18:46)
[2017-08-27] MEDS: CHLORHEXIDINE GLUCONATE 2 % 1 PACK (2 CLOTHS) TOP SCH (02:56)
[2017-08-27] MEDS: cefTRIAXone INJ 1,000 MG in SODIUM CHLORIDE 0.9% INJ 100 ML IV SCH (02:56)
[2017-08-27 06:37] LABS: HEMATOCRIT 25.4 % (39.0-51.0); HEMOGLOBIN 8.7 GM/DL (13.0-17.0); MEAN CELL VOLUME 94.3 FL (80.0-100.0); MEAN CORPUSCULAR HEMOGLOBIN 32.5 PG (27.0-34.0); MEAN CORPUSCULAR HGB CONC 34.5 % (32.0-36.0); MEAN PLATELET VOLUME 9.6 FL (7.0-11.0); PLATELET COUNT 42 TH/MM3 (150-450); RED BLOOD COUNT 2.69 MIL/MM3 (4.50-5.90); RED CELL DISTRIBUTION WIDTH 17.1 % (11.6-17.2); WHITE BLOOD COUNT 4.5 TH/MM3 (4.0-11.0)
[2017-08-27 06:40] LABS: BICARBONATE 21.9 MEQ/L (21.0-32.0); CALCIUM 8.1 MG/DL (8.5-10.1); CREATININE 1.42 MG/DL (0.60-1.30)
[2017-08-27] MEDS: MAGNESIUM OXIDE 400 MG TAB PO SCH (09:00)
[2017-08-27] MEDS: RIFAXIMIN 550 MG TAB PO SCH ×2 (09:00→21:00)
[2017-08-27] MEDS: DOCUSATE SODIUM 50 MG/SENNA 8.6 MG TAB PO SCH ×2 (09:00→21:00)
[2017-08-27] MEDS: LACTULOSE SYRUP 20 GM/30 ML CUP PO SCH ×4 (09:00→21:00)
[2017-08-27] MEDS: CHOLECALCIFEROL (VIT D3) 400 UNIT TAB PO SCH (09:00)
[2017-08-27] MEDS: GABAPENTIN 300 MG CAP PO SCH ×3 (09:00→18:00)
[2017-08-27] MEDS: SODIUM CHLORIDE 0.9% FLUSH 10 ML FLUSH IV FLUSH SCH ×2 (09:32→21:22)
[2017-08-27] MEDS: PANTOPRAZOLE SODIUM 40 MG VIAL IV PUSH SCH (09:32)
--- NOTE | 2017-08-27 09:55 | HHI.GIFU ---
Subjective Remarks Here for followup visit. RN reports large amount of bright red blood in stool overnight. Rectal tube placed and shows maroon colored liquid stool today. (aYneli Gonzalez) Objective Vitals I&O Vital Signs Date Time Temp Pulse Resp B/P (MAP) Pulse Ox O2 Delivery O2 Flow Rate FiO2 08/27/17 06:00 72 08/27/17 04:00 69 08/27/17 04:00 98.6 69 12 135/60 (85) 94 08/27/17 02:00 72 08/27/17 01:22 98.0 76 26 127/60 100 08/27/17 00:00 82 08/27/17 00:00 98.2 82 15 119/58 (78) 100 08/26/17 23:26 98.2 79 21 130/60 99 08/26/17 22:00 72 08/26/17 20:00 72 08/26/17 20:00 98.3 72 12 152/70 (97) 99 08/26/17 19:44 98 Nasal Cannula 1.50 08/26/17 18:00 71 08/26/17 16:00 67 08/26/17 16:00 98.1 67 8 150/70 (96) 98 08/26/17 14:00 75 08/26/17 12:00 98.9 80 20 114/92 (99) 96 08/26/17 12:00 80 08/26/17 10:00 80 I/O 08/26/17 08/26/17 08/26/17 08/27/17 08/27/17 08/27/17 07:00 15:00 23:00 07:00 15:00 23:00 Intake Total 240 ml 1711 ml 480 ml 4090 ml Output Total 275 ml 455 ml 1180 ml Balance -35 ml 1711 ml 25 ml 2910 ml Intake Oral 240 ml 480 ml 800 ml IV Total 1711 ml 1801 ml Packed Cells 1429 ml Blood Product IV Normal Saline Flush 60 ml Output Urine Total 250 ml 425 ml 1150 ml Drainage Total 25 ml 30 ml 30 ml # Bowel Movements 1 1 2 Laboratory Laboratory Tests Test 08/26/17 21:50 08/27/17 06:00 Hemoglobin 7.4 8.7 Hematocrit 22.8 25.4 White Blood Count 4.5 Red Blood Count 2.69 Mean Corpuscular Volume 94.3 Mean Corpuscular Hemoglobin 32.5 Mean Corpuscular Hemoglobin Concent 34.5 Red Cell Distribution Width 17.1 Platelet Count 42 Mean Platelet Volume 9.6 Blood Urea Nitrogen 35 Creatinine 1.42 Random Glucose 169 Calcium Level 8.1 Sodium Level 144 Potassium Level 3.7 Chloride Level 111 Carbon Dioxide Level 21.9 Anion Gap 11 Estimat Glomerular Filtration Rate 50 Date/Time Source Procedure Growth Status 08/24/17 10:12 Fluid Peritoneal Fluid Gram Stain - Final Complete 08/24/17 10:12 Fluid Peritoneal Fluid Body Fluid Culture - Final NO GROWTH IN 72 HRS.--AEROBICALLY OR ... Complete Imaging Last Impressions GI Bleed Scan Nuclear Medicine 08/23/17 0000 Signed Impressions: Service Date/Time: Wednesday, August 23, 2017 18:09 - CONCLUSION: Negative scan. Roel Grey MD Abdomen/Pelvis CT 08/23/17 0000 Signed Impressions: Service Date/Time: Wednesday, August 23, 2017 20:45 - CONCLUSION: 1. Cirrhotic small liver with diffuse heterogeneity. 2. Moderate to large amount of ascitic fluid. 3. Mild splenomegaly. 4. Nonspecific nonobstructive bowel gas pattern which represent a mild ileus. 5. Bilateral pleural effusions with consolidation in both posterior lung bases. Roel Grey MD Chest X-Ray 08/21/17 0426 Signed Impressions: Service Date/Time: Monday, August 21, 2017 04:07 - CONCLUSION: No acute disease. Antony Frederick MD Renal Ultrasound 08/21/17 0000 Signed Impressions: Service Date/Time: Monday, August 21, 2017 17:21 - CONCLUSION: Normal sized kidneys for hydronephrosis. Extensive ascites. Florin Alcala MD FACR Physical Exam HEENT: Normocephalic; atraumatic; no jaundice. CHEST: CTA CARDIAC: RRR ABDOMEN: Abdomen distended. + Ascites. Diffuse tenderness to abdomen. Bowel sounds faint. EXTREMITIES: Generalized edema. SKIN: Normal; no rash; no jaundice. CARRY OUT CLERK AND SHELF STOCKER: Alert and oriented x 3. (Yaneli Gonzalez) Assessment and Plan Plan ASSESSMENT: - GIB with black emesis, melena, rectal bleeding. Pt with hx of liver cirrhosis , esophageal varices (last banded 2005). Last egd was at that time per patient, states he had a colonoscopy < 5 years ago at [place]. S/P EGD with band ligation (08/21/17)---> 1. Retained food and old blood-suctioned no active bleeding esophageal varices-3 columns-grade 2-s/p banding times 2 2. Retroflexed views revealed food retained. He then had rectal bleeding with significant drop in hgb on 08/23. Rpt. EGD/Colonoscopy (08/23/17)----> 1. Retained food in stomach, esophageal varices with band attached, portal gastropathy questionable AVM in antrum-cautery using balltip, no active bleeding in upper gi tract 2. Retroflexed views revealed a hiatal hernia. 1. Diverticulosis sigmoid,descending blood up to cecum, aggressive washing , no active bleeding TI -some blood noted aggressive washing done -3 l of fluid -no active bleeding noted 2. Retroflexed views revealed internal hemorrhoids 3. Retroflexed views revealed small internal hemorrhoids 4. Was performed 5. Revealed external hemorrhoids. Bleeding scan (08/23/17) negative scan. CT Scan abdomen and pelvis without contrast (08/23/17)---> Cirrhotic small liver with diffuse heterogeneity, moderate to large amount of ascitic fluid, mild splenomegaly, nonspecific nonobstructive bowel gas pattern which represent a mild ileus. Bilateral pleural effusions with consolidation in both posterior lung bases. S/P 10 units PRBC, 4 units plasma, 4 units Plt. 08/27/17: RN reports large amount of bright red blood in stool. Rectal tube placed which shows liquid maroon stool draining in tube/bag. - Esophageal varices, 3 columns Grade II, S/P band ligation x 2. Protonix BID dosing. - Anemia, acute blood loss. S/P 10 units PRBC. HH 8.7/25.4 - Thrombocytopenia, Coagulopathy. 4 units plasma, 4 units Plt. Plt 42,000. - Recurrent ascites. Requires paracentesis every 2-3 weeks. Last had Monday at [place]. On albumin. Diuretics on hold secondary to ARTHUR and hypotensive. S/P Bedside Paracentesis (08/24/17)---> 4.5 L removed. Cx no wbc/organisms. - Liver cirrhosis. Dx 2003, secondary to alcohol and hepatitis C (Genotype 1A) . He quit drinking in 2005. Hx HCC treated with chemoembolization. Currently followed at [facility] for tertiary/liver transplant evaluation- has appt September 25 in [place]. MELD 19. 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 Andrews [phone] - Hepatic encephalopathy. On Lactulose, Xifaxan. - HCV, Genotype 1A. S/P unsuccessfully treated with interferon and ribavirin and then Sovaldi (did not maintain a sustained virologic response). - Hx HCC. Dx 2015 and underwent transcatheter arterial chemoembolization on 04/27, 06/15/16, 11/08/16, and 01/11/17. - ARTHUR, hyperkalemia, hyponatremia. Improved, 1.42 - Leukocytosis, Ceftriaxone - Respiratory failure. Vent per CCM - DM, OA, Depression, Anxiety, per attending. PLAN: - TIPS Procedure - Consult IR - Monitor HH, transfuse as necessary - Cont. Protonix 40mg IV BID - Cont. Albumin - Cont. Ceftriaxone - Cont. Lactulose, Xifaxan - Supportive care - EGD in 6 weeks - Resume diuretics once renal function allows - Further recommendations to follow based on results of above - Missile Mechanic at [place] (tertiary) Dr. Andrews [phone] Patient seen and examined by Dr. Flores and myself and this note is written on his behalf (Yaneli Gonzalez) Physician Comments Events of last night noted. Blood color is darker since last night. HD stable. Will need TIPS for recurrent variceal bleeding that is not controlled by EGD. Plan for tomorrow unless bleeding increase . Will update Dr. Andrews (patients energy conservation technician) from [place] in AM. (Rajat Flores MD) Yaneli Gonzalez Aug 27, 2017 09:55 Rajat Flores MD Aug 27, 2017 12:17
--- NOTE | 2017-08-27 09:55 | HHI.GIFU ---
Subjective Remarks Here for followup visit. RN reports large amount of bright red blood in stool overnight. Rectal tube placed and shows maroon colored liquid stool today. (Yaneli Gonzalez) Objective Vitals I&O Vital Signs Date Time Temp Pulse Resp B/P (MAP) Pulse Ox O2 Delivery O2 Flow Rate FiO2 08/27/17 06:00 72 08/27/17 04:00 69 08/27/17 04:00 98.6 69 12 135/60 (85) 94 08/27/17 02:00 72 08/27/17 01:22 98.0 76 26 127/60 100 08/27/17 00:00 82 08/27/17 00:00 98.2 82 15 119/58 (78) 100 08/26/17 23:26 98.2 79 21 130/60 99 08/26/17 22:00 72 08/26/17 20:00 72 08/26/17 20:00 98.3 72 12 152/70 (97) 99 08/26/17 19:44 98 Nasal Cannula 1.50 08/26/17 18:00 71 08/26/17 16:00 67 08/26/17 16:00 98.1 67 8 150/70 (96) 98 08/26/17 14:00 75 08/26/17 12:00 98.9 80 20 114/92 (99) 96 08/26/17 12:00 80 08/26/17 10:00 80 I/O 08/26/17 08/26/17 08/26/17 08/27/17 08/27/17 08/27/17 07:00 15:00 23:00 07:00 15:00 23:00 Intake Total 240 ml 1711 ml 480 ml 4090 ml Output Total 275 ml 455 ml 1180 ml Balance -35 ml 1711 ml 25 ml 2910 ml Intake Oral 240 ml 480 ml 800 ml IV Total 1711 ml 1801 ml Packed Cells 1429 ml Blood Product IV Normal Saline Flush 60 ml Output Urine Total 250 ml 425 ml 1150 ml Drainage Total 25 ml 30 ml 30 ml # Bowel Movements 1 1 2 Laboratory Laboratory Tests Test 08/26/17 21:50 08/27/17 06:00 Hemoglobin 7.4 8.7 Hematocrit 22.8 25.4 White Blood Count 4.5 Red Blood Count 2.69 Mean Corpuscular Volume 94.3 Mean Corpuscular Hemoglobin 32.5 Mean Corpuscular Hemoglobin Concent 34.5 Red Cell Distribution Width 17.1 Platelet Count 42 Mean Platelet Volume 9.6 Blood Urea Nitrogen 35 Creatinine 1.42 Random Glucose 169 Calcium Level 8.1 Sodium Level 144 Potassium Level 3.7 Chloride Level 111 Carbon Dioxide Level 21.9 Anion Gap 11 Estimat Glomerular Filtration Rate 50 Date/Time Source Procedure Growth Status 08/24/17 10:12 Fluid Peritoneal Fluid Gram Stain - Final Complete 08/24/17 10:12 Fluid Peritoneal Fluid Body Fluid Culture - Final NO GROWTH IN 72 HRS.--AEROBICALLY OR ... Complete Imaging Last Impressions GI Bleed Scan Nuclear Medicine 08/23/17 0000 Signed Impressions: Service Date/Time: Wednesday, August 23, 2017 18:09 - CONCLUSION: Negative scan. Roel Grey MD Abdomen/Pelvis CT 08/23/17 0000 Signed Impressions: Service Date/Time: Wednesday, August 23, 2017 20:45 - CONCLUSION: 1. Cirrhotic small liver with diffuse heterogeneity. 2. Moderate to large amount of ascitic fluid. 3. Mild splenomegaly. 4. Nonspecific nonobstructive bowel gas pattern which represent a mild ileus. 5. Bilateral pleural effusions with consolidation in both posterior lung bases. Roel Grey MD Chest X-Ray 08/21/17 0426 Signed Impressions: Service Date/Time: Monday, August 21, 2017 04:07 - CONCLUSION: No acute disease. Antony Frederick MD Renal Ultrasound 08/21/17 0000 Signed Impressions: Service Date/Time: Monday, August 21, 2017 17:21 - CONCLUSION: Normal sized kidneys for hydronephrosis. Extensive ascites. Florin Alcala MD FACR Physical Exam HEENT: Normocephalic; atraumatic; no jaundice. CHEST: CTA CARDIAC: RRR ABDOMEN: Abdomen distended. + Ascites. Diffuse tenderness to abdomen. Bowel sounds faint. EXTREMITIES: Generalized edema. SKIN: Normal; no rash; no jaundice. RETORT LOAD EXPEDITER: Alert and oriented x 3. (Yaneli Gonzalez) Assessment and Plan Plan ASSESSMENT: - GIB with black emesis, melena, rectal bleeding. Pt with hx of liver cirrhosis , esophageal varices (last banded 2005). Last egd was at that time per patient, states he had a colonoscopy < 5 years ago at [place]. S/P EGD with band ligation (08/21/17)---> 1. Retained food and old blood-suctioned no active bleeding esophageal varices-3 columns-grade 2-s/p banding times 2 2. Retroflexed views revealed food retained. He then had rectal bleeding with significant drop in hgb on 08/23. Rpt. EGD/Colonoscopy (08/23/17)----> 1. Retained food in stomach, esophageal varices with band attached, portal gastropathy questionable AVM in antrum-cautery using balltip, no active bleeding in upper gi tract 2. Retroflexed views revealed a hiatal hernia. 1. Diverticulosis sigmoid,descending blood up to cecum, aggressive washing , no active bleeding TI -some blood noted aggressive washing done -3 l of fluid -no active bleeding noted 2. Retroflexed views revealed internal hemorrhoids 3. Retroflexed views revealed small internal hemorrhoids 4. Was performed 5. Revealed external hemorrhoids. Bleeding scan (08/23/17) negative scan. CT Scan abdomen and pelvis without contrast (08/23/17)---> Cirrhotic small liver with diffuse heterogeneity, moderate to large amount of ascitic fluid, mild splenomegaly, nonspecific nonobstructive bowel gas pattern which represent a mild ileus. Bilateral pleural effusions with consolidation in both posterior lung bases. S/P 10 units PRBC, 4 units plasma, 4 units Plt. 08/27/17: RN reports large amount of bright red blood in stool. Rectal tube placed which shows liquid maroon stool draining in tube/bag. - Esophageal varices, 3 columns Grade II, S/P band ligation x 2. Protonix BID dosing. - Anemia, acute blood loss. S/P 10 units PRBC. HH 8.7/25.4 - Thrombocytopenia, Coagulopathy. 4 units plasma, 4 units Plt. Plt 42,000. - Recurrent ascites. Requires paracentesis every 2-3 weeks. Last had Monday at [place]. On albumin. Diuretics on hold secondary to ARTHUR and hypotensive. S/P Bedside Paracentesis (08/24/17)---> 4.5 L removed. Cx no wbc/organisms. - Liver cirrhosis. Dx 2003, secondary to alcohol and hepatitis C (Genotype 1A) . He quit drinking in 2005. Hx HCC treated with chemoembolization. Currently followed at [facility] for tertiary/liver transplant evaluation- has appt September 25 in [place]. MELD 19. 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 Andrews [phone] - Hepatic encephalopathy. On Lactulose, Xifaxan. - HCV, Genotype 1A. S/P unsuccessfully treated with interferon and ribavirin and then Sovaldi (did not maintain a sustained virologic response). - Hx HCC. Dx 2015 and underwent transcatheter arterial chemoembolization on 04/27, 06/15/16, 11/08/16, and 01/11/17. - ARTHUR, hyperkalemia, hyponatremia. Improved, 1.42 - Leukocytosis, Ceftriaxone - Respiratory failure. Vent per CCM - DM, OA, Depression, Anxiety, per attending. PLAN: - TIPS Procedure - Consult IR - Monitor HH, transfuse as necessary - Cont. Protonix 40mg IV BID - Cont. Albumin - Cont. Ceftriaxone - Cont. Lactulose, Xifaxan - Supportive care - EGD in 6 weeks - Resume diuretics once renal function allows - Further recommendations to follow based on results of above - Metal Sash Setter at [place] (tertiary) Dr. Andrews [phone] Patient seen and examined by Dr. Flores and myself and this note is written on his behalf (Yaneli Gonzalez) Physician Comments Events of last night noted. Blood color is darker since last night. HD stable. Will need TIPS for recurrent variceal bleeding that is not controlled by EGD. Plan for tomorrow unless bleeding increase . Will update Dr. Andrews (patients airport tower controller) from [place] in AM. (Rajat Flores MD) Yaneli Gonzalez Aug 27, 2017 09:55 Rajat Flores MD Aug 27, 2017 12:17
--- NOTE | 2017-08-27 09:55 | HHI.GIFU ---
Subjective Remarks Here for followup visit. RN reports large amount of bright red blood in stool overnight. Rectal tube placed and shows maroon colored liquid stool today. (Yaneli Gonzalez) Objective Vitals I&O Vital Signs Date Time Temp Pulse Resp B/P (MAP) Pulse Ox O2 Delivery O2 Flow Rate FiO2 08/27/17 06:00 72 08/27/17 04:00 69 08/27/17 04:00 98.6 69 12 135/60 (85) 94 08/27/17 02:00 72 08/27/17 01:22 98.0 76 26 127/60 100 08/27/17 00:00 82 08/27/17 00:00 98.2 82 15 119/58 (78) 100 08/26/17 23:26 98.2 79 21 130/60 99 08/26/17 22:00 72 08/26/17 20:00 72 08/26/17 20:00 98.3 72 12 152/70 (97) 99 08/26/17 19:44 98 Nasal Cannula 1.50 08/26/17 18:00 71 08/26/17 16:00 67 08/26/17 16:00 98.1 67 8 150/70 (96) 98 08/26/17 14:00 75 08/26/17 12:00 98.9 80 20 114/92 (99) 96 08/26/17 12:00 80 08/26/17 10:00 80 I/O 08/26/17 08/26/17 08/26/17 08/27/17 08/27/17 08/27/17 07:00 15:00 23:00 07:00 15:00 23:00 Intake Total 240 ml 1711 ml 480 ml 4090 ml Output Total 275 ml 455 ml 1180 ml Balance -35 ml 1711 ml 25 ml 2910 ml Intake Oral 240 ml 480 ml 800 ml IV Total 1711 ml 1801 ml Packed Cells 1429 ml Blood Product IV Normal Saline Flush 60 ml Output Urine Total 250 ml 425 ml 1150 ml Drainage Total 25 ml 30 ml 30 ml # Bowel Movements 1 1 2 Laboratory Laboratory Tests Test 08/26/17 21:50 08/27/17 06:00 Hemoglobin 7.4 8.7 Hematocrit 22.8 25.4 White Blood Count 4.5 Red Blood Count 2.69 Mean Corpuscular Volume 94.3 Mean Corpuscular Hemoglobin 32.5 Mean Corpuscular Hemoglobin Concent 34.5 Red Cell Distribution Width 17.1 Platelet Count 42 Mean Platelet Volume 9.6 Blood Urea Nitrogen 35 Creatinine 1.42 Random Glucose 169 Calcium Level 8.1 Sodium Level 144 Potassium Level 3.7 Chloride Level 111 Carbon Dioxide Level 21.9 Anion Gap 11 Estimat Glomerular Filtration Rate 50 Date/Time Source Procedure Growth Status 08/24/17 10:12 Fluid Peritoneal Fluid Gram Stain - Final Complete 08/24/17 10:12 Fluid Peritoneal Fluid Body Fluid Culture - Final NO GROWTH IN 72 HRS.--AEROBICALLY OR ... Complete Imaging Last Impressions GI Bleed Scan Nuclear Medicine 08/23/17 0000 Signed Impressions: Service Date/Time: Wednesday, August 23, 2017 18:09 - CONCLUSION: Negative scan. Roel Grey MD Abdomen/Pelvis CT 08/23/17 0000 Signed Impressions: Service Date/Time: Wednesday, August 23, 2017 20:45 - CONCLUSION: 1. Cirrhotic small liver with diffuse heterogeneity. 2. Moderate to large amount of ascitic fluid. 3. Mild splenomegaly. 4. Nonspecific nonobstructive bowel gas pattern which represent a mild ileus. 5. Bilateral pleural effusions with consolidation in both posterior lung bases. Roel Grey MD Chest X-Ray 08/21/17 0426 Signed Impressions: Service Date/Time: Monday, August 21, 2017 04:07 - CONCLUSION: No acute disease. Antony Frederick MD Renal Ultrasound 08/21/17 0000 Signed Impressions: Service Date/Time: Monday, August 21, 2017 17:21 - CONCLUSION: Normal sized kidneys for hydronephrosis. Extensive ascites. Florin Alcala MD FACR Physical Exam HEENT: Normocephalic; atraumatic; no jaundice. CHEST: CTA CARDIAC: RRR ABDOMEN: Abdomen distended. + Ascites. Diffuse tenderness to abdomen. Bowel sounds faint. EXTREMITIES: Generalized edema. SKIN: Normal; no rash; no jaundice. 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 (Yaneli Gonzalez) Assessment and Plan Plan ASSESSMENT: - GIB with black emesis, melena, rectal bleeding. Pt with hx of liver cirrhosis , esophageal varices (last banded 2005). Last egd was at that time per patient, states he had a colonoscopy < 5 years ago at [place]. S/P EGD with band ligation (08/21/17)---> 1. Retained food and old blood-suctioned no active bleeding esophageal varices-3 columns-grade 2-s/p banding times 2 2. Retroflexed views revealed food retained. He then had rectal bleeding with significant drop in hgb on 08/23. Rpt. EGD/Colonoscopy (08/23/17)----> 1. Retained food in stomach, esophageal varices with band attached, portal gastropathy questionable AVM in antrum-cautery using balltip, no active bleeding in upper gi tract 2. Retroflexed views revealed a hiatal hernia. 1. Diverticulosis sigmoid,descending blood up to cecum, aggressive washing , no active bleeding TI -some blood noted aggressive washing done -3 l of fluid -no active bleeding noted 2. Retroflexed views revealed internal hemorrhoids 3. Retroflexed views revealed small internal hemorrhoids 4. Was performed 5. Revealed external hemorrhoids. Bleeding scan (08/23/17) negative scan. CT Scan abdomen and pelvis without contrast (08/23/17)---> Cirrhotic small liver with diffuse heterogeneity, moderate to large amount of ascitic fluid, mild splenomegaly, nonspecific nonobstructive bowel gas pattern which represent a mild ileus. Bilateral pleural effusions with consolidation in both posterior lung bases. S/P 10 units PRBC, 4 units plasma, 4 units Plt. 08/27/17: RN reports large amount of bright red blood in stool. Rectal tube placed which shows liquid maroon stool draining in tube/bag. - Esophageal varices, 3 columns Grade II, S/P band ligation x 2. Protonix BID dosing. - Anemia, acute blood loss. S/P 10 units PRBC. HH 8.7/25.4 - Thrombocytopenia, Coagulopathy. 4 units plasma, 4 units Plt. Plt 42,000. - Recurrent ascites. Requires paracentesis every 2-3 weeks. Last had Monday at [place]. On albumin. Diuretics on hold secondary to ARTHUR and hypotensive. S/P Bedside Paracentesis (08/24/17)---> 4.5 L removed. Cx no wbc/organisms. - Liver cirrhosis. Dx 2003, secondary to alcohol and hepatitis C (Genotype 1A) . He quit drinking in 2005. Hx HCC treated with chemoembolization. Currently followed at [facility] for tertiary/liver transplant evaluation- has appt September 25 in [place]. MELD 19. 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 Andrews [phone] - Hepatic encephalopathy. On Lactulose, Xifaxan. - HCV, Genotype 1A. S/P unsuccessfully treated with interferon and ribavirin and then Sovaldi (did not maintain a sustained virologic response). - Hx HCC. Dx 2015 and underwent transcatheter arterial chemoembolization on 04/27, 06/15/16, 11/08/16, and 01/11/17. - ARTHUR, hyperkalemia, hyponatremia. Improved, 1.42 - Leukocytosis, Ceftriaxone - Respiratory failure. Vent per CCM - DM, OA, Depression, Anxiety, per attending. PLAN: - TIPS Procedure - Consult IR - Monitor HH, transfuse as necessary - Cont. Protonix 40mg IV BID - Cont. Albumin - Cont. Ceftriaxone - Cont. Lactulose, Xifaxan - Supportive care - EGD in 6 weeks - Resume diuretics once renal function allows - Further recommendations to follow based on results of above - Manager Play at [place] (tertiary) Dr. Andrews [phone] Patient seen and examined by Dr. Flores and myself and this note is written on his behalf (Yaneli Gonzalez) Physician Comments Events of last night noted. Blood color is darker since last night. HD stable. Will need TIPS for recurrent variceal bleeding that is not controlled by EGD. Plan for tomorrow unless bleeding increase . Will update Dr. Andrews (patients unit control clerk) from [place] in AM. (Rajat Flores MD) Yaneli Gonzalez Aug 27, 2017 09:55 Rajat Flores MD Aug 27, 2017 12:17
--- NOTE | 2017-08-27 10:00 | PD.PROCEDR ---
Procedure Note Procedure Left LQ paracentesis Large tense ascites Procedure: Informed consent was obtained and time out performed. Patient was placed in optimal position. LLQ abdomen was marked with ultrasound. Full barrier and sterile precautions were used, skin sterilized with chlorhexidine x3; skin and subcutaneous tissue at the marked site was infiltrated with 1% lidocaine. A small skin tyra was made with scalpel. Paracentesis Angiocath was introduced into the ascitic fluid and dark bile stained fluid was obtained. The needle was removed and Angiocath was connected to the Vacutainer and a total of 6300 mL ( 6.3L) of dark bile stained pleural fluid was removed. Fluid sent for multiple studies. Patient tolerated procedure well Bar Hardy MD Aug 27, 2017 10:00
[2017-08-27] MEDS ORDERED: OCTREOTIDE INJ 50 MCG/ML AMP IV PUSH ONE (10:15)
--- NOTE | 2017-08-27 10:19 | HHI.CCPN ---
Subjective Remarks/Hospital Course 66-year-old gentleman with end-stage liver disease, chronic hepatitis C status post unsuccessful treatment with therapy now awaiting a liver transplant comes in complaining of melena 3 days and vomiting blood that began yesterday. [facility] his refractory ascites from his cirrhosis. Patient states since that is been having the melena. He denies any fevers, chest pain, shortness of breath, or headaches. Patient denies anything making this better or worse. Patient reports feeling weak and nauseated. Patient denies anything like this in the past. Denies being on any blood thinners. 08/21: Hypotensive, SBP in low 70's. 1 L normal saline bolus and 25, albumin stat ordered. IV Protonix changed to infusion. Start vasopressin if needed to keep map above 65. Hemoglobin 6.7 hematocrit 19.6. Transfuse 3 units PRBC stat. GI consult pending. Will need EGD-patient has history of esophageal varices but last endoscopy per patient was in 2005. Patient has two 18 G IV. Also platelet count has dropped to 67 will give 2 units of platelets and 1 unit of FFP 08/22: No GI bleed overnight. Hemodynamically has stabilized. Remains on IV Protonix infusion and octreotide infusion. A.m. labs are pending. Underwent endoscopy yesterday with findings of esophageal varices and gastritis. Underwent esophageal variceal banding 2 08/23: Reconsulted by hepatocellular in for acute GI hemorrhage passing bright red blood per rectum. Hemoglobin has dropped to 5.2. INR is 2 today with platelet count of 49. Start transfusion of 3 units PRBC, 2 units of FFP, 2 units of platelets ordered. I will also restarted the Protonix infusion and will continue octreotide infusion. GI contacted emergently 08/24: Patient remains intubated sedated. Small amount of bleeding per rectum overnight. Tagged RBC scan did not show any active bleeding. Hemoglobin 7.7 ( received 3 units PRBC, 2 units of platelets and 2 units of FFP yesterday). Will leave intubated until hemodynamically optimized, and no further GI bleed. Proceed with paracentesis today 08/25: Hemoglobin remains stable at 9.3. Following commands, tolerated spontaneous breathing trial. Wean to extubation. No further GI bleed [facility] RECONSULT NOTE 08/27/17: Patient started having active GI bleed again with bright red blood per rectum. Hemoglobin dropped from 9.1 to 7.4. Received 2 units of PRBC with hemoglobin now 8.7 initially of active GI bleed. GI had been contacted their contacting IR for possible TIPS procedure. I have last for 2 units FFP and 2 units platelets transfused stat. Restart Protonix infusion restarted bolus and infusion of octreotide. Patient has also developed tense ascites which I will drain emergently after 25 GM IV albumin Objective Vital Signs Date Time Temp Pulse Resp B/P (MAP) Pulse Ox O2 Delivery O2 Flow Rate FiO2 08/27/17 06:00 72 08/27/17 04:00 98.6 12 135/60 (85) 94 08/26/17 19:44 Nasal Cannula 1.50 08/25/17 11:02 35 Intake and Output 08/27/17 08/27/17 08/28/17 08:00 16:00 00:00 Intake Total 4075 ml Output Total 1180 ml Balance 2895 ml Result Diagram: 08/27/17 0608/27/17 06 Other Results Microbiology Date/Time Source Procedure Growth Status 08/24/17 10:12 Fluid Peritoneal Fluid Gram Stain - Final Complete 08/24/17 10:12 Fluid Peritoneal Fluid Body Fluid Culture - Final NO GROWTH IN 72 HRS.--AEROBICALLY OR ... Complete Objective Remarks GENERAL: Alert oriented in moderate distress anxious SKIN: Warm and dry. Pallor present, severe jaundice HEAD: Normocephalic. ENT: Oral cavity is dry EYES: + Scleral icterus. No injection or drainage. NECK: Supple, trachea midline. No JVD or lymphadenopathy. CARDIOVASCULAR: S1-S2 normal no murmurs RESPIRATORY: Breath sounds equal bilaterally. No accessory muscle use. GASTROINTESTINAL: Abdomen tense, distended. Large ascites on bedside US Scrotal edema MUSCULOSKELETAL: No cyanosis, or edema. BACK: Nontender without obvious deformity. NEURO EXAM: Patient is alert awake oriented. He is anxious but follows commands A/P Assessment and Plan NEURO: Hepatic encephalopathy - Minimize sedation - F/u ammonia, Hold lactulose and rifaximin due to active GIB RESP: Acute respiratory failure-resolved - Extubated 08/25 (Intubation was for procedure) - DuoNeb every 6 hours when necessary GI/HEME Recurrent Variceal bleed Hypotension/hemorrhagic shock Anemia requiring transfusion Thrombocytopenia Coagulopathy Tense ascites - Status post EGD and banding of esophageal varices 08/21/17. Also has gastritis - Now with re bleed 08/26 overnight. Requiring 2 units PRBC. Transfuse 2 units of platelets, 2 units of FFP - Restart Octreotide drip, IV Protonix gtt, Rocephin for SBP prophylaxis - NPO. GI Dr. Killian contacting IR for possible TIPS - Paracentesis 08/24 with 4.5L removed. Repeat paracentesis today 08/27 for tense ascites ENDO: Diabetes mellitus - Hold insulin glargine while nothing by mouth - Insulin sliding scale ID: Hepatitis C - Status post unsuccessful treatment - Awaiting liver transplant, followed by [facility] - Ceftriaxone for SBP prophylaxis : Hyperkalemia-resolved Acute kidney injury/probable hepatorenal syndrome - Nephrology following - Creatinine improving, urine output adequate 1.6L in 24 hours - Worsening transaminitis due to hypotension, now stable DVT GI prophylaxis - Teds SCDs. No pharmacological DVT prophylaxis due to active bleed - Protonix gtt CCT 45. Patient is very critically ill with recurrent GI bleed despite endoscopy 2, prognosis is guarded. Transfused 2 units PRBC overnight we'll also give 2 units of platelets and FFP. Protonix and octreotide gtt restarted. Has large bore peripheral IV-has to peripheral IV now. Most likely will need TIPS Bar Hardy MD Aug 27, 2017 10:19
[2017-08-27] MEDS: PANTOPRAZOLE INJ 80 MG in SODIUM CHLORIDE 0.9% INJ 100 ML IV SCH ×2 (11:52→21:22)
[2017-08-27] MEDS: INSULIN NovoLIN REGULAR SUPPLEMENTAL SCALE SQ SCH ×3 (12:00→21:00)
[2017-08-27] MEDS ORDERED: PHYTONADIONE 10 MG/D5W 50 ML IV ONE ×2 (12:00)
[2017-08-27 12:37] LABS: HEMATOCRIT 21.9 % (39.0-51.0); HEMOGLOBIN 7.7 GM/DL (13.0-17.0); TOTAL PROTEIN 4.9 GM/DL (6.4-8.2)
[2017-08-27 12:43] LABS: PROTHROMBIN TIME - PATIENT 27.4 SEC (9.8-11.6)
[2017-08-27 12:45] LABS: INTERNATIONAL NORMALIZED RATIO 2.4 RATIO
[2017-08-27 13:26] LABS: HEMATOCRIT 21.9 % (39.0-51.0); HEMOGLOBIN 7.7 GM/DL (13.0-17.0); MEAN CELL VOLUME 92.5 FL (80.0-100.0); MEAN CORPUSCULAR HGB CONC 34.6 % (32.0-36.0); MEAN PLATELET VOLUME 8.7 FL (7.0-11.0); PLATELET COUNT 46 TH/MM3 (150-450); RED BLOOD COUNT 2.44 MIL/MM3 (4.50-5.90); RED CELL DISTRIBUTION WIDTH 16.2 % (11.6-17.2); WHITE BLOOD COUNT 3.9 TH/MM3 (4.0-11.0)
[2017-08-27] MEDS: OCTREOTIDE INJ 500 MCG in SODIUM CHLORID 0.9% 500 ML INJ 499.5 ML IV SCH (13:27)
[2017-08-27] MEDS: SODIUM CHLOR 0.9% 1000 ML INJ 1,000 ML IV SCH (13:28)
[2017-08-27 13:38] LABS: PERITONEAL EOS 1 %; PERITONEAL LYMPHS 40 %; PERITONEAL MONOS 26 %; PERITONEAL POLYS(SEGS) 33 %; PERITONEAL RBC 30430 /MM3 (0-0)
[2017-08-27 19:50] LABS: HEMATOCRIT 21.3 % (39.0-51.0); HEMOGLOBIN 7.5 GM/DL (13.0-17.0)
[2017-08-28] VITALS (18 sets, daily range): BP systolic 77–155; BP diastolic 46–70; PULSE 49–93; RESP 13–20; TEMP 98.2–98.5; O2SAT 92–99
[2017-08-28] MEDS: CHLORHEXIDINE GLUCONATE 2 % 1 PACK (2 CLOTHS) TOP SCH (04:00)
[2017-08-28] MEDS: cefTRIAXone INJ 1,000 MG in SODIUM CHLORIDE 0.9% INJ 100 ML IV SCH (04:22)
[2017-08-28] MEDS: ALBUMIN 25% INJ 100 ML IV SCH ×5 (04:22→23:46)
[2017-08-28] MEDS: PANTOPRAZOLE INJ 80 MG in SODIUM CHLORIDE 0.9% INJ 100 ML IV SCH ×2 (04:23→15:51)
[2017-08-28] MEDS: SODIUM CHLOR 0.9% 1000 ML INJ 1,000 ML IV SCH ×2 (04:23→15:52)
[2017-08-28] MEDS: OCTREOTIDE INJ 500 MCG in SODIUM CHLORID 0.9% 500 ML INJ 499.5 ML IV SCH (04:24)
[2017-08-28 05:54] LABS: BASOPHIL % 0.6 % (0.0-2.0); EOSINOPHIL # 0.1 TH/MM3 (0-0.4); EOSINOPHIL % 2.2 % (0.0-4.0); HEMATOCRIT 23.9 % (39.0-51.0); HEMOGLOBIN 8.4 GM/DL (13.0-17.0); LYMPH % 8.6 % (9.0-44.0); LYMPHOCYTE # 0.3 TH/MM3 (1.0-4.8); MEAN CORPUSCULAR HEMOGLOBIN 32.6 PG (27.0-34.0); MEAN PLATELET VOLUME 8.4 FL (7.0-11.0); MONO % 12.4 % (0.0-8.0); MONOCYTE # 0.5 TH/MM3 (0-0.9); NEUT % 76.2 % (16.0-70.0); PLATELET COUNT 52 TH/MM3 (150-450); RED BLOOD COUNT 2.57 MIL/MM3 (4.50-5.90); RED CELL DISTRIBUTION WIDTH 15.7 % (11.6-17.2)
[2017-08-28] MEDS: INSULIN NovoLIN REGULAR SUPPLEMENTAL SCALE SQ SCH ×4 (08:00→21:00)
[2017-08-28 08:14] LABS: BANDS 26 % (0-6); LYMPHOCYTES 6 % (9-44); MONOCYTES 8 % (0-8); NEUTROPHIL # MANUAL DIFF 3.4 TH/MM3 (1.8-7.7); POLYS (SEG NEUTROPHILS) 58 % (16-70); TOXIC GRANULATION 2+ (NORMAL)
--- NOTE | 2017-08-28 08:31 | PD.RAD ---
Radiology Note IR was consulted regarding possible TIPS procedure. Donavan is a very pleasant 66yo male with hx of ETOH and Hep C cirrhosis admitted for GI bleed with grade 2 esophageal varices. EGD has not confirmed active bleeding. PT also had colonoscopy which also did not confirm active bleeding. He has a history of HCC with bilobar TACE procedure x 4 at different [place] hospitals. He was recently admitted (approx 2 mos ago) with hepatic encephalopathy but denies prior episodes. He has become icteric with TB of 7.9 as of three days ago, suspect higher now. Last MELD is 19, suspect higher now. He is on the transplant list in [facility]. A/P: Cirrhosis with HCC s/p TACE x 4. + hx of encephalopathy. + acute liver dysfunction. Pt is NOT a good candidate for TIPS at this time particularly given hx of encephalopathy and acute progressing liver dysfunction. Consider BRTO procedure (not performed locally) if there is continued UGI bleeding. Ajay Waterman MD Aug 28, 2017 08:31
--- NOTE | 2017-08-28 08:31 | PD.RAD ---
Radiology Note IR was consulted regarding possible TIPS procedure. Donavan is a very pleasant 66yo male with hx of ETOH and Hep C cirrhosis admitted for GI bleed with grade 2 esophageal varices. EGD has not confirmed active bleeding. PT also had colonoscopy which also did not confirm active bleeding. He has a history of HCC with bilobar TACE procedure x 4 at different [place] hospitals. He was recently admitted (approx 2 mos ago) with hepatic encephalopathy but denies prior episodes. He has become icteric with TB of 7.9 as of three days ago, suspect higher now. Last MELD is 19, suspect higher now. He is on the transplant list in [facility]. A/P: Cirrhosis with HCC s/p TACE x 4. + hx of encephalopathy. + acute liver dysfunction. Pt is NOT a good candidate for TIPS at this time particularly given hx of encephalopathy and acute progressing liver dysfunction. Consider BRTO procedure (not performed locally) if there is continued UGI bleeding. Ajay Waterman MD Aug 28, 2017 08:31
--- NOTE | 2017-08-28 08:31 | PD.RAD ---
Radiology Note IR was consulted regarding possible TIPS procedure. Donavan is a very pleasant 66yo male with hx of ETOH and Hep C cirrhosis admitted for GI bleed with grade 2 esophageal varices. EGD has not confirmed active bleeding. PT also had colonoscopy which also did not confirm active bleeding. He has a history of HCC with bilobar TACE procedure x 4 at different [place] hospitals. He was recently admitted (approx 2 mos ago) with hepatic encephalopathy but denies prior episodes. He has become icteric with TB of 7.9 as of three days ago, suspect higher now. Last MELD is 19, suspect higher now. He is on the transplant list in [facility]. A/P: Cirrhosis with HCC s/p TACE x 4. + hx of encephalopathy. + acute liver dysfunction. Pt is NOT a good candidate for TIPS at this time particularly given hx of encephalopathy and acute progressing liver dysfunction. Consider BRTO procedure (not performed locally) if there is continued UGI bleeding. Ajay Waterman MD Aug 28, 2017 08:31
--- NOTE | 2017-08-28 09:00 | HHI.PR ---
Subjective Remarks 66-year-old gentleman with end-stage liver disease, chronic hepatitis C status post unsuccessful treatment with therapy now awaiting a liver transplant comes in complaining of melena 3 days and vomiting blood that began yesterday. Patient [facility] to his refractory ascites from his cirrhosis. Patient states since that is been having the melena. He denies any fevers, chest pain, shortness of breath, or headaches. Patient denies anything making this better or worse. Patient reports feeling weak and nauseated. Patient denies anything like this in the past. Denies being on any blood thinners. 08/21: Hypotensive, SBP in low 70's. 1 L normal saline bolus and 25, albumin stat ordered. IV Protonix changed to infusion. Start vasopressin if needed to keep map above 65. Hemoglobin 6.7 hematocrit 19.6. Transfuse 3 units PRBC stat. GI consult pending. Will need EGD-patient has history of esophageal varices but last endoscopy per patient was in 2005. Patient has two 18 G IV. Also platelet count has dropped to 67 will give 2 units of platelets and 1 unit of FFP 08/22: No GI bleed overnight. Hemodynamically has stabilized. Remains on IV Protonix infusion and octreotide infusion. A.m. labs are pending. Underwent endoscopy yesterday with findings of esophageal varices and gastritis. Underwent esophageal variceal banding 2 08/23: Reconsulted by hepatocellular in for acute GI hemorrhage passing bright red blood per rectum. Hemoglobin has dropped to 5.2. INR is 2 today with platelet count of 49. Start transfusion of 3 units PRBC, 2 units of FFP, 2 units of platelets ordered. I will also restarted the Protonix infusion and will continue octreotide infusion. GI contacted emergently 08/24: Patient remains intubated sedated. Small amount of bleeding per rectum overnight. Tagged RBC scan did not show any active bleeding. Hemoglobin 7.7 ( received 3 units PRBC, 2 units of platelets and 2 units of FFP yesterday). Will leave intubated until hemodynamically optimized, and no further GI bleed. Proceed with paracentesis today 08/25: Hemoglobin remains stable at 9.3. Following commands, tolerated spontaneous breathing trial. Wean to extubation. No further GI bleed 08/27 Patient started having active GI bleed again with bright red blood per rectum. Hemoglobin dropped from 9.1 to 7.4. Received 2 units of PRBC with hemoglobin now 8.7 initially of active GI bleed. GI had been contacted their contacting IR for possible TIPS procedure. I have last for 2 units FFP and 2 units platelets transfused stat. Restart Protonix infusion restarted bolus and infusion of octreotide. Patient has also developed tense ascites which I will drain emergently after 25 GM IV albumin 11-6 possible transfer to [facility] [place] VERY JAUNDICED DW RN AND PT Objective Vitals Vital Signs Date Time Temp Pulse Resp B/P (MAP) Pulse Ox O2 Delivery O2 Flow Rate FiO2 08/28/17 07:33 94 Nasal Cannula 2.00 08/28/17 06:00 60 08/28/17 04:00 53 08/28/17 04:00 98.3 53 17 135/63 (87) 95 08/28/17 02:00 53 08/28/17 00:28 98.5 53 18 135/63 96 08/28/17 00:00 59 08/28/17 00:00 98.5 59 13 135/63 (87) 96 08/27/17 22:00 62 08/27/17 20:00 98.3 66 16 136/63 (87) 93 08/27/17 20:00 66 08/27/17 18:00 65 08/27/17 16:00 98.3 64 18 128/63 (84) 92 08/27/17 16:00 64 08/27/17 14:00 70 08/27/17 12:00 98.3 66 21 145/61 (89) 96 08/27/17 12:00 66 08/27/17 11:43 98.2 69 28 118/56 97 08/27/17 10:00 77 I/O 08/27/17 08/27/17 08/27/17 08/28/17 08/28/17 08/28/17 07:00 15:00 23:00 07:00 15:00 23:00 Intake Total 4090 ml 687 ml 928 ml 810 ml Output Total 1180 ml 6330 ml 750 ml 550 ml Balance 2910 ml -5643 ml 178 ml 260 ml Intake Oral 800 ml 120 ml IV Total 1801 ml 51 ml 100 ml 800 ml Packed Cells 1429 ml FFP 613 ml Platelets 526 ml Blood Product IV Normal Saline Flush 60 ml 110 ml 95 ml 10 ml Output Urine Total 1150 ml 450 ml 350 ml Stool Total 300 ml 200 ml Drainage Total 30 ml 6330 ml # Bowel Movements 2 Result Diagram: 08/28/17 0509 08/27/17 0600 Other Results Laboratory Tests Test 08/26/17 04:39 08/26/17 21:50 08/27/17 06:00 08/27/17 10:30 White Blood Count 4.0 TH/MM3 4.5 TH/MM3 Red Blood Count 2.79 MIL/MM3 2.69 MIL/MM3 Hemoglobin 9.1 GM/DL 7.4 GM/DL 8.7 GM/DL Hematocrit 26.8 % 22.8 % 25.4 % Mean Corpuscular Volume 96.1 FL 94.3 FL Mean Corpuscular Hemoglobin 32.8 PG 32.5 PG Mean Corpuscular Hemoglobin Concent 34.1 % 34.5 % Red Cell Distribution Width 18.0 % 17.1 % Platelet Count 30 TH/MM3 42 TH/MM3 Mean Platelet Volume 10.0 FL 9.6 FL CBC Comment AUTO DIFF Differential Total Cells Counted 100 Neutrophils % (Manual) 58 % Band Neutrophils % 19 % Lymphocytes % 8 % Monocytes % 11 % Eosinophils % 2 % Basophils % 2 % Neutrophils # (Manual) 3.1 TH/MM3 Differential Comment FINAL DIFF MANUAL Platelet Estimate LOW Platelet Morphology Comment NORMAL Polychromasia 2.5 % Tear Drop Cells 1+ Ovalocytes 1+ Acanthocytes OCC Prothrombin Time 22.1 SEC Prothromb Time International Ratio 1.9 RATIO Blood Urea Nitrogen 37 MG/DL 35 MG/DL Creatinine 1.58 MG/DL 1.42 MG/DL Random Glucose 113 MG/DL 169 MG/DL Calcium Level 8.4 MG/DL 8.1 MG/DL Sodium Level 144 MEQ/L 144 MEQ/L Potassium Level 3.9 MEQ/L 3.7 MEQ/L Chloride Level 111 MEQ/L 111 MEQ/L Carbon Dioxide Level 23.8 MEQ/L 21.9 MEQ/L Anion Gap 9 MEQ/L 11 MEQ/L Estimat Glomerular Filtration Rate 44 ML/MIN 50 ML/MIN Peritoneal Fluid WBC 99 /MM3 Peritoneal Fluid RBC 99270 /MM3 Peritoneal Fluid Neutrophils 33 % Peritoneal Fluid Lymphocytes 40 % Peritoneal Fluid Monocytes 26 % Peritoneal Fluid Eosinophils 1 % Peritoneal Fluid Total Protein 2.0 GM/DL Peritoneal Fluid Albumin 1.4 G/DL Peritoneal Fluid LDH 62 U/L Peritoneal Fluid Glucose 177 MG/DL Test 08/27/17 11:57 08/27/17 18:43 08/28/17 05:09 White Blood Count 3.9 TH/MM3 4.0 TH/MM3 Red Blood Count 2.44 MIL/MM3 2.57 MIL/MM3 Hemoglobin 7.7 GM/DL 7.5 GM/DL 8.4 GM/DL Hematocrit 21.9 % 21.3 % 23.9 % Mean Corpuscular Volume 92.5 FL 93.0 FL Mean Corpuscular Hemoglobin 32.0 PG 32.6 PG Mean Corpuscular Hemoglobin Concent 34.6 % 35.0 % Red Cell Distribution Width 16.2 % 15.7 % Platelet Count 46 TH/MM3 52 TH/MM3 Mean Platelet Volume 8.7 FL 8.4 FL Prothrombin Time 27.4 SEC Prothromb Time International Ratio 2.4 RATIO Activated Partial Thromboplast Time GREATER THAN 277.5 SEC Ammonia 20 MCMOL/L Lactate Dehydrogenase 120 U/L Total Protein 4.9 GM/DL Neutrophils (%) (Auto) 76.2 % Lymphocytes (%) (Auto) 8.6 % Monocytes (%) (Auto) 12.4 % Eosinophils (%) (Auto) 2.2 % Basophils (%) (Auto) 0.6 % Neutrophils # (Auto) 3.0 TH/MM3 Lymphocytes # (Auto) 0.3 TH/MM3 Monocytes # (Auto) 0.5 TH/MM3 Eosinophils # (Auto) 0.1 TH/MM3 Basophils # (Auto) 0.0 TH/MM3 CBC Comment AUTO DIFF Differential Total Cells Counted 100 Neutrophils % (Manual) 58 % Band Neutrophils % 26 % Lymphocytes % 6 % Monocytes % 8 % Eosinophils % 2 % Neutrophils # (Manual) 3.4 TH/MM3 Differential Comment FINAL DIFF MANUAL Atypical Lymphocytes % Toxic Granulation 2+ Platelet Estimate LOW Platelet Morphology Comment NORMAL Imaging Last Impressions GI Bleed Scan Nuclear Medicine 08/23/17 0000 Signed Impressions: Service Date/Time: Wednesday, August 23, 2017 18:09 - CONCLUSION: Negative scan. Roel Grey MD Abdomen/Pelvis CT 08/23/17 0000 Signed Impressions: Service Date/Time: Wednesday, August 23, 2017 20:45 - CONCLUSION: 1. Cirrhotic small liver with diffuse heterogeneity. 2. Moderate to large amount of ascitic fluid. 3. Mild splenomegaly. 4. Nonspecific nonobstructive bowel gas pattern which represent a mild ileus. 5. Bilateral pleural effusions with consolidation in both posterior lung bases. Roel Grey MD Chest X-Ray 08/21/17 0426 Signed Impressions: Service Date/Time: Monday, August 21, 2017 04:07 - CONCLUSION: No acute disease. Antony Frederick MD Renal Ultrasound 08/21/17 0000 Signed Impressions: Service Date/Time: Monday, August 21, 2017 17:21 - CONCLUSION: Normal sized kidneys for hydronephrosis. Extensive ascites. Florin Alcala MD FACR Objective Remarks GENERAL: AWAKE AND ALERT VERY JAUNDICED SKIN: Warm and dry.VERY JAUNDICED HEAD: Atraumatic. Normocephalic. EYES: Pupils equal and round. No scleral icterus. No injection or drainage. SCLERAL ICTERUS ENT: No nasal bleeding or discharge. Mucous membranes pink and moist. NECK: Trachea midline. No JVD. SUPPLE CARDIOVASCULAR: Regular rate and rhythm. S1, S2 NO S3 OR S4 RESPIRATORY: No accessory muscle use. Clear to auscultation. Breath sounds equal bilaterally. GASTROINTESTINAL: Abdomen soft, non-tender, nondistended. Hepatic and splenic margins not palpable. SOME DISTENTION MUSCULOSKELETAL: Extremities without clubbing, cyanosis, or edema. No obvious deformities. NEUROLOGICAL: Awake and alert. No obvious cranial nerve deficits. Motor grossly within normal limits. 4 out of 5 muscle strength in the arms and legs. Normal speech. PSYCHIATRIC: Appropriate mood and affect; insight and judgment normal. Procedures EGD WITH BANDING 11-5 paracentesis 6.3 liters off Medications and IVs Current Medications Ondansetron HCl (Zofran Inj) 4 mg ONCE ONCE IVP Last administered on 00:13; Start 08/20/17 at 22:15; Stop 08/20/17 at 22:16; Status DC Sodium Chloride (NS Flush) 2 ml UNSCH PRN IVF FLUSH AFTER USING IV ACCESS Last administered on 08/21/17 00:17; Start 08/20/17 at 22:15; Stop 08/23/17 at 15: 21; Status DC Pantoprazole Sodium 80 mg/ Sodium Chloride 35 ml @ 420 mls/hr Q5M ONCE IV Last administered on 08/21/17 00:14; Start 08/20/17 at 22:07; Stop 08/20/17 at 22:13; Status DC Pantoprazole Sodium 80 mg/ Sodium Chloride 100 ml @ 10 mls/hr Q10H IV Last administered on 08/21/17 00:13; Start 08/20/17 at 22:07; Stop 08/21/17 at 01 :09; Status DC Sodium Chloride 500 ml @ 500 mls/hr BOLUS ONCE IV Last administered on 00:13; Start 08/20/17 at 22:30; Stop 08/20/17 at 23:29; Status DC Sodium Chloride (NS Flush) 2 ml UNSCH PRN IVF FLUSH AFTER USING IV ACCESS Last administered on 08/21/17 00:17; Start 08/20/17 at 22:30; Stop 08/21/17 at 01 :10; Status DC Octreotide Acetate 500 mcg/ Sodium Chloride 500.5 ml @ 0 mls/hr ONCE ONCE IV Last administered on 08/21/17 00:16; Start 08/20/17 at 22:30; Stop 08/20/17 at 22:31; Status DC Octreotide Acetate (SandoSTATIN INJ) 50 mcg ONCE ONCE IV PUSH Last administered on 08/21/17 00:12; Start 08/20/17 at 22:30; Stop 08/20/17 at 22 :31; Status DC Piperacillin Sod/ Tazobactam Sod 50 ml @ 100 mls/hr ONCE ONCE IV Last administered on 08/21/17 01:06; Start 08/20/17 at 23:45; Stop 08/21/17 at 00 :14; Status DC Sodium Chloride 500 ml @ 500 mls/hr BOLUS ONCE IV Last administered on 01:06; Start 08/21/17 at 00:30; Stop 08/21/17 at 01:29; Status DC Sodium Polystyrene Sulfonate (Kayexalate Enema) 30 gm ONCE ONCE RECTAL Last administered on 08/21/17 02:14; Start 08/21/17 at 00:30; Stop 08/21/17 at 00 :32; Status DC Calcium Gluconate 1 gm/Dextrose 110 ml @ 110 mls/hr ONCE ONCE IV Last administered on 08/21/17 01:13; Start 08/21/17 at 00:45; Stop 08/21/17 at 01 :44; Status DC Sodium Bicarbonate (Sodium Bicarbonate 8.4% Inj) 50 meq ONCE ONCE IV PUSH Last administered on 08/21/17 01:07; Start 08/21/17 at 00:45; Stop 08/21/17 at 00:46; Status DC Dextrose (D50w (Syr) Inj) 50 ml ONCE ONCE IV PUSH Last administered on 01:07; Start 08/21/17 at 00:45; Stop 08/21/17 at 00:46; Status DC Insulin Human Regular (NovoLIN R INJ) 10 units ONCE ONCE IV PUSH Last administered on 08/21/17 01:07; Start 08/21/17 at 00:45; Stop 08/21/17 at 00 :46; Status DC Lactulose (Lactulose Liq) 30 ml Q12HR PO Last administered on 08/26/17 09:30; Start 08/21/17 at 09:00; Stop 08/26/17 at 12:59; Status DC Magnesium Oxide (Mag-Ox) 400 mg DAILY PO Last administered on 08/26/17 09:31; Start 08/21/17 at 09:00 Rifaximin (Xifaxan) 550 mg BID PO Last administered on 08/26/17 22:17; Start 08/21/17 at 09:00 Temazepam (Restoril) 15 mg HS PRN PO INSOMNIA; Start 08/21/17 at 01:00; Stop 08/21/17 at 01:10; Status DC Oxymorphone HCl (Opana) 5 mg Q4H PRN PO Pain 6-10 Last administered on 18:12; Start 08/21/17 at 01:00; Stop 08/26/17 at 12:07; Status DC Sodium Chloride 1,000 ml @ 60 mls/hr [id number] IV Last administered on 13:28; Start 08/21/17 at 00:58 Sodium Chloride (NS Flush) 2 ml UNSCH PRN IV FLUSH FLUSH AFTER USING IV ACCESS ; Start 08/21/17 at 01:00 Sodium Chloride (NS Flush) 2 ml BID IV FLUSH Last administered on 08/27/17 21: 22; Start 08/21/17 at 09:00 Acetaminophen (Tylenol) 650 mg Q6H PRN PO PAIN 1-5 AND/OR FEVER >101F Last administered on 08/24/17 21:01; Start 08/21/17 at 01:00; Stop 08/27/17 at 10: 11; Status DC Pantoprazole Sodium (Protonix Inj) 40 mg Q12H IV PUSH ; Start 08/21/17 at 01:00 ; Stop 08/21/17 at 09:25; Status DC Ondansetron HCl (Zofran Inj) 4 mg Q6H PRN IV PUSH NAUSEA OR VOMITING; Start at 01:00 Temazepam (Restoril) 15 mg HS PRN PO INSOMNIA; Start 08/21/17 at 01:00 Albuterol/ Ipratropium (Duoneb Neb) 1 ampule Q2HR NEB PRN INH WHEEZING; Start 08/21/17 at 01:00 Miscellaneous Information 1 [id number] XX Last administered on 08/21/17 01:00; Start 08/21/17 at 01:00 Chlorhexidine Gluconate (Chlorhexidine 2% Cloth) Taper DAILY@04 TOP Last administered on 08/28/17 04:00; Start 08/21/17 at 04:00; Stop 08/17/18 at 03: 59 Chlorhexidine Gluconate (Chlorhexidine 2% Cloth) 3 pack UNSCH PRN TOP HYGIENIC CARE; Start 08/21/17 at 01:00 Senna/Docusate Sodium (Sandra-Colace) 1 tab BID PO Last administered on 09:31; Start 08/21/17 at 09:00 Magnesium Hydroxide (Milk Of Magnesia Liq) 30 ml Q12H PRN PO Mild constipation ; Start 08/21/17 at 01:00 Sennosides (Senokot) 17.2 mg Q12H PRN PO Moderate constipation; Start at 01:00 Bisacodyl (Dulcolax Supp) 10 mg DAILY PRN RECTAL SEVERE CONSITIPATION; Start 08/21/17 at 01:00 Lactulose (Lactulose Liq) 30 ml DAILY PRN PO SEVERE CONSITIPATION; Start 08/21 at 01:00 Sodium Bicarbonate (Sodium Bicarbonate 8.4% Inj) 50 meq STK-MED ONCE .ROUTE ; Start 08/21/17 at 01:01; Stop 08/21/17 at 01:02; Status DC Albumin Human 100 ml @ 60 mls/hr Q6H IV Last administered on 08/28/17 04:22; Start 08/21/17 at 01:15 Ceftriaxone Sodium 2000 mg/ Sodium Chloride 100 ml @ 200 mls/hr Q24H IV Last administered on 08/22/17 01:02; Start 08/21/17 at 02:00; Stop 08/22/17 at 07 :51; Status DC Cholecalciferol (Vitamin D3) 400 units DAILY PO Last administered on 08/26/17 09:31; Start 08/21/17 at 09:00 Gabapentin (Neurontin) 300 mg TID PO Last administered on 08/26/17 18:32; Start 08/21/17 at 09:00 Zinc Sulfate (Zinc Sulfate) 50 mg BID PO ; Start 08/21/17 at 09:00; Stop 08/21 at 10:17; Status DC Dextrose (D50w (Vial) Inj) 50 ml UNSCH PRN IV PUSH HYPOGLYCEMIA-SEE COMMENTS; Start 08/21/17 at 02:15 Glucagon (Glucagon Inj) 1 mg UNSCH PRN OTHER HYPOGLYCEMIA-SEE COMMENTS; Start 08/21/17 at 02:15 Insulin Human Regular (NovoLIN R SUPPLEMENTAL SCALE) 1 ACHS SLIDING SCALE SQ Last administered on 08/26/17 21:00; Start 08/21/17 at 08:00 Octreotide Acetate 500 mcg/ Sodium Chloride 500 ml @ 50 mls/hr Q10H IV Last administered on 08/25/17 03:08; Start 08/21/17 at 03:00; Stop 08/25/17 at 08: 08; Status DC Sodium Bicarbonate (Sodium Bicarbonate 8.4% Inj) 50 meq ONCE ONCE IV PUSH Last administered on 08/21/17 09:36; Start 08/21/17 at 10:00; Stop 08/21/17 at 10:01; Status DC Insulin Human Regular (NovoLIN R INJ) 7 units ONCE ONCE IV PUSH Last administered on 08/21/17 09:38; Start 08/21/17 at 10:00; Stop 08/21/17 at 10 :01; Status DC Dextrose (D50w (Syr) Inj) 25 ml ONCE ONCE IV PUSH Last administered on 10:10; Start 08/21/17 at 10:00; Stop 08/21/17 at 10:01; Status DC Albuterol/ Ipratropium (Duoneb Neb) 1 ampule ONCE ONCE NEB Last administered on 08/21/17 10:05; Start 08/21/17 at 09:30; Stop 08/21/17 at 09:31; Status DC Calcium Gluconate 2 gm/Dextrose 120 ml @ 120 mls/hr ONCE ONCE IV Last administered on 08/21/17 10:43; Start 08/21/17 at 10:00; Stop 08/21/17 at 10 :59; Status DC Sodium Chloride 1,000 ml @ 999 mls/hr BOLUS ONCE IV Last administered on 09:30; Start 08/21/17 at 09:30; Stop 08/21/17 at 10:30; Status DC Albumin Human 100 ml @ 60 mls/hr ONCE ONCE IV Last administered on 09:30; Start 08/21/17 at 09:30; Stop 08/21/17 at 11:09; Status DC Pantoprazole Sodium 80 mg/ Sodium Chloride 100 ml @ 10 mls/hr Q10H IV Last administered on 08/22/17 05:31; Start 08/21/17 at 10:24; Stop 08/22/17 at 08 :10; Status DC Vasopressin 40 units/Dextrose 100 ml @ 1.5 mls/hr Q24H IV ; Start 08/21/17 at 09:24; Stop 08/22/17 at 07:51; Status DC Patient Own Medication PT OWN MED: ZINC SULF... BID PO ; Start 08/21/17 at 11: 00; Status Future Hold Lactated Ringer's 1,000 ml @ 30 mls/hr Q24H PRN IV SEE LABEL COMMENTS; Start 08/21/17 at 15:00; Stop 08/24/17 at 14:59; Status DC Sodium Chloride 500 ml @ 30 mls/hr [id number] PRN IV SEE LABEL COMMENTS; Start at 15:00; Stop 08/24/17 at 14:59; Status DC Metoprolol Tartrate (Lopressor) 25 mg NUMERICAL CONTROL OPERATOR PRN PO SEE LABEL COMMENTS; Start 08/21/17 at 15:00; Stop 08/24/17 at 14:59; Status DC Povidone Iodine (Betadine 5% Antisepsis Kit) 1 applic NUMERICAL CONTROL OPERATOR PRN EACH NARE SEE LABEL COMMENTS; Start 08/21/17 at 15:00; Stop 08/24/17 at 14:59; Status DC Chlorhexidine Gluconate (Chlorhexidine 2% Cloth) 3 pack NUMERICAL CONTROL OPERATOR PRN TOPICAL SEE LABEL COMMENTS; Start 08/21/17 at 15:00; Stop 08/24/17 at 14:59; Status DC Insulin Human Regular (NovoLIN R INJ) See Protocol Table ... NUMERICAL CONTROL OPERATOR PRN SQ SEE PROTOCOL TABLE; Start 08/21/17 at 15:00; Stop 08/24/17 at 14:59; Status DC Miscellaneous Information ALL NURSING DEPARTME... UNSCH PRN .XX SEE LABEL COMMENTS; Start 08/21/17 at 15:35; Stop 08/22/17 at 15:34; Status DC Ceftriaxone Sodium 1000 mg/ Sodium Chloride 100 ml @ 200 mls/hr Q24H IV Last administered on 08/28/17 04:22; Start 08/23/17 at 02:00 Furosemide (Lasix) 40 mg DAILY PO Last administered on 08/22/17 08:51; Start 08/22/17 at 09:00; Status Future Hold Spironolactone (Aldactone) 100 mg DAILY PO ; Start 08/22/17 at 09:00; Stop at 09:00; Status DC Pantoprazole Sodium 80 mg/ Sodium Chloride 100 ml @ 10 mls/hr Q10H IV Last administered on 08/23/17 13:56; Start 08/23/17 at 10:00; Stop 08/23/17 at 10:00 ; Status DC Pantoprazole Sodium (Protonix Inj) 40 mg Q12H IV PUSH Last administered on 08/27 09:32; Start 08/23/17 at 10:00; Stop 08/27/17 at 10:04; Status DC Cisatracurium Besylate (Nimbex Inj) 20 mg STK-MED ONCE .ROUTE ; Start 08/23/17 at 14:18; Stop 08/23/17 at 14:19; Status DC Diatrizoate Meglum/ Diatrizoate Sod ( Gastroview Liq) 18 ml ONCE ONCE PO Last administered on 08/23/17 15:30; Start 08/23/17 at 15:30; Stop 08/23/17 at 15:31; Status DC Propofol 100 ml @ 1.98 mls/hr TITRATE PRN IV Sedation Last administered on 06:03; Start 08/23/17 at 17:00; Stop 08/27/17 at 10:04; Status DC Albumin Human 100 ml @ 60 mls/hr ONCE ONCE IV Last administered on 08/24/17 11:18; Start 08/24/17 at 10:15; Stop 08/24/17 at 11:54; Status DC Bumetanide (Bumex Inj) 2 mg ONCE ONCE IV PUSH Last administered on 08/24/17 18:14; Start 08/24/17 at 18:15; Stop 08/24/17 at 18:16; Status DC Naloxone HCl (Narcan Inj) 0.8 mg STK-MED ONCE .ROUTE ; Start 08/26/17 at 09:23; Stop 08/26/17 at 09:24; Status DC Naloxone HCl (Narcan Inj) 0.4 mg ONCE ONCE IV PUSH Last administered on 09:28; Start 08/26/17 at 09:45; Stop 08/26/17 at 09:46; Status DC Naloxone HCl (Narcan Inj) 0.4 mg ONCE ONCE IV PUSH ; Start 08/26/17 at 09:45; Stop 08/26/17 at 09:46; Status DC Lactulose (Lactulose Liq) 30 ml QID PO Last administered on 08/26/17 18:15; Start 08/26/17 at 13:00 Sodium Chloride 250 ml @ 15 mls/hr ONCE ONCE IV Last administered on 23:20; Start 08/26/17 at 21:30; Stop 08/27/17 at 14:09; Status DC Furosemide (Lasix Inj) 20 mg ONCE ONCE IV PUSH Last administered on 08/26/17 23:20; Start 08/26/17 at 21:30; Stop 08/26/17 at 21:31; Status DC Pantoprazole Sodium 80 mg/ Sodium Chloride 100 ml @ 10 mls/hr Q10H IV Last administered on 08/28/17 04:23; Start 08/27/17 at 11:03 Octreotide Acetate (SandoSTATIN INJ) 50 mcg ONCE ONCE IV PUSH ; Start 08/27/17 at 10:15; Stop 08/27/17 at 10:16; Status DC Octreotide Acetate 500 mcg/ Sodium Chloride 500 ml @ 25 mls/hr Q20H IV Last administered on 08/28/17 04:24; Start 08/27/17 at 10:03 Phytonadione 10 mg/Dextrose 51 ml @ 102 mls/hr ONCE ONCE IV Last administered on 08/27/17 11:50; Start 08/27/17 at 12:00; Stop 08/27/17 at 12:29 ; Status DC Urinary Catheter: Yes Assessment to: Continue Shaffer insert reason: Obstruction/Retention A/P Assessment and Plan 66-year-old male with end-stage liver disease, failed treatment for hepatitis C awaiting on the liver transplant list. Patient admitted with acute upper GI bleeding. He is status post EGD with variceal banding. Patient also went into shock. He was extubated yesterday. Hospitalist service consulted to continue medical management. FOLLOWS [facility] [place] Recurrent Variceal bleed Hypotension/hemorrhagic shock-resolved Anemia requiring transfusion Thrombocytopenia Coagulopathy Hepatitis C and end-stage liver disease: Awaiting transplant [facility] - Status post EGD and banding of esophageal varices 08/21/17. Also has gastritis - Bleeding currently seems to have subsided. - Octreotide drip discontinued, Rocephin for SBP prophylaxis. Plan to discontinue antibiotics tomorrow if he continues to improve. Peritoneal fluid so far negative for infection. - Diet per GI. Advance to clear liquid. Protonix to IV 40 every 12 - Paracentesis 08/24 with 4.5L removed-fluid studies negative. - May require repeat paracentesis in the next 1-2 days. Hepatic encephalopathy, worst overnight after he was given Oxymorphone. - S/P Narcan. Improving but ammonia level still elevated. - F/u ammonia, lactulose and rifaximin. Increase lactulose to 4 times a day. Monitor. Acute respiratory failure -Status post intubation. Extubated on 08/25/17 - DuoNeb every 6 hours when necessary Diabetes mellitus -Sliding scale insulin with Accu-Cheks Acute kidney injury: - Appreciate nephrology following. Worsening renal function may have been due to shock. However he is still at high risk for hepatorenal syndrome. - Continue to monitor renal functions. Avoid nephrotoxins. Acute blood loss anemia: -Status post PRBC transfusion. H&H stable today. Follow-up tomorrow. may need more transfusions Hyperkalemia-resolved Acute kidney injury - Received Insulin, sodium bicarbonate, glucose, Calcium-K stable - Nephrology following - Creatinine improving, urine output adequate - Worsening transaminitis due to hypotension, now stable DVT GI prophylaxis - Teds SCDs - No pharmacological DVT prophylaxis due to bleed - Protonix AM LABS DW RN AND PT Discharge Planning possible transfer to [facility] [place] FOR LIVER TEAM EVALUATIONS Florin Padilla DO Aug 28, 2017 09:00
--- NOTE | 2017-08-28 09:14 | HHI.GIFU ---
Subjective Remarks Resting in bed. No nausea/vomiting. Continues to have red blood from rectal bag- 400cc this shift. Dr. Draper in to see patient re: possible TIPS. Does not feel he is a good candidate secondary to Rpt. EGD did not confirm active bleeding, Hx HCC with TACE x 4, recent admission for hepatic encephalopathy, worsening liver function- elevated bilirubin. D/W Dr. Andrews at [place]- states he would like to transfer patient to his facility- but will call back after he gets to the hospital and checks to see if they have any beds available. If any active bleeding, then consider repeat EGD and/or bleeding scan to try to locate the source of bleeding. (La Nena Odell) Objective Vitals I&O Vital Signs Date Time Temp Pulse Resp B/P (MAP) Pulse Ox O2 Delivery O2 Flow Rate FiO2 08/28/17 07:33 94 Nasal Cannula 2.00 08/28/17 06:00 60 08/28/17 04:00 53 08/28/17 04:00 98.3 53 17 135/63 (87) 95 08/28/17 02:00 53 08/28/17 00:28 98.5 53 18 135/63 96 08/28/17 00:00 59 08/28/17 00:00 98.5 59 13 135/63 (87) 96 08/27/17 22:00 62 08/27/17 20:00 98.3 66 16 136/63 (87) 93 08/27/17 20:00 66 08/27/17 18:00 65 08/27/17 16:00 98.3 64 18 128/63 (84) 92 08/27/17 16:00 64 08/27/17 14:00 70 08/27/17 12:00 98.3 66 21 145/61 (89) 96 08/27/17 12:00 66 08/27/17 11:43 98.2 69 28 118/56 97 08/27/17 10:00 77 I/O 08/27/17 08/27/17 08/27/17 08/28/17 08/28/17 08/28/17 07:00 15:00 23:00 07:00 15:00 23:00 Intake Total 4090 ml 687 ml 928 ml 810 ml Output Total 1180 ml 6330 ml 750 ml 550 ml Balance 2910 ml -5643 ml 178 ml 260 ml Intake Oral 800 ml 120 ml IV Total 1801 ml 51 ml 100 ml 800 ml Packed Cells 1429 ml FFP 613 ml Platelets 526 ml Blood Product IV Normal Saline Flush 60 ml 110 ml 95 ml 10 ml Output Urine Total 1150 ml 450 ml 350 ml Stool Total 300 ml 200 ml Drainage Total 30 ml 6330 ml # Bowel Movements 2 Laboratory Laboratory Tests Test 08/27/17 10:30 08/27/17 11:57 08/27/17 18:43 08/28/17 05:09 Peritoneal Fluid WBC 99 Peritoneal Fluid RBC 96394 Peritoneal Fluid Neutrophils 33 Peritoneal Fluid Lymphocytes 40 Peritoneal Fluid Monocytes 26 Peritoneal Fluid Eosinophils 1 Peritoneal Fluid Total Protein 2.0 Peritoneal Fluid Albumin 1.4 Peritoneal Fluid LDH 62 Peritoneal Fluid Glucose 177 White Blood Count 3.9 4.0 Red Blood Count 2.44 2.57 Hemoglobin 7.7 7.5 8.4 Hematocrit 21.9 21.3 23.9 Mean Corpuscular Volume 92.5 93.0 Mean Corpuscular Hemoglobin 32.0 32.6 Mean Corpuscular Hemoglobin Concent 34.6 35.0 Red Cell Distribution Width 16.2 15.7 Platelet Count 46 52 Mean Platelet Volume 8.7 8.4 Prothrombin Time 27.4 Prothromb Time International Ratio 2.4 Activated Partial Thromboplast Time GREATER THAN 277.5 Ammonia 20 Lactate Dehydrogenase 120 Total Protein 4.9 Neutrophils (%) (Auto) 76.2 Lymphocytes (%) (Auto) 8.6 Monocytes (%) (Auto) 12.4 Eosinophils (%) (Auto) 2.2 Basophils (%) (Auto) 0.6 Neutrophils # (Auto) 3.0 Lymphocytes # (Auto) 0.3 Monocytes # (Auto) 0.5 Eosinophils # (Auto) 0.1 Basophils # (Auto) 0.0 CBC Comment AUTO DIFF Differential Total Cells Counted 100 Neutrophils % (Manual) 58 Band Neutrophils % 26 Lymphocytes % 6 Monocytes % 8 Eosinophils % 2 Neutrophils # (Manual) 3.4 Differential Comment FINAL DIFF MANUAL Atypical Lymphocytes Toxic Granulation 2+ Platelet Estimate LOW Platelet Morphology Comment NORMAL Date/Time Source Procedure Growth Status 08/27/17 10:30 Fluid Peritoneal Fluid Gram Stain - Final Resulted 08/27/17 10:30 Fluid Peritoneal Fluid Body Fluid Culture Pending Resulted Imaging Last Impressions GI Bleed Scan Nuclear Medicine 08/23/17 0000 Signed Impressions: Service Date/Time: Wednesday, August 23, 2017 18:09 - CONCLUSION: Negative scan. Roel Grey MD Abdomen/Pelvis CT 08/23/17 0000 Signed Impressions: Service Date/Time: Wednesday, August 23, 2017 20:45 - CONCLUSION: 1. Cirrhotic small liver with diffuse heterogeneity. 2. Moderate to large amount of ascitic fluid. 3. Mild splenomegaly. 4. Nonspecific nonobstructive bowel gas pattern which represent a mild ileus. 5. Bilateral pleural effusions with consolidation in both posterior lung bases. Roel Grey MD Chest X-Ray 08/21/17 0426 Signed Impressions: Service Date/Time: Monday, August 21, 2017 04:07 - CONCLUSION: No acute disease. Antony Frederick MD Renal Ultrasound 08/21/17 0000 Signed Impressions: Service Date/Time: Monday, August 21, 2017 17:21 - CONCLUSION: Normal sized kidneys for hydronephrosis. Extensive ascites. Florin Alcala MD FACR Physical Exam HEENT: Normocephalic; atraumatic; + jaundice. CHEST: CTA CARDIAC: SB ABDOMEN: Abdomen distended. + Ascites. Diffuse tenderness to abdomen. Bowel sounds faint. Rectal bag with 400cc red blood. EXTREMITIES: Generalized edema. SKIN: Normal; no rash; + jaundice. ROLLOUT MANAGER: Lethargic and oriented x 3. (La Nena Odell) Assessment and Plan Plan ASSESSMENT: - GIB with black emesis, melena, rectal bleeding. Pt with hx of liver cirrhosis , esophageal varices (last banded 2005). Last egd was at that time per patient, states he had a colonoscopy < 5 years ago at [place]. S/P EGD with band ligation (08/21/17)---> 1. Retained food and old blood-suctioned no active bleeding esophageal varices-3 columns-grade 2-s/p banding times 2 2. Retroflexed views revealed food retained. He then had rectal bleeding with significant drop in hgb on 08/23. Rpt. EGD/Colonoscopy (08/23/17)----> 1. Retained food in stomach, esophageal varices with band attached, portal gastropathy questionable AVM in antrum-cautery using balltip, no active bleeding in upper gi tract 2. Retroflexed views revealed a hiatal hernia. 1. Diverticulosis sigmoid,descending blood up to cecum, aggressive washing , no active bleeding TI -some blood noted aggressive washing done -3 l of fluid -no active bleeding noted 2. Retroflexed views revealed internal hemorrhoids 3. Retroflexed views revealed small internal hemorrhoids 4. Was performed 5. Revealed external hemorrhoids. Bleeding scan (08/23/17) negative scan. CT Scan abdomen and pelvis without contrast (08/23/17)---> Cirrhotic small liver with diffuse heterogeneity, moderate to large amount of ascitic fluid, mild splenomegaly, nonspecific nonobstructive bowel gas pattern which represent a mild ileus. Bilateral pleural effusions with consolidation in both posterior lung bases. No hematemesis, but continues to have red blood from rectal bag- 400cc this shift. Dr. Draper in to see patient re: possible TIPS. Does not feel he is a good candidate secondary to Rpt. EGD did not confirm active bleeding, Hx HCC with TACE x 4, recent admission for hepatic encephalopathy, worsening liver function- elevated bilirubin. D/W Dr. Andrews at [place] regarding worsening liver function, ongoing bleeding- states he would like to transfer patient to his facility- but will call back after he gets to the hospital and checks to see if they have any beds available. If any active bleeding, then consider repeat EGD and/or bleeding scan to try to locate the source of bleeding. S/P 10 units PRBC, 6 units plasma, 6 units Plt. 8.4/23.9. PT/INR ordered. 08/27/17: RN reports large amount of bright red blood in stool. Rectal tube placed which shows liquid maroon stool draining in tube/bag. - Esophageal varices, 3 columns Grade II, S/P band ligation x 2 on 08/21, rpt EGD on 08/23- no active bleeding. ? questionable AVM gastric antrum, s/p cautery.Protonix gtt, Octreotide Gtt - Anemia, acute blood loss. S/P 10 units PRBC, 6 units plasma, 6 units Plt. 8.4/23.9. - Thrombocytopenia, Coagulopathy. 6 units plasma, 6 units Plt. Plt 52,000. INR ordered. - Recurrent ascites. Requires paracentesis every 2-3 weeks. Last had Monday at [place]. On albumin. Diuretics on hold secondary to ARTHUR and hypotensive. S/P Bedside Paracentesis (08/24/17)---> 4.5 L removed. Cx no wbc/organisms. - Liver cirrhosis. Dx 2003, secondary to alcohol and hepatitis C (Genotype 1A) . He quit drinking in 2005. Hx HCC treated with chemoembolization. Currently followed at [facility] for tertiary/liver transplant evaluation- has appt September 25 in [place]. MELD 19. Pt's trust advisor at [place], Dr. Andrews [phone]. Worsening lfts- will recheck today along with coag's. - Hepatic encephalopathy. On Lactulose, Xifaxan. - HCV, Genotype 1A. S/P unsuccessfully treated with interferon and ribavirin and then Sovaldi (did not maintain a sustained virologic response). - Hx HCC. Dx 2015 and underwent transcatheter arterial chemoembolization on 04/27, 06/15/16, 11/08/16, and 01/11/17. - ARTHUR, hyperkalemia, hyponatremia. Improved, 1.42 - Leukocytosis, Ceftriaxone - Respiratory failure. S/P extubation. - DM, OA, Depression, Anxiety, per attending. PLAN: - Clear liquids - Protonix Gtt - Octreotide Gtt - Stat CMP, INR - Would keep INR < 2.0 with ongoing bleeding. - Monitor HH q6h, transfuse as necessary - Cont. Albumin - Cont. Ceftriaxone - Cont. Lactulose, Xifaxan - Supportive care - EGD in 6 weeks - Resume diuretics once renal function allows - Further recommendations to follow based on results of above - Possible hospital to hospital transfer to [place]- D/W Dr. Andrews- would like him transferred, but will call back after he arrives to hospital and is able to check bed availability. - In Flight Refueling Manager at [place] (tertiary) Dr. Andrews [phone] - D/W Dr. Draper - D/W Dr. Andrews ([place]) - D/W Dr. Padilla - D/W CM - Patient seen and examined by Dr. Flores and myself and this note is written on his behalf (La Nena Odell) Physician Comments Seen and examined, plan as above. Will arrange for transfer to [place] . Meanwhile continue current treatment plan. Further recommendations to follow. (Rajat Flores MD) La Nena Odell Aug 28, 2017 09:14 Rajat Flores MD Aug 28, 2017 09:23
--- NOTE | 2017-08-28 09:14 | HHI.GIFU ---
Subjective Remarks Resting in bed. No nausea/vomiting. Continues to have red blood from rectal bag- 400cc this shift. Dr. Draper in to see patient re: possible TIPS. Does not feel he is a good candidate secondary to Rpt. EGD did not confirm active bleeding, Hx HCC with TACE x 4, recent admission for hepatic encephalopathy, worsening liver function- elevated bilirubin. D/W Dr. Andrews at [place]- states he would like to transfer patient to his facility- but will call back after he gets to the hospital and checks to see if they have any beds available. If any active bleeding, then consider repeat EGD and/or bleeding scan to try to locate the source of bleeding. (La Nena Odell) Objective Vitals I&O Vital Signs Date Time Temp Pulse Resp B/P (MAP) Pulse Ox O2 Delivery O2 Flow Rate FiO2 08/28/17 07:33 94 Nasal Cannula 2.00 08/28/17 06:00 60 08/28/17 04:00 53 08/28/17 04:00 98.3 53 17 135/63 (87) 95 08/28/17 02:00 53 08/28/17 00:28 98.5 53 18 135/63 96 08/28/17 00:00 59 08/28/17 00:00 98.5 59 13 135/63 (87) 96 08/27/17 22:00 62 08/27/17 20:00 98.3 66 16 136/63 (87) 93 08/27/17 20:00 66 08/27/17 18:00 65 08/27/17 16:00 98.3 64 18 128/63 (84) 92 08/27/17 16:00 64 08/27/17 14:00 70 08/27/17 12:00 98.3 66 21 145/61 (89) 96 08/27/17 12:00 66 08/27/17 11:43 98.2 69 28 118/56 97 08/27/17 10:00 77 I/O 08/27/17 08/27/17 08/27/17 08/28/17 08/28/17 08/28/17 07:00 15:00 23:00 07:00 15:00 23:00 Intake Total 4090 ml 687 ml 928 ml 810 ml Output Total 1180 ml 6330 ml 750 ml 550 ml Balance 2910 ml -5643 ml 178 ml 260 ml Intake Oral 800 ml 120 ml IV Total 1801 ml 51 ml 100 ml 800 ml Packed Cells 1429 ml FFP 613 ml Platelets 526 ml Blood Product IV Normal Saline Flush 60 ml 110 ml 95 ml 10 ml Output Urine Total 1150 ml 450 ml 350 ml Stool Total 300 ml 200 ml Drainage Total 30 ml 6330 ml # Bowel Movements 2 Laboratory Laboratory Tests Test 08/27/17 10:30 08/27/17 11:57 08/27/17 18:43 08/28/17 05:09 Peritoneal Fluid WBC 99 Peritoneal Fluid RBC 68297 Peritoneal Fluid Neutrophils 33 Peritoneal Fluid Lymphocytes 40 Peritoneal Fluid Monocytes 26 Peritoneal Fluid Eosinophils 1 Peritoneal Fluid Total Protein 2.0 Peritoneal Fluid Albumin 1.4 Peritoneal Fluid LDH 62 Peritoneal Fluid Glucose 177 White Blood Count 3.9 4.0 Red Blood Count 2.44 2.57 Hemoglobin 7.7 7.5 8.4 Hematocrit 21.9 21.3 23.9 Mean Corpuscular Volume 92.5 93.0 Mean Corpuscular Hemoglobin 32.0 32.6 Mean Corpuscular Hemoglobin Concent 34.6 35.0 Red Cell Distribution Width 16.2 15.7 Platelet Count 46 52 Mean Platelet Volume 8.7 8.4 Prothrombin Time 27.4 Prothromb Time International Ratio 2.4 Activated Partial Thromboplast Time GREATER THAN 277.5 Ammonia 20 Lactate Dehydrogenase 120 Total Protein 4.9 Neutrophils (%) (Auto) 76.2 Lymphocytes (%) (Auto) 8.6 Monocytes (%) (Auto) 12.4 Eosinophils (%) (Auto) 2.2 Basophils (%) (Auto) 0.6 Neutrophils # (Auto) 3.0 Lymphocytes # (Auto) 0.3 Monocytes # (Auto) 0.5 Eosinophils # (Auto) 0.1 Basophils # (Auto) 0.0 CBC Comment AUTO DIFF Differential Total Cells Counted 100 Neutrophils % (Manual) 58 Band Neutrophils % 26 Lymphocytes % 6 Monocytes % 8 Eosinophils % 2 Neutrophils # (Manual) 3.4 Differential Comment FINAL DIFF MANUAL Atypical Lymphocytes Toxic Granulation 2+ Platelet Estimate LOW Platelet Morphology Comment NORMAL Date/Time Source Procedure Growth Status 08/27/17 10:30 Fluid Peritoneal Fluid Gram Stain - Final Resulted 08/27/17 10:30 Fluid Peritoneal Fluid Body Fluid Culture Pending Resulted Imaging Last Impressions GI Bleed Scan Nuclear Medicine 08/23/17 0000 Signed Impressions: Service Date/Time: Wednesday, August 23, 2017 18:09 - CONCLUSION: Negative scan. Roel Grey MD Abdomen/Pelvis CT 08/23/17 0000 Signed Impressions: Service Date/Time: Wednesday, August 23, 2017 20:45 - CONCLUSION: 1. Cirrhotic small liver with diffuse heterogeneity. 2. Moderate to large amount of ascitic fluid. 3. Mild splenomegaly. 4. Nonspecific nonobstructive bowel gas pattern which represent a mild ileus. 5. Bilateral pleural effusions with consolidation in both posterior lung bases. Roel Grey MD Chest X-Ray 08/21/17 0426 Signed Impressions: Service Date/Time: Monday, August 21, 2017 04:07 - CONCLUSION: No acute disease. Antony Frederick MD Renal Ultrasound 08/21/17 0000 Signed Impressions: Service Date/Time: Monday, August 21, 2017 17:21 - CONCLUSION: Normal sized kidneys for hydronephrosis. Extensive ascites. Florin Alcala MD FACR Physical Exam HEENT: Normocephalic; atraumatic; + jaundice. CHEST: CTA CARDIAC: SB ABDOMEN: Abdomen distended. + Ascites. Diffuse tenderness to abdomen. Bowel sounds faint. Rectal bag with 400cc red blood. EXTREMITIES: Generalized edema. SKIN: Normal; no rash; + jaundice. TOP FRAME FITTER: Lethargic and oriented x 3. (La Nena Odell) Assessment and Plan Plan ASSESSMENT: - GIB with black emesis, melena, rectal bleeding. Pt with hx of liver cirrhosis , esophageal varices (last banded 2005). Last egd was at that time per patient, states he had a colonoscopy < 5 years ago at [place]. S/P EGD with band ligation (08/21/17)---> 1. Retained food and old blood-suctioned no active bleeding esophageal varices-3 columns-grade 2-s/p banding times 2 2. Retroflexed views revealed food retained. He then had rectal bleeding with significant drop in hgb on 08/23. Rpt. EGD/Colonoscopy (08/23/17)----> 1. Retained food in stomach, esophageal varices with band attached, portal gastropathy questionable AVM in antrum-cautery using balltip, no active bleeding in upper gi tract 2. Retroflexed views revealed a hiatal hernia. 1. Diverticulosis sigmoid,descending blood up to cecum, aggressive washing , no active bleeding TI -some blood noted aggressive washing done -3 l of fluid -no active bleeding noted 2. Retroflexed views revealed internal hemorrhoids 3. Retroflexed views revealed small internal hemorrhoids 4. Was performed 5. Revealed external hemorrhoids. Bleeding scan (08/23/17) negative scan. CT Scan abdomen and pelvis without contrast (08/23/17)---> Cirrhotic small liver with diffuse heterogeneity, moderate to large amount of ascitic fluid, mild splenomegaly, nonspecific nonobstructive bowel gas pattern which represent a mild ileus. Bilateral pleural effusions with consolidation in both posterior lung bases. No hematemesis, but continues to have red blood from rectal bag- 400cc this shift. Dr. Draper in to see patient re: possible TIPS. Does not feel he is a good candidate secondary to Rpt. EGD did not confirm active bleeding, Hx HCC with TACE x 4, recent admission for hepatic encephalopathy, worsening liver function- elevated bilirubin. D/W Dr. Andrews at [place] regarding worsening liver function, ongoing bleeding- states he would like to transfer patient to his facility- but will call back after he gets to the hospital and checks to see if they have any beds available. If any active bleeding, then consider repeat EGD and/or bleeding scan to try to locate the source of bleeding. S/P 10 units PRBC, 6 units plasma, 6 units Plt. 8.4/23.9. PT/INR ordered. 08/27/17: RN reports large amount of bright red blood in stool. Rectal tube placed which shows liquid maroon stool draining in tube/bag. - Esophageal varices, 3 columns Grade II, S/P band ligation x 2 on 08/21, rpt EGD on 08/23- no active bleeding. ? questionable AVM gastric antrum, s/p cautery.Protonix gtt, Octreotide Gtt - Anemia, acute blood loss. S/P 10 units PRBC, 6 units plasma, 6 units Plt. 8.4/23.9. - Thrombocytopenia, Coagulopathy. 6 units plasma, 6 units Plt. Plt 52,000. INR ordered. - Recurrent ascites. Requires paracentesis every 2-3 weeks. Last had Monday at [place]. On albumin. Diuretics on hold secondary to ARTHUR and hypotensive. S/P Bedside Paracentesis (08/24/17)---> 4.5 L removed. Cx no wbc/organisms. - Liver cirrhosis. Dx 2003, secondary to alcohol and hepatitis C (Genotype 1A) . He quit drinking in 2005. Hx HCC treated with chemoembolization. Currently followed at [facility] for tertiary/liver transplant evaluation- has appt September 25 in [place]. MELD 19. 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 Andrews [phone]. Worsening lfts- will recheck today along with coag's. - Hepatic encephalopathy. On Lactulose, Xifaxan. - HCV, Genotype 1A. S/P unsuccessfully treated with interferon and ribavirin and then Sovaldi (did not maintain a sustained virologic response). - Hx HCC. Dx 2015 and underwent transcatheter arterial chemoembolization on 04/27, 06/15/16, 11/08/16, and 01/11/17. - ARTHUR, hyperkalemia, hyponatremia. Improved, 1.42 - Leukocytosis, Ceftriaxone - Respiratory failure. S/P extubation. - DM, OA, Depression, Anxiety, per attending. PLAN: - Clear liquids - Protonix Gtt - Octreotide Gtt - Stat CMP, INR - Would keep INR < 2.0 with ongoing bleeding. - Monitor HH q6h, transfuse as necessary - Cont. Albumin - Cont. Ceftriaxone - Cont. Lactulose, Xifaxan - Supportive care - EGD in 6 weeks - Resume diuretics once renal function allows - Further recommendations to follow based on results of above - Possible hospital to hospital transfer to [place]- D/W Dr. Andrews- would like him transferred, but will call back after he arrives to hospital and is able to check bed availability. - Sprue Cutting Press Operator at [place] (tertiary) Dr. Andrews [phone] - D/W Dr. Draper - D/W Dr. Andrews ([place]) - D/W Dr. Padilla - D/W CM - Patient seen and examined by Dr. Flores and myself and this note is written on his behalf (La Nena Odell) Physician Comments Seen and examined, plan as above. Will arrange for transfer to [place] . Meanwhile continue current treatment plan. Further recommendations to follow. (Rajat Flores MD) La Nena Odell Aug 28, 2017 09:14 Rajat lFores MD Aug 28, 2017 09:23
--- NOTE | 2017-08-28 09:14 | HHI.GIFU ---
Subjective Remarks Resting in bed. No nausea/vomiting. Continues to have red blood from rectal bag- 400cc this shift. Dr. Draper in to see patient re: possible TIPS. Does not feel he is a good candidate secondary to Rpt. EGD did not confirm active bleeding, Hx HCC with TACE x 4, recent admission for hepatic encephalopathy, worsening liver function- elevated bilirubin. D/W Dr. Andrews at [facility]- states he would like to transfer patient to his facility- but will call back after he gets to the hospital and checks to see if they have any beds available. If any active bleeding, then consider repeat EGD and/or bleeding scan to try to locate the source of bleeding. (La Nena Odell) Objective Vitals I&O Vital Signs Date Time Temp Pulse Resp B/P (MAP) Pulse Ox O2 Delivery O2 Flow Rate FiO2 08/28/17 07:33 94 Nasal Cannula 2.00 08/28/17 06:00 60 08/28/17 04:00 53 08/28/17 04:00 98.3 53 17 135/63 (87) 95 08/28/17 02:00 53 08/28/17 00:28 98.5 53 18 135/63 96 08/28/17 00:00 59 08/28/17 00:00 98.5 59 13 135/63 (87) 96 08/27/17 22:00 62 08/27/17 20:00 98.3 66 16 136/63 (87) 93 08/27/17 20:00 66 08/27/17 18:00 65 08/27/17 16:00 98.3 64 18 128/63 (84) 92 08/27/17 16:00 64 08/27/17 14:00 70 08/27/17 12:00 98.3 66 21 145/61 (89) 96 08/27/17 12:00 66 08/27/17 11:43 98.2 69 28 118/56 97 08/27/17 10:00 77 I/O 08/27/17 08/27/17 08/27/17 08/28/17 08/28/17 08/28/17 07:00 15:00 23:00 07:00 15:00 23:00 Intake Total 4090 ml 687 ml 928 ml 810 ml Output Total 1180 ml 6330 ml 750 ml 550 ml Balance 2910 ml -5643 ml 178 ml 260 ml Intake Oral 800 ml 120 ml IV Total 1801 ml 51 ml 100 ml 800 ml Packed Cells 1429 ml FFP 613 ml Platelets 526 ml Blood Product IV Normal Saline Flush 60 ml 110 ml 95 ml 10 ml Output Urine Total 1150 ml 450 ml 350 ml Stool Total 300 ml 200 ml Drainage Total 30 ml 6330 ml # Bowel Movements 2 Laboratory Laboratory Tests Test 08/27/17 10:30 08/27/17 11:57 08/27/17 18:43 08/28/17 05:09 Peritoneal Fluid WBC 99 Peritoneal Fluid RBC [id number] Peritoneal Fluid Neutrophils 33 Peritoneal Fluid Lymphocytes 40 Peritoneal Fluid Monocytes 26 Peritoneal Fluid Eosinophils 1 Peritoneal Fluid Total Protein 2.0 Peritoneal Fluid Albumin 1.4 Peritoneal Fluid LDH 62 Peritoneal Fluid Glucose 177 White Blood Count 3.9 4.0 Red Blood Count 2.44 2.57 Hemoglobin 7.7 7.5 8.4 Hematocrit 21.9 21.3 23.9 Mean Corpuscular Volume 92.5 93.0 Mean Corpuscular Hemoglobin 32.0 32.6 Mean Corpuscular Hemoglobin Concent 34.6 35.0 Red Cell Distribution Width 16.2 15.7 Platelet Count 46 52 Mean Platelet Volume 8.7 8.4 Prothrombin Time 27.4 Prothromb Time International Ratio 2.4 Activated Partial Thromboplast Time GREATER THAN 277.5 Ammonia 20 Lactate Dehydrogenase 120 Total Protein 4.9 Neutrophils (%) (Auto) 76.2 Lymphocytes (%) (Auto) 8.6 Monocytes (%) (Auto) 12.4 Eosinophils (%) (Auto) 2.2 Basophils (%) (Auto) 0.6 Neutrophils # (Auto) 3.0 Lymphocytes # (Auto) 0.3 Monocytes # (Auto) 0.5 Eosinophils # (Auto) 0.1 Basophils # (Auto) 0.0 CBC Comment AUTO DIFF Differential Total Cells Counted 100 Neutrophils % (Manual) 58 Band Neutrophils % 26 Lymphocytes % 6 Monocytes % 8 Eosinophils % 2 Neutrophils # (Manual) 3.4 Differential Comment FINAL DIFF MANUAL Atypical Lymphocytes Toxic Granulation 2+ Platelet Estimate LOW Platelet Morphology Comment NORMAL Date/Time Source Procedure Growth Status 08/27/17 10:30 Fluid Peritoneal Fluid Gram Stain - Final Resulted 08/27/17 10:30 Fluid Peritoneal Fluid Body Fluid Culture Pending Resulted Imaging Last Impressions GI Bleed Scan Nuclear Medicine 08/23/17 0000 Signed Impressions: Service Date/Time: Wednesday, August 23, 2017 18:09 - CONCLUSION: Negative scan. Roel Grey MD Abdomen/Pelvis CT 08/23/17 0000 Signed Impressions: Service Date/Time: Wednesday, August 23, 2017 20:45 - CONCLUSION: 1. Cirrhotic small liver with diffuse heterogeneity. 2. Moderate to large amount of ascitic fluid. 3. Mild splenomegaly. 4. Nonspecific nonobstructive bowel gas pattern which represent a mild ileus. 5. Bilateral pleural effusions with consolidation in both posterior lung bases. Roel Grey MD Chest X-Ray 08/21/17 0426 Signed Impressions: Service Date/Time: Monday, August 21, 2017 04:07 - CONCLUSION: No acute disease. Antony Frederick MD Renal Ultrasound 08/21/17 0000 Signed Impressions: Service Date/Time: Monday, August 21, 2017 17:21 - CONCLUSION: Normal sized kidneys for hydronephrosis. Extensive ascites. Florin Alcala MD FACR Physical Exam HEENT: Normocephalic; atraumatic; + jaundice. CHEST: CTA CARDIAC: SB ABDOMEN: Abdomen distended. + Ascites. Diffuse tenderness to abdomen. Bowel sounds faint. Rectal bag with 400cc red blood. EXTREMITIES: Generalized edema. SKIN: Normal; no rash; + jaundice. 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 (La Nena Odell) Assessment and Plan Plan ASSESSMENT: - GIB with black emesis, melena, rectal bleeding. Pt with hx of liver cirrhosis , esophageal varices (last banded 2005). Last egd was at that time per patient, states he had a colonoscopy < 5 years ago at [facility]. S/P EGD with band ligation (08/21/17)---> 1. Retained food and old blood-suctioned no active bleeding esophageal varices-3 columns-grade 2-s/p banding times 2 2. Retroflexed views revealed food retained. He then had rectal bleeding with significant drop in hgb on 08/23. Rpt. EGD/Colonoscopy (08/23/17)----> 1. Retained food in stomach, esophageal varices with band attached, portal gastropathy questionable AVM in antrum-cautery using balltip, no active bleeding in upper gi tract 2. Retroflexed views revealed a hiatal hernia. 1. Diverticulosis sigmoid,descending blood up to cecum, aggressive washing , no active bleeding TI -some blood noted aggressive washing done -3 l of fluid -no active bleeding noted 2. Retroflexed views revealed internal hemorrhoids 3. Retroflexed views revealed small internal hemorrhoids 4. Was performed 5. Revealed external hemorrhoids. Bleeding scan (08/23/17) negative scan. CT Scan abdomen and pelvis without contrast (08/23/17)---> Cirrhotic small liver with diffuse heterogeneity, moderate to large amount of ascitic fluid, mild splenomegaly, nonspecific nonobstructive bowel gas pattern which represent a mild ileus. Bilateral pleural effusions with consolidation in both posterior lung bases. No hematemesis, but continues to have red blood from rectal bag- 400cc this shift. Dr. Draper in to see patient re: possible TIPS. Does not feel he is a good candidate secondary to Rpt. EGD did not confirm active bleeding, Hx HCC with TACE x 4, recent admission for hepatic encephalopathy, worsening liver function- elevated bilirubin. D/W Dr. Andrews at [facility] regarding worsening liver function, ongoing bleeding- states he would like to transfer patient to his facility- but will call back after he gets to the hospital and checks to see if they have any beds available. If any active bleeding, then consider repeat EGD and/or bleeding scan to try to locate the source of bleeding. S/P 10 units PRBC, 6 units plasma, 6 units Plt. 8.4/23.9. PT/INR ordered. 08/27/17: RN reports large amount of bright red blood in stool. Rectal tube placed which shows liquid maroon stool draining in tube/bag. - Esophageal varices, 3 columns Grade II, S/P band ligation x 2 on 08/21, rpt EGD on 08/23- no active bleeding. ? questionable AVM gastric antrum, s/p cautery.Protonix gtt, Octreotide Gtt - Anemia, acute blood loss. S/P 10 units PRBC, 6 units plasma, 6 units Plt. 8.4/23.9. - Thrombocytopenia, Coagulopathy. 6 units plasma, 6 units Plt. Plt 52,000. INR ordered. - Recurrent ascites. Requires paracentesis every 2-3 weeks. Last had Monday at [facility]. On albumin. Diuretics on hold secondary to ARTHUR and hypotensive. S/P Bedside Paracentesis (08/24/17)---> 4.5 L removed. Cx no wbc/organisms. - Liver cirrhosis. Dx 2003, secondary to alcohol and hepatitis C (Genotype 1A) . He quit drinking in 2005. Hx HCC treated with chemoembolization. [facility]- has appt September 25 in [place]. MELD 19. 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 Andrews [phone]. Worsening lfts- will recheck today along with coag's. - Hepatic encephalopathy. On Lactulose, Xifaxan. - HCV, Genotype 1A. S/P unsuccessfully treated with interferon and ribavirin and then Sovaldi (did not maintain a sustained virologic response). - Hx HCC. Dx 2015 and underwent transcatheter arterial chemoembolization on 04/27, 06/15/16, 11/08/16, and 01/11/17. - ARTHUR, hyperkalemia, hyponatremia. Improved, 1.42 - Leukocytosis, Ceftriaxone - Respiratory failure. S/P extubation. - DM, OA, Depression, Anxiety, per attending. PLAN: - Clear liquids - Protonix Gtt - Octreotide Gtt - Stat CMP, INR - Would keep INR < 2.0 with ongoing bleeding. - Monitor HH q6h, transfuse as necessary - Cont. Albumin - Cont. Ceftriaxone - Cont. Lactulose, Xifaxan - Supportive care - EGD in 6 weeks - Resume diuretics once renal function allows - Further recommendations to follow based on results of above - Possible hospital to hospital transfer to [facility]- D/W Dr. Andrews- would like him transferred, but will call back after he arrives to hospital and is able to check bed availability. 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 Andrews [phone] - D/W Dr. Draper - D/W Dr. Andrews ([facility]) - D/W Dr. Padilla - D/W CM - Patient seen and examined by Dr. Flores and myself and this note is written on his behalf (La Nena Odell) Physician Comments Seen and examined, plan as above. Will arrange for transfer to [facility] . Meanwhile continue current treatment plan. Further recommendations to follow. (Rajat Flores MD) La Nena Odell Aug 28, 2017 09:14 Rajat Flores MD Aug 28, 2017 09:23
[2017-08-28] MEDS: LACTULOSE SYRUP 20 GM/30 ML CUP PO SCH ×4 (09:28→23:31)
[2017-08-28] MEDS: RIFAXIMIN 550 MG TAB PO SCH ×2 (09:28→23:31)
[2017-08-28] MEDS: GABAPENTIN 300 MG CAP PO SCH ×3 (09:28→18:14)
[2017-08-28] MEDS: DOCUSATE SODIUM 50 MG/SENNA 8.6 MG TAB PO SCH ×2 (09:28→20:26)
[2017-08-28] MEDS: MAGNESIUM OXIDE 400 MG TAB PO SCH (09:28)
[2017-08-28] MEDS: SODIUM CHLORIDE 0.9% FLUSH 10 ML FLUSH IV FLUSH SCH ×2 (09:28→20:26)
[2017-08-28] MEDS: CHOLECALCIFEROL (VIT D3) 400 UNIT TAB PO SCH (09:29)
[2017-08-28 10:02] LABS: INTERNATIONAL NORMALIZED RATIO 1.6 RATIO; PROTHROMBIN TIME - PATIENT 18.5 SEC (9.8-11.6)
[2017-08-28 10:32] LABS: ALBUMIN 4.3 GM/DL (3.4-5.0); ALKALINE PHOSPHATASE 35 U/L (45-117); ALT (GPT) 58 U/L (12-78); AST (GOT) 51 U/L (15-37); BICARBONATE 22.6 MEQ/L (21.0-32.0); BLOOD UREA NITROGEN 38 MG/DL (7-18); CALCIUM 8.9 MG/DL (8.5-10.1); CHLORIDE 112 MEQ/L (98-107); CREATININE 1.28 MG/DL (0.60-1.30); GLOMERULAR FILTRATION RATE 56 ML/MIN (>89); GLUCOSE,RANDOM 161 MG/DL (74-106); SODIUM (NA) 146 MEQ/L (136-145); TOTAL BILIRUBIN ADULT 17.6 MG/DL (0.2-1.0); TOTAL PROTEIN 5.6 GM/DL (6.4-8.2)
--- NOTE | 2017-08-28 11:50 | HHI.NPPN ---
Subjective History of Present Illness This patient is a 66-year-old male with a history of cirrhosis, varices, chronic hepatitis C with unsuccessful treatment now listed apparently for liver transplant with a hepatitis C positive organ when available now presenting with apparent upper GI bleed was associated with hypotension last night. Blood pressure initially 91/52. Previous creatinine level noted to have been 1.05 June,. His creatinine level on presentation was 2.03 with a potassium initially of 7.1. The patient was taking Aldactone as an outpatient prior to presentation as well as furosemide. Denies using NSAIDs prior to presentation for analgesia.. Interval History Previous events in the EMR reviewed. Patient currently on a clear liquid diet. No verbal complaints. Review of Systems General General Remarks Patient unable to respond to questions verbally at this time. Gastrointestinal GI Remarks Abd distention Objective Data Data Vital Signs Date Time Temp Pulse Resp B/P (MAP) Pulse Ox O2 Delivery O2 Flow Rate FiO2 08/28/17 08:00 98.3 57 15 155/70 (98) 95 08/28/17 07:33 94 Nasal Cannula 2.00 08/28/17 06:00 60 08/28/17 04:00 53 08/28/17 04:00 98.3 53 17 135/63 (87) 95 08/28/17 02:00 53 08/28/17 00:28 98.5 53 18 135/63 96 08/28/17 00:00 59 08/28/17 00:00 98.5 59 13 135/63 (87) 96 08/27/17 22:00 62 08/27/17 20:00 98.3 66 16 136/63 (87) 93 08/27/17 20:00 66 08/27/17 18:00 65 08/27/17 16:00 98.3 64 18 128/63 (84) 92 08/27/17 16:00 64 08/27/17 14:00 70 08/27/17 12:00 98.3 66 21 145/61 (89) 96 08/27/17 12:00 66 -: 08/28/17 0509 08/28/17 0941 Physical Exam General Appearance: Comfortable Throat Throat Exam: Oral Mucosa [place] & Moist Pulmonary Resp Exam: Clear Bilaterally, Breath Sounds Equal Cardiology CV Exam: Regular, Normal Sinus Rhythm Gastrointestinal/Abdomen GI Exam: Distended Integumentary Skin Exam: Warm Extremeties Extremities Exam: No Edema, Moderate Edema (2+ pitting edema of her extremities and hips. Weeping of fluid.) Neurologic Neuro Exam: Alert, Awake Psychiatric Psych Exam: Appropriate Responses Assessment/Plan Problem List: (1) Acute kidney insufficiency ICD Codes: N28.9 - Disorder of kidney and ureter, unspecified Status: Acute Plan: Unfortunately despite ongoing gastrointestinal issues creatinine level has improved. Although initially acute renal insufficiency appeared to be related to hemodynamic factors related to GI bleed this patient remains at significant risk for development of hepatorenal syndrome. Renal US showed normal echogenicity and no signs of obstructive process. Urinalysis is bland and not suggestive of glomerulonephritis. Noted tentative plans for transfer to [place] [facility]. I will continue to follow patient intermittently. Medications should be adjusted for the patient's estimated GFR if clinically indicated. Avoid agents with significant potential for nephrotoxicity possible including NSAIDs for analgesia, iodine contrast agents. Gadolinium is contraindicated if the GFR is below 30. (2) GI bleed ICD Codes: K92.2 - Gastrointestinal hemorrhage, unspecified Status: Acute Plan: Mgmt as per GI (3) Cirrhosis ICD Codes: K74.60 - Unspecified cirrhosis of liver Plan: Pt reports paracentesis every 2-3 weeks with last outpatient done 08/18 with 4L removed Inpatient 08/24 with 4500mL removed Problem Qualifiers (1) GI bleed: Qualified Codes: K92.2 - Gastrointestinal hemorrhage, unspecified Anibal Scanlon MD Aug 28, 2017 11:50
--- NOTE | 2017-08-28 12:01 | HHI.DS ---
Discharge Summary Admission Date Aug 21, 2017 at 00:36 Discharge Date: Aug 28, 2017 Admitting Diagnosis GI Bleed, acute renal failure, hyperkalemia (1) GI bleed ICD Code: K92.2 - Gastrointestinal hemorrhage, unspecified Diagnosis: Principal Status: Acute (2) Hepatitis C ICD Code: B19.20 - Unspecified viral hepatitis C without hepatic coma Diagnosis: Secondary (3) Liver cancer ICD Code: C22.9 - Malignant neoplasm of liver, not specified as primary or secondary Diagnosis: Principal Status: Chronic (4) Acute kidney insufficiency ICD Code: N28.9 - Disorder of kidney and ureter, unspecified Diagnosis: Principal Status: Acute (5) Cirrhosis ICD Code: K74.60 - Unspecified cirrhosis of liver Diagnosis: Secondary (6) Diabetes mellitus ICD Code: E11.9 - Type 2 diabetes mellitus without complications Diagnosis: Secondary Procedures EGD WITH BANDING 11-5 paracentesis 6.3 liters off Brief History 66-year-old gentleman with end-stage liver disease, chronic hepatitis C status post unsuccessful treatment with DuoNeb therapy now awaiting a liver transplant comes in complaining of melena 3 days and vomiting blood that began yesterday. [facility] to his refractory ascites from his cirrhosis. Patient states since that is been having the melena. He denies any fevers, chest pain, shortness of breath, or headaches. Patient denies anything making this better or worse. Patient reports feeling weak and nauseated. Patient denies anything like this in the past. Denies being on any blood thinners. CBC/BMP: 08/28/17 0509 08/28/17 0941 Significant Findings Laboratory Tests Test 08/26/17 04:39 08/26/17 21:50 08/27/17 06:00 08/27/17 10:30 Red Blood Count 2.79 MIL/MM3 (4.50-5.90) 2.69 MIL/MM3 (4.50-5.90) Hemoglobin 9.1 GM/DL (13.0-17.0) 7.4 GM/DL (13.0-17.0) 8.7 GM/DL (13.0-17.0) Hematocrit 26.8 % (39.0-51.0) 22.8 % (39.0-51.0) 25.4 % (39.0-51.0) Red Cell Distribution Width 18.0 % (11.6-17.2) Platelet Count 30 TH/MM3 (150-450) 42 TH/MM3 (150-450) Band Neutrophils % 19 % (0-6) Lymphocytes % 8 % (9-44) Monocytes % 11 % (0-8) Platelet Estimate LOW (NORMAL) Polychromasia 2.5 % (0.0-1.9) Tear Drop Cells 1+ (NORMAL) Ovalocytes 1+ (NORMAL) Prothrombin Time 22.1 SEC (9.8-11.6) Blood Urea Nitrogen 37 MG/DL (7-18) 35 MG/DL (7-18) Creatinine 1.58 MG/DL (0.60-1.30) 1.42 MG/DL (0.60-1.30) Random Glucose 113 MG/DL (74-106) 169 MG/DL (74-106) Calcium Level 8.4 MG/DL (8.5-10.1) 8.1 MG/DL (8.5-10.1) Chloride Level 111 MEQ/L (98-107) 111 MEQ/L (98-107) Estimat Glomerular Filtration Rate 44 ML/MIN (>89) 50 ML/MIN (>89) Peritoneal Fluid WBC 99 /MM3 (0-10) Peritoneal Fluid RBC 86674 /MM3 (0-0) Test 08/27/17 11:57 08/27/17 18:43 08/28/17 05:09 08/28/17 09:41 White Blood Count 3.9 TH/MM3 (4.0-11.0) Red Blood Count 2.44 MIL/MM3 (4.50-5.90) 2.57 MIL/MM3 (4.50-5.90) Hemoglobin 7.7 GM/DL (13.0-17.0) 7.5 GM/DL (13.0-17.0) 8.4 GM/DL (13.0-17.0) Hematocrit 21.9 % (39.0-51.0) 21.3 % (39.0-51.0) 23.9 % (39.0-51.0) Platelet Count 46 TH/MM3 (150-450) 52 TH/MM3 (150-450) Prothrombin Time 27.4 SEC (9.8-11.6) 18.5 SEC (9.8-11.6) Activated Partial Thromboplast Time GREATER THAN 277.5 SEC Total Protein 4.9 GM/DL (6.4-8.2) 5.6 GM/DL (6.4-8.2) Neutrophils (%) (Auto) 76.2 % (16.0-70.0) Lymphocytes (%) (Auto) 8.6 % (9.0-44.0) Monocytes (%) (Auto) 12.4 % (0.0-8.0) Lymphocytes # (Auto) 0.3 TH/MM3 (1.0-4.8) Band Neutrophils % 26 % (0-6) Lymphocytes % 6 % (9-44) Toxic Granulation 2+ (NORMAL) Platelet Estimate LOW (NORMAL) Blood Urea Nitrogen 38 MG/DL (7-18) Random Glucose 161 MG/DL (74-106) Alkaline Phosphatase 35 U/L (45-117) Aspartate Amino Transf (AST/SGOT) 51 U/L (15-37) Total Bilirubin 17.6 MG/DL (0.2-1.0) Sodium Level 146 MEQ/L (136-145) Chloride Level 112 MEQ/L (98-107) Estimat Glomerular Filtration Rate 56 ML/MIN (>89) Imaging Last Impressions GI Bleed Scan Nuclear Medicine 08/23/17 0000 Signed Impressions: Service Date/Time: Wednesday, August 23, 2017 18:09 - CONCLUSION: Negative scan. Roel Grey MD Abdomen/Pelvis CT 08/23/17 0000 Signed Impressions: Service Date/Time: Wednesday, August 23, 2017 20:45 - CONCLUSION: 1. Cirrhotic small liver with diffuse heterogeneity. 2. Moderate to large amount of ascitic fluid. 3. Mild splenomegaly. 4. Nonspecific nonobstructive bowel gas pattern which represent a mild ileus. 5. Bilateral pleural effusions with consolidation in both posterior lung bases. Roel Grey MD Chest X-Ray 08/21/17 0426 Signed Impressions: Service Date/Time: Monday, August 21, 2017 04:07 - CONCLUSION: No acute disease. Antony Frederick MD Renal Ultrasound 08/21/17 0000 Signed Impressions: Service Date/Time: Monday, August 21, 2017 17:21 - CONCLUSION: Normal sized kidneys for hydronephrosis. Extensive ascites. Florin Alcala MD FACR PE at Discharge GENERAL:-year-old male, resting in bed in no acute distress SKIN: Warm and dry.VERY JAUNDICED HEAD: Atraumatic. Normocephalic. EYES: Pupils equal and round. No scleral icterus. No injection or drainage. SCLERAL ICTERUS ENT: No nasal bleeding or discharge. Mucous membranes pink and moist. NECK: Trachea midline. No JVD. SUPPLE CARDIOVASCULAR: Regular rate and rhythm. S1, S2 NO S3 OR S4. Without murmur RESPIRATORY: No accessory muscle use. Clear to auscultation. Breath sounds equal bilaterally. GASTROINTESTINAL: Abdomen soft, non-tender, mildly distended. Positive hepatomegaly. MUSCULOSKELETAL: Extremities with 1+ bilateral upper and lower extremity edema. No obvious deformities. NEUROLOGICAL: Awake and alert. No obvious cranial nerve deficits. Motor grossly within normal limits. 4 out of 5 muscle strength in the arms and legs. Normal speech. PSYCHIATRIC: Appropriate mood and affect; insight and judgment normal. Transfer Summary NEURO: Hepatic encephalopathy - Minimize sedation - F/u ammonia, Hold lactulose and rifaximin due to active GIB RESP: Acute respiratory failure-resolved - Extubated 08/25 (Intubation was for procedure) - DuoNeb every 6 hours when necessary GI/HEME Recurrent Variceal bleed Hypotension/hemorrhagic shock Anemia requiring transfusion Thrombocytopenia Coagulopathy Tense ascites - Status post EGD and banding of esophageal varices 08/21/17. Also has gastritis - Now with re bleed 08/26 overnight. Requiring 2 units PRBC. Transfuse 2 units of platelets, 2 units of FFP - Restart Octreotide drip, IV Protonix gtt, Rocephin for SBP prophylaxis - NPO. GI Dr. Killian contacting IR for possible TIPS - Paracentesis 08/24 with 4.5L removed. Repeat paracentesis today 08/27 for tense ascites ENDO: Diabetes mellitus - Hold insulin glargine while nothing by mouth - Insulin sliding scale ID: Hepatitis C - Status post unsuccessful treatment - Awaiting liver transplant, followed by [facility] - Ceftriaxone for SBP prophylaxis : Hyperkalemia-resolved Acute kidney injury/probable hepatorenal syndrome - Nephrology following - Creatinine improving, urine output adequate 1.6L in 24 hours - Worsening transaminitis due to hypotension, now stable DVT GI prophylaxis - Teds SCDs. No pharmacological DVT prophylaxis due to active bleed - Protonix gtt CCT 45. Patient is very critically ill with recurrent GI bleed despite endoscopy 2, prognosis is guarded. Transfused 2 units PRBC overnight we'll also give 2 units of platelets and FFP. Protonix and octreotide gtt restarted. Has large bore peripheral IV-has to peripheral IV now. Most likely will need TIPS Hospital Course 66-year-old gentleman with end-stage liver disease, chronic hepatitis C status post unsuccessful treatment with therapy now awaiting a liver transplant comes in complaining of melena 3 days and vomiting blood that began yesterday. Patient [facility] his refractory ascites from his cirrhosis. Patient states since that is been having the melena. He denies any fevers, chest pain, shortness of breath, or headaches. Patient denies anything making this better or worse. Patient reports feeling weak and nauseated. Patient denies anything like this in the past. Denies being on any blood thinners. 08/21: Hypotensive, SBP in low 70's. 1 L normal saline bolus and 25, albumin stat ordered. IV Protonix changed to infusion. Start vasopressin if needed to keep map above 65. Hemoglobin 6.7 hematocrit 19.6. Transfuse 3 units PRBC stat. GI consult pending. Will need EGD-patient has history of esophageal varices but last endoscopy per patient was in 2005. Patient has two 18 G IV. Also platelet count has dropped to 67 will give 2 units of platelets and 1 unit of FFP 08/22: No GI bleed overnight. Hemodynamically has stabilized. Remains on IV Protonix infusion and octreotide infusion. A.m. labs are pending. Underwent endoscopy yesterday with findings of esophageal varices and gastritis. Underwent esophageal variceal banding 2 08/23: Reconsulted by hepatocellular in for acute GI hemorrhage passing bright red blood per rectum. Hemoglobin has dropped to 5.2. INR is 2 today with platelet count of 49. Start transfusion of 3 units PRBC, 2 units of FFP, 2 units of platelets ordered. I will also restarted the Protonix infusion and will continue octreotide infusion. GI contacted emergently 08/24: Patient remains intubated sedated. Small amount of bleeding per rectum overnight. Tagged RBC scan did not show any active bleeding. Hemoglobin 7.7 ( received 3 units PRBC, 2 units of platelets and 2 units of FFP yesterday). Will leave intubated until hemodynamically optimized, and no further GI bleed. Proceed with paracentesis today 08/25: Hemoglobin remains stable at 9.3. Following commands, tolerated spontaneous breathing trial. Wean to extubation. No further GI bleed [facility] RECONSULT NOTE 08/27/17: Patient started having active GI bleed again with bright red blood per rectum. Hemoglobin dropped from 9.1 to 7.4. Received 2 units of PRBC with hemoglobin now 8.7 initially of active GI bleed. GI had been contacted their contacting IR for possible TIPS procedure. I have last for 2 units FFP and 2 units platelets transfused stat. Restart Protonix infusion restarted bolus and infusion of octreotide. Patient has also developed tense ascites which I will drain emergently after 25 GM IV albumin 08/28 - patient to be transferred to [facility]. Remains on Sandostatin and pantoprazole drips. Transfused 2 PRBCs and 2 FFP overnight. Pt Condition on Discharge: Guarded Discharge Disposition: Disch to Another Hospital Discharge Instructions DIET: Follow Instructions for: Nothing By Mouth Activities you can perform: Continue Bedrest Fidel Sotomayor MD Aug 28, 2017 12:00
--- NOTE | 2017-08-28 12:45 | HHI.CCPN ---
Subjective Remarks/Hospital Course 66-year-old gentleman with end-stage liver disease, chronic hepatitis C status post unsuccessful treatment with therapy now awaiting a liver transplant comes in complaining of melena 3 days and vomiting blood that began yesterday. [facility] his refractory ascites from his cirrhosis. Patient states since that is been having the melena. He denies any fevers, chest pain, shortness of breath, or headaches. Patient denies anything making this better or worse. Patient reports feeling weak and nauseated. Patient denies anything like this in the past. Denies being on any blood thinners. 08/21: Hypotensive, SBP in low 70's. 1 L normal saline bolus and 25, albumin stat ordered. IV Protonix changed to infusion. Start vasopressin if needed to keep map above 65. Hemoglobin 6.7 hematocrit 19.6. Transfuse 3 units PRBC stat. GI consult pending. Will need EGD-patient has history of esophageal varices but last endoscopy per patient was in 2005. Patient has two 18 G IV. Also platelet count has dropped to 67 will give 2 units of platelets and 1 unit of FFP 08/22: No GI bleed overnight. Hemodynamically has stabilized. Remains on IV Protonix infusion and octreotide infusion. A.m. labs are pending. Underwent endoscopy yesterday with findings of esophageal varices and gastritis. Underwent esophageal variceal banding 2 08/23: Reconsulted by hepatocellular in for acute GI hemorrhage passing bright red blood per rectum. Hemoglobin has dropped to 5.2. INR is 2 today with platelet count of 49. Start transfusion of 3 units PRBC, 2 units of FFP, 2 units of platelets ordered. I will also restarted the Protonix infusion and will continue octreotide infusion. GI contacted emergently 08/24: Patient remains intubated sedated. Small amount of bleeding per rectum overnight. Tagged RBC scan did not show any active bleeding. Hemoglobin 7.7 ( received 3 units PRBC, 2 units of platelets and 2 units of FFP yesterday). Will leave intubated until hemodynamically optimized, and no further GI bleed. Proceed with paracentesis today 08/25: Hemoglobin remains stable at 9.3. Following commands, tolerated spontaneous breathing trial. Wean to extubation. No further GI bleed [facility] RECONSULT NOTE 08/27/17: Patient started having active GI bleed again with bright red blood per rectum. Hemoglobin dropped from 9.1 to 7.4. Received 2 units of PRBC with hemoglobin now 8.7 initially of active GI bleed. GI had been contacted their contacting IR for possible TIPS procedure. I have last for 2 units FFP and 2 units platelets transfused stat. Restart Protonix infusion restarted bolus and infusion of octreotide. Patient has also developed tense ascites which I will drain emergently after 25 GM IV albumin Subjective 08/28 - patient to be transferred to [facility]. Remains on Sandostatin and pantoprazole drips. Transfused 2 PRBCs and 2 FFP overnight. Objective Vital Signs Date Time Temp Pulse Resp B/P (MAP) Pulse Ox O2 Delivery O2 Flow Rate FiO2 08/28/17 08:00 98.3 57 15 155/70 (98) 95 08/28/17 07:33 Nasal Cannula 2.00 08/25/17 11:02 35 Intake and Output 08/28/17 08/28/17 08/29/17 08:00 16:00 00:00 Intake Total 1220 ml Output Total 550 ml Balance 670 ml Result Diagram: 08/28/17 0509 08/28/17 0941 Other Results Microbiology Date/Time Source Procedure Growth Status 08/27/17 10:30 Fluid Peritoneal Fluid Gram Stain - Final Resulted 08/27/17 10:30 Fluid Peritoneal Fluid Body Fluid Culture Pending Resulted Imaging Last Impressions GI Bleed Scan Nuclear Medicine 08/23/17 0000 Signed Impressions: Service Date/Time: Wednesday, August 23, 2017 18:09 - CONCLUSION: Negative scan. Roel Grey MD Abdomen/Pelvis CT 08/23/17 0000 Signed Impressions: Service Date/Time: Wednesday, August 23, 2017 20:45 - CONCLUSION: 1. Cirrhotic small liver with diffuse heterogeneity. 2. Moderate to large amount of ascitic fluid. 3. Mild splenomegaly. 4. Nonspecific nonobstructive bowel gas pattern which represent a mild ileus. 5. Bilateral pleural effusions with consolidation in both posterior lung bases. Roel Grey MD Chest X-Ray 08/21/17 0426 Signed Impressions: Service Date/Time: Monday, August 21, 2017 04:07 - CONCLUSION: No acute disease. Antony Frederick MD Renal Ultrasound 08/21/17 0000 Signed Impressions: Service Date/Time: Monday, August 21, 2017 17:21 - CONCLUSION: Normal sized kidneys for hydronephrosis. Extensive ascites. Florin Alcala MD FACR Objective Remarks GENERAL: 66-year-old male, resting in bed in no acute distress SKIN: Warm and dry. Pallor present, severe jaundice HEAD: Normocephalic. ENT: Oral cavity is widely dry and pink. Oropharynx without erythema. EYES: + Scleral icterus. No injection or drainage. NECK: Supple, trachea midline. No JVD or lymphadenopathy. CARDIOVASCULAR: S1-S2 normal no S4. Without murmur RESPIRATORY: Breath sounds equal bilaterally. No accessory muscle use. GASTROINTESTINAL: Abdomen tense, distended. Large ascites on bedside : + Scrotal edema MUSCULOSKELETAL: No significant peripheral edema. NEURO EXAM: Patient is alert awake oriented. He is anxious but follows commands Procedures EGD WITH BANDING - paracentesis 6.3 liters off A/P Assessment and Plan NEURO: Hepatic encephalopathy - Minimize sedation - F/u ammonia, continue lactulose 30 cc twice a day and rifaximin 540 mg twice a day due to active GIB - On temazepam 15 mg at night when necessary insomnia RESP: Acute respiratory failure-resolved - Extubated 08/25 (Intubation was for procedure) - Nasal cannula to maintain saturations greater than equal to 92% - Incentive spirometry while awake -Albuterol nebulizers every 2 hours. Dyspnea GI/HEME Recurrent Variceal bleed grade 2 esophageal Hypotension/hemorrhagic shock Anemia requiring transfusion Thrombocytopenia Coagulopathy Tense ascites - Status post EGD and banding of esophageal varices 08/21/17. Also has gastritis - Now with re bleed 08/26 overnight. Requiring 2 units PRBC. Transfuse 2 units of platelets, 2 units of FFP - Restart Sandostatin drip at 50 mg an hour, IV pantoprazole gtt at 8 mg an hour , ceftriaxone 1 g daily for SBP prophylaxis - NPO. GI Dr. Killian contacting [place] for possible TIPS - Paracentesis 08/24 with 4.5L removed. Repeat paracentesis today 08/27 6.3 L ENDO: Diabetes mellitus - Hold insulin glargine while nothing by mouth - Insulin sliding scale Novulin R every 6 before meals/at bedtime moderate regimen ID: Hepatitis C - Status post unsuccessful treatment - Awaiting [facility] - Ceftriaxone for SBP prophylaxis : Hyperkalemia-resolved Acute kidney injury/probable hepatorenal syndrome - Nephrology following - Creatinine improving, urine output adequate - Worsening transaminitis due to hypotension, now stable DVT GI prophylaxis - Teds SCDs. No pharmacological DVT prophylaxis due to active bleed - Protonix gtt Level III follow-up Fidel Sotomayor MD Aug 28, 2017 12:45
[2017-08-28] MEDS ORDERED: RESP: ALBUTEROL 2.5 MG/3 ML NEB (PRN) NEB (13:00)
[2017-08-28] MEDS ORDERED: DIATRIZOATE MEGLUM/DIATRIZOATE SOD 9 ML CUP PO ONE (14:00)
[2017-08-28 15:10] LABS: HEMATOCRIT 25.2 % (39.0-51.0); HEMOGLOBIN 8.6 GM/DL (13.0-17.0)
[2017-08-28] MEDS ORDERED: IOHEXOL 350 MG/ML 10 ML VIAL (for RAD DIAG) IVCONTRAST ONE (17:26)
--- NOTE | 2017-08-28 18:02 | RADRPT ---
EXAM DATE/TIME: 08/28/2017 17:23 This report includes an Addendum and supersedes previous reports for this exam. [facility] COMPARISON: CT ABDOMEN & PELVIS W/O CONTRAST, August 23, 2017, 20:45. INDICATIONS : Liver disease. IV CONTRAST: 75 cc Omnipaque 350 (iohexol) IV ORAL CONTRAST: No oral contrast ingested. RADIATION DOSE: 30.00 CTDIvol (mGy) MEDICAL HISTORY : Carcinoma, not otherwise specified. Hepatitis C. Cirrhosis.Carcinoma; liver SURGICAL HISTORY : None. ENCOUNTER: Initial ACUITY: 1 day PAIN SCALE: 5/10 LOCATION: Right abdomen TECHNIQUE: Volumetric scanning of the abdomen and pelvis was performed. Using automated exposure control and ad justment of the mA and/or kV according to patient size, radiation dose was kept as low as reasonably achievable to obtain optimal diagnostic quality images. DICOM format image data is available electro nically for review and comparison. FINDINGS: LOWER LUNGS: Small bibasilar effusions with concomitant atelectatic changes. LIVER: Small, heterogeneous and nodular characteristic of reported history of cirrhosis. Stable gallstones i n the gallbladder lumen. SPLEEN: Enlarged measuring 16.2 cm in greatest AP dimension. PANCREAS: Within normal limits. KIDNEYS: Normal in size and shape. There is no mass, stone, or hydronephrosis. Small sub-centimeters cyst in the upper pole cortex of the right kidney. ADRENAL GLANDS: Within normal limits. VASCULAR: There is no aortic aneurysm. BOWEL/MESENTERY: The stomach, small bowel, and colon demonstrate no acute abnormality. Large amount of ascites through out the peritoneal cavity. ABDOMINAL WALL: Generalized anasarca with stranding about the flank. RETROPERITONEUM: There is no lymphadenopathy. BLADDER: Decompressed with a Shaffer catheter. REPRODUCTIVE: Within normal limits. INGUINAL: There is no lymphadenopathy or hernia. MUSCULOSKELETAL: Within normal limits for patient age. POST CONTRAST: No abnormal areas of enhancement are seen. CONCLUSION: 1. CT findings characteristic of significant cirrhosis with a small, heterogeneous and nodular liver. 2. Diffuse peritoneal ascites. Generalized anasarca with stranding in the soft tissues of the flanks 3. Findings characteristic of portal hypertension with splenomegaly. Spleen measures approximately 16 cm in diameter. 4. Cholelithiasis. 5. Small bilateral pleural effusions with concomitant atelectatic changes in the lung bases. Bernardo Demarco MD on August 28, 2017 at 17:54 Board Certified Radiologist. This report was verified electronically. ADDENDUM: Of note, patient also had delayed phase imaging. 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 Multiple varicosities are identified at the GE junction extending in to the region of the stomach. Short gastric varicosities are also identified. There is heterogeneity in both lobes of the liver, especially on the right. This may represent regenerating nodules although a mass lesion cannot be excluded, particularly in the right hepatic lobe Bernardo Demarco MD on August 29, 2017 at 18:30 Board Certified Radiologist. This report was verified electronically.
[2017-08-28 19:09] LABS: HEMATOCRIT 24.6 % (39.0-51.0); HEMOGLOBIN 8.8 GM/DL (13.0-17.0)
[2017-08-28] MEDS ORDERED: SODIUM CHLOR 0.9% 1000 ML INJ 1,000 ML IV ONE ×2 (20:00)
[2017-08-29] VITALS (31 sets, daily range): BP systolic 86–155; BP diastolic 42–75; PULSE 60–119; RESP 12–21; TEMP 97.9–99.3; O2SAT 90–100
[2017-08-29 01:17] LABS: HEMOGLOBIN 6.2 GM/DL (13.0-17.0)
[2017-08-29 01:18] LABS: HEMATOCRIT 17.9 % (39.0-51.0)
[2017-08-29] MEDS: cefTRIAXone INJ 1,000 MG in SODIUM CHLORIDE 0.9% INJ 100 ML IV SCH (01:53)
[2017-08-29] MEDS: CHLORHEXIDINE GLUCONATE 2 % 1 PACK (2 CLOTHS) TOP SCH (04:00)
[2017-08-29] MEDS: OCTREOTIDE INJ 500 MCG in SODIUM CHLORID 0.9% 500 ML INJ 499.5 ML IV SCH ×2 (04:04→13:27)
[2017-08-29] MEDS: PANTOPRAZOLE INJ 80 MG in SODIUM CHLORIDE 0.9% INJ 100 ML IV SCH ×3 (04:05→23:16)
[2017-08-29 05:10] LABS: PROTHROMBIN TIME - PATIENT GREATER THAN 180.0 SEC (9.8-11.6)
[2017-08-29 05:12] LABS: INTERNATIONAL NORMALIZED RATIO GREATER THAN 14.5 RATIO
[2017-08-29 05:14] LABS: FIBRINOGEN LESS THAN 50 mg/dL (227-377)
[2017-08-29] MEDS: INSULIN NovoLIN REGULAR SUPPLEMENTAL SCALE SQ SCH ×3 (07:53→21:00)
[2017-08-29] MEDS: GABAPENTIN 300 MG CAP PO SCH ×2 (07:54→13:51)
[2017-08-29] MEDS: RIFAXIMIN 550 MG TAB PO SCH ×2 (07:54→21:00)
[2017-08-29] MEDS: LACTULOSE SYRUP 20 GM/30 ML CUP PO SCH ×3 (07:54→21:00)
[2017-08-29] MEDS: CHOLECALCIFEROL (VIT D3) 400 UNIT TAB PO SCH (07:54)
[2017-08-29] MEDS: SODIUM CHLORIDE 0.9% FLUSH 10 ML FLUSH IV FLUSH SCH ×2 (07:54→21:33)
[2017-08-29] MEDS: DOCUSATE SODIUM 50 MG/SENNA 8.6 MG TAB PO SCH ×2 (07:54→21:00)
[2017-08-29] MEDS: MAGNESIUM OXIDE 400 MG TAB PO SCH (07:54)
[2017-08-29] MEDS: ALBUMIN 25% INJ 100 ML IV SCH ×3 (07:55→21:33)
--- NOTE | 2017-08-29 07:58 | HHI.GIFU ---
Subjective Remarks Pt resting in bed. VSS. He is not having any nausea/vomiting/hematemesis. He continues to have red blood from rectum-2,500cc emptied from rectal bag overnight. On 5th unit PRBC, S/P 1 unit FFP, and one unit of cryo overnight. He denies any abdominal pain. C/O worsening distention. (La Nena Odell) Objective Vitals I&O Vital Signs Date Time Temp Pulse Resp B/P (MAP) Pulse Ox O2 Delivery O2 Flow Rate FiO2 08/29/17 06:45 98.3 64 18 144/66 95 08/29/17 06:33 98.3 66 17 147/66 93 08/29/17 06:05 98.3 70 19 138/64 94 08/29/17 06:00 82 08/29/17 04:45 98.3 64 12 120/60 96 08/29/17 04:30 98.4 64 15 122/57 95 08/29/17 04:00 80 08/29/17 04:00 98.4 67 17 122/58 (79) 96 08/29/17 03:30 98.6 67 17 124/55 97 08/29/17 03:19 98.9 67 18 129/66 95 08/29/17 02:15 98.4 68 19 114/58 97 08/29/17 02:00 86 08/29/17 01:58 98.2 66 16 123/58 96 08/29/17 00:00 96 08/29/17 00:00 99.3 68 15 113/56 (75) 95 08/28/17 22:20 98.4 69 14 115/56 98 08/28/17 22:08 98.2 69 15 113/55 98 08/28/17 22:00 92 08/28/17 21:01 98.3 77 18 111/53 94 08/28/17 20:44 98.3 75 17 102/54 99 08/28/17 20:00 93 08/28/17 20:00 98.3 84 20 77/46 (56) 96 08/28/17 18:00 58 08/28/17 16:00 98.5 59 20 149/66 (93) 92 08/28/17 16:00 59 08/28/17 14:00 59 08/28/17 12:00 62 11/6/17 12:00 98.2 62 19 152/68 (96) 95 08/28/17 10:00 49 08/28/17 08:00 98.3 57 15 155/70 (98) 95 08/28/17 08:00 57 08/28/17 07:33 94 Nasal Cannula 2.00 I/O 08/28/17 08/28/17 08/28/17 08/29/17 08/29/17 08/29/17 07:00 15:00 23:00 07:00 15:00 23:00 Intake Total 1220 ml 1820 ml 2811 ml Output Total 550 ml 2080 ml 2900 ml Balance 670 ml -260 ml -89 ml Intake Oral 500 ml 480 ml IV Total 800 ml 1000 ml 800 ml Packed Cells 400 ml 320 ml 1000 ml FFP 314 ml Cryoprecipitate 217 ml Blood Product IV Normal Saline Flush 20 ml Output Urine Total 350 ml 450 ml 400 ml Stool Total 200 ml 1630 ml 2500 ml Laboratory Laboratory Tests Test 08/28/17 09:41 08/28/17 14:14 08/28/17 18:27 08/29/17 00:34 Prothrombin Time 18.5 Prothromb Time International Ratio 1.6 Blood Urea Nitrogen 38 Creatinine 1.28 Random Glucose 161 Total Protein 5.6 Albumin 4.3 Calcium Level 8.9 Alkaline Phosphatase 35 Aspartate Amino Transf (AST/SGOT) 51 Alanine Aminotransferase (ALT/SGPT) 58 Total Bilirubin 17.6 Sodium Level 146 Potassium Level 4.0 Chloride Level 112 Carbon Dioxide Level 22.6 Anion Gap 11 Estimat Glomerular Filtration Rate 56 Ammonia 29 Hemoglobin 8.6 8.8 6.2 Hematocrit 25.2 24.6 17.9 Test 08/29/17 04:03 Prothrombin Time GREATER THAN 180.0 Prothromb Time International Ratio GREATER THAN 14.5 Activated Partial Thromboplast Time GREATER THAN 277.5 Fibrinogen LESS THAN 50 Date/Time Source Procedure Growth Status 08/27/17 10:30 Fluid Peritoneal Fluid Gram Stain - Final Resulted 08/27/17 10:30 Fluid Peritoneal Fluid Body Fluid Culture - Preliminary NO GROWTH IN 24 HOURS. Resulted Imaging Last Impressions Abdomen/Pelvis CT 08/28/17 0000 Signed Impressions: Service Date/Time: Monday, August 28, 2017 17:23 - CONCLUSION: 1. CT findings characteristic of significant cirrhosis with a small, heterogeneous and nodular liver. 2. Diffuse peritoneal ascites. Generalized anasarca with stranding in the soft tissues of the flanks 3. Findings characteristic of portal hypertension with splenomegaly. Spleen measures approximately 16 cm in diameter. 4. Cholelithiasis. 5. Small bilateral pleural effusions with concomitant atelectatic changes in the lung bases. Bernardo Demarco MD GI Bleed Scan Nuclear Medicine 08/23/17 0000 Signed Impressions: Service Date/Time: Wednesday, August 23, 2017 18:09 - CONCLUSION: Negative scan. Roel Grey MD Chest X-Ray 08/21/17 0426 Signed Impressions: Service Date/Time: Monday, August 21, 2017 04:07 - CONCLUSION: No acute disease. Antony Frederick MD Renal Ultrasound 08/21/17 0000 Signed Impressions: Service Date/Time: Monday, August 21, 2017 17:21 - CONCLUSION: Normal sized kidneys for hydronephrosis. Extensive ascites. Florin Alcala MD FACR Physical Exam HEENT: Normocephalic; atraumatic; + jaundice. CHEST: CTA CARDIAC: RRR ABDOMEN: Abdomen distended. + Ascites. Diffuse tenderness to abdomen. Bowel sounds faint. Rectal bag with red blood. EXTREMITIES: Generalized edema. SKIN: Normal; no rash; + jaundice. 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 (La Nena Odell [facility]) Assessment and Plan Plan ASSESSMENT: - GIB with black emesis, melena, rectal bleeding. Pt with hx of liver cirrhosis , esophageal varices (last banded 2005). Last egd was at that time per patient, states he had a colonoscopy < 5 years ago at [place]. S/P EGD with band ligation (08/21/17)---> 1. Retained food and old blood-suctioned no active bleeding esophageal varices-3 columns-grade 2-s/p banding times 2 2. Retroflexed views revealed food retained. He then had rectal bleeding with significant drop in hgb on 08/23. Rpt. EGD/Colonoscopy (08/23/17)----> 1. Retained food in stomach, esophageal varices with band attached, portal gastropathy questionable AVM in antrum-cautery using balltip, no active bleeding in upper gi tract 2. Retroflexed views revealed a hiatal hernia. 1. Diverticulosis sigmoid,descending blood up to cecum, aggressive washing , no active bleeding TI -some blood noted aggressive washing done -3 l of fluid -no active bleeding noted 2. Retroflexed views revealed internal hemorrhoids 3. Retroflexed views revealed small internal hemorrhoids 4. Was performed 5. Revealed external hemorrhoids. Bleeding scan (08/23/17) negative scan. CT Scan abdomen and pelvis without contrast (08/23/17)---> Cirrhotic small liver with diffuse heterogeneity, moderate to large amount of ascitic fluid, mild splenomegaly, nonspecific nonobstructive bowel gas pattern which represent a mild ileus. Bilateral pleural effusions with consolidation in both posterior lung bases. No hematemesis, but continues to have red blood from rectal bag- 400cc this shift. Dr. Draper in to see patient re: possible TIPS. Does not feel he is a good candidate secondary to Rpt. EGD did not confirm active bleeding, Hx HCC with TACE x 4, recent admission for hepatic encephalopathy, worsening liver function- elevated bilirubin. D/W Dr. Andrews- accepted patient for tx to [place], but awaiting bed. He did recommend repeating EGD/Bleeding scan if any active bleeding to locate the source of bleeding. He put out 2,500cc of red blood overnight. HH 6.2/17.9, PT > 180.0, INR > 14.5, APTT > 277.5, Fibrinogen < 50. He has received 5 units of PRBC, 1/2 of FFP, and 1 unit of cryo. - ESLD, Cirrhosis, Liver failure. Dx 2003, secondary to alcohol and hepatitis C (Genotype 1A). He quit drinking in 2005. Hx HCC treated with chemoembolization. Currently followed at [facility] for tertiary/liver transplant evaluation- has appt September 25 in [place]. Pt's county historian at [place], Dr. Andrews [phone]. MELD 19 on admission. Now with decompensation, liver failure- MELD now 50. Severe coagulopathy. Active rectal bleeding (2,500cc overnight), HH 6.2/ 17.9, Plt 52,000, PT > 180, INR > 14.5, PTT ? 277.5, Fibrinogen < 50. Pt has been accepted at [facility], Spoke to Dr. Andrews- recommended repeating EGD vs. Bleeding Scan if active bleeding and not transferred to determine source of bleeding. Also recommended Multiphasic CT Scan abdomen and pelvis to evaluate questionable area noted in left lobe on June CT scan. CT Scan abdomen and pelvis with and without IV contrast (08/28/17)---> CT findings characteristic of significant cirrhosis with a small, heterogeneous and nodular liver. Diffuse peritoneal ascites. Generalized anasarca with stranding in the soft tissues of the flanks. Findings characteristic of portal hypertension with splenomegaly. Spleen measures approximately 16 cm in diameter. Cholelithiasis, small bilateral pleural effusions with concomitant atelectatic changes in lung bases. Message left with Dr. Andrews to return call to update on patient's condition. Spoke to [facility], to update on condition and to see if we can expedite his transfer - Esophageal varices, 3 columns Grade II, S/P band ligation x 2 on 08/21, rpt EGD on 08/23- no active bleeding. ? questionable AVM gastric antrum, s/p cautery. Protonix gtt, Octreotide Gtt - Anemia, acute blood loss. S/P 15 units PRBC, 7 units plasma, 6 units Plt. 1 unit of Cryo. 8.4/23.9. - Thrombocytopenia, Coagulopathy. Plt 52,000, PT > 180, INR > 14.5, PTT ? 277.5 , Fibrinogen < 50. S/P Cryo, #1 of 2 FFP. - Recurrent ascites. Requires paracentesis every 2-3 weeks. Last had Monday at [place]. On albumin. S/P Bedside Paracentesis (08/24/17)---> 4.5 L removed. Cx no wbc/organisms. Now with worsening ascites/distention. - Hepatic encephalopathy. On Lactulose, Xifaxan. - HCV, Genotype 1A. S/P unsuccessfully treated with interferon and ribavirin and then Sovaldi (did not maintain sustained virologic response). - Hx HCC. Dx 2015 and underwent transcatheter arterial chemoembolization on 04/27, 06/15/16, 11/08/16, and 01/11/17. Contrasted CT scan as above. - ARTHUR, hyperkalemia, hyponatremia. Improved - Leukocytosis, Ceftriaxone - Respiratory failure. S/P extubation. - DM, OA, Depression, Anxiety, per attending. PLAN: - Clear liquids - Protonix Gtt - Octreotide Gtt - Stat CBC, PT/INR, APTT, Fibrinogen, CMP, Ammonia level - Notify GI of repeat labs - Would keep INR < 2.0 with ongoing bleeding. - Monitor HH q4h, transfuse as necessary - Cont. Albumin - Cont. Ceftriaxone - Cont. Lactulose, Xifaxan - EGD in 6 weeks - D/W Dr. Andrews yesterday, accepted at [place], awaiting bed. Pt now with worsening liver failure. Call placed to Dr. Andrews to try to expedite transfer. Will also contact [facility] ([facility]) to update on patient's condition and try to expedite transfer to [facility] for liver transplant evaluation. 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 Andrews - message left [phone]. - [facility] (office number) - D/W Dr. Stanley - Further recommendations ot follow based on results of above - Patient seen and examined by Dr. Flores and myself and this note is written on his behalf Spoke to Dr. Andrews- updated on condition. Recommends scope today if possible to evaluate for bleeding, cultures, and adding Vanco prophylactically. Will work on expediting tx (La Nena Odell) Physician Comments Seen and examined with La Nena, plan as above. Will keep NPO for now, correct coagulopathy and keep in contact with the transplant team in [place]. Further recommendations to follow. (Rajat Flores MD) La Nena Odell Aug 29, 2017 07:58 Rajat Flores MD Aug 29, 2017 08:52
--- NOTE | 2017-08-29 07:58 | HHI.GIFU ---
Subjective Remarks Pt resting in bed. VSS. He is not having any nausea/vomiting/hematemesis. He continues to have red blood from rectum-2,500cc emptied from rectal bag overnight. On 5th unit PRBC, S/P 1 unit FFP, and one unit of cryo overnight. He denies any abdominal pain. C/O worsening distention. (La Nena Odell) Objective Vitals I&O Vital Signs Date Time Temp Pulse Resp B/P (MAP) Pulse Ox O2 Delivery O2 Flow Rate FiO2 08/29/17 06:45 98.3 64 18 144/66 95 08/29/17 06:33 98.3 66 17 147/66 93 08/29/17 06:05 98.3 70 19 138/64 94 08/29/17 06:00 82 08/29/17 04:45 98.3 64 12 120/60 96 08/29/17 04:30 98.4 64 15 122/57 95 08/29/17 04:00 80 08/29/17 04:00 98.4 67 17 122/58 (79) 96 08/29/17 03:30 98.6 67 17 124/55 97 08/29/17 03:19 98.9 67 18 129/66 95 08/29/17 02:15 98.4 68 19 114/58 97 08/29/17 02:00 86 08/29/17 01:58 98.2 66 16 123/58 96 08/29/17 00:00 96 08/29/17 00:00 99.3 68 15 113/56 (75) 95 08/28/17 22:20 98.4 69 14 115/56 98 08/28/17 22:08 98.2 69 15 113/55 98 08/28/17 22:00 92 08/28/17 21:01 98.3 77 18 111/53 94 08/28/17 20:44 98.3 75 17 102/54 99 08/28/17 20:00 93 08/28/17 20:00 98.3 84 20 77/46 (56) 96 08/28/17 18:00 58 08/28/17 16:00 98.5 59 20 149/66 (93) 92 08/28/17 16:00 59 08/28/17 14:00 59 08/28/17 12:00 62 11/6/17 12:00 98.2 62 19 152/68 (96) 95 08/28/17 10:00 49 08/28/17 08:00 98.3 57 15 155/70 (98) 95 08/28/17 08:00 57 08/28/17 07:33 94 Nasal Cannula 2.00 I/O 08/28/17 08/28/17 08/28/17 08/29/17 08/29/17 08/29/17 07:00 15:00 23:00 07:00 15:00 23:00 Intake Total 1220 ml 1820 ml 2811 ml Output Total 550 ml 2080 ml 2900 ml Balance 670 ml -260 ml -89 ml Intake Oral 500 ml 480 ml IV Total 800 ml 1000 ml 800 ml Packed Cells 400 ml 320 ml 1000 ml FFP 314 ml Cryoprecipitate 217 ml Blood Product IV Normal Saline Flush 20 ml Output Urine Total 350 ml 450 ml 400 ml Stool Total 200 ml 1630 ml 2500 ml Laboratory Laboratory Tests Test 08/28/17 09:41 08/28/17 14:14 08/28/17 18:27 08/29/17 00:34 Prothrombin Time 18.5 Prothromb Time International Ratio 1.6 Blood Urea Nitrogen 38 Creatinine 1.28 Random Glucose 161 Total Protein 5.6 Albumin 4.3 Calcium Level 8.9 Alkaline Phosphatase 35 Aspartate Amino Transf (AST/SGOT) 51 Alanine Aminotransferase (ALT/SGPT) 58 Total Bilirubin 17.6 Sodium Level 146 Potassium Level 4.0 Chloride Level 112 Carbon Dioxide Level 22.6 Anion Gap 11 Estimat Glomerular Filtration Rate 56 Ammonia 29 Hemoglobin 8.6 8.8 6.2 Hematocrit 25.2 24.6 17.9 Test 08/29/17 04:03 Prothrombin Time GREATER THAN 180.0 Prothromb Time International Ratio GREATER THAN 14.5 Activated Partial Thromboplast Time GREATER THAN 277.5 Fibrinogen LESS THAN 50 Date/Time Source Procedure Growth Status 08/27/17 10:30 Fluid Peritoneal Fluid Gram Stain - Final Resulted 08/27/17 10:30 Fluid Peritoneal Fluid Body Fluid Culture - Preliminary NO GROWTH IN 24 HOURS. Resulted Imaging Last Impressions Abdomen/Pelvis CT 08/28/17 0000 Signed Impressions: Service Date/Time: Monday, August 28, 2017 17:23 - CONCLUSION: 1. CT findings characteristic of significant cirrhosis with a small, heterogeneous and nodular liver. 2. Diffuse peritoneal ascites. Generalized anasarca with stranding in the soft tissues of the flanks 3. Findings characteristic of portal hypertension with splenomegaly. Spleen measures approximately 16 cm in diameter. 4. Cholelithiasis. 5. Small bilateral pleural effusions with concomitant atelectatic changes in the lung bases. Bernardo Demarco MD GI Bleed Scan Nuclear Medicine 08/23/17 0000 Signed Impressions: Service Date/Time: Wednesday, August 23, 2017 18:09 - CONCLUSION: Negative scan. Roel Grey MD Chest X-Ray 08/21/17 0426 Signed Impressions: Service Date/Time: Monday, August 21, 2017 04:07 - CONCLUSION: No acute disease. Antony Frederick MD Renal Ultrasound 08/21/17 0000 Signed Impressions: Service Date/Time: Monday, August 21, 2017 17:21 - CONCLUSION: Normal sized kidneys for hydronephrosis. Extensive ascites. Florin Alcala MD FACR Physical Exam HEENT: Normocephalic; atraumatic; + jaundice. CHEST: CTA CARDIAC: RRR ABDOMEN: Abdomen distended. + Ascites. Diffuse tenderness to abdomen. Bowel sounds faint. Rectal bag with red blood. EXTREMITIES: Generalized edema. SKIN: Normal; no rash; + jaundice. OFFICE RECEPTIONIST: Lethargic and oriented x 3. (La Nena Odell [facility]) Assessment and Plan Plan ASSESSMENT: - GIB with black emesis, melena, rectal bleeding. Pt with hx of liver cirrhosis , esophageal varices (last banded 2005). Last egd was at that time per patient, states he had a colonoscopy < 5 years ago at [place]. S/P EGD with band ligation (08/21/17)---> 1. Retained food and old blood-suctioned no active bleeding esophageal varices-3 columns-grade 2-s/p banding times 2 2. Retroflexed views revealed food retained. He then had rectal bleeding with significant drop in hgb on 08/23. Rpt. EGD/Colonoscopy (08/23/17)----> 1. Retained food in stomach, esophageal varices with band attached, portal gastropathy questionable AVM in antrum-cautery using balltip, no active bleeding in upper gi tract 2. Retroflexed views revealed a hiatal hernia. 1. Diverticulosis sigmoid,descending blood up to cecum, aggressive washing , no active bleeding TI -some blood noted aggressive washing done -3 l of fluid -no active bleeding noted 2. Retroflexed views revealed internal hemorrhoids 3. Retroflexed views revealed small internal hemorrhoids 4. Was performed 5. Revealed external hemorrhoids. Bleeding scan (08/23/17) negative scan. CT Scan abdomen and pelvis without contrast (08/23/17)---> Cirrhotic small liver with diffuse heterogeneity, moderate to large amount of ascitic fluid, mild splenomegaly, nonspecific nonobstructive bowel gas pattern which represent a mild ileus. Bilateral pleural effusions with consolidation in both posterior lung bases. No hematemesis, but continues to have red blood from rectal bag- 400cc this shift. Dr. Draper in to see patient re: possible TIPS. Does not feel he is a good candidate secondary to Rpt. EGD did not confirm active bleeding, Hx HCC with TACE x 4, recent admission for hepatic encephalopathy, worsening liver function- elevated bilirubin. D/W Dr. Andrews- accepted patient for tx to [place], but awaiting bed. He did recommend repeating EGD/Bleeding scan if any active bleeding to locate the source of bleeding. He put out 2,500cc of red blood overnight. HH 6.2/17.9, PT > 180.0, INR > 14.5, APTT > 277.5, Fibrinogen < 50. He has received 5 units of PRBC, 1/2 of FFP, and 1 unit of cryo. - ESLD, Cirrhosis, Liver failure. Dx 2003, secondary to alcohol and hepatitis C (Genotype 1A). He quit drinking in 2005. Hx HCC treated with chemoembolization. Currently followed at [facility] for tertiary/liver transplant evaluation- has appt September 25 in [place]. 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 Andrews [phone]. MELD 19 on admission. Now with decompensation, liver failure- MELD now 50. Severe coagulopathy. Active rectal bleeding (2,500cc overnight), HH 6.2/ 17.9, Plt 52,000, PT > 180, INR > 14.5, PTT ? 277.5, Fibrinogen < 50. Pt has been accepted at [facility] [place], Spoke to Dr. Andrews- recommended repeating EGD vs. Bleeding Scan if active bleeding and not transferred to determine source of bleeding. Also recommended Multiphasic CT Scan abdomen and pelvis to evaluate questionable area noted in left lobe on June CT scan. CT Scan abdomen and pelvis with and without IV contrast (08/28/17)---> CT findings characteristic of significant cirrhosis with a small, heterogeneous and nodular liver. Diffuse peritoneal ascites. Generalized anasarca with stranding in the soft tissues of the flanks. Findings characteristic of portal hypertension with splenomegaly. Spleen measures approximately 16 cm in diameter. Cholelithiasis, small bilateral pleural effusions with concomitant atelectatic changes in lung bases. Message left with Dr. Andrews to return call to update on patient's condition. Spoke to [facility] Commodities Trader, to update on condition and to see if we can expedite his transfer - Esophageal varices, 3 columns Grade II, S/P band ligation x 2 on 08/21, rpt EGD on 08/23- no active bleeding. ? questionable AVM gastric antrum, s/p cautery. Protonix gtt, Octreotide Gtt - Anemia, acute blood loss. S/P 15 units PRBC, 7 units plasma, 6 units Plt. 1 unit of Cryo. 8.4/23.9. - Thrombocytopenia, Coagulopathy. Plt 52,000, PT > 180, INR > 14.5, PTT ? 277.5 , Fibrinogen < 50. S/P Cryo, #1 of 2 FFP. - Recurrent ascites. Requires paracentesis every 2-3 weeks. Last had Monday at [place]. On albumin. S/P Bedside Paracentesis (08/24/17)---> 4.5 L removed. Cx no wbc/organisms. Now with worsening ascites/distention. - Hepatic encephalopathy. On Lactulose, Xifaxan. - HCV, Genotype 1A. S/P unsuccessfully treated with interferon and ribavirin and then Sovaldi (did not maintain sustained virologic response). - Hx HCC. Dx 2015 and underwent transcatheter arterial chemoembolization on 04/27, 06/15/16, 11/08/16, and 01/11/17. Contrasted CT scan as above. - ARTHUR, hyperkalemia, hyponatremia. Improved - Leukocytosis, Ceftriaxone - Respiratory failure. S/P extubation. - DM, OA, Depression, Anxiety, per attending. PLAN: - Clear liquids - Protonix Gtt - Octreotide Gtt - Stat CBC, PT/INR, APTT, Fibrinogen, CMP, Ammonia level - Notify GI of repeat labs - Would keep INR < 2.0 with ongoing bleeding. - Monitor HH q4h, transfuse as necessary - Cont. Albumin - Cont. Ceftriaxone - Cont. Lactulose, Xifaxan - EGD in 6 weeks - D/W Dr. Andrews yesterday, accepted at [place], awaiting bed. Pt now with worsening liver failure. Call placed to Dr. Andrews to try to expedite transfer. Will also contact Sonia (Commodities Trader [facility]) to update on patient's condition and try to expedite transfer to [facility] for liver transplant evaluation. - [place] at [place] (tertiary) Dr. Andrews - message left [phone]. - Sonia Fuentes Liver Commodities Trader [facility] (office number) - D/W Dr. Stanley - Further recommendations ot follow based on results of above - Patient seen and examined by Dr. Flores and myself and this note is written on his behalf Spoke to Dr. Andrews- updated on condition. Recommends scope today if possible to evaluate for bleeding, cultures, and adding Vanco prophylactically. Will work on expediting tx (La Nena Odell) Physician Comments Seen and examined with La Nena, plan as above. Will keep NPO for now, correct coagulopathy and keep in contact with the transplant team in [place]. Further recommendations to follow. (Rajat Flores MD) La Nena Odell Aug 29, 2017 07:58 Rajat Flores MD Aug 29, 2017 08:52
--- NOTE | 2017-08-29 07:58 | HHI.GIFU ---
Subjective Remarks Pt resting in bed. VSS. He is not having any nausea/vomiting/hematemesis. He continues to have red blood from rectum-2,500cc emptied from rectal bag overnight. On 5th unit PRBC, S/P 1 unit FFP, and one unit of cryo overnight. He denies any abdominal pain. C/O worsening distention. (La Nena Odell) Objective Vitals I&O Vital Signs Date Time Temp Pulse Resp B/P (MAP) Pulse Ox O2 Delivery O2 Flow Rate FiO2 08/29/17 06:45 98.3 64 18 144/66 95 08/29/17 06:33 98.3 66 17 147/66 93 08/29/17 06:05 98.3 70 19 138/64 94 08/29/17 06:00 82 08/29/17 04:45 98.3 64 12 120/60 96 08/29/17 04:30 98.4 64 15 122/57 95 08/29/17 04:00 80 08/29/17 04:00 98.4 67 17 122/58 (79) 96 08/29/17 03:30 98.6 67 17 124/55 97 08/29/17 03:19 98.9 67 18 129/66 95 08/29/17 02:15 98.4 68 19 114/58 97 08/29/17 02:00 86 08/29/17 01:58 98.2 66 16 123/58 96 08/29/17 00:00 96 08/29/17 00:00 99.3 68 15 113/56 (75) 95 08/28/17 22:20 98.4 69 14 115/56 98 08/28/17 22:08 98.2 69 15 113/55 98 08/28/17 22:00 92 08/28/17 21:01 98.3 77 18 111/53 94 08/28/17 20:44 98.3 75 17 102/54 99 08/28/17 20:00 93 08/28/17 20:00 98.3 84 20 77/46 (56) 96 08/28/17 18:00 58 08/28/17 16:00 98.5 59 20 149/66 (93) 92 08/28/17 16:00 59 08/28/17 14:00 59 08/28/17 12:00 62 11/6/17 12:00 98.2 62 19 152/68 (96) 95 08/28/17 10:00 49 08/28/17 08:00 98.3 57 15 155/70 (98) 95 08/28/17 08:00 57 08/28/17 07:33 94 Nasal Cannula 2.00 I/O 08/28/17 08/28/17 08/28/17 08/29/17 08/29/17 08/29/17 07:00 15:00 23:00 07:00 15:00 23:00 Intake Total 1220 ml 1820 ml 2811 ml Output Total 550 ml 2080 ml 2900 ml Balance 670 ml -260 ml -89 ml Intake Oral 500 ml 480 ml IV Total 800 ml 1000 ml 800 ml Packed Cells 400 ml 320 ml 1000 ml FFP 314 ml Cryoprecipitate 217 ml Blood Product IV Normal Saline Flush 20 ml Output Urine Total 350 ml 450 ml 400 ml Stool Total 200 ml 1630 ml 2500 ml Laboratory Laboratory Tests Test 08/28/17 09:41 08/28/17 14:14 08/28/17 18:27 08/29/17 00:34 Prothrombin Time 18.5 Prothromb Time International Ratio 1.6 Blood Urea Nitrogen 38 Creatinine 1.28 Random Glucose 161 Total Protein 5.6 Albumin 4.3 Calcium Level 8.9 Alkaline Phosphatase 35 Aspartate Amino Transf (AST/SGOT) 51 Alanine Aminotransferase (ALT/SGPT) 58 Total Bilirubin 17.6 Sodium Level 146 Potassium Level 4.0 Chloride Level 112 Carbon Dioxide Level 22.6 Anion Gap 11 Estimat Glomerular Filtration Rate 56 Ammonia 29 Hemoglobin 8.6 8.8 6.2 Hematocrit 25.2 24.6 17.9 Test 08/29/17 04:03 Prothrombin Time GREATER THAN 180.0 Prothromb Time International Ratio GREATER THAN 14.5 Activated Partial Thromboplast Time GREATER THAN 277.5 Fibrinogen LESS THAN 50 Date/Time Source Procedure Growth Status 08/27/17 10:30 Fluid Peritoneal Fluid Gram Stain - Final Resulted 08/27/17 10:30 Fluid Peritoneal Fluid Body Fluid Culture - Preliminary NO GROWTH IN 24 HOURS. Resulted Imaging Last Impressions Abdomen/Pelvis CT 08/28/17 0000 Signed Impressions: Service Date/Time: Monday, August 28, 2017 17:23 - CONCLUSION: 1. CT findings characteristic of significant cirrhosis with a small, heterogeneous and nodular liver. 2. Diffuse peritoneal ascites. Generalized anasarca with stranding in the soft tissues of the flanks 3. Findings characteristic of portal hypertension with splenomegaly. Spleen measures approximately 16 cm in diameter. 4. Cholelithiasis. 5. Small bilateral pleural effusions with concomitant atelectatic changes in the lung bases. Bernardo Demarco MD GI Bleed Scan Nuclear Medicine 08/23/17 0000 Signed Impressions: Service Date/Time: Wednesday, August 23, 2017 18:09 - CONCLUSION: Negative scan. Roel Grey MD Chest X-Ray 08/21/17 0426 Signed Impressions: Service Date/Time: Monday, August 21, 2017 04:07 - CONCLUSION: No acute disease. Antony Frederick MD Renal Ultrasound 08/21/17 0000 Signed Impressions: Service Date/Time: Monday, August 21, 2017 17:21 - CONCLUSION: Normal sized kidneys for hydronephrosis. Extensive ascites. Florin Alcala MD FACR Physical Exam HEENT: Normocephalic; atraumatic; + jaundice. CHEST: CTA CARDIAC: RRR ABDOMEN: Abdomen distended. + Ascites. Diffuse tenderness to abdomen. Bowel sounds faint. Rectal bag with red blood. EXTREMITIES: Generalized edema. SKIN: Normal; no rash; + jaundice. BUS BOY: Lethargic and oriented x 3. (La Nena Odell [facility]) Assessment and Plan Plan ASSESSMENT: - GIB with black emesis, melena, rectal bleeding. Pt with hx of liver cirrhosis , esophageal varices (last banded 2005). Last egd was at that time per patient, states he had a colonoscopy < 5 years ago at [place]. S/P EGD with band ligation (08/21/17)---> 1. Retained food and old blood-suctioned no active bleeding esophageal varices-3 columns-grade 2-s/p banding times 2 2. Retroflexed views revealed food retained. He then had rectal bleeding with significant drop in hgb on 08/23. Rpt. EGD/Colonoscopy (08/23/17)----> 1. Retained food in stomach, esophageal varices with band attached, portal gastropathy questionable AVM in antrum-cautery using balltip, no active bleeding in upper gi tract 2. Retroflexed views revealed a hiatal hernia. 1. Diverticulosis sigmoid,descending blood up to cecum, aggressive washing , no active bleeding TI -some blood noted aggressive washing done -3 l of fluid -no active bleeding noted 2. Retroflexed views revealed internal hemorrhoids 3. Retroflexed views revealed small internal hemorrhoids 4. Was performed 5. Revealed external hemorrhoids. Bleeding scan (08/23/17) negative scan. CT Scan abdomen and pelvis without contrast (08/23/17)---> Cirrhotic small liver with diffuse heterogeneity, moderate to large amount of ascitic fluid, mild splenomegaly, nonspecific nonobstructive bowel gas pattern which represent a mild ileus. Bilateral pleural effusions with consolidation in both posterior lung bases. No hematemesis, but continues to have red blood from rectal bag- 400cc this shift. Dr. Draper in to see patient re: possible TIPS. Does not feel he is a good candidate secondary to Rpt. EGD did not confirm active bleeding, Hx HCC with TACE x 4, recent admission for hepatic encephalopathy, worsening liver function- elevated bilirubin. D/W Dr. Andrews- accepted patient for tx to [place], but awaiting bed. He did recommend repeating EGD/Bleeding scan if any active bleeding to locate the source of bleeding. He put out 2,500cc of red blood overnight. HH 6.2/17.9, PT > 180.0, INR > 14.5, APTT > 277.5, Fibrinogen < 50. He has received 5 units of PRBC, 1/2 of FFP, and 1 unit of cryo. - ESLD, Cirrhosis, Liver failure. Dx 2003, secondary to alcohol and hepatitis C (Genotype 1A). He quit drinking in 2005. Hx HCC treated with chemoembolization. Currently followed at [facility] for tertiary/liver transplant evaluation- has appt September 25 in [place]. 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 Andrews [phone]. MELD 19 on admission. Now with decompensation, liver failure- MELD now 50. Severe coagulopathy. Active rectal bleeding (2,500cc overnight), HH 6.2/ 17.9, Plt 52,000, PT > 180, INR > 14.5, PTT ? 277.5, Fibrinogen < 50. Pt has been accepted at [facility]/[place], Spoke to Dr. Andrews- recommended repeating EGD vs. Bleeding Scan if active bleeding and not transferred to determine source of bleeding. Also recommended Multiphasic CT Scan abdomen and pelvis to evaluate questionable area noted in left lobe on June CT scan. CT Scan abdomen and pelvis with and without IV contrast (08/28/17)---> CT findings characteristic of significant cirrhosis with a small, heterogeneous and nodular liver. Diffuse peritoneal ascites. Generalized anasarca with stranding in the soft tissues of the flanks. Findings characteristic of portal hypertension with splenomegaly. Spleen measures approximately 16 cm in diameter. Cholelithiasis, small bilateral pleural effusions with concomitant atelectatic changes in lung bases. Message left with Dr. Andrews to return call to update on patient's condition. Spoke to [facility] Liver Buy Boat Operator, to update on condition and to see if we can expedite his transfer - Esophageal varices, 3 columns Grade II, S/P band ligation x 2 on 08/21, rpt EGD on 08/23- no active bleeding. ? questionable AVM gastric antrum, s/p cautery. Protonix gtt, Octreotide Gtt - Anemia, acute blood loss. S/P 15 units PRBC, 7 units plasma, 6 units Plt. 1 unit of Cryo. 8.4/23.9. - Thrombocytopenia, Coagulopathy. Plt 52,000, PT > 180, INR > 14.5, PTT ? 277.5 , Fibrinogen < 50. S/P Cryo, #1 of 2 FFP. - Recurrent ascites. Requires paracentesis every 2-3 weeks. Last had Monday at [place]. On albumin. S/P Bedside Paracentesis (08/24/17)---> 4.5 L removed. Cx no wbc/organisms. Now with worsening ascites/distention. - Hepatic encephalopathy. On Lactulose, Xifaxan. - HCV, Genotype 1A. S/P unsuccessfully treated with interferon and ribavirin and then Sovaldi (did not maintain sustained virologic response). - Hx HCC. Dx 2015 and underwent transcatheter arterial chemoembolization on 04/27, 06/15/16, 11/08/16, and 01/11/17. Contrasted CT scan as above. - ARTHUR, hyperkalemia, hyponatremia. Improved - Leukocytosis, Ceftriaxone - Respiratory failure. S/P extubation. - DM, OA, Depression, Anxiety, per attending. PLAN: - Clear liquids - Protonix Gtt - Octreotide Gtt - Stat CBC, PT/INR, APTT, Fibrinogen, CMP, Ammonia level - Notify GI of repeat labs - Would keep INR < 2.0 with ongoing bleeding. - Monitor HH q4h, transfuse as necessary - Cont. Albumin - Cont. Ceftriaxone - Cont. Lactulose, Xifaxan - EGD in 6 weeks - D/W Dr. Andrews yesterday, accepted at [place], awaiting bed. Pt now with worsening liver failure. Call placed to Dr. Andrews to try to expedite transfer. Will also contact Sonia (Buy Boat Operator [facility]) to update on patient's condition and try to expedite transfer [place] liver transplant evaluation. - Winch Operator at [place] (tertiary) Dr. Andrews - message left [phone]. - Sonia Fuentes Liver Buy Boat Operator [facility] (office number) - D/W Dr. Stanley - Further recommendations ot follow based on results of above - Patient seen and examined by Dr. Flores and myself and this note is written on his behalf Spoke to Dr. Andrews- updated on condition. Recommends scope today if possible to evaluate for bleeding, cultures, and adding Vanco prophylactically. Will work on expediting tx (La Nena Odell) Physician Comments Seen and examined with La Nena, plan as above. Will keep NPO for now, correct coagulopathy and keep in contact with the transplant team in [place]. Further recommendations to follow. (Rajat Flores MD) La Nena Odell Aug 29, 2017 07:58 Rajat Flores MD Aug 29, 2017 08:52
[2017-08-29] MEDS ORDERED: VANCOMYCIN INJ 1,000 MG in SODIUM CHLOR 0.9% 250 ML INJ 250 ML IV SCH (08:00)
[2017-08-29] MEDS ORDERED: Vancomycin Consult Pharmacy 1 EA OTHER SCH (08:45)
[2017-08-29] MEDS: VANCOMYCIN INJ 1,250 MG in SODIUM CHLOR 0.9% 250 ML INJ 250 ML IV SCH (09:52)
--- NOTE | 2017-08-29 10:20 | HHI.CCPN ---
Subjective Remarks/Hospital Course 66-year-old gentleman with end-stage liver disease, chronic hepatitis C status post unsuccessful treatment with therapy now awaiting a liver transplant comes in complaining of melena 3 days and vomiting blood that began yesterday. [facility] his refractory ascites from his cirrhosis. Patient states since that is been having the melena. He denies any fevers, chest pain, shortness of breath, or headaches. Patient denies anything making this better or worse. Patient reports feeling weak and nauseated. Patient denies anything like this in the past. Denies being on any blood thinners. 08/21: Hypotensive, SBP in low 70's. 1 L normal saline bolus and 25, albumin stat ordered. IV Protonix changed to infusion. Start vasopressin if needed to keep map above 65. Hemoglobin 6.7 hematocrit 19.6. Transfuse 3 units PRBC stat. GI consult pending. Will need EGD-patient has history of esophageal varices but last endoscopy per patient was in 2005. Patient has two 18 G IV. Also platelet count has dropped to 67 will give 2 units of platelets and 1 unit of FFP 08/22: No GI bleed overnight. Hemodynamically has stabilized. Remains on IV Protonix infusion and octreotide infusion. A.m. labs are pending. Underwent endoscopy yesterday with findings of esophageal varices and gastritis. Underwent esophageal variceal banding 2 08/23: Reconsulted by hepatocellular in for acute GI hemorrhage passing bright red blood per rectum. Hemoglobin has dropped to 5.2. INR is 2 today with platelet count of 49. Start transfusion of 3 units PRBC, 2 units of FFP, 2 units of platelets ordered. I will also restarted the Protonix infusion and will continue octreotide infusion. GI contacted emergently 08/24: Patient remains intubated sedated. Small amount of bleeding per rectum overnight. Tagged RBC scan did not show any active bleeding. Hemoglobin 7.7 ( received 3 units PRBC, 2 units of platelets and 2 units of FFP yesterday). Will leave intubated until hemodynamically optimized, and no further GI bleed. Proceed with paracentesis today 08/25: Hemoglobin remains stable at 9.3. Following commands, tolerated spontaneous breathing trial. Wean to extubation. No further GI bleed [facility] RECONSULT NOTE 08/27/17: Patient started having active GI bleed again with bright red blood per rectum. Hemoglobin dropped from 9.1 to 7.4. Received 2 units of PRBC with hemoglobin now 8.7 initially of active GI bleed. GI had been contacted their contacting IR for possible TIPS procedure. I have last for 2 units FFP and 2 units platelets transfused stat. Restart Protonix infusion restarted bolus and infusion of octreotide. Patient has also developed tense ascites which I will drain emergently after 25 GM IV albumin 08/28 - patient to be transferred to [facility]. Remains on Sandostatin and pantoprazole drips. Transfused 2 PRBCs and 2 FFP overnight. Subjective 08/29: Transfused 2 units PRBCs overnight again due to bright red blood per rectum. Objective Vital Signs Date Time Temp Pulse Resp B/P (MAP) Pulse Ox O2 Delivery O2 Flow Rate FiO2 08/29/17 10:05 92 21 08/29/17 09:14 98.4 93 20 155/70 08/28/17 07:33 Nasal Cannula 2.00 Intake and Output 08/29/17 08/29/17 08/30/17 08:00 16:00 00:00 Intake Total 2311 ml 780 ml Output Total 2900 ml Balance -589 ml 780 ml Result Diagram: 08/29/17 0034 08/28/17 0941 Imaging Last Impressions GI Bleed Scan Nuclear Medicine 08/23/17 0000 Signed Impressions: Service Date/Time: Wednesday, August 23, 2017 18:09 - CONCLUSION: Negative scan. Roel Grey MD Abdomen/Pelvis CT 08/23/17 0000 Signed Impressions: Service Date/Time: Wednesday, August 23, 2017 20:45 - CONCLUSION: 1. Cirrhotic small liver with diffuse heterogeneity. 2. Moderate to large amount of ascitic fluid. 3. Mild splenomegaly. 4. Nonspecific nonobstructive bowel gas pattern which represent a mild ileus. 5. Bilateral pleural effusions with consolidation in both posterior lung bases. Roel Grey MD Chest X-Ray 08/21/17 0426 Signed Impressions: Service Date/Time: Monday, August 21, 2017 04:07 - CONCLUSION: No acute disease. Antony Frederick MD Renal Ultrasound 08/21/17 0000 Signed Impressions: Service Date/Time: Monday, August 21, 2017 17:21 - CONCLUSION: Normal sized kidneys for hydronephrosis. Extensive ascites. Florin Alcala MD FACR Objective Remarks GENERAL: 66-year-old male, resting in bed in no acute distress SKIN: Warm and dry. Pallor present, severe jaundice HEAD: Normocephalic. ENT: Oral cavity is widely dry and pink. Oropharynx without erythema. EYES: + Scleral icterus. No injection or drainage. NECK: Supple, trachea midline. No JVD or lymphadenopathy. CARDIOVASCULAR: S1-S2 normal no S4. Without murmur RESPIRATORY: Breath sounds equal bilaterally. No accessory muscle use. GASTROINTESTINAL: Abdomen tense, distended. Large ascites on bedside : + Scrotal edema MUSCULOSKELETAL: No significant peripheral edema. NEURO EXAM: Patient is alert awake oriented. He is anxious but follows commands Procedures EGD WITH BANDING 08-27 paracentesis 6.3 liters off A/P Assessment and Plan NEURO: Hepatic encephalopathy - F/u ammonia, continue lactulose 30 cc twice a day and rifaximin 540 mg twice a day due to active GIB - On temazepam 15 mg at night when necessary insomnia RESP: Acute respiratory failure-resolved - Extubated 08/25 (Intubation was for procedure) - Nasal cannula to maintain saturations greater than equal to 92% - Incentive spirometry while awake -Albuterol nebulizers every 2 hours. Dyspnea GI/HEME Recurrent Variceal bleed grade 2 esophageal Hypotension/hemorrhagic shock Anemia requiring transfusion HCC Thrombocytopenia Coagulopathy Tense ascites - Status post EGD and banding of esophageal varices 08/21/17. Also has gastritis - Now with re bleed 08/28 overnight. Requiring 2 units PRBC. - Restart Sandostatin drip at 50 mg an hour, IV pantoprazole gtt at 8 mg an hour , ceftriaxone 1 g daily for SBP prophylaxis - NPO. GI Dr. Killian contacting [place] for possible TIPS - Paracentesis 08/24 with 4.5L removed. Repeat paracentesis 08/27 6.3 L ENDO: Diabetes mellitus - Hold insulin glargine while nothing by mouth - Insulin sliding scale Novulin R every 6 before meals/at bedtime moderate regimen ID: Hepatitis C - Status post unsuccessful treatment - Awaiting liver transplant, followed by [facility] - Ceftriaxone for SBP prophylaxis : Hyperkalemia-resolved Acute kidney injury/probable hepatorenal syndrome - Nephrology following - Creatinine improving, urine output adequate - Worsening transaminitis due to hypotension, now stable DVT GI prophylaxis - Teds SCDs. No pharmacological DVT prophylaxis due to active bleed - Protonix gtt Level III follow-up Noted gross GI bleeding at approximately noon. Transfused 8 PRBC, 4 FFP, 2 cryo -and 2 platelets. Received K Centra 1500 units 1. Paracentesis 2 L 1 as well. Unable to transfer safely to [place] due to active bleeding. I unable to embolize visual vessels. Dr. Flores EGD with likely gastric varices worse. Again, spoke with IR. Not a candidate for TIPS. Recommend a balloon occluded retrograde transhepatic obliteration. Social work contacted to transfer patient tonight if able. Serial hemoglobins and coags and transfuse as able in the interim. Spoke with Dr. Flores. Do not believe esophageal Jaky balloon indicated as source is likely gastric. Fidel Sotomayor MD Aug 29, 2017 10:20
[2017-08-29 10:43] LABS: AUTOMATED NEUTROPHIL # 3.9 TH/MM3 (1.8-7.7); BASOPHIL % 0.6 % (0.0-2.0); EOSINOPHIL # 0.1 TH/MM3 (0-0.4); EOSINOPHIL % 1.8 % (0.0-4.0); HEMATOCRIT 27.6 % (39.0-51.0); HEMOGLOBIN 9.6 GM/DL (13.0-17.0); LYMPH % 6.7 % (9.0-44.0); LYMPHOCYTE # 0.3 TH/MM3 (1.0-4.8); MEAN CELL VOLUME 88.6 FL (80.0-100.0); MEAN CORPUSCULAR HEMOGLOBIN 30.9 PG (27.0-34.0); MEAN CORPUSCULAR HGB CONC 34.9 % (32.0-36.0); MEAN PLATELET VOLUME 8.3 FL (7.0-11.0); MONO % 11.7 % (0.0-8.0); MONOCYTE # 0.6 TH/MM3 (0-0.9); NEUT % 79.2 % (16.0-70.0); PLATELET COUNT 37 TH/MM3 (150-450); RED BLOOD COUNT 3.11 MIL/MM3 (4.50-5.90); WHITE BLOOD COUNT 4.9 TH/MM3 (4.0-11.0)
[2017-08-29 10:51] LABS: ALBUMIN 4.2 GM/DL (3.4-5.0); AST (GOT) 183 U/L (15-37); BICARBONATE 21.4 MEQ/L (21.0-32.0); BLOOD UREA NITROGEN 34 MG/DL (7-18); CALCIUM 8.9 MG/DL (8.5-10.1); CHLORIDE 112 MEQ/L (98-107); CREATININE 1.25 MG/DL (0.60-1.30); GLOMERULAR FILTRATION RATE 58 ML/MIN (>89); GLUCOSE,RANDOM 179 MG/DL (74-106); MAGNESIUM 2.2 MG/DL (1.5-2.5); SODIUM (NA) 144 MEQ/L (136-145)
[2017-08-29 10:56] LABS: INTERNATIONAL NORMALIZED RATIO 1.5 RATIO; PROTHROMBIN TIME - PATIENT 17.4 SEC (9.8-11.6)
[2017-08-29 11:04] LABS: ALKALINE PHOSPHATASE 35 U/L (45-117); ALT (GPT) 88 U/L (12-78); FREE T4 0.77 NG/DL (0.76-1.46); PHOSPHORUS 1.8 MG/DL (2.5-4.9); TOTAL BILIRUBIN ADULT 19.1 MG/DL (0.2-1.0); TOTAL PROTEIN 5.5 GM/DL (6.4-8.2)
[2017-08-29 11:29] LABS: BANDS 24 % (0-6); BASOPHILS 1 % (0-2); LYMPHOCYTES 11 % (9-44); MONOCYTES 7 % (0-8); NEUTROPHIL # MANUAL DIFF 3.9 TH/MM3 (1.8-7.7); POLYS (SEG NEUTROPHILS) 56 % (16-70)
[2017-08-29 11:30] LABS: TOXIC GRANULATION 2+ (NORMAL)
[2017-08-29 12:25] LABS: HEMATOCRIT 20.2 % (39.0-51.0); HEMOGLOBIN 6.9 GM/DL (13.0-17.0)
[2017-08-29 12:40] LABS: AMYLASE BODY FLUID 24 U/L; AMYLASE BODY FLUID TYPE PERITONEAL
[2017-08-29] MEDS ORDERED: TERBUTALINE INJ 1 MG/ML AMP SQ PRN ×3 (12:45→23:45)
--- NOTE | 2017-08-29 12:51 | OTSOAPIP ---
PATIENT HAVING A BEDSIDE PROCEDURE UNAVAILABLE. WILL REATTEMPT TOMORROW. Therapist: Rosa Ruano OTR/L Signature on file
--- NOTE | 2017-08-29 12:51 | OTSOAPIP ---
PATIENT HAVING A BEDSIDE PROCEDURE UNAVAILABLE. WILL REATTEMPT TOMORROW. Therapist: Rosa Ruano OTR/L Signature on file
--- NOTE | 2017-08-29 12:51 | OTSOAPIP ---
PATIENT HAVING A BEDSIDE PROCEDURE UNAVAILABLE. WILL REATTEMPT TOMORROW. Therapist: Rosa Ruano OTR/L Signature on file
[2017-08-29] MEDS ORDERED: SODIUM CHLOR 0.9% 250 ML INJ 250 ML IV ONE (13:00)
--- NOTE | 2017-08-29 13:19 | PD.PROCEDR ---
Central Line Procedure REASON FOR PROCEDURE Central venous access PROCEDURE PERFORMED Central line placement: 08/29/2017 CONSENT Informed consent for procedure was obtained. The risks and benefits of the procedure were discussed to include but limited to bleeding, clot formation, infection, and even . ANESTHESIA Local injection of 1% Lidocaine DESCRIPTION OF THE PROCEDURE The patient was placed in supine, mild Trendelenburg position. The area was exposed and cleansed with ChloraPrep, times two. Large sterile drape was used to cover the patient, with the site exposed, under sterile conditions including cap, face mask, sterile gown, and sterile gloves. On single attempt, the introducer needle was inserted with negative pressure in syringe and venous flash was obtained. The guide wire was then advanced without any restriction and the needle was removed. The dilator was used without any complications. Using Seldinger technique the 8.5 Mongolian 10 cm Cordis catheter was advanced over the guide wire to a depth of 10 centimeters. The guide wire was removed. All ports were aspirated with dark venous blood return and flushed easily with sterile saline. All ports were capped. Antibiotic disc was placed around central line at puncture site. The central line was secured to the skin with two interrupted 2.0 silk sutures. The area was bandaged with sterile see- through central line bandage. RADIOLOGICAL DATA Ultrasound guidance was used to locate right internal jugular vein. Doppler/ color flow was used to confirm venous flow. COMPLICATIONS: No apparent complications ESTIMATED BLOOD LOSS: Less than 1 cc. Fidel Sotomayor MD Aug 29, 2017 13:19
[2017-08-29] MEDS ORDERED: PHYTONADIONE INJ 10 MG in SODIUM CHLORIDE 0.9% INJ 50 ML IV ONE (13:30)
[2017-08-29] MEDS ORDERED: SODIUM CHLORIDE 0.9% FLUSH 10 ML FLUSH IV FLUSH PRN (13:30)
[2017-08-29] MEDS ORDERED: PROTHROMBIN COMPLEX CONC INJ 1,500 UNITS in SYRINGE/BAG 1 EA IV ONE (14:00)
--- NOTE | 2017-08-29 14:19 | RADRPT ---
EXAM DATE/TIME: 08/29/2017 13:37 [place] COMPARISON: CHEST SINGLE AP, August 21, 2017, 4:07. CT ABDOMEN & PELVIS W & W/O CONTRAST, August 28, 2017, 17 :23. INDICATIONS : Central line placement. MEDICAL HISTORY : Hepatitis C. Cirrhosis, Carcinoma of the liver. SURGICAL HISTORY : None. ENCOUNTER: Initial ACUITY: 1 week PAIN SCORE: 0/10 LOCATION: Bilateral chest FINDINGS: Right IJ central line with tip in the central SVC. No significant pneumothorax. Low lung volumes with bilateral lower lobe airspace disease and likely small pleural effusions. Cardiome stump contours ar e within normal limits. Bony thorax is intact. CONCLUSION: 1. Right IJ central line in the SVC without pneumothorax. 2. Mild bilateral lower lobe airspace disease and associated small pleural effusions, presumably comp ressive atelectasis. Ajay Waterman MD on August 29, 2017 at 14:15 Board Certified Radiologist. This report was verified electronically.
[2017-08-29 14:31] LABS: MEAN CELL VOLUME 86.9 FL (80.0-100.0); MEAN CORPUSCULAR HEMOGLOBIN 29.9 PG (27.0-34.0); MEAN CORPUSCULAR HGB CONC 34.5 % (32.0-36.0); MEAN PLATELET VOLUME 7.9 FL (7.0-11.0); PLATELET COUNT 60 TH/MM3 (150-450); RED BLOOD COUNT 2.18 MIL/MM3 (4.50-5.90); RED CELL DISTRIBUTION WIDTH 14.8 % (11.6-17.2); WHITE BLOOD COUNT 7.5 TH/MM3 (4.0-11.0)
[2017-08-29 14:32] LABS: HEMATOCRIT 18.9 % (39.0-51.0); HEMOGLOBIN 6.5 GM/DL (13.0-17.0)
[2017-08-29 14:41] LABS: INTERNATIONAL NORMALIZED RATIO 1.2 RATIO; PROTHROMBIN TIME - PATIENT 13.6 SEC (9.8-11.6)
[2017-08-29 14:58] LABS: BICARBONATE 22.1 MEQ/L (21.0-32.0); CALCIUM 7.7 MG/DL (8.5-10.1); CREATININE 1.23 MG/DL (0.60-1.30); MAGNESIUM 1.9 MG/DL (1.5-2.5); PHOSPHORUS 2.5 MG/DL (2.5-4.9)
[2017-08-29] MEDS ORDERED: CALCIUM GLUCONATE INJ 1 GM in SODIUM CHLORIDE 0.9% INJ 100 ML IV ONE (16:00)
[2017-08-29] MEDS: SODIUM CHLOR 0.45% 1000 ML INJ 1,000 ML IV SCH (16:45)
[2017-08-29] MEDS ORDERED: CALCIUM GLUCONATE INJ 1 GM in DEXTROSE 5% IN WATER 100ML INJ 100 ML IV ONE ×2 (16:45)
--- NOTE | 2017-08-29 16:48 | PD.PROCEDR ---
Procedure Note Procedure DATE: 08/29/2017 Paracentesis/ultrasound-guided INDICATION: Abdominal ascites CONSENT Informed consent for procedure was obtained. DESCRIPTION OF THE PROCEDURE A timeout was performed. The patient was was positioned, prepped and draped in a sterile fashion. The skin was cleansed with Chloraprep. Additional barrier precautions included large sterile drape, sterile gloves, sterile gown, face mask, and hat. 1 % lidocaine was used for local anesthesia. Under direct ultrasound guidance and on initial attempt, a standard paracentesis Needle was introduced into the previously placed and 50 cc of clear yellow fluid was removed and sent for cell count, Gram stain, bacterial culture and albumin levels. See infectious disease for further sample sent. Approximate 2.1 L was removed without complication. Catheter was removed with no obvious complications post procedure. ESTIMATED BLOOD LOSS: Minimal COMPLICATIONS: No apparent complications. Fidel Sotomayor MD Aug 29, 2017 16:48
[2017-08-29 16:57] LABS: HEMOGLOBIN 7.9 GM/DL (13.0-17.0); MEAN CELL VOLUME 88.7 FL (80.0-100.0); MEAN CORPUSCULAR HEMOGLOBIN 30.6 PG (27.0-34.0); MEAN CORPUSCULAR HGB CONC 34.5 % (32.0-36.0); MEAN PLATELET VOLUME 7.4 FL (7.0-11.0); PLATELET COUNT 51 TH/MM3 (150-450); RED BLOOD COUNT 2.59 MIL/MM3 (4.50-5.90); RED CELL DISTRIBUTION WIDTH 15.2 % (11.6-17.2); WHITE BLOOD COUNT 7.9 TH/MM3 (4.0-11.0)
[2017-08-29 17:16] LABS: INTERNATIONAL NORMALIZED RATIO 1.3 RATIO; PROTHROMBIN TIME - PATIENT 15.1 SEC (9.8-11.6)
[2017-08-29] MEDS ORDERED: MIDAZOLAM HCL 2 MG/2 ML VIAL ONE (17:51)
[2017-08-29 18:36] LABS: TOTAL PROTEIN,PERITONEAL FLUID 1.5 GM/DL
--- NOTE | 2017-08-29 18:37 | PD.RAD ---
Post Procedure Progress Note Pre Procedure Diagnosis: (1) GI bleed (2) Cirrhosis (3) Liver cancer Post Procedure Diagnosis: (1) Noncompliance (2) Cirrhosis (3) Liver cancer (4) Hepatitis C Procedure Date: Aug 29, 2017 Supervising Radiologist: Bernardo Demarco Proceduralist/Assist: SHIRAZ Michele, RT(R)(CV), Sulma Dover, RT(R) Anesthesia: Local, Analgesia, Conscious Sedation Plan of Activity Patient to Unit: Critical Care Patient Condition: Fair See PACS Report for procedural detail/treatment Vascular-Arterial Procedure Procedure 1 Procedure Site: Abdominal (JUAREZ) Procedure(s): Angiogram Access Access Site(s): Right Femoral Artery Closure Site(s): Right vascular closure device (PerClose) Findings: No JUAREZ bleed identified. Bernardo Demarco MD Aug 29, 2017 18:37
[2017-08-29] MEDS ORDERED: IODIXANOL 320 MG/ML 50 ML VIAL (for RAD SPEC) I-ARTERIAL ONE (18:40)
[2017-08-29 18:42] LABS: HEMOGLOBIN A1C 5.4 % (4.3-6.0)
--- NOTE | 2017-08-29 18:59 | MB ---
cc: ZOEY SLAUGHTER M.D. DATE OF CONSULTATION 08/29/2017 REASON FOR CONSULTATION Consult requested by social services designee for evaluation of severe coagulopathy. HISTORY OF PRESENT ILLNESS Romario is a 66-year-old male. He has a history of hepatitis C, liver cirrhosis and hepatocellular carcinoma. He had previously had TACE procedure for the liver cancer last year and his cancer has improved. Those records are not available. He has been followed at the [facility]. The patient he is admitted to the hospital for GI bleeding. The patient is found to have severe coagulopathy. GI has been consulted. The patient had rectal bag which is full of blood. The patient has been getting several blood products including FFP, cryoprecipitate, platelet transfusion and blood transfusion. I have been asked to see him for further evaluation. The patient is awake, alert. He has the rectal bag which shows a lot of blood. This morning his PT was greater than 180, INR was greater 14.5, APTT was more than 277. Fibrinogen is less than 50. The patient has received FFP and cryoprecipitate. Another PT/INR will be drawn shortly. The patient is going to be transferred to [place] for evaluation of liver transplant. He is waiting for a bed to be opened up. PAST MEDICAL HISTORY 1. Hepatitis C. 2. Liver cirrhosis. 3. Hepatocellular carcinoma. 4. Diabetes mellitus. 5. Arthritis. 6. Depression. 7. Anxiety. 8. Hepatic encephalopathy. 9. Insomnia. PAST SURGICAL HISTORY 1. TACE procedure for hepatocellular carcinoma. 2. Hand surgery. 3. Upper endoscopy. 4. Colonoscopy. 5. And banding procedure for the esophageal varices. ALLERGIES None. MEDICATIONS Please see EMR. FAMILY HISTORY Noncontributory. SOCIAL HISTORY The patient does not smoke cigarettes, does not drink alcohol anymore. PHYSICAL EXAMINATION GENERAL: This is a well-developed, well-nourished white male who is in no distress. VITAL SIGNS: Temperature 98.4, heart rate is 60, blood pressure 152/74, O2 saturation 92%. HEENT: Pupils equal, round, reactive to light and accommodation. Extraocular muscles intact. Sclerae is icteric. No oral lesions noted. LYMPHATICS: No lymphadenopathy noted. LUNGS: Decreased breath sounds on both sides. HEART: Regular rate and rhythm. ABDOMEN: Soft. Ascites noted. EXTREMITIES: Edema noted. NEUROLOGICAL: Awake and alert, oriented times three. SKIN: No significant lesions noted. ASSESSMENT 1. Severe coagulopathy due to liver failure. 2. Hepatitis C with liver cirrhosis. 3. Hepatocellular carcinoma status post TACE procedure. 4. GI bleeding. PLAN I have reviewed his available records and I have discussed with the patient and his nurse. The patient's hemoglobin dropped last night from 8.8-6.2. The coagulation studies also came back severely abnormal. The patient had received blood, platelets, cryo and now he is getting plasma. Repeat CBC and coagulation test will be drawn shortly after the plasma infusion. Unfortunately there is nothing more can be done except to manage him with the blood product support for the coagulopathy. He has liver failure which is causing severe coagulopathy. The patient has been getting aggressive treatment for the GI bleeding. He is waiting for a bed to be opened at [place] to be transferred. His prognosis appears to be poor. My recommendation is to monitor his coags and CBC every 6 hours and give him blood products as you have been doing it. Thank you for asking my opinion. MD NELIA Franklin/GLENN /6:04 PM /6:32 PM
[2017-08-29 19:01] LABS: BICARBONATE 19.3 MEQ/L (21.0-32.0); CALCIUM 7.6 MG/DL (8.5-10.1); CREATININE 1.23 MG/DL (0.60-1.30)
--- NOTE | 2017-08-29 19:49 | GIPROC ---
[facility] [address] [facility]. [facility], [address] EGD PROCEDURE REPORT EXAM DATE: 08/29/2017 PATIENT NAME: Donavan Santana MR #: [id number] BIRTHDATE: 1950 ATTENDING: Rajat Flores MD ORDER #: [id number] INTERNET SALES REPRESENTATIVE: Sol Bellamy and Harmony Joseph STATUS: inpatient INDICATIONS: The patient is a 66 yr old male here for an EGD due to hematemesis PROCEDURE PERFORMED: EGD, diagnostic MEDICATIONS: None and Per Anesthesia. TOPICAL ANESTHETIC: none CONSENT: The patient understands the risks and benefits of the procedure and understands that these risks include, but are not limited to: sedation, allergic reaction, infection, perforation and/or bleeding. Alternative means of evaluation and treatment include, among others: physical exam, x-rays, and/or surgical intervention. The patient elects to proceed with this endoscopic procedure. medical equipment was checked for proper function. Hand hygiene and appropriate measures for infection prevention was taken. After the risks, benefits and alternatives of the procedure were thoroughly explained, Informed consent was verified, confirmed and timeout was successfully executed by the treatment team. The patient was anesthetized with topical anesthesia and the Pentax EG-[id number] endoscope was introduced through the mouth and advanced to the stomach body. Retroflexion was not performed The gastroscope was then slowly withdrawn and removed. ESOPHAGUS: Fresh blood clotting was found in the entire esophagus. STOMACH: Fresh blood covering the entire stomach and unable to visulaize the mucosa. ADVERSE EVENTS: There were no complications. IMPRESSIONS: 1. Blood in the entire esophagus 2. Fresh blood covering the entire stomach and unable to visulaize the mucosa 3. Large amount of blood and clots limiting visualization of the lumen despite continues lavage. RECOMMENDATIONS: TIPS ICU care Blood transfusion FFP and Platelates transfusion. PATIENT CONDITION: stable DISPOSITION: Observation REPEAT EXAM: NONE Rajat Flores MD eSigned: Rajat Flores MD 08/29/2017 7:48 PM cc:
--- NOTE | 2017-08-29 19:49 | GIPROC ---
[facility] [address] [facility]. [facility], [address] EGD PROCEDURE REPORT EXAM DATE: 08/29/2017 PATIENT NAME: Donavan Santana MR #: [id number] BIRTHDATE: 1950 ATTENDING: Rajat Flores MD ORDER #: [id number] SWEEPER DRIVER: Sol Bellamy and Harmony Joseph STATUS: inpatient INDICATIONS: The patient is a 66 yr old male here for an EGD due to hematemesis PROCEDURE PERFORMED: EGD, diagnostic MEDICATIONS: None and Per Anesthesia. TOPICAL ANESTHETIC: none CONSENT: The patient understands the risks and benefits of the procedure and understands that these risks include, but are not limited to: sedation, allergic reaction, infection, perforation and/or bleeding. Alternative means of evaluation and treatment include, among others: physical exam, x-rays, and/or surgical intervention. The patient elects to proceed with this endoscopic procedure. medical equipment was checked for proper function. Hand hygiene and appropriate measures for infection prevention was taken. After the risks, benefits and alternatives of the procedure were thoroughly explained, Informed consent was verified, confirmed and timeout was successfully executed by the treatment team. The patient was anesthetized with topical anesthesia and the Pentax EG-[id number] endoscope was introduced through the mouth and advanced to the stomach body. Retroflexion was not performed The gastroscope was then slowly withdrawn and removed. ESOPHAGUS: Fresh blood clotting was found in the entire esophagus. STOMACH: Fresh blood covering the entire stomach and unable to visulaize the mucosa. ADVERSE EVENTS: There were no complications. IMPRESSIONS: 1. Blood in the entire esophagus 2. Fresh blood covering the entire stomach and unable to visulaize the mucosa 3. Large amount of blood and clots limiting visualization of the lumen despite continues lavage. RECOMMENDATIONS: TIPS ICU care Blood transfusion FFP and Platelates transfusion. PATIENT CONDITION: stable DISPOSITION: Observation REPEAT EXAM: NONE Rajat Flores MD eSigned: Rajat Flores MD 08/29/2017 7:48 PM cc:
--- NOTE | 2017-08-29 19:49 | GIPROC ---
[facility] [address] [facility]. [facility], [address] EGD PROCEDURE REPORT EXAM DATE: 08/29/2017 PATIENT NAME: Donavan Santana MR #: [id number] BIRTHDATE: 1950 ATTENDING: Rajat Flores MD ORDER #: [id number] WILDLIFE SCIENCE PROFESSOR: Sol Bellamy and Harmony Jospeh STATUS: inpatient INDICATIONS: The patient is a 66 yr old male here for an EGD due to hematemesis PROCEDURE PERFORMED: EGD, diagnostic MEDICATIONS: None and Per Anesthesia. TOPICAL ANESTHETIC: none CONSENT: The patient understands the risks and benefits of the procedure and understands that these risks include, but are not limited to: sedation, allergic reaction, infection, perforation and/or bleeding. Alternative means of evaluation and treatment include, among others: physical exam, x-rays, and/or surgical intervention. The patient elects to proceed with this endoscopic procedure. medical equipment was checked for proper function. Hand hygiene and appropriate measures for infection prevention was taken. After the risks, benefits and alternatives of the procedure were thoroughly explained, Informed consent was verified, confirmed and timeout was successfully executed by the treatment team. The patient was anesthetized with topical anesthesia and the Pentax EG-[id number] endoscope was introduced through the mouth and advanced to the stomach body. Retroflexion was not performed The gastroscope was then slowly withdrawn and removed. ESOPHAGUS: Fresh blood clotting was found in the entire esophagus. STOMACH: Fresh blood covering the entire stomach and unable to visulaize the mucosa. ADVERSE EVENTS: There were no complications. IMPRESSIONS: 1. Blood in the entire esophagus 2. Fresh blood covering the entire stomach and unable to visulaize the mucosa 3. Large amount of blood and clots limiting visualization of the lumen despite continues lavage. RECOMMENDATIONS: TIPS ICU care Blood transfusion FFP and Platelates transfusion. PATIENT CONDITION: stable DISPOSITION: Observation REPEAT EXAM: NONE Rajat Flores MD eSigned: Rajat Flores MD 08/29/2017 7:48 PM cc:
[2017-08-29] MEDS ORDERED: fentaNYL DRIP 250 ML IV PRN (21:15)
[2017-08-29] MEDS ORDERED: PROPOFOL 1000 MG/100 ML INJ 100 ML IV PRN (21:15)
[2017-08-29 21:20] LABS: PERITONEAL HISTIOCYTES 4 %; PERITONEAL LYMPHS 36 %; PERITONEAL MESOTHELIAL 1 %; PERITONEAL MONOS 4 %; PERITONEAL POLYS(SEGS) 55 %; PERITONEAL RBC 7495 /MM3 (0-0)
[2017-08-29] MEDS: MAGNESIUM SULFATE 1 GM PREMIX 100 ML IV SCH ×2 (21:33→23:09)
[2017-08-29 22:07] LABS: HEMATOCRIT 23.2 % (39.0-51.0)
[2017-08-29] MEDS: PHENYLEPHRINE 40 MG in D5W 500 ML IV PRN (23:16)
[2017-08-29] MEDS ORDERED: ALBUMIN 5% INJ 500 ML IV ONE (23:30)
[2017-08-29] MEDS ORDERED: SODIUM CHLOR 0.9% 1000 ML INJ 1,000 ML IV ONE ×2 (23:45)
[2017-08-29] MEDS ORDERED: NOREPINEPHRINE-DEXTROSE DRIP 250 ML IV PRN (23:45)
[2017-08-30] VITALS (7 sets, daily range): BP systolic 44–69; BP diastolic 23–30; PULSE 85–125; RESP 17–43; TEMP 97.9; O2SAT 92–100
[2017-08-30] MEDS ORDERED: VASOPRESSIN 20 UNITS/ML VIAL (IVTITR) ONE (00:23)
[2017-08-30] MEDS: OCTREOTIDE INJ 500 MCG in SODIUM CHLORID 0.9% 500 ML INJ 499.5 ML IV SCH (00:38)
[2017-08-30] MEDS: ALBUMIN 25% INJ 100 ML IV SCH (00:40)
[2017-08-30] MEDS: VASOPRESSIN INJ 40 UNITS in DEXTROSE 5% IN WATER 100ML INJ 98 ML IV SCH ×4 (00:41→03:29)
[2017-08-30] MEDS: cefTRIAXone INJ 1,000 MG in SODIUM CHLORIDE 0.9% INJ 100 ML IV SCH (02:00)
[2017-08-30 02:14] LABS: INTERNATIONAL NORMALIZED RATIO 1.5 RATIO; PROTHROMBIN TIME - PATIENT 16.7 SEC (9.8-11.6)
[2017-08-30] MEDS ORDERED: EPINEPHrine HCL (1:1000) 1 MG/ML VIAL ONE (02:24)
[2017-08-30] MEDS ORDERED: EPINEPHrine (1:1000) INJ 2 MG in DEXTROSE 5% IN WATER INJ 250 ML IV PRN ×4 (02:30)
[2017-08-30] MEDS: PHENYLEPHRINE 40 MG in D5W 500 ML IV PRN (02:37)
[2017-08-30 02:38] LABS: HEMATOCRIT 10.3 % (39.0-51.0); HEMOGLOBIN 3.4 GM/DL (13.0-17.0)
[2017-08-30] MEDS: SODIUM CHLOR 0.45% 1000 ML INJ 1,000 ML IV SCH (02:45)
[2017-08-30] MEDS ORDERED: PROTHROMBIN COMPLEX IV ONE (03:00)
[2017-08-30 03:06] LABS: INTERNATIONAL NORMALIZED RATIO 2.1 RATIO; PROTHROMBIN TIME - PATIENT 24.5 SEC (9.8-11.6)
[2017-08-30] MEDS: VANCOMYCIN INJ 1,250 MG in SODIUM CHLOR 0.9% 250 ML INJ 250 ML IV SCH (04:00)
[2017-08-30] MEDS ORDERED: CHLORHEXIDINE 0.12% (ORAL KIT) 15 ML CUP MT SCH (08:00)
[2017-08-30] MEDS ORDERED: SODIUM CHLORIDE 0.9% FLUSH 10 ML FLUSH IV FLUSH SCH (09:00)
--- NOTE | 2017-08-30 15:12 | HHI.DS ---
Summary Note Date of : Aug 30, 2017 Time Of : 0559 Admission Date Aug 21, 2017 at 00:36 Admitting Diagnosis GI Bleed, acute renal failure, hyperkalemia Diagnosis at Time of : (1) GI bleed ICD Code: K92.2 - Gastrointestinal hemorrhage, unspecified Diagnosis: Principal (2) Hepatitis C ICD Code: B19.20 - Unspecified viral hepatitis C without hepatic coma Diagnosis: Secondary (3) Liver cancer ICD Code: C22.9 - Malignant neoplasm of liver, not specified as primary or secondary Diagnosis: Principal (4) Acute kidney insufficiency ICD Code: N28.9 - Disorder of kidney and ureter, unspecified Diagnosis: Principal (5) Cirrhosis ICD Code: K74.60 - Unspecified cirrhosis of liver Diagnosis: Secondary (6) Diabetes mellitus ICD Code: E11.9 - Type 2 diabetes mellitus without complications Diagnosis: Secondary Procedures EGD WITH BANDING EGD - likely gastric varices. 08-27 paracentesis 6.3 liters off 08/29 paracentesis 2.1 L Right IJ Cordis 08/29 - Brief History 66-year-old gentleman with end-stage liver disease, chronic hepatitis C status post unsuccessful treatment with DuoNeb therapy now awaiting a liver transplant comes in complaining of melena 3 days and vomiting blood that began yesterday. [facility] to his refractory ascites from his cirrhosis. Patient states since that is been having the melena. He denies any fevers, chest pain, shortness of breath, or headaches. Patient denies anything making this better or worse. Patient reports feeling weak and nauseated. Patient denies anything like this in the past. Denies being on any blood thinners. CBC/BMP: 08/30/17 0215 08/29/17 1641 Significant Findings Laboratory Tests Test 08/27/17 18:43 08/28/17 05:09 08/28/17 09:41 08/28/17 14:14 Hemoglobin 7.5 GM/DL (13.0-17.0) 8.4 GM/DL (13.0-17.0) 8.6 GM/DL (13.0-17.0) Hematocrit 21.3 % (39.0-51.0) 23.9 % (39.0-51.0) 25.2 % (39.0-51.0) Red Blood Count 2.57 MIL/MM3 (4.50-5.90) Platelet Count 52 TH/MM3 (150-450) Neutrophils (%) (Auto) 76.2 % (16.0-70.0) Lymphocytes (%) (Auto) 8.6 % (9.0-44.0) Monocytes (%) (Auto) 12.4 % (0.0-8.0) Lymphocytes # (Auto) 0.3 TH/MM3 (1.0-4.8) Band Neutrophils % 26 % (0-6) Lymphocytes % 6 % (9-44) Toxic Granulation 2+ (NORMAL) Platelet Estimate LOW (NORMAL) Prothrombin Time 18.5 SEC (9.8-11.6) Blood Urea Nitrogen 38 MG/DL (7-18) Random Glucose 161 MG/DL (74-106) Total Protein 5.6 GM/DL (6.4-8.2) Alkaline Phosphatase 35 U/L (45-117) Aspartate Amino Transf (AST/SGOT) 51 U/L (15-37) Total Bilirubin 17.6 MG/DL (0.2-1.0) Sodium Level 146 MEQ/L (136-145) Chloride Level 112 MEQ/L (98-107) Estimat Glomerular Filtration Rate 56 ML/MIN (>89) Test 08/28/17 18:27 08/29/17 00:34 08/29/17 04:03 08/29/17 10:18 Hemoglobin 8.8 GM/DL (13.0-17.0) 6.2 GM/DL (13.0-17.0) Hematocrit 24.6 % (39.0-51.0) 17.9 % (39.0-51.0) Prothrombin Time GREATER THAN 180.0 SEC 17.4 SEC (9.8-11.6) Prothromb Time International Ratio GREATER THAN 14.5 RATIO Activated Partial Thromboplast Time GREATER THAN 277.5 SEC 45.0 SEC (24.3-30.1) Fibrinogen LESS THAN 50 mg/dL 104 mg/dL (227-377) Blood Urea Nitrogen 34 MG/DL (7-18) Random Glucose 179 MG/DL (74-106) Total Protein 5.5 GM/DL (6.4-8.2) Phosphorus Level 1.8 MG/DL (2.5-4.9) Alkaline Phosphatase 35 U/L (45-117) Aspartate Amino Transf (AST/SGOT) 183 U/L (15-37) Alanine Aminotransferase (ALT/SGPT) 88 U/L (12-78) Total Bilirubin 19.1 MG/DL (0.2-1.0) Chloride Level 112 MEQ/L (98-107) Estimat Glomerular Filtration Rate 58 ML/MIN (>89) Thyroid Stimulating Hormone 3rd Gen 0.273 uIU/ML (0.358-3.740) Test 08/29/17 10:25 08/29/17 12:10 08/29/17 14:18 08/29/17 14:36 Red Blood Count 3.11 MIL/MM3 (4.50-5.90) 2.18 MIL/MM3 (4.50-5.90) Hemoglobin 9.6 GM/DL (13.0-17.0) 6.9 GM/DL (13.0-17.0) 6.5 GM/DL (13.0-17.0) Hematocrit 27.6 % (39.0-51.0) 20.2 % (39.0-51.0) 18.9 % (39.0-51.0) Platelet Count 37 TH/MM3 (150-450) 60 TH/MM3 (150-450) Neutrophils (%) (Auto) 79.2 % (16.0-70.0) Lymphocytes (%) (Auto) 6.7 % (9.0-44.0) Monocytes (%) (Auto) 11.7 % (0.0-8.0) Lymphocytes # (Auto) 0.3 TH/MM3 (1.0-4.8) Band Neutrophils % 24 % (0-6) Toxic Granulation 2+ (NORMAL) Platelet Estimate LOW (NORMAL) Prothrombin Time 13.6 SEC (9.8-11.6) Activated Partial Thromboplast Time 53.3 SEC (24.3-30.1) Fibrinogen 173 mg/dL (227-377) Blood Urea Nitrogen 35 MG/DL (7-18) Random Glucose 182 MG/DL (74-106) Calcium Level 7.7 MG/DL (8.5-10.1) Sodium Level 148 MEQ/L (136-145) Chloride Level 115 MEQ/L (98-107) Estimat Glomerular Filtration Rate 59 ML/MIN (>89) Test 08/29/17 15:35 08/29/17 16:41 08/29/17 21:07 08/29/17 22:04 Peritoneal Fluid WBC 89 /MM3 (0-10) Peritoneal Fluid RBC 7495 /MM3 (0-0) Red Blood Count 2.59 MIL/MM3 (4.50-5.90) Hemoglobin 7.9 GM/DL (13.0-17.0) 8.0 GM/DL (13.0-17.0) Hematocrit 23.0 % (39.0-51.0) 23.2 % (39.0-51.0) Platelet Count 51 TH/MM3 (150-450) Prothrombin Time 15.1 SEC (9.8-11.6) 16.7 SEC (9.8-11.6) Activated Partial Thromboplast Time 43.6 SEC (24.3-30.1) 38.5 SEC (24.3-30.1) Fibrinogen 148 mg/dL (227-377) Blood Urea Nitrogen 33 MG/DL (7-18) Random Glucose 196 MG/DL (74-106) Calcium Level 7.6 MG/DL (8.5-10.1) Sodium Level 146 MEQ/L (136-145) Chloride Level 112 MEQ/L (98-107) Carbon Dioxide Level 19.3 MEQ/L (21.0-32.0) Estimat Glomerular Filtration Rate 59 ML/MIN (>89) Blood Gas HCO3 17 mmol/L (22-26) Blood Gas Base Excess -9.3 mmol/L (-2-2) Blood Gas Oxygen Saturation 73 % (90-100) Arterial Blood pH 7.22 (7.380-7.420) Arterial Blood Partial Pressure CO2 43 mmHg (38-42) Arterial Blood Partial Pressure O2 45 mmHg (61-120) Arterial Blood Oxygen Content 8.0 Vol % (12.0-20.0) Blood Gas Hemoglobin 7.7 G/DL (12.0-16.0) Test 08/30/17 02:15 Hemoglobin 3.4 GM/DL (13.0-17.0) Hematocrit 10.3 % (39.0-51.0) Prothrombin Time 24.5 SEC (9.8-11.6) Activated Partial Thromboplast Time 253.0 SEC (24.3-30.1) Fibrinogen 91 mg/dL (227-377) Imaging Last Impressions GI Bleed Scan Nuclear Medicine 08/23/17 0000 Signed Impressions: Service Date/Time: Wednesday, August 23, 2017 18:09 - CONCLUSION: Negative scan. Roel Grey MD Abdomen/Pelvis CT 08/23/17 0000 Signed Impressions: Service Date/Time: Wednesday, August 23, 2017 20:45 - CONCLUSION: 1. Cirrhotic small liver with diffuse heterogeneity. 2. Moderate to large amount of ascitic fluid. 3. Mild splenomegaly. 4. Nonspecific nonobstructive bowel gas pattern which represent a mild ileus. 5. Bilateral pleural effusions with consolidation in both posterior lung bases. Roel Grey MD Chest X-Ray 08/21/17 0426 Signed Impressions: Service Date/Time: Monday, August 21, 2017 04:07 - CONCLUSION: No acute disease. Antony Frederick MD Renal Ultrasound 08/21/17 0000 Signed Impressions: Service Date/Time: Monday, August 21, 2017 17:21 - CONCLUSION: Normal sized kidneys for hydronephrosis. Extensive ascites. Florin Alcala MD [facility] Hospital Course NEURO: Hepatic encephalopathy - F/u ammonia, continue lactulose 30 cc twice a day and rifaximin 540 mg twice a day due to active GIB - On temazepam 15 mg at night when necessary insomnia RESP: Acute respiratory failure-resolved - Extubated 08/25 (Intubation was for procedure) - Nasal cannula to maintain saturations greater than equal to 92% - Incentive spirometry while awake -Albuterol nebulizers every 2 hours. Dyspnea GI/HEME Recurrent Variceal bleed grade 2 esophageal Hypotension/hemorrhagic shock Anemia requiring transfusion HCC Thrombocytopenia Coagulopathy Tense ascites - Status post EGD and banding of esophageal varices 08/21/17. Also has gastritis - Now with re bleed 08/28 overnight. Requiring 2 units PRBC. - Restart Sandostatin drip at 50 mg an hour, IV pantoprazole gtt at 8 mg an hour , ceftriaxone 1 g daily for SBP prophylaxis - NPO. GI Dr. Killian contacting [facility] for possible TIPS - Paracentesis 08/24 with 4.5L removed. Repeat paracentesis 08/27 6.3 L ENDO: Diabetes mellitus - Hold insulin glargine while nothing by mouth - Insulin sliding scale Novulin R every 6 before meals/at bedtime moderate regimen ID: Hepatitis C - Status post unsuccessful treatment - Awaiting liver transplant, followed by [facility] - Ceftriaxone for SBP prophylaxis : Hyperkalemia-resolved Acute kidney injury/probable hepatorenal syndrome - Nephrology following - Creatinine improving, urine output adequate - Worsening transaminitis due to hypotension, now stable DVT GI prophylaxis - Teds SCDs. No pharmacological DVT prophylaxis due to active bleed - Protonix gtt Level III follow-up Noted gross GI bleeding at approximately noon. Transfused 8 PRBC, 4 FFP, 2 cryo -and 2 platelets. Received K Centra 1500 units 1. Paracentesis 2 L 1 as well. Unable to transfer safely to [place] due to active bleeding. I unable to embolize visual vessels. Dr. Flores EGD with likely gastric varices worse. Again, spoke with IR. Not a candidate for TIPS. Recommend a balloon occluded retrograde transhepatic obliteration. [facility] is available at [facility]. Social work contacted to transfer patient tonight. Serial hemoglobins and coags and transfuse as able in the interim. Spoke with Dr. Thorne neurology. Do not believe esophageal Jaky balloon indicated as source is likely gastric. Patient remained too unstable to transfer. Patient was massively transfused overnight without success. Patient was changed to DNR and at 0559 on 08/30. Fidel Sotomayor MD Aug 30, 2017 15:12
--- NOTE | 2017-08-30 20:19 | RADRPT ---
EXAM DATE/TIME: 08/29/2017 18:16 [place] COMPARISON: No previous studies available for comparison. INDICATIONS : Patient presents with lower GI Bleed in need of abdominal angiogram. MEDICAL HISTORY : End-stage liver disease, Hepatitis C, Cirrhosis, Ascites, Diabetes, Liver cancer, Hepatic encephalopa thy, Esophageal varices SURGICAL HISTORY : Paracentesis, EGD with band ligation, TACE, Colonoscopy ENCOUNTER: Initial ACUITY: 1 week PAIN SCORE: 7/10 LOCATION: Mid-abdomen FLUORO TIME: 4.1 minutes IMAGE SERIES: 7 ACCESS SITE: Right Femoral artery SEDATION TIME: 30 minutes CONTRAST: 1.) 35 cc Visipaque (iodixanol) MEDICATION(S): 1.) 0.5 mg midazolam (Versed) IV 2.) 50 mcg fentanyl (Sublimaze) IV DEVICE(S): 1.) Right common femoral artery 6F Perclose PROCEDURE : 1. Ultrasound-guided puncture of the access site. 2. Angiography of the access site prior to closure device. 3. Conscious sedation with continuous EKG and Oximetry monitoring. 4. Percutaneous closure of the access site. 5. Angiography of the rectal branches of the JUAREZ The risks, benefits and alternatives to the procedure were explained and verbal and written consent w as obtained. The site was prepped in sterile fashion. Full sterile technique was used, including ca p, mask, sterile gloves and gown and a large sterile sheet. Hand hygiene and 2% chlorhexidine and/or betadine/alcohol prep was utilized per protocol for cutaneous antisepsis. Sterile gel and sterile p robe cover were utilized for ultrasound guidance. The skin and subcutaneous tissues were infiltrated with local anesthetic solution. With ultrasound and fluoroscopic guidance the selected artery was punctured and a vascular sheath was placed. Angiography of the common femoral artery was performed for evaluation prior to percutaneous closure device placement. A hook catheter was used to select the origin of the JUAREZ. Position was confirmed the positive contras t. There is normal arborization of the JUAREZ with some hyperemia in the region of the sigmoid but no fi ndings of active hemorrhage. The clinical service reported probable bleed in the region of the rectum . Therefore, the rectal branches were subselected. Contrast injection into the rectal branches again, showed some hyperemia the rectosigmoid junction with no active hemorrhage. Hemostasis was obtained with the prescribed medicated closure device. Conscious sedation was perform ed with the prescribed dosages and duration as above in the presence of an independent trained radiol ogy nurse to assist in the monitoring of the patient. EKG and oximetry remained stable throughout th e procedure. CONCLUSION: No active hemorrhage identified. Mild hyperemia in the sigmoid and rectosigmoid junction. Bernardo Demarco MD on August 30, 2017 at 20:04 Board Certified Radiologist. This report was verified electronically.
[2017-08-31] MEDS ORDERED: PHARMACY ORDERED LAB ONE (15:45)
[2017-08-31 17:09] LABS: LIPASE BODY FLUID 54 U/L; LIPASE SOURCE PERITONEAL
== END 2017-08-30 05:59 | disposition expired | DRG 368 ==
LOC: NEPE 21:41 → NEDA 08-21 00:36 → HIME 08-21 03:50
PROVIDERS: ADMIT Internal Medicine Critical Care Medicine; ATTEND Internal Medicine Critical Care Medicine
PROC: 0DC68ZZ Extirpation of Matter from Stomach, Via Natural or Artificial Opening Endoscopic (ICD-10-PCS; 2017-08-21)
PROC: 30233K1 Transfusion of Nonautologous Frozen Plasma into Peripheral Vein, Percutaneous Approach (ICD-10-PCS; 2017-08-21)
PROC: 30233N1 Transfusion of Nonautologous Red Blood Cells into Peripheral Vein, Percutaneous Approach (ICD-10-PCS; 2017-08-21)
PROC: 30233R1 Transfusion of Nonautologous Platelets into Peripheral Vein, Percutaneous Approach (ICD-10-PCS; 2017-08-21)
PROC: 06L38CZ Occlusion of Esophageal Vein with Extraluminal Device, Via Natural or Artificial Opening Endoscopic (ICD-10-PCS; principal; 2017-08-21 14:38)
PROC: 0D578ZZ Destruction of Stomach, Pylorus, Via Natural or Artificial Opening Endoscopic (ICD-10-PCS; 2017-08-23)
PROC: 30233L1 Transfusion of Nonautologous Fresh Plasma into Peripheral Vein, Percutaneous Approach (ICD-10-PCS; 2017-08-23)
PROC: 30233N1 Transfusion of Nonautologous Red Blood Cells into Peripheral Vein, Percutaneous Approach (ICD-10-PCS; 2017-08-23)
PROC: 30233R1 Transfusion of Nonautologous Platelets into Peripheral Vein, Percutaneous Approach (ICD-10-PCS; 2017-08-23)
PROC: 0W9G3ZZ Drainage of Peritoneal Cavity, Percutaneous Approach (ICD-10-PCS; 2017-08-24)
PROC: 0W9G3ZZ Drainage of Peritoneal Cavity, Percutaneous Approach (ICD-10-PCS; 2017-08-27)
PROC: 05HM33Z Insertion of Infusion Device into Right Internal Jugular Vein, Percutaneous Approach (ICD-10-PCS; 2017-08-29)
PROC: 0W9G3ZZ Drainage of Peritoneal Cavity, Percutaneous Approach (ICD-10-PCS; 2017-08-29)
PROC: 0DJ08ZZ Inspection of Upper Intestinal Tract, Via Natural or Artificial Opening Endoscopic (ICD-10-PCS; 2017-08-29)
DX: I85.01 Esophageal varices with bleeding (principal); J96.00 Acute respiratory failure, unspecified whether with hypoxia or hypercapnia; K76.7 Hepatorenal syndrome; R57.8 Other shock; N17.9 Acute kidney failure, unspecified; K76.6 Portal hypertension; E87.1 Hypo-osmolality and hyponatremia; D62 Acute posthemorrhagic anemia; D68.4 Acquired coagulation factor deficiency; K56.7 Ileus, unspecified; K70.31 Alcoholic cirrhosis of liver with ascites; K92.0 Hematemesis; K92.1 Melena; Z76.82 Awaiting organ transplant status; D69.6 Thrombocytopenia, unspecified; E87.5 Hyperkalemia; R07.89 Other chest pain; E11.9 Type 2 diabetes mellitus without complications; M19.90 Unspecified osteoarthritis, unspecified site; F32.9 Major depressive disorder, single episode, unspecified; K72.90 Hepatic failure, unspecified without coma; G47.00 Insomnia, unspecified; K31.89 Other diseases of stomach and duodenum; B18.2 Chronic viral hepatitis C; F41.9 Anxiety disorder, unspecified; Z66 Do not resuscitate; K29.70 Gastritis, unspecified, without bleeding; E86.9 Volume depletion, unspecified; F10.21 Alcohol dependence, in remission; I49.9 Cardiac arrhythmia, unspecified; I86.4 Gastric varices; K44.9 Diaphragmatic hernia without obstruction or gangrene; K57.30 Diverticulosis of large intestine without perforation or abscess without bleeding; K64.4 Residual hemorrhoidal skin tags; K64.8 Other hemorrhoids; K31.819 Angiodysplasia of stomach and duodenum without bleeding; Z92.21 Personal history of antineoplastic chemotherapy; Z85.05 Personal history of malignant neoplasm of liver; Z79.4 Long term (current) use of insulin
CPT/HCPCS: 31500; 36246; 36430; 36556; 36600; 49082; 71010; 74176; 74178; 75726; 75774; 76775; 76937; 78278; 80048; 80053; 80069; 81001; 82042; 82140; 82150; 82550; 82805; 82945; 82948; 83036; 83615; 83690; 83735; 83880; 83986; 84100; 84155; 84157; 84315; 84439; 84443; 84484; 85007; 85014; 85018; 85025; 85027; 85384; 85610; 85730; 86850; 86900; 86901; 86920; 86927; 86965; 87040; 87070; 87086; 87205; 87641; 89051; 93005; 94002; 94003; 94150; 94640; 94664; 96365; 96368; 96374; 96375; 99152; 99153; A9560; C1760; C1769; C1887; C1894; C9113; C9132; G0269; J0171; J0610; J0696; J1815; J1940; J2250; J2310; J2354; J2370; J2405; J2543; J3010; J3370; J3430; J3475; J7030; J7040; J7050; J7060; J7613; P9016; P9017; P9035; P9045; P9047; Q9963; Q9967